=== PATIENT | female | born 1950 | race Caucasian/White ===

== ENCOUNTER 2017-07-03 10:33 | Emergency (ER) | payer MEDICARE, OTHER, MEDICAID ==
[2017-07-03] MEDS ORDERED: Sodium Chloride 0.9% 10 ML Syringe FLUSH PRN (11:40)
--- NOTE | 2017-07-03 11:41 | EDM.PDOC ---
ED HPI GENERAL MEDICAL PROBLEM - General Chief Complaint: Abdominal Pain Stated Complaint: Right side pain Time Seen by Provider: 07/03/17 11:30 Source of Information: Reports: Patient, RN Notes Reviewed History Limitations: Reports: No Limitations - History of Present Illness INITIAL COMMENTS - FREE TEXT/NARRATIVE: 66 year old female presents to the ED today with complaints of "right side ache " for the past 24 hours. She has had side aches for years. She came in today because the pain is severe and not getting better. The pain is on her right side. It radiates into her back and right flank. She has a poor appetite and nausea, but no vomiting. Last BM yesterday. No diarrhea. No fever or chills. No chest pain or SOB. She reports a history of a "benign tumor" to her abdomen that was removed in the . She states I'm not sure if they removed my appendix then or not." She still had her gallbladder. Patient is a poor historian. She was diagnosed with a UTI 1 week ago and was treated with Bactrim DS. She says her urinary symptoms have been improving. PMH includes DM, CHF, and CKD. Shes sees IM Dr. Head at [facility]. She also sees providers at in [place] and [place]. She recently lost her and doesn't drive so she depends on family members. right groin/lower abdomen Pain Score (Numeric/FACES): 5 - Related Data Allergies Allergy/AdvReac Type Severity Reaction Status Date / Time lisinopril Allergy Cough Verified 07/03/17 10:53 Home Meds: Home Meds Aspirin 81 mg PO DAILY 05/16/16 [History] Carvedilol [Coreg] 6.25 mg PO BID 05/16/16 [History] FLUoxetine [PROzac] 80 mg PO DAILY 05/16/16 [History] Insulin Aspart [NovoLOG] 0 unit SUBCUT TID 05/16/16 [History] Insulin Glargine,Hum.Rec.Anlog [Toujeo Solostar] 50 unit SQ BID 05/16/16 [ History] Losartan [Cozaar] 100 mg PO DAILY 05/16/16 [History] amLODIPine [Norvasc] 10 mg PO DAILY 05/16/16 [History] Furosemide [Lasix] 40 mg PO DAILY #30 tablet 05/20/16 [Rx] Magnesium Oxide 400 mg PO DAILY #30 tablet 05/20/16 [Rx] Docusate Sodium [Stool Softener] 100 mg PO DAILY 07/03/17 [History] Rosuvastatin [Crestor] 10 mg PO DAILY 07/03/17 [History] Sulfamethoxazole/Trimethoprim [Sulfamethoxazole-Tmp Ds Tablet] 1 each PO BID [History] Past Medical History HEENT History: Reports: Cataract, Impaired Vision Cardiovascular History: Reports: Angina, Heart Failure, High Cholesterol, Hypertension, [place], Pacemaker, SOB on Exertion, Stents Respiratory History: Reports: Sleep Apnea, SOB Gastrointestinal History: Reports: GERD, Other (See Below) Other Gastrointestinal History: abdominal pain, supposed to see primary on Friday Genitourinary History: Reports: 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: Musculoskeletal History: Reports: Arthritis Psychiatric History: Reports: Anxiety Endocrine/Metabolic History: Reports: Diabetes, Type II, Obesity/BMI 30+ Oncologic (Cancer) History: Reports: Other (See Below) Other Oncologic History: removed in - Past Surgical History HEENT Surgical History: Reports: Cataract Surgery, Other (See Below) Cardiovascular Surgical History: Reports: Coronary Artery Stent, Pacer GI Surgical History: Reports: Appendectomy, Other (See Below) Social & Family History - Family History Family Medical History: Noncontributory OBGYN: Reports: Musculoskeletal: Reports: Arthritis Psychiatric: Reports: Anxiety, Depression Endocrine/Metabolic: Reports: Diabetes, type II, Hypothyroidism - Tobacco Use Smoking Status *Q: Never Smoker Second Hand Smoke Exposure: No - Caffeine Use Caffeine Use: Reports: None - Recreational Drug Use Recreational Drug Use: No - Living Situation & Occupation Living situation: Reports: Occupation: Retired ED ROS GENERAL - Review of Systems Review Of Systems: See Below Constitutional: Reports: Malaise. Denies: Fever, Chills Respiratory: Reports: No Symptoms. Denies: Cough Cardiovascular: Reports: No Symptoms. Denies: Chest Pain, Lightheadedness GI/Abdominal: Reports: Abdominal Pain, Constipation, Decreased Appetite, Nausea. Denies: Bloody Stool, Diarrhea, Vomiting : Reports: No Symptoms ED EXAM, GI/ABD - Physical Exam Exam: See Below Exam Limited By: No Limitations General Appearance: Alert, No Apparent Distress, Obese Respiratory/Chest: No Respiratory Distress, Lungs Clear, Normal Breath Sounds, No Accessory Muscle Use Cardiovascular: Normal Peripheral Pulses, Regular Rate, Rhythm GI/Abdominal Exam: Normal Bowel Sounds, No Organomegaly, No Distention, Tender ( RLQ, Epigastric, and RUQ tenderness with negative ruiz's. Grimaces with palaption. ). No: Distended, Rigid, Rebound, Hernia Back Exam: Normal Inspection, Full Range of Motion. No: CVA Tenderness (L), CVA Tenderness (R) Neurological: Alert, Oriented, Normal Cognition Skin Exam: Warm, Dry, Intact Course - Vital Signs Last Recorded V/S: Last Vital Signs Temp 96.6 F 07/03/17 10:40 Pulse 75 07/03/17 10:40 Resp 22 H 07/03/17 10:40 BP 152/87 H 07/03/17 10:40 Pulse Ox 97 07/03/17 10:40 - Orders/Labs/Meds Orders: Active Orders 24 hr Category Date Time Status Peripheral IV Care [RC] . DIRECTED Care 07/03/17 11:40 Active Sodium Chloride 0.9% [Saline Flush] Med 07/03/17 11:40 Active 10 ml FLUSH ASDIRECTED PRN Peripheral IV Insertion Adult [OM.PC] Stat Oth 07/03/17 11:40 Ordered Medication Orders Sodium Chloride (Saline Flush) 10 ml FLUSH ASDIRECTED PRN PRN Reason: Keep Vein Open Last Admin: 07/03/17 11:54 Dose: 10 ml Labs: Laboratory Tests 07/03/17 07/03/17 07/03/17 Range/Units 10:50 11:55 11:55 WBC 13.87 H (3.98-10.04) K/mm3 RBC 4.52 (3.98-5.22) M/mm3 Hgb 12.4 (11.2-15.7) gm/L Hct 37.8 (34.1-44.9) % MCV 83.6 (79.4-94.8) fl MCH 27.4 (25.6-32.2) pg MCHC 32.8 (32.2-35.5) g/dl RDW Std Deviation 46.5 H (36.4-46.3) fL Plt Count 312 (182-369) K/mm3 MPV 9.4 (9.4-12.3) fl Neutrophils % (Manual) 77 H (40-60) % Band Neutrophils % 0 (0-10) % Lymphocytes % (Manual) 17 L (20-40) % Atypical Lymphs % 0 % Monocytes % (Manual) 3 (2-10) % Eosinophils % (Manual) 3 (0.7-5.8) % Basophils % (Manual) 0 L (0.1-1.2) Platelet Estimate Adequate RBC Morph Comment Normal Sodium 135 L (136-145) mEq/L Potassium 4.0 (3.5-5.1) mEq/L Chloride 100 (98-107) mEq/L Carbon Dioxide 23 (21-32) mEq/L Anion Gap 16.0 H (5-15) BUN 38 H (7-18) mg/dL Creatinine 2.3 H (0.55-1.02) mg/dL Est Cr Clr Drug Dosing 22.76 mL/min Estimated GFR (MDRD) 21 (>60) mL/min BUN/Creatinine Ratio 16.5 (14-18) Glucose 249 H (80-115) mg/dL Calcium 9.2 (8.5-10.1) mg/dL Total Bilirubin 0.6 (0.2-1.0) mg/dL GGT (5-55) U/L AST 35 (15-37) U/L ALT 92 H (14-59) U/L Alkaline Phosphatase 313 H (46-116) U/L C-Reactive Protein 5.6 H* (<1.0) mg/dL Total Protein 8.0 (6.4-8.2) g/dl Albumin 3.1 L (3.4-5.0) g/dl Globulin 4.9 gm/dL Albumin/Globulin Ratio 0.6 L (1-2) Lipase 109 (73-393) U/L Urine Color Yellow (Yellow) Urine Appearance Clear (Clear) Urine pH 6.0 (5.0-8.0) Ur Specific [place] 1.025 (1.005-1.030) Urine Protein 2+ H (Negative) Urine Glucose (UA) Negative (Negative) Urine Ketones Negative (Negative) Urine Occult Blood Trace-lysed H (Negative) Urine Nitrite Negative (Negative) Urine Bilirubin Negative (Negative) Urine Urobilinogen 1.0 (0.2-1.0) Ur Leukocyte Esterase 1+ H (Negative) Urine RBC 0-5 (0-5) /hpf Urine WBC 10-20 H (0-5) /hpf Ur Epithelial Cells 0-5 (0-5) /hpf Urine Bacteria Few (FEW) /hpf Urine Mucus Few (FEW) /hpf 07/03/ Range/Units 11:55 WBC (3.98-10.04) K/mm3 RBC (3.98-5.22) M/mm3 Hgb (11.2-15.7) gm/L Hct (34.1-44.9) % MCV (79.4-94.8) fl MCH (25.6-32.2) pg MCHC (32.2-35.5) g/dl RDW Std Deviation (36.4-46.3) fL Plt Count (182-369) K/mm3 MPV (9.4-12.3) fl Neutrophils % (Manual) (40-60) % Band Neutrophils % (0-10) % Lymphocytes % (Manual) (20-40) % Atypical Lymphs % % Monocytes % (Manual) (2-10) % Eosinophils % (Manual) (0.7-5.8) % Basophils % (Manual) (0.1-1.2) Platelet Estimate RBC Morph Comment Sodium (136-145) mEq/L Potassium (3.5-5.1) mEq/L Chloride (98-107) mEq/L Carbon Dioxide (21-32) mEq/L Anion Gap (5-15) BUN (7-18) mg/dL Creatinine (0.55-1.02) mg/dL Est Cr Clr Drug Dosing mL/min Estimated GFR (MDRD) (>60) mL/min BUN/Creatinine Ratio (14-18) Glucose (80-115) mg/dL Calcium (8.5-10.1) mg/dL Total Bilirubin (0.2-1.0) mg/dL GGT 310 H (5-55) U/L AST (15-37) U/L ALT (14-59) U/L Alkaline Phosphatase (46-116) U/L C-Reactive Protein (<1.0) mg/dL Total Protein (6.4-8.2) g/dl Albumin (3.4-5.0) g/dl Globulin gm/dL Albumin/Globulin Ratio (1-2) Lipase (73-393) U/L Urine Color (Yellow) Urine Appearance (Clear) Urine pH (5.0-8.0) Ur Specific [place] (1.005-1.030) Urine Protein (Negative) Urine Glucose (UA) (Negative) Urine Ketones (Negative) Urine Occult Blood (Negative) Urine Nitrite (Negative) Urine Bilirubin (Negative) Urine Urobilinogen (0.2-1.0) Ur Leukocyte Esterase (Negative) Urine RBC (0-5) /hpf Urine WBC (0-5) /hpf Ur Epithelial Cells (0-5) /hpf Urine Bacteria (FEW) /hpf Urine Mucus (FEW) /hpf Meds: Medications Generic Name Dose Route Start Last Admin Trade Name Freq PRN Reason Stop Dose Admin Sodium Chloride 10 ml 07/03/17 11:40 07/03/17 11:54 Saline Flush FLUSH 10 ml ASDIRECTED PRN Administration Keep Vein Open Discontinued Medications Generic Name Dose Route Start Last Admin Trade Name Freq PRN Reason Stop Dose Admin Diatrizoate Meglum/Diatrizoate Sod 90 ml 07/03/17 12:40 07/03/17 13:13 Gastrografin 37% PO 07/03/17 12:41 90 ml ONETIME ONE Administration Fentanyl 50 mcg 07/03/17 12:59 07/03/17 13:39 Sublimaze IVPUSH 07/03/17 13:00 50 mcg ONETIME ONE Administration - Re-Assessments/Exams Free Text/Narrative Re-Assessment/Exam: Obtained records from [facility]. UA was positive. UC reveals sensitivity to bactrim DS. CT of abdomen/pelvis with oral contrast obtained. Read by Dr. Joya. Impression : 1. increased density within the gallbladder compatible with gallstones. 2. other incidental findings Last CMP on 02/13/17 obtained from [facility] at which time her liver function and bilirubin levels were normal. Today her ALT and alk phos are elevated but bilirubin is normal. GGT was obtained which is also elevated raising concern for obstructive gallstone with possibility of early ascending cholangitis. Planned to obtain an MRI ERCP, however we are unable since the patient has a pacemaker. Kidney function on 02/13/17 was creatinine 1.9 and BUN 60. Today her renal function is creatinine 2.3 and BUN 38. WBC is elevated at 13,000 with no bandemia. Patient is non-toxic appearing with no fever, tachycardia or hypotension. Called [facility] and spoke to General Surgeon Dr. Sue who has accepted care of the patient. She will be transferred via [facility]. Departure - Departure Time of Disposition: 15:01 Disposition: DC/Tfer to Acute Hospital 02 Condition: Fair Clinical Impression: Elevated liver enzymes, Elevated serum GGT level Abdominal pain Qualifiers: Abdominal location: unspecified location Qualified Code(s): R10.9 - Unspecified abdominal pain - Discharge Information Referrals: PCP,Not In Area [Primary Care Provider] - Forms: ED Department Discharge - My Orders Last 24 Hours: My Active Orders 07/03/17 11:40 Peripheral IV Care [RC] . DIRECTED Sodium Chloride 0.9% [Saline Flush] 10 ml FLUSH ASDIRECTED PRN Peripheral IV Insertion Adult [OM.PC] Stat - Assessment/Plan Last 24 Hours: My Active Orders 07/03/17 11:40 Peripheral IV Care [RC] . DIRECTED Sodium Chloride 0.9% [Saline Flush] 10 ml FLUSH ASDIRECTED PRN Peripheral IV Insertion Adult [OM.PC] Stat
[2017-07-03] MEDS ORDERED: Diatrizoate Meglumine/Diatrizoate Sodium 37% 120 ML Bottle PO ONE (12:40)
[2017-07-03] MEDS ORDERED: fentaNYL 100 MCG/2 ML SDV IVPUSH ONE ×2 (12:59→14:56)
--- NOTE | 2017-07-03 13:39 | CT ---
CT abdomen and pelvis Technique: Multiple axial sections were obtained from above the dome of the diaphragm inferiorly through the pubic symphysis. Intravenous and oral contrast was utilized. Comparison: No prior abdominal imaging. Findings: Small portion of the visualized lung bases shows nothing acute. Small amount of extrapleural fat is noted on the left side which is incidental. Liver shows no focal abnormality. There is mild increased density within the gallbladder believed to represent gallstones. Small hiatal hernia is seen. Spleen appears within normal limits. Adrenal glands show no nodule. Kidneys show no hydronephrosis. Low-density area is noted within the upper right kidney measuring about 1.4 cm which is felt compatible with an incidental cyst. Pancreas appears within normal limits. Aorta and iliac vessels shows atherosclerotic change without aneurysmal dilatation. No retroperitoneal adenopathy or mesenteric abnormalities are seen. No pelvic mass or adenopathy is identified. Appendix not visualized with certainty. No inflammatory change or free fluid is seen. Scattered diverticuli are seen within the descending and sigmoid regions of the colon with no findings of diverticulitis. Bone window settings were reviewed showing scattered degenerative change throughout the spine. Mild anterior wedging of the superior endplate of L2 is seen which is likely old. Impression: 1. Increased density within the gallbladder compatible with gallstones. 2. Other incidental findings as noted above. Nothing acute is appreciated on CT study of the abdomen and pelvis. Diagnostic code #2
[2017-07-03] MEDS ORDERED: Sodium Chloride 0.9% 1,000 ML IV ONE (14:44)
[2017-07-03 14:51] VITALS: BP 138/66
== END 2017-07-03 15:15 ==
LOC: JD.ED 10:33
DX: R10.31 Right lower quadrant pain (principal); R74.8 Abnormal levels of other serum enzymes; E78.00 Pure hypercholesterolemia, unspecified; K21.9 Gastro-esophageal reflux disease without esophagitis; I13.0 Hypertensive heart and chronic kidney disease with heart failure and stage 1 through stage 4 chronic kidney disease, or unspecified chronic kidney disease; E11.22 Type 2 diabetes mellitus with diabetic chronic kidney disease; N18.9 Chronic kidney disease, unspecified; Z79.4 Long term (current) use of insulin; Z79.899 Other long term (current) drug therapy; Z79.82 Long term (current) use of aspirin; Z88.8 Allergy status to other drugs, medicaments and biological substances
CPT/HCPCS: 36415; 74176; 80053; 81001; 82977; 83690; 85025; 86140; 96374; 96376; 99285; J3010; J7040; J7050; Q9963; 99284

== ENCOUNTER 2017-09-22 08:05 | Emergency (ER) | payer MEDICARE, OTHER, MEDICAID ==
[2017-09-22] MEDS ORDERED: Furosemide 40 MG Tab PO ONE (08:30)
[2017-09-22] MEDS ORDERED: amLODIPine 5 MG Tab PO ONE (08:30)
[2017-09-22] MEDS ORDERED: Carvedilol 12.5 MG Tab PO ONE (08:31)
[2017-09-22 08:38] VITALS: BP 162/83
--- NOTE | 2017-09-22 09:15 | EDM.PDOC ---
ED HPI GENERAL MEDICAL PROBLEM - General Chief Complaint: ENT Problem Stated Complaint: [facility] Time Seen by Provider: 09/22/17 08:19 Source of Information: Reports: Patient, RN Notes Reviewed - History of Present Illness INITIAL COMMENTS - FREE TEXT/NARRATIVE: 58-year-old female comes in with nosebleed. She had bleeding from the left side 2 days ago, yesterday and then twice this morning. Bleeding actually stopped on arrival to ED but she states the bleeding was quite heavy this morning, unable to get that stopped at home. She actually did come in by [facility]. She does take aspirin. She also does take several meds for hypertension. She has not taken any of her meds yet this morning. - Related Data Allergies Allergy/AdvReac Type Severity Reaction Status Date / Time lisinopril Allergy Cough Verified 09/22/17 08:20 Home Meds: Home Meds Aspirin 81 mg PO DAILY 05/16/16 [History] Carvedilol [Coreg] 12.5 mg PO BID 05/16/16 [History] FLUoxetine [PROzac] 80 mg PO DAILY 05/16/16 [History] Insulin Aspart [NovoLOG] 0 unit SUBCUT TID 05/16/16 [History] Insulin Glargine,Hum.Rec.Anlog [Toujeo Solostar] 50 unit SQ BID 05/16/16 [ History] amLODIPine [Norvasc] 10 mg PO DAILY 05/16/16 [History] Furosemide [Lasix] 40 mg PO DAILY #30 tablet 05/20/16 [Rx] Magnesium Oxide 400 mg PO DAILY #30 tablet 05/20/16 [Rx] Docusate Sodium [Stool Softener] 100 mg PO DAILY 07/03/17 [History] Rosuvastatin [Crestor] 10 mg PO DAILY 07/03/17 [History] Nitroglycerin [Nitrostat] 0.4 mg SL ASDIRECTED 09/22/17 [History] Past Medical History HEENT History: Reports: Cataract, Epistaxis, Impaired Vision Cardiovascular History: Reports: Angina, Heart Failure, High Cholesterol, Hypertension, [place], Pacemaker, SOB on Exertion, Stents Respiratory History: Reports: Sleep Apnea, SOB Gastrointestinal History: Reports: GERD, Other (See Below) Other Gastrointestinal History: abdominal pain, supposed to see primary on Friday Genitourinary History: Reports: Acute Renal Failure [employer]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: Musculoskeletal History: Reports: Arthritis Psychiatric History: Reports: Anxiety Endocrine/Metabolic History: Reports: Diabetes, Type II, Obesity/BMI 30+ Oncologic (Cancer) History: Reports: Other (See Below) Other Oncologic History: removed in - Past Surgical History HEENT Surgical History: Reports: Cataract Surgery, Other (See Below) Cardiovascular Surgical History: Reports: Coronary Artery Stent, Pacer GI Surgical History: Reports: Appendectomy, Other (See Below) Social & Family History - Family History Family Medical History: Noncontributory OBGYN: Reports: Musculoskeletal: Reports: Arthritis Psychiatric: Reports: Anxiety, Depression Endocrine/Metabolic: Reports: Diabetes, type II, Hypothyroidism - Tobacco Use Smoking Status *Q: Never Smoker Second Hand Smoke Exposure: No - Caffeine Use Caffeine Use: Reports: None - Recreational Drug Use Recreational Drug Use: No - Living Situation & Occupation Living situation: Reports: Occupation: Retired ED ROS ENT - Review of Systems Review Of Systems: See Below Constitutional: Reports: No Symptoms HEENT: Reports: Nosebleed Respiratory: Denies: Shortness of Breath, Pleuritic Chest Pain Cardiovascular: Denies: Chest Pain GI/Abdominal: Denies: Abdominal Pain, Nausea, Vomiting Musculoskeletal: Reports: No Symptoms Skin: Reports: No Symptoms Neurological: Reports: No Symptoms ED EXAM, ENT - Physical Exam Exam: See Below General Appearance: Alert, No Apparent Distress Eye Exam: Bilateral Eye: PERRL Nose: Dried Blood (Left nares) Mouth/Throat: Normal Inspection Head: Atraumatic Neck: Supple Respiratory/Chest: No Respiratory Distress, Lungs Clear, Normal Breath Sounds Cardiovascular: Regular Rate, Rhythm GI/Abdominal: Soft, Non-Tender Extremities: Normal Inspection, Normal Range of Motion Neurological: Alert, Oriented, No Motor/Sensory Deficits Skin: Warm, Dry, Normal Color ED ENT PROCEDURES - Epistaxis Procedure Indication: Epistaxis Recent anticoagulants/antiplatlets: Yes Uncontrolled HTN: No Site of bleeding: Left Nare, Anterior Topical Meds: Topical Cocaine Chemical cautery: Silver Nitrate Topical, Other (No further bleeding) Course - Vital Signs Last Recorded V/S: Last Vital Signs Temp 96.8 F 09/22/17 08:12 Pulse 65 09/22/17 08:12 Resp 18 09/22/17 08:12 BP 162/83 H 09/22/17 08:42 Pulse Ox 93 L 09/22/17 08:12 - Orders/Labs/Meds Labs: Laboratory Tests 09/22/17 Range/Units 10:33 POC Glucose 252 H (80-115) mg/dL Meds: Medications Discontinued Medications Generic Name Dose Route Start Last Admin Trade Name Pranay PRN Reason Stop Dose Admin Amlodipine Besylate 10 mg 09/22/17 08:30 09/22/17 08:37 Norvasc PO 09/22/17 08:31 10 mg ONETIME ONE Administration Carvedilol 12.5 mg 09/22/17 08:31 09/22/17 08:42 Coreg PO 09/22/17 08:32 12.5 mg ONETIME ONE Administration Cocaine HCl 4 ml 09/22/17 08:32 09/22/17 08:37 Cocaine Hcl TOP 09/22/17 08:33 4 ml ONETIME ONE Administration Furosemide 40 mg 09/22/17 08:30 09/22/17 08:37 Lasix PO 09/22/17 08:31 40 mg ONETIME ONE Administration Insulin Human Regular 6 unit 09/22/17 10:40 09/22/17 10:50 Humulin R SUBCUT 09/22/17 10:41 6 units ONETIME ONE Administration Protocol - Re-Assessments/Exams Free Text/Narrative Re-Assessment/Exam: 09/22/17 16:02. We did use cocaine solution for vasoconstriction and topical anesthesia. The area of bleeding mid left septum was cauterized with silver nitrate. Her normal blood pressure medicines also were given shortly after arrival. Discharge instructions as documented Departure - Departure Time of Disposition: 11:06 Disposition: Home, Self-Care 01 Condition: Fair Clinical Impression: Epistaxis - Discharge Information Instructions: Nosebleed, Adult, [id number] Referrals: Brendon Coon MD [Primary Care Provider] - Forms: ED Department Discharge Additional Instructions: Vaseline to distal nose 2-3 times daily for moisturization, avoid taking aspirin for the next 5 days, try not to blow nose for at least 3-4 days to give that some healing time, pressure if needed for any further bleeding, follow-up clinic as needed, return to ED as needed
[2017-09-22] MEDS ORDERED: Insulin Regular, Human 100 Units/ML 3 ML Vial SUBCUT ONE (10:40)
== END 2017-09-22 12:10 | disposition home or self-care (01) ==
LOC: JD.ED 08:05
DX: R04.0 Epistaxis (principal); I11.0 Hypertensive heart disease with heart failure; I50.9 Heart failure, unspecified; E78.00 Pure hypercholesterolemia, unspecified; K21.9 Gastro-esophageal reflux disease without esophagitis; E11.9 Type 2 diabetes mellitus without complications; Z95.5 Presence of coronary angioplasty implant and graft; Z95.0 Presence of cardiac pacemaker; Z79.4 Long term (current) use of insulin; Z79.82 Long term (current) use of aspirin; Z79.899 Other long term (current) drug therapy; Z88.8 Allergy status to other drugs, medicaments and biological substances
CPT/HCPCS: 30901; 82962; 99284; A9270; J1817; 99282

== ENCOUNTER 2017-12-16 00:45 | Inpatient (IN) | payer MEDICARE, OTHER, MEDICAID ==
[2017-12-16] MEDS ORDERED: Sodium Chloride 0.9% 10 ML Syringe FLUSH PRN (01:05)
[2017-12-16] MEDS ORDERED: Azithromycin 250 MG Tab PO ONE (01:19)
[2017-12-16] MEDS ORDERED: cefTRIAXone 2 GM in Sodium Chloride 0.9% 100 ML IV ONE (01:21)
--- NOTE | 2017-12-16 01:25 | EDM.PDOC ---
ED HPI GENERAL MEDICAL PROBLEM - General Chief Complaint: Respiratory Problem Stated Complaint: POSS PNEUMONIA Time Seen by Provider: 12/16/17 01:04 Source of Information: Reports: Patient History Limitations: Reports: No Limitations - History of Present Illness INITIAL COMMENTS - FREE TEXT/NARRATIVE: 67 y/o F with hx insulin-dependent diabetes, HTN, CAD, presents with cough and difficulty breathing. Symptoms started about 4 days ago. Gradual onset. Worsening. She has a productive cough. Feeling SOB now. No chest pain. No known fever. She's also had a hoarse voice. Complains of bilat green eye discharge. Mild nasal congestion. No vomiting/diarrhea/abd pain. No lower extremity swelling or pain. Was feeling more SOB this evening so had a neighbor bring her here for evaluation. She is not on home O2. Denies underlying history of pulmonary disease. - Related Data Allergies Allergy/AdvReac Type Severity Reaction Status Date / Time lisinopril AdvReac Cough Verified 12/16/17 01:00 Home Meds: Home Meds Aspirin 81 mg PO DAILY 05/16/16 [History] Carvedilol [Coreg] 12.5 mg PO BID 05/16/16 [History] FLUoxetine [PROzac] 40 mg PO DAILY 05/16/16 [History] Insulin Aspart [NovoLOG] 0 unit SUBCUT TID 05/16/16 [History] Insulin Glargine,Hum.Rec.Anlog [Toujeo Solostar] 50 unit SQ BID 05/16/16 [ History] amLODIPine [Norvasc] 10 mg PO DAILY 05/16/16 [History] Furosemide [Lasix] 40 mg PO DAILY #30 tablet 05/20/16 [Rx] Docusate Sodium [Stool Softener] 100 mg PO DAILY 07/03/17 [History] Nitroglycerin [Nitrostat] 0.4 mg SL ASDIRECTED 09/22/17 [History] Metoclopramide HCl 10 mg PO BEDTIME 12/16/17 [History] Zolpidem [Ambien] 10 mg PO DAILY 12/16/17 [History] Past Medical History HEENT History: Reports: Cataract, Epistaxis, Impaired Vision Cardiovascular History: Reports: Angina, Heart Failure, High Cholesterol, Hypertension, [place], Pacemaker, SOB on Exertion, Stents Respiratory History: Reports: Sleep Apnea, SOB Gastrointestinal History: Reports: GERD Other Gastrointestinal History: abdominal pain, supposed to see primary on Friday Genitourinary History: Reports: Acute Renal Failure [employer] History: Reports: Musculoskeletal History: Reports: Arthritis Psychiatric History: Reports: Anxiety Endocrine/Metabolic History: Reports: Diabetes, Type II, Obesity/BMI 30+ Oncologic (Cancer) History: Reports: Other (See Below) Other Oncologic History: removed in - Past Surgical History HEENT Surgical History: Reports: Cataract Surgery, Other (See Below) Cardiovascular Surgical History: Reports: Coronary Artery Stent, Pacer GI Surgical History: Reports: Appendectomy, Other (See Below) Social & Family History - Family History Family Medical History: Noncontributory OBGYN: Reports: Musculoskeletal: Reports: Arthritis Psychiatric: Reports: Anxiety, Depression Endocrine/Metabolic: Reports: Diabetes, type II, Hypothyroidism - Tobacco Use Smoking Status *Q: Never Smoker Second Hand Smoke Exposure: Yes - Caffeine Use Caffeine Use: Reports: None - Recreational Drug Use Recreational Drug Use: No - Living Situation & Occupation Living situation: Reports: Occupation: Retired ED ROS GENERAL - Review of Systems Review Of Systems: See Below Constitutional: Denies: Fever HEENT: Reports: No Symptoms Respiratory: Reports: Shortness of Breath, Cough, Sputum Cardiovascular: Denies: Chest Pain Endocrine: Reports: No Symptoms GI/Abdominal: Denies: Abdominal Pain, Vomiting Musculoskeletal: Reports: No Symptoms Skin: Reports: No Symptoms Neurological: Reports: No Symptoms Psychiatric: Reports: No Symptoms Hematologic/Lymphatic: Reports: No Symptoms Immunologic: Reports: No Symptoms ED EXAM, GENERAL - Physical Exam Exam: See Below Exam Limited By: No Limitations General Appearance: Alert, WD/WN, Mild Distress Eye Exam: Bilateral Eye: Normal Inspection Ears: Normal External Exam Nose: Normal Inspection, No Blood Throat/Mouth: Normal Inspection, Normal Oropharynx, Normal Voice, No Airway Compromise Head: Atraumatic, Normocephalic Neck: Normal Inspection, Supple, Non-Tender, Full Range of Motion Respiratory/Chest: Chest Non-Tender, Crackles (at the R base ), Other (mild tachypnea). No: Wheezing, Accessory Muscle Use Cardiovascular: Normal Peripheral Pulses, Regular Rate, Rhythm, No Edema, No Murmur GI/Abdominal: Soft, Non-Tender, No Distention Back Exam: Normal Inspection Extremities: Normal Inspection, Non-Tender. No: Pedal Edema Neurological: Alert, Oriented, Normal Cognition, No Motor/Sensory Deficits Psychiatric: Normal Affect, Normal Mood Skin Exam: Warm, Dry, Intact, Normal Color, No Rash Course - Vital Signs Last Recorded V/S: Last Vital Signs Temp 36.8 C 12/16/17 03:29 Pulse 72 12/16/17 03:29 Resp 22 H 12/16/17 03:29 BP 132/65 12/16/17 03:29 Pulse Ox 96 12/16/17 03:29 - Orders/Labs/Meds Orders: Active Orders 24 hr Category Date Time Status Accu Check [Blood Glucose Check, Bedside] [RC] Care 12/16/17 02:50 Active QIDACANDBED Ambulate [RC] DAILY Care 12/16/17 02:44 Active Height and Weight [RC] 04 Care 12/16/17 02:44 Active Incentive Spirometry [RT Incentive Spirometry] [RC] Care 12/16/17 02:50 Active ASDIRECTED Intake and Output [RC] 04,16 Care 12/16/17 02:44 Active Oxygen Therapy [RC] PRN Care 12/16/17 02:44 Active Peripheral IV Care [RC] Q2HR Care 12/16/17 01:04 Active Pulse Oximetry [RC] PRN Care 12/16/17 02:44 Active RT Aerosol Therapy [RC] ASDIRECTED Care 12/16/17 02:48 Active Up ad Dione [RC] ASDIRECTED Care 12/16/17 02:44 Active VTE/DVT Education [RC] BID Care 12/16/17 02:44 Active Vital Signs [RC] 00,04,08,12,16,20 Care 12/16/17 02:44 Active Consult to Spiritual Care [CONS] Routine Cons 12/16/17 02:48 Active OT Evaluation and Treatment [CONS] Routine Cons 12/16/17 02:48 Active PT Evaluation and Treatment [CONS] Routine Cons 12/16/17 02:48 Active Respiratory Care Assess and Treatment [CONS] Routine Cons 12/16/17 02:48 Active 2 Gram Sodium Diet [DIET] Diet 12/16/17 Breakfast Active Consistent Carbohydrate Diet [DIET] Diet 12/16/17 Breakfast Active Heart Healthy Diet [DIET] Diet 12/16/17 Breakfast Active CXR [Chest 1V Frontal] [CR] Routine Exams 12/17/17 07:00 Ordered Chest 1V Frontal [CR] Stat Exams 12/16/17 01:04 Taken Echo Comp wo Cont [US] Stat Exams 12/16/17 07:00 Ordered BASIC METABOLIC PANEL,BMP [CHEM] AM Lab 12/16/17 05:41 Received BASIC METABOLIC PANEL,BMP [CHEM] AM Lab 12/17/17 05:11 Ordered BASIC METABOLIC PANEL,BMP [CHEM] AM Lab 12/18/17 05:11 Ordered BASIC METABOLIC PANEL,BMP [CHEM] AM Lab 12/19/17 05:11 Ordered BASIC METABOLIC PANEL,BMP [CHEM] AM Lab 12/20/17 05:11 Ordered BASIC METABOLIC PANEL,BMP [CHEM] AM Lab 12/21/17 05:11 Ordered C-REACTIVE PROTEIN [CHEM] AM Lab 12/16/17 05:41 Received C-REACTIVE PROTEIN [CHEM] AM Lab 12/17/17 05:11 Ordered C-REACTIVE PROTEIN [CHEM] AM Lab 12/18/17 05:11 Ordered C-REACTIVE PROTEIN [CHEM] AM Lab 12/19/17 05:11 Ordered C-REACTIVE PROTEIN [CHEM] AM Lab 12/20/17 05:11 Ordered C-REACTIVE PROTEIN [CHEM] AM Lab 12/21/17 05:11 Ordered CBC WITH AUTO DIFF [HEME] AM Lab 12/16/17 05:41 Results CBC WITH AUTO DIFF [HEME] AM Lab 12/17/17 05:11 Ordered CBC WITH AUTO DIFF [HEME] AM Lab 12/18/17 05:11 Ordered CBC WITH AUTO DIFF [HEME] AM Lab 12/19/17 05:11 Ordered CBC WITH AUTO DIFF [HEME] AM Lab 12/20/17 05:11 Ordered CULTURE BLOOD [BC] Stat Lab 12/16/17 01:35 Received CULTURE BLOOD [BC] Stat Lab 12/16/17 01:40 Received CULTURE SPUTUM + SMEAR [RM] Stat Lab 12/16/17 02:48 Ordered MAGNESIUM [CHEM] AM Lab 12/16/17 05:41 Received MAGNESIUM [CHEM] AM Lab 12/17/17 05:11 Ordered MAGNESIUM [CHEM] AM Lab 12/18/17 05:11 Ordered MAGNESIUM [CHEM] AM Lab 12/19/17 05:11 Ordered MAGNESIUM [CHEM] AM Lab 12/20/17 05:11 Ordered MAGNESIUM [CHEM] AM Lab 12/21/17 05:11 Ordered STREP PNEUMONIAE ANTIGEN [MREF] Stat Lab 12/16/17 02:52 Ordered Acetaminophen [Tylenol] Med 12/16/17 02:44 Active 650 mg PO Q4H PRN Acetaminophen/HYDROcodone [Powell 325-5 MG] Med 12/16/17 02:44 Active 1 tab PO Q4H PRN Albuterol/Ipratropium [DuoNeb 3.0-0.5 MG/3 ML] Med 12/16/17 02:46 Active 3 ml NEB Q4H PRN Aspirin Med 12/16/17 09:00 Active 81 mg PO DAILY Azithromycin [Zithromax] Med 12/16/17 09:00 Pending 500 mg IV Q24H Bisacodyl [Dulcolax] Med 12/16/17 02:46 Active 5 mg PO DAILY PRN Bumetanide [Bumex] Med 12/16/17 09:00 Pending 0.5 mg IVPUSH BID Carvedilol [Coreg] Med 12/16/17 09:00 Active 12.5 mg PO BID Docusate Sodium [Colace] Med 12/16/17 09:00 Active 100 mg PO DAILY Docusate Sodium/Sennosides [Senna Plus] Med 12/16/17 02:46 Active 1 tab PO BID PRN FLUoxetine [PROzac] Med 12/16/17 09:00 Active 40 mg PO DAILY Heparin Sodium Med 12/16/17 06:00 Active 5,000 units SUBCUT Q8H Hydrochlorothiazide Med 12/16/17 06:00 Active 12.5 mg PO BIDDIURETIC Insulin Aspart [NovoLOG] Med 12/16/17 07:00 Active See Protocol SUBCUT QIDACANDBED Insulin Detemir [Levemir] Med 12/16/17 09:00 Active 50 unit SUBCUT BID LORazepam [Ativan] Med 12/16/17 02:46 Active 1 mg IV Q6H PRN LORazepam [Ativan] Med 12/16/17 02:42 Active 2 mg IVPUSH Q4H PRN Magnesium Rep Pharmacy to Dose [Pharmacy to Dose - Med 12/16/17 02:45 Pending Magnesium Replacement] 1 dose .XX ASDIRECTED Metoclopramide [Reglan] Med 12/16/17 21:00 Active 10 mg PO BEDTIME Metoprolol Tartrate [Lopressor] Med 12/16/17 02:42 Active 5 mg IVPUSH Q4H PRN Morphine Med 12/16/17 02:44 Active 2 mg IVPUSH Q4H PRN Nitroglycerin [Nitrostat] Med 12/16/17 02:45 Active 0.4 mg SL ASDIRECTED PRN Ondansetron [Zofran] Med 12/16/17 02:46 Active 4 mg IV Q6H PRN Polyethylene Glycol 3350 [MiraLAX] Med 12/16/17 02:46 Active 17 gm PO DAILY PRN Potassium Rep Pharmacy to Dose [Pharmacy to Dose - Med 12/16/17 02:45 Pending Potassium Replacement] 1 dose .XX ASDIRECTED Promethazine [Phenergan] 12.5 mg Med 12/16/17 02:46 Active Sodium Chloride 0.9% [Normal Saline] 50 ml IV Q6H Saccharomyces Boulardii [Florastor] Med 12/16/17 09:00 Active 250 mg PO DAILY Sodium Chloride 0.9% [Saline Flush] Med 12/16/17 01:05 Active 10 ml FLUSH ASDIRECTED PRN Zolpidem [Ambien] Med 12/16/17 21:00 Active 10 mg PO BEDTIME amLODIPine [Norvasc] Med 12/16/17 09:00 Active 10 mg PO DAILY cefTRIAXone [Rocephin] 1 gm Med 12/17/17 00:00 Active Sodium Chloride 0.9% [Normal Saline] 100 ml IV Q24H hydrALAZINE [Apresoline] Med 12/16/17 02:42 Active 20 mg IVPUSH Q4H PRN Blood Culture x2 Reflex Set [OM.PC] Stat Oth 12/16/17 01:04 Ordered Peripheral IV Insertion Adult [OM.PC] Routine Oth 12/16/17 01:04 Ordered Medication Orders Acetaminophen (Tylenol) 650 mg PO Q4H PRN PRN Reason: Pain (Mild 1-3)/fever Hydrocodone Bitart/Acetaminophen (Powell 325-5 Mg) 1 tab PO Q4H PRN PRN Reason: Pain (moderate 4-6) Albuterol/Ipratropium (Duoneb 3.0-0.5 Mg/3 Ml) 3 ml NEB Q4H PRN PRN Reason: Shortness Of Breath/wheezing Amlodipine Besylate (Norvasc) 10 mg PO DAILY [facility] Aspirin (Aspirin) 81 mg PO DAILY [facility] Azithromycin (Zithromax) 500 mg IV Q24H [facility] Bisacodyl (Dulcolax) 5 mg PO DAILY PRN PRN Reason: Constipation Bumetanide (Bumex) 0.5 mg IVPUSH BID [facility] Carvedilol (Coreg) 12.5 mg PO BID [facility] Docusate Sodium (Colace) 100 mg PO DAILY [facility] Fluoxetine HCl (Prozac) 40 mg PO DAILY [facility] Heparin Sodium (Porcine) (Heparin Sodium) 5,000 units SUBCUT Q8H [facility] Last Admin: 12/16/17 05:29 Dose: 5,000 units Hydralazine HCl (Apresoline) 20 mg IVPUSH Q4H PRN PRN Reason: Hypertension Hydrochlorothiazide (Hydrochlorothiazide) 12.5 mg PO BIDDIURETIC [facility] Last Admin: 12/16/17 05:26 Dose: 12.5 mg Promethazine HCl 12.5 mg/ (Sodium Chloride) 50.5 mls @ 100 mls/hr IV Q6H PRN PRN Reason: Nausea/Vomiting Ceftriaxone Sodium 1 gm/ (Sodium Chloride) 100 mls @ 200 mls/hr IV Q24H [facility] Insulin Aspart (Novolog) 0 unit SUBCUT QIDACANDBED [facility]; Protocol Insulin Detemir (Levemir) 50 unit SUBCUT BID [facility] Lorazepam (Ativan) 2 mg IVPUSH Q4H PRN PRN Reason: Seizures Lorazepam (Ativan) 1 mg IV Q6H PRN PRN Reason: Anxiety Magnesium Sulfate (Pharmacy To Dose - Magnesium Replacement) 1 dose .XX ASDIRECTED [facility] Metoclopramide HCl (Reglan) 10 mg PO BEDTIME [facility] Metoprolol Tartrate (Lopressor) 5 mg IVPUSH Q4H PRN PRN Reason: Tachycardia Morphine Sulfate (Morphine) 2 mg IVPUSH Q4H PRN PRN Reason: Other Stop: 12/22/17 02:46 Nitroglycerin (Nitrostat) 0.4 mg SL ASDIRECTED PRN PRN Reason: chest pain Ondansetron HCl (Zofran) 4 mg IV Q6H PRN PRN Reason: Nausea/Vomiting Polyethylene Glycol (Miralax) 17 gm PO DAILY PRN PRN Reason: Constipation Potassium Chloride (Pharmacy To Dose - Potassium Replacement) 1 dose .XX ASDIRECTED [facility] Saccharomyces Boulardii (Florastor) 250 mg PO DAILY [facility] Senna/Docusate Sodium (Senna Plus) 1 tab PO BID PRN PRN Reason: Constipation Sodium Chloride (Saline Flush) 10 ml FLUSH ASDIRECTED PRN PRN Reason: Keep Vein Open Last Admin: 12/16/17 01:37 Dose: 10 ml Zolpidem Tartrate (Ambien) 10 mg PO BEDTIME [facility] Labs: Laboratory Tests 12/16/17 12/16/17 12/16/17 Range/Units 01:35 01:35 01:35 WBC 15.86 H (3.98-10.04) K/mm3 RBC 4.31 (3.98-5.22) M/mm3 Hgb 11.0 L (11.2-15.7) gm/L Hct 34.4 (34.1-44.9) % MCV 79.8 (79.4-94.8) fl MCH 25.5 L (25.6-32.2) pg MCHC 32.0 L (32.2-35.5) g/dl RDW Std Deviation 48.0 H (36.4-46.3) fL Plt Count 288 (182-369) K/mm3 MPV 8.9 L (9.4-12.3) fl Neut % (Auto) 73.0 H (34.0-71.1) % Lymph % (Auto) 14.0 L (19.3-51.7) % [place] % (Auto) 11.2 (4.7-12.5) % Eos % (Auto) 1.2 (0.7-5.8) Baso % (Auto) 0.2 (0.1-1.2) % Neut # (Auto) 11.58 H (1.56-6.13) K/mm3 Lymph # (Auto) 2.22 (1.18-3.74) K/mm3 [place] # (Auto) 1.77 H (0.24-0.36) K/mm3 Eos # (Auto) 0.19 (0.04-0.36) K/mm3 Baso # (Auto) 0.03 (0.01-0.08) K/mm3 Manual Slide Review Normal smear Sodium 133 L (136-145) mEq/L Potassium 4.2 (3.5-5.1) mEq/L Chloride 101 (98-107) mEq/L Carbon Dioxide 22 (21-32) mEq/L Anion Gap 14.2 (5-15) BUN 52 H (7-18) mg/dL Creatinine 2.1 H (0.55-1.02) mg/dL Est Cr Clr Drug Dosing 24.59 mL/min Estimated GFR (MDRD) 23 (>60) mL/min BUN/Creatinine Ratio 24.8 H (14-18) Glucose 188 H (80-115) mg/dL Lactic Acid 0.8 (0.4-2.0) mmol/L Calcium 8.4 L (8.5-10.1) mg/dL Magnesium 2.1 (1.8-2.4) mg/dl Total Bilirubin 0.5 (0.2-1.0) mg/dL AST 28 (15-37) U/L ALT 33 (14-59) U/L Alkaline Phosphatase 112 (46-116) U/L Troponin I < 0.017 (0.00-0.056) ng/mL NT-Pro-B Natriuret Pep (0-125) pg/mL Total Protein 7.5 (6.4-8.2) g/dl Albumin 2.8 L (3.4-5.0) g/dl Globulin 4.7 gm/dL Albumin/Globulin Ratio 0.6 L (1-2) Mycoplasma pneumon IgM (NEGATIVE) 12/16/17 12/16/17 Range/Units 01:35 01:35 WBC (3.98-10.04) K/mm3 RBC (3.98-5.22) M/mm3 Hgb (11.2-15.7) gm/L Hct (34.1-44.9) % MCV (79.4-94.8) fl MCH (25.6-32.2) pg MCHC (32.2-35.5) g/dl RDW Std Deviation (36.4-46.3) fL Plt Count (182-369) K/mm3 MPV (9.4-12.3) fl Neut % (Auto) (34.0-71.1) % Lymph % (Auto) (19.3-51.7) % [place] % (Auto) (4.7-12.5) % Eos % (Auto) (0.7-5.8) Baso % (Auto) (0.1-1.2) % Neut # (Auto) (1.56-6.13) K/mm3 Lymph # (Auto) (1.18-3.74) K/mm3 [place] # (Auto) (0.24-0.36) K/mm3 Eos # (Auto) (0.04-0.36) K/mm3 Baso # (Auto) (0.01-0.08) K/mm3 Manual Slide Review Sodium (136-145) mEq/L Potassium (3.5-5.1) mEq/L Chloride (98-107) mEq/L Carbon Dioxide (21-32) mEq/L Anion Gap (5-15) BUN (7-18) mg/dL Creatinine (0.55-1.02) mg/dL Est Cr Clr Drug Dosing mL/min Estimated GFR (MDRD) (>60) mL/min BUN/Creatinine Ratio (14-18) Glucose (80-115) mg/dL Lactic Acid (0.4-2.0) mmol/L Calcium (8.5-10.1) mg/dL Magnesium (1.8-2.4) mg/dl Total Bilirubin (0.2-1.0) mg/dL AST (15-37) U/L ALT (14-59) U/L Alkaline Phosphatase (46-116) U/L Troponin I (0.00-0.056) ng/mL NT-Pro-B Natriuret Pep 2525 H (0-125) pg/mL Total Protein (6.4-8.2) g/dl Albumin (3.4-5.0) g/dl Globulin gm/dL Albumin/Globulin Ratio (1-2) Mycoplasma pneumon IgM Negative (NEGATIVE) Meds: Medications Generic Name Dose Route Start Last Admin Trade Name Freq PRN Reason Stop Dose Admin Acetaminophen 650 mg 12/16/17 02:44 Tylenol PO Q4H PRN Pain (Mild 1-3)/fever Hydrocodone Bitart/Acetaminophen 1 tab 12/16/17 02:44 Powell 325-5 Mg PO Q4H PRN Pain (moderate 4-6) Albuterol/Ipratropium 3 ml 12/16/17 02:46 Duoneb 3.0-0.5 Mg/3 Ml NEB Q4H PRN Shortness Of Breath/wheezing Amlodipine Besylate 10 mg 12/16/17 09:00 Norvasc PO DAILY [facility] Aspirin 81 mg 12/16/17 09:00 Aspirin PO DAILY [facility] Azithromycin 500 mg 12/16/17 09:00 Zithromax IV Q24H [facility] Bisacodyl 5 mg 12/16/17 02:46 Dulcolax PO DAILY PRN Constipation Bumetanide 0.5 mg 12/16/17 09:00 Bumex IVPUSH BID [facility] Carvedilol 12.5 mg 12/16/17 09:00 Coreg PO BID [facility] Docusate Sodium 100 mg 12/16/17 09:00 Colace PO DAILY [facility] Fluoxetine HCl 40 mg 12/16/17 09:00 Prozac PO DAILY [facility] Heparin Sodium (Porcine) 5,000 units 12/16/17 06:00 12/16/17 05:29 Heparin Sodium SUBCUT 5,000 units Q8H [facility] Administration Hydralazine HCl 20 mg 12/16/17 02:42 Apresoline IVPUSH Q4H PRN Hypertension Hydrochlorothiazide 12.5 mg 12/16/17 06:00 12/16/17 05:26 Hydrochlorothiazide PO 12.5 mg BIDDIURETIC [facility] Administration Promethazine HCl 12.5 mg/ 50.5 mls @ 100 mls/hr 12/16/17 02:46 Sodium Chloride IV Q6H PRN Nausea/Vomiting Ceftriaxone Sodium 1 gm/ 100 mls @ 200 mls/hr 12/17/17 00:00 Sodium Chloride IV Q24H [facility] Insulin Aspart 0 unit 12/16/17 07:00 Novolog SUBCUT QIDACANDBED [facility] Protocol Insulin Detemir 50 unit 12/16/17 09:00 Levemir SUBCUT BID [facility] Lorazepam 2 mg 12/16/17 02:42 Ativan IVPUSH Q4H PRN Seizures Lorazepam 1 mg 12/16/17 02:46 Ativan IV Q6H PRN Anxiety Magnesium Sulfate 1 dose 12/16/17 02:45 Pharmacy To Dose - Magnesium Replacement .XX ASDIRECTED [facility] Metoclopramide HCl 10 mg 12/16/17 21:00 Reglan PO BEDTIME [facility] Metoprolol Tartrate 5 mg 12/16/17 02:42 Lopressor IVPUSH Q4H PRN Tachycardia Morphine Sulfate 2 mg 12/16/17 02:44 Morphine IVPUSH 12/22/17 02:46 Q4H PRN Other Nitroglycerin 0.4 mg 12/16/17 02:45 Nitrostat SL ASDIRECTED PRN chest pain Ondansetron HCl 4 mg 12/16/17 02:46 Zofran IV Q6H PRN Nausea/Vomiting Polyethylene Glycol 17 gm 12/16/17 02:46 Miralax PO DAILY PRN Constipation Potassium Chloride 1 dose 12/16/17 02:45 Pharmacy To Dose - Potassium Replacement .XX ASDIRECTED [facility] Saccharomyces Boulardii 250 mg 12/16/17 09:00 Florastor PO DAILY [facility] Senna/Docusate Sodium 1 tab 12/16/17 02:46 Senna Plus PO BID PRN Constipation Sodium Chloride 10 ml 12/16/17 01:05 12/16/17 01:37 Saline Flush FLUSH 10 ml ASDIRECTED PRN Administration Keep Vein Open Zolpidem Tartrate 10 mg 12/16/17 21:00 Ambien PO BEDTIME [facility] Discontinued Medications Generic Name Dose Route Start Last Admin Trade Name Freq PRN Reason Stop Dose Admin Azithromycin 500 mg 12/16/17 01:19 12/16/17 01:37 Zithromax PO 12/16/17 01:20 500 mg ONETIME ONE Administration Bumetanide 1 mg 12/16/17 02:50 12/16/17 04:22 Bumex IVPUSH 12/16/17 02:51 1 mg ONETIME ONE Administration Ceftriaxone Sodium 2 gm 12/16/17 01:30 Rocephin IVPUSH Q24H [facility] Ceftriaxone Sodium 2 gm/ 100 mls @ 100 mls/hr 12/16/17 01:21 12/16/17 01:37 Sodium Chloride IV 12/16/17 02:20 100 mls/hr ONETIME ONE Administration Sodium Chloride 250 mls @ 1,000 mls/hr 12/16/17 02:41 12/16/17 04:12 Normal Saline IV 12/16/17 02:55 1,000 mls/hr ONETIME ONE Administration - Re-Assessments/Exams Free Text/Narrative Re-Assessment/Exam: 12/16/17 01:26 EKG shows LBBB and 1st degree AV block. No evidence of acute ischemia. 12/16/17 02:11 CXR shows cardiomegaly,bibasilar haziness with RLL atelectasis vs. infiltrate. Given her history I think she has pneumonia. Antibiotics ordered. WBC is elevated at 15. Given oxygen requirement she will need to be admitted. Creatinine is mildly elevated at 2. BUN is also elevated. 250 cc bolus ordered. Discussed with Dr. Ku who agrees to admit her. 12/16/17 06:46 Departure - Departure Time of Disposition: 02:02 Disposition: Admitted As Inpatient 64 Clinical Impression: Acute hypoxemic respiratory failure Pneumonia Qualifiers: Pneumonia type: due to unspecified organism Laterality: unspecified laterality Lung location: unspecified part of lung Qualified Code(s): J18.9 - Pneumonia, unspecified organism - Discharge Information - My Orders Last 24 Hours: My Active Orders 12/16/17 01:04 Peripheral IV Care [RC] Q2HR Chest 1V Frontal [CR] Stat Blood Culture x2 Reflex Set [OM.PC] Stat Peripheral IV Insertion Adult [OM.PC] Routine 12/16/17 01:05 Sodium Chloride 0.9% [Saline Flush] 10 ml FLUSH ASDIRECTED PRN 12/16/17 01:35 CULTURE BLOOD [BC] Stat 12/16/17 01:40 CULTURE BLOOD [BC] Stat - Assessment/Plan Last 24 Hours: My Active Orders 12/16/17 01:04 Peripheral IV Care [RC] Q2HR Chest 1V Frontal [CR] Stat Blood Culture x2 Reflex Set [OM.PC] Stat Peripheral IV Insertion Adult [OM.PC] Routine 12/16/17 01:05 Sodium Chloride 0.9% [Saline Flush] 10 ml FLUSH ASDIRECTED PRN 12/16/17 01:35 CULTURE BLOOD [BC] Stat 12/16/17 01:40 CULTURE BLOOD [BC] Stat
[2017-12-16] MEDS ORDERED: cefTRIAXone 2 GM Vial IVPUSH SCH (01:30)
[2017-12-16] MEDS ORDERED: Sodium Chloride 0.9% 250 ML IV ONE (02:41)
[2017-12-16] MEDS ORDERED: Metoprolol Tartrate 5 MG/5 ML SDV IVPUSH PRN (02:42)
[2017-12-16] MEDS ORDERED: LORazepam 2 MG/ML SDV IVPUSH PRN (02:42)
[2017-12-16] MEDS ORDERED: hydrALAZINE 20 MG/ML SDV IVPUSH PRN (02:42)
[2017-12-16] MEDS ORDERED: Acetaminophen/HYDROcodone 325-5 MG Tab PO PRN (02:44)
[2017-12-16] MEDS ORDERED: Acetaminophen 325 MG Tab PO PRN (02:44)
[2017-12-16] MEDS ORDERED: Morphine 2 MG/ML Syringe IVPUSH PRN (02:44)
[2017-12-16] MEDS ORDERED: Nitroglycerin 0.4 MG Tab.SL SL PRN (02:45)
[2017-12-16] MEDS ORDERED: Promethazine 12.5 MG in Sodium Chloride 0.9% 50 ML IV PRN (02:46)
[2017-12-16] MEDS ORDERED: Bisacodyl 5 MG Tab PO PRN (02:46)
[2017-12-16] MEDS ORDERED: Albuterol/Ipratropium 3.0-0.5 MG/3 ML Neb Soln NEB PRN (02:46)
[2017-12-16] MEDS ORDERED: LORazepam 2 MG/ML SDV IV PRN (02:46)
[2017-12-16] MEDS ORDERED: Ondansetron 4 MG/2 ML SDV IV PRN (02:46)
[2017-12-16] MEDS ORDERED: Polyethylene Glycol 3350 Powder 17 GM Packet PO PRN (02:46)
[2017-12-16] MEDS ORDERED: Bumetanide 1 MG/4 ML MDV IVPUSH ONE (02:50)
--- NOTE | 2017-12-16 03:17 | PCM.HP ---
H&P History of Present Illness - General Date of Service: 12/16/17 Source of Information: Patient, Old Records, Provider, RN Notes Reviewed History Limitations: Reports: Respiratory Distress - History of Present Illness Initial Comments - Free Text/Narative: This is a 67 yo elderly white female with past medical hx/o impaired vision, chronic angina, heart failure with unknown EF, hyperlipidemia, hypertension, history of WA, status post pacemaker Placement, chronic dyspnea on exertion, JACK , GERD, acute renal failure, osteoarthritis, type 2 diabetes, anxiety, and obesity with BMI of 37 who comes in with complains of 4-day history of productive cough and difficulty breathing. She also admits of having hoarse voice and bilateral eye discharge and nasal congestion. However she denies having chest pain, fever or chills. No GI or symptoms. She is not home O2 dependent. She denies any history of pulmonary disease. Her initial workup in the emergency department shows a CBC remarkable for WBC of 14.84, hemoglobin of 10.9, MCH of 25.3, MCHC of 31.6, RDW of 47.6, neutrophils 82.2% and lymphocytes of 9.7%. Her chemistry is remarkable for BUN of 53, creatinine of 2, glucose of 63, calcium of 8.3, CRP of 17.6, proBNP of 30 -48. Chest x-ray shows enlarged heart with mild pulmonary vascular congestion. AICD is noted. Patient is being admitted for bronchitis and probable acute heart failure. She is full code. - Related Data Allergies/Adverse Reactions: Allergies Allergy/AdvReac Type Severity Reaction Status Date / Time lisinopril AdvReac Cough Verified 12/16/17 01:00 Home Medications: Home Meds Aspirin 81 mg PO DAILY 05/16/16 [History] Carvedilol [Coreg] 12.5 mg PO BID 05/16/16 [History] FLUoxetine [PROzac] 40 mg PO DAILY 05/16/16 [History] Insulin Aspart [NovoLOG] 0 unit SUBCUT TID 05/16/16 [History] amLODIPine [Norvasc] 10 mg PO DAILY 05/16/16 [History] Furosemide [Lasix] 40 mg PO DAILY #30 tablet 05/20/16 [Rx] Docusate Sodium [Stool Softener] 100 mg PO DAILY 07/03/17 [History] Nitroglycerin [Nitrostat] 0.4 mg SL ASDIRECTED 02/19/18 [History] Metoclopramide HCl 10 mg PO BEDTIME 12/16/17 [History] Zolpidem [Ambien] 10 mg PO DAILY 12/16/17 [History] Ergocalciferol (Vitamin D2) [Vitamin D2] 50,000 units PO WEEKLY 12/17/17 [ History] Insulin Degludec [Tresiba Flextouch U-200] 50 units SUBCUT BID 12/17/17 [History ] Past Medical History HEENT History: Reports: Cataract, Epistaxis, Impaired Vision Cardiovascular History: Reports: Angina, Heart Failure, High Cholesterol, Hypertension, [place], Pacemaker, SOB on Exertion, Stents Respiratory History: Reports: Sleep Apnea, SOB Gastrointestinal History: Reports: GERD Other Gastrointestinal History: abdominal pain, supposed to see primary on Friday Genitourinary History: Reports: Acute Renal Failure [employer]ICE [employer]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: Musculoskeletal History: Reports: Arthritis Psychiatric History: Reports: Anxiety Endocrine/Metabolic History: Reports: Diabetes, Type II, Obesity/BMI 30+ Oncologic (Cancer) History: Reports: Other (See Below) Other Oncologic History: removed in - Past Surgical History HEENT Surgical History: Reports: Cataract Surgery, Other (See Below) Cardiovascular Surgical History: Reports: Coronary Artery Stent, Pacer GI Surgical History: Reports: Appendectomy, Other (See Below) Social & Family History - Family History Family Medical History: Noncontributory OBGYN: Reports: Musculoskeletal: Reports: Arthritis Psychiatric: Reports: Anxiety, Depression Endocrine/Metabolic: Reports: Diabetes, type II, Hypothyroidism - Tobacco Use Smoking Status *Q: Never Smoker Second Hand Smoke Exposure: Yes - Caffeine Use Caffeine Use: Reports: None - Recreational Drug Use Recreational Drug Use: No - Living Situation & Occupation Living situation: Reports: Occupation: Retired H&P Review of Systems - Review of Systems: Review Of Systems: See Below General: Denies: Fever, Chills, Malaise, Weakness, Fatigue HEENT: Reports: Other (eye discharge). Denies: Ear Pain, Eye Pain, Visual Changes Pulmonary: Reports: Shortness of Breath, Cough, Sputum. Denies: Wheezing, Hemoptysis Cardiovascular: Denies: Chest Pain, Palpitations, Dyspnea on Exertion, Lightheadedness, Syncope, Claudication, Blood Pressure Problem Gastrointestinal: Denies: Abdominal Pain, Decreased Appetite, Nausea, Vomiting Genitourinary: Reports: No Symptoms Musculoskeletal: Denies: Neck Pain, Joint Pain, Joint Swelling, Muscle Stiffness Skin: Denies: Cyanosis, Pallor, Diaphoresis, Rash, Erythema, Wound, Change in Hair/Nails, Lesions Psychiatric: Denies: Confusion, Depression, Mood Lability, Hallucinations Neurological: Denies: Confusion, Difficulty Walking, Weakness, Gait Disturbance Hematologic/Lymphatic: Reports: No Symptoms Immunologic: Reports: No Symptoms Exam - Exam Exam: See Below - Vital Signs Vital Signs: Last Vital Signs Temp 37.0 C 12/16/17 00:56 Pulse 70 12/16/17 00:56 Resp 19 12/16/17 00:56 BP 124/94 H 12/16/17 00:56 Pulse Ox 89 L 12/16/17 00:56 Weight: 108.862 kg - Exam General: Alert, Oriented, Cooperative, Mild Distress HEENT: Conjunctiva Clear, EACs Clear, EOMI, Hearing Intact, Mucosa Moist & [place] , Nares Patent, Normal Nasal Septum, Posterior Pharynx Clear, Pupils Equal, Pupils Reactive Neck: Supple, Trachea Midline, +2 Carotid Pulse wo Bruit Lungs: Normal Respiratory Effort, Crackles Cardiovascular: Regular Rate, Regular Rhythm GI/Abdominal Exam: Normal Bowel Sounds, Soft, Non-Tender, No Organomegaly, No Distention, No Abnormal Bruit (Female) Exam: Deferred Rectal (Female) Exam: Deferred Back Exam: Normal Inspection, Decreased Range of Motion Extremities: Normal Inspection, Normal Range of Motion, Non-Tender, No Pedal Edema, Normal Capillary Refill Peripheral Pulses: 2+: Dorsalis Pedis (L), Dorsalis Pedis (R) Skin: Warm, Dry, Intact Neuro Extensive - Mental Status: Oriented x3, Normal Cognition, Memory Intact Neuro Extensive - Motor, Sensory, Reflexes: CN II-XII Intact DTR: 2+: Patella (L), Patella (R), Achilles (L), Achilles (R) Psychiatric: Alert, Normal Affect, Normal Mood - Patient Data Lab Results Last 24 hrs: Laboratory Results - last 24 hr 12/16/17 12/16/17 12/16/17 Range/Units 01:35 01:35 01:35 WBC 15.86 H (3.98-10.04) K/mm3 RBC 4.31 (3.98-5.22) M/mm3 Hgb 11.0 L (11.2-15.7) gm/L Hct 34.4 (34.1-44.9) % MCV 79.8 (79.4-94.8) fl MCH 25.5 L (25.6-32.2) pg MCHC 32.0 L (32.2-35.5) g/dl RDW Std Deviation 48.0 H (36.4-46.3) fL Plt Count 288 (182-369) K/mm3 MPV 8.9 L (9.4-12.3) fl Neut % (Auto) 73.0 H (34.0-71.1) % Lymph % (Auto) 14.0 L (19.3-51.7) % Traverse % (Auto) 11.2 (4.7-12.5) % Eos % (Auto) 1.2 (0.7-5.8) Baso % (Auto) 0.2 (0.1-1.2) % Neut # (Auto) 11.58 H (1.56-6.13) K/mm3 Lymph # (Auto) 2.22 (1.18-3.74) K/mm3 Traverse # (Auto) 1.77 H (0.24-0.36) K/mm3 Eos # (Auto) 0.19 (0.04-0.36) K/mm3 Baso # (Auto) 0.03 (0.01-0.08) K/mm3 Manual Slide Review Normal smear Sodium 133 L (136-145) mEq/L Potassium 4.2 (3.5-5.1) mEq/L Chloride 101 (98-107) mEq/L Carbon Dioxide 22 (21-32) mEq/L Anion Gap 14.2 (5-15) BUN 52 H (7-18) mg/dL Creatinine 2.1 H (0.55-1.02) mg/dL Est Cr Clr Drug Dosing 24.59 mL/min Estimated GFR (MDRD) 23 (>60) mL/min BUN/Creatinine Ratio 24.8 H (14-18) Glucose 188 H (80-115) mg/dL Lactic Acid 0.8 (0.4-2.0) mmol/L Calcium 8.4 L (8.5-10.1) mg/dL Magnesium 2.1 (1.8-2.4) mg/dl Total Bilirubin 0.5 (0.2-1.0) mg/dL AST 28 (15-37) U/L ALT 33 (14-59) U/L Alkaline Phosphatase 112 (46-116) U/L Troponin I < 0.017 (0.00-0.056) ng/mL NT-Pro-B Natriuret Pep (0-125) pg/mL Total Protein 7.5 (6.4-8.2) g/dl Albumin 2.8 L (3.4-5.0) g/dl Globulin 4.7 gm/dL Albumin/Globulin Ratio 0.6 L (1-2) 12/16/17 Range/Units 01:35 WBC (3.98-10.04) K/mm3 RBC (3.98-5.22) M/mm3 Hgb (11.2-15.7) gm/L Hct (34.1-44.9) % MCV (79.4-94.8) fl MCH (25.6-32.2) pg MCHC (32.2-35.5) g/dl RDW Std Deviation (36.4-46.3) fL Plt Count (182-369) K/mm3 MPV (9.4-12.3) fl Neut % (Auto) (34.0-71.1) % Lymph % (Auto) (19.3-51.7) % Traverse % (Auto) (4.7-12.5) % Eos % (Auto) (0.7-5.8) Baso % (Auto) (0.1-1.2) % Neut # (Auto) (1.56-6.13) K/mm3 Lymph # (Auto) (1.18-3.74) K/mm3 Traverse # (Auto) (0.24-0.36) K/mm3 Eos # (Auto) (0.04-0.36) K/mm3 Baso # (Auto) (0.01-0.08) K/mm3 Manual Slide Review Sodium (136-145) mEq/L Potassium (3.5-5.1) mEq/L Chloride (98-107) mEq/L Carbon Dioxide (21-32) mEq/L Anion Gap (5-15) BUN (7-18) mg/dL Creatinine (0.55-1.02) mg/dL Est Cr Clr Drug Dosing mL/min Estimated GFR (MDRD) (>60) mL/min BUN/Creatinine Ratio (14-18) Glucose (80-115) mg/dL Lactic Acid (0.4-2.0) mmol/L Calcium (8.5-10.1) mg/dL Magnesium (1.8-2.4) mg/dl Total Bilirubin (0.2-1.0) mg/dL AST (15-37) U/L ALT (14-59) U/L Alkaline Phosphatase (46-116) U/L Troponin I (0.00-0.056) ng/mL NT-Pro-B Natriuret Pep 2525 H (0-125) pg/mL Total Protein (6.4-8.2) g/dl Albumin (3.4-5.0) g/dl Globulin gm/dL Albumin/Globulin Ratio (1-2) Result Diagrams: 12/18/17 05:45 12/18/17 05:45 EKG INTERPRETATION EKG Date: 12/16/17 Time: 01:13 Rhythm: NSR Rate (Beats/Min): 68 QRS: LBBB MT/PQ Interval: Prolonged GILBERTO Problem List Initiated/Reviewed/Updated: Yes Orders Last 24hrs: Active Orders 24 hr Category Date Time Status Accu Check [Blood Glucose Check, Bedside] [] Care 12/16/17 02:50 Ordered QIDACANDBED Ambulate [] ASDIRECTED Care 12/16/17 02:44 Ordered EKG 12 Lead [EKG Documentation Completion] [] STAT Care 12/16/17 01:04 Active Height and Weight [] DAILY Care 12/16/17 02:44 Ordered Incentive Spirometry [RT Incentive Spirometry] [] Care 12/16/17 02:50 Ordered ASDIRECTED Intake and Output [] QSHIFT Care 12/16/17 02:44 Ordered Oxygen Therapy [] PRN Care 12/16/17 02:44 Ordered Peripheral IV Care [] . DIRECTED Care 12/16/17 01:04 Active Peripheral IV Care [] . DIRECTED Care 12/16/17 01:05 Active Pulse Oximetry [] PRN Care 12/16/17 02:44 Ordered RT Aerosol Therapy [RC] ASDIRECTED Care 12/16/17 02:48 Ordered Up ad Dione [RC] ASDIRECTED Care 12/16/17 02:44 Ordered VTE/DVT Education [RC] PER UNIT ROUTINE Care 12/16/17 02:44 Ordered Vital Signs [RC] Q4H Care 12/16/17 02:44 Ordered Consult to Spiritual Care [CONS] Routine Cons 12/16/17 02:48 Ordered OT Evaluation and Treatment [CONS] Routine Cons 12/16/17 02:48 Ordered PT Evaluation and Treatment [CONS] Routine Cons 12/16/17 02:48 Ordered Respiratory Care Assess and Treatment [CONS] Routine Cons 12/16/17 02:48 Ordered 2 Gram Sodium Diet [DIET] Diet 12/16/17 Breakfast Ordered Consistent Carbohydrate Diet [DIET] Diet 12/16/17 Breakfast Ordered Heart Healthy Diet [DIET] Diet 12/16/17 Breakfast Ordered CXR [Chest 1V Frontal] [CR] Routine Exams 12/17/17 07:00 Ordered Chest 1V Frontal [CR] Stat Exams 12/16/17 01:04 Taken Echo Comp wo Cont [US] Stat Exams 12/16/17 07:00 Ordered BASIC METABOLIC PANEL,BMP [CHEM] AM Lab 12/16/17 05:11 Ordered BASIC METABOLIC PANEL,BMP [CHEM] AM Lab 12/17/17 05:11 Ordered BASIC METABOLIC PANEL,BMP [CHEM] AM Lab 12/18/17 05:11 Ordered BASIC METABOLIC PANEL,BMP [CHEM] AM Lab 12/19/17 05:11 Ordered BASIC METABOLIC PANEL,BMP [CHEM] AM Lab 12/20/17 05:11 Ordered BASIC METABOLIC PANEL,BMP [CHEM] AM Lab 12/21/17 05:11 Ordered C-REACTIVE PROTEIN [CHEM] AM Lab 12/16/17 05:11 Ordered C-REACTIVE PROTEIN [CHEM] AM Lab 12/17/17 05:11 Ordered C-REACTIVE PROTEIN [CHEM] AM Lab 12/18/17 05:11 Ordered C-REACTIVE PROTEIN [CHEM] AM Lab 12/19/17 05:11 Ordered C-REACTIVE PROTEIN [CHEM] AM Lab 12/20/17 05:11 Ordered C-REACTIVE PROTEIN [CHEM] AM Lab 12/21/17 05:11 Ordered CBC WITH AUTO DIFF [HEME] AM Lab 12/16/17 05:11 Ordered CBC WITH AUTO DIFF [HEME] AM Lab 12/17/17 05:11 Ordered CBC WITH AUTO DIFF [HEME] AM Lab 12/18/17 05:11 Ordered CBC WITH AUTO DIFF [HEME] AM Lab 12/19/17 05:11 Ordered CBC WITH AUTO DIFF [HEME] AM Lab 12/20/17 05:11 Ordered CULTURE BLOOD [BC] Stat Lab 12/16/17 01:35 Received CULTURE BLOOD [BC] Stat Lab 12/16/17 01:40 Received CULTURE SPUTUM + SMEAR [RM] Stat Lab 12/16/17 02:48 Ordered MAGNESIUM [CHEM] AM Lab 12/16/17 05:11 Ordered MAGNESIUM [CHEM] AM Lab 12/17/17 05:11 Ordered MAGNESIUM [CHEM] AM Lab 12/18/17 05:11 Ordered MAGNESIUM [CHEM] AM Lab 12/19/17 05:11 Ordered MAGNESIUM [CHEM] AM Lab 12/20/17 05:11 Ordered MAGNESIUM [CHEM] AM Lab 12/21/17 05:11 Ordered MYCOPLASMA PNEUMONIAE IGM AB [CHEM] Stat Lab 12/16/17 02:52 Ordered STREP PNEUMONIAE ANTIGEN [MREF] Stat Lab 12/16/17 02:52 Ordered Acetaminophen [Tylenol] Med 12/16/17 02:44 Ordered 650 mg PO Q4H PRN Acetaminophen/HYDROcodone [Jackson 325-5 MG] Med 12/16/17 02:44 Ordered 1 tab PO Q4H PRN Albuterol/Ipratropium [DuoNeb 3.0-0.5 MG/3 ML] Med 12/16/17 02:46 Ordered 3 ml NEB Q4H PRN Aspirin Med 12/16/17 09:00 Ordered 81 mg PO DAILY Azithromycin [Zithromax] Med 12/16/17 09:00 Ordered 500 mg IV Q24H Bisacodyl [Dulcolax] Med 12/16/17 02:46 Ordered 5 mg PO DAILY PRN Bumetanide [Bumex] Med 12/16/17 09:00 Ordered 0.5 mg IVPUSH BID Bumetanide [Bumex] Med 12/16/17 02:50 Once 1 mg IVPUSH ONETIME ONE Carvedilol [Coreg] Med 12/16/17 09:00 Ordered 12.5 mg PO BID Docusate Sodium [Colace] Med 12/16/17 09:00 Ordered 100 mg PO DAILY Docusate Sodium/Sennosides [Senna Plus] Med 12/16/17 02:46 Ordered 1 tab PO BID PRN FLUoxetine [PROzac] Med 12/16/17 09:00 Ordered 40 mg PO DAILY Heparin Sodium Med 12/16/17 02:45 Ordered 5,000 units SUBCUT Q8H Hydrochlorothiazide Med 12/16/17 06:00 Ordered 12.5 mg PO BIDDIURETIC Insulin Aspart [NovoLOG] Med 12/16/17 07:00 Ordered See Protocol SUBCUT QIDACANDBED Insulin Glargine,Hum.Rec.Anlog [[place] Solostar] Med 12/16/17 09:00 Ordered 50 unit SQ BID LORazepam [Ativan] Med 12/16/17 02:46 Ordered 1 mg IV Q6H PRN LORazepam [Ativan] Med 12/16/17 02:42 Ordered 2 mg IVPUSH Q4H PRN Magnesium Rep Pharmacy to Dose [Pharmacy to Dose - Med 12/16/17 02:45 Ordered Magnesium Replacement] 1 dose .XX ASDIRECTED Metoclopramide [Reglan] Med 12/16/17 21:00 Ordered 10 mg PO BEDTIME Metoprolol Tartrate [Lopressor] Med 12/16/17 02:42 Ordered 5 mg IVPUSH Q4H PRN Morphine Med 12/16/17 02:44 Ordered 2 mg IVPUSH Q4H PRN Nitroglycerin [Nitrostat] Med 12/16/17 02:45 Ordered 0.4 mg SL ASDIRECTED Ondansetron [Zofran] Med 12/16/17 02:46 Ordered 4 mg IV Q6H PRN Polyethylene Glycol 3350 [MiraLAX] Med 12/16/17 02:46 Ordered 17 gm PO DAILY PRN Potassium Rep Pharmacy to Dose [Pharmacy to Dose - Med 12/16/17 02:45 Ordered Potassium Replacement] 1 dose .XX ASDIRECTED Promethazine [Phenergan] 12.5 mg Med 12/16/17 02:46 Ordered Sodium Chloride 0.9% [Normal Saline] 50 ml IV Q6H Saccharomyces Boulardii [Florastor] Med 12/16/17 09:00 Ordered 250 mg PO DAILY Sodium Chloride 0.9% [Saline Flush] Med 12/16/17 01:05 Active 10 ml FLUSH ASDIRECTED PRN Zolpidem [Ambien] Med 12/16/17 09:00 Ordered 10 mg PO DAILY amLODIPine [Norvasc] Med 12/16/17 09:00 Ordered 10 mg PO DAILY cefTRIAXone [Rocephin] 1 gm Med 12/17/17 09:00 Ordered Sodium Chloride 0.9% [Normal Saline] 100 ml IV Q24H hydrALAZINE [Apresoline] Med 12/16/17 02:42 Ordered 20 mg IVPUSH Q4H PRN Blood Culture x2 Reflex Set [OM.PC] Stat Oth 12/16/17 01:04 Ordered Peripheral IV Insertion Adult [OM.PC] Routine Oth 12/16/17 01:04 Ordered Resuscitation Status Routine Resus Stat 12/16/17 02:44 Ordered Medication Orders Acetaminophen (Tylenol) 650 mg PO Q4H PRN PRN Reason: Pain (Mild 1-3)/fever Hydrocodone Bitart/Acetaminophen (Jackson 325-5 Mg) 1 tab PO Q4H PRN PRN Reason: Pain (moderate 4-6) Albuterol/Ipratropium (Duoneb 3.0-0.5 Mg/3 Ml) 3 ml NEB Q4H PRN PRN Reason: Shortness Of Breath/wheezing Amlodipine Besylate (Norvasc) 10 mg PO DAILY [facility] Aspirin (Aspirin) 81 mg PO DAILY TERYR Azithromycin (Zithromax) 500 mg IV Q24H TERRY Bisacodyl (Dulcolax) 5 mg PO DAILY PRN PRN Reason: Constipation Bumetanide (Bumex) 1 mg IVPUSH ONETIME ONE Stop: 12/16/17 02:51 Bumetanide (Bumex) 0.5 mg IVPUSH BID [facility] Carvedilol (Coreg) 12.5 mg PO BID [facility] Docusate Sodium (Colace) 100 mg PO DAILY TERRY Fluoxetine HCl (Prozac) 40 mg PO DAILY [facility] Heparin Sodium (Porcine) (Heparin Sodium) 5,000 units SUBCUT Q8H TERRY Hydralazine HCl (Apresoline) 20 mg IVPUSH Q4H PRN PRN Reason: Hypertension Hydrochlorothiazide (Hydrochlorothiazide) 12.5 mg PO BIDDIURETIC TERRY Promethazine HCl 12.5 mg/ (Sodium Chloride) 50.5 mls @ 100 mls/hr IV Q6H PRN PRN Reason: Nausea/Vomiting Ceftriaxone Sodium 1 gm/ (Sodium Chloride) 100 mls @ 200 mls/hr IV Q24H [facility] Insulin Aspart (Novolog) 0 unit SUBCUT QIDACANDBED [facility]; Protocol Insulin Detemir (Levemir) 50 unit SUBCUT BID [facility] Lorazepam (Ativan) 2 mg IVPUSH Q4H PRN PRN Reason: Seizures Lorazepam (Ativan) 1 mg IV Q6H PRN PRN Reason: Anxiety Magnesium Sulfate (Pharmacy To Dose - Magnesium Replacement) 1 dose .XX ASDIRECTED [facility] Metoclopramide HCl (Reglan) 10 mg PO BEDTIME [facility] Metoprolol Tartrate (Lopressor) 5 mg IVPUSH Q4H PRN PRN Reason: Tachycardia Morphine Sulfate (Morphine) 2 mg IVPUSH Q4H PRN PRN Reason: Other Stop: 12/22/17 02:46 Nitroglycerin (Nitrostat) 0.4 mg SL ASDIRECTED PRN PRN Reason: chest pain Ondansetron HCl (Zofran) 4 mg IV Q6H PRN PRN Reason: Nausea/Vomiting Polyethylene Glycol (Miralax) 17 gm PO DAILY PRN PRN Reason: Constipation Potassium Chloride (Pharmacy To Dose - Potassium Replacement) 1 dose .XX ASDIRECTED [facility] Saccharomyces Boulardii (Florastor) 250 mg PO DAILY [facility] Senna/Docusate Sodium (Senna Plus) 1 tab PO BID PRN PRN Reason: Constipation Sodium Chloride (Saline Flush) 10 ml FLUSH ASDIRECTED PRN PRN Reason: Keep Vein Open Last Admin: 12/16/17 01:37 Dose: 10 ml Zolpidem Tartrate (Ambien) 10 mg PO BEDTIME [facility] Assessment/Plan Comment:: Assessment/Plan: Acute: Probable Heart Failure - Carries a hx/o HF with unknown EF - ProBNP 2525 - CXR shows pulmonary congestion - Heart failure protocol: loop and thiazide diuretic,fluid restriction, Is/ Os and daily weights - 2D echo in AM Bronchitis vs Ateletasis - Cough, SOB, Dyspneic but Afebrile - WBC 15.86 w/ neutrophils of 73% - CXR shows pulmonary congestion/atelectasis - IV Azithromycin/Rocephin; IS as directed and supplemental O2 - Sputum Cx, Mycoplasma/Strep Pneumonia Ag tests - Follow up CXR Conjunctivitis - Allergic vs Infectious - Artificial Tears QID PRN - Ciprofloxacin Eye Drops BID Chronic: Impaired Vision CAD S/p Stent Placement S/p AICD Placement Heart Failure HTN HLD JACK SOB GERD 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
[2017-12-16] MEDS: Hydrochlorothiazide 12.5 MG Cap PO SCH ×2 (05:26→13:47)
[2017-12-16] MEDS: Heparin Sodium 5,000 Units/ML Vial SUBCUT SCH ×3 (05:29→22:11)
--- NOTE | 2017-12-16 07:28 | CR ---
Chest: Portable view of the chest was obtained. Comparison: Prior chest x-ray of 05/16/16. Heart is enlarged. Minimal pulmonary vascular congestion is seen. Lungs otherwise are clear. AICD is noted. Bony structures are grossly intact. Impression: 1. Cardiomegaly and minimal pulmonary vascular congestion. Diagnostic code #3
[2017-12-16] MEDS ORDERED: Azithromycin 500 MG AdvVial IV SCH (09:00)
[2017-12-16] MEDS: Insulin Detemir 100 Units/ML 3 ML Pen SUBCUT SCH ×2 (09:06→22:08)
[2017-12-16] MEDS: Saccharomyces Boulardii (Probiotic) 250 MG Cap PO SCH (09:09)
[2017-12-16] MEDS: FLUoxetine 20 MG Cap PO SCH (09:10)
[2017-12-16] MEDS: Aspirin 81 MG Tab.Chew PO SCH (09:10)
[2017-12-16] MEDS: Insulin Aspart 100 Units/ML 3 ML Pen SUBCUT SCH ×4 (09:10→22:09)
[2017-12-16] MEDS: Bumetanide 1 MG/4 ML MDV IVPUSH SCH ×2 (09:10→21:56)
[2017-12-16] MEDS: Carvedilol 12.5 MG Tab PO SCH ×2 (09:10→22:02)
[2017-12-16] MEDS: Docusate Sodium 100 MG Cap PO SCH (09:10)
[2017-12-16] MEDS: amLODIPine 10 MG Tab PO SCH (09:10)
[2017-12-16] MEDS: Hypromellose 0.5% Ophth Soln 15 ML Bottle EYEBOTH SCH ×2 (16:49→22:05)
[2017-12-16] MEDS ORDERED: Polyvinyl Alcohol 1.4% Ophth Soln 15 ML Bottle EYEBOTH SCH (17:00)
[2017-12-16] MEDS: guaiFENesin/Dextromethorphan 100-10 MG/5 ML Soln 5 ML Cup PO PRN (18:35)
[2017-12-16] MEDS ORDERED: Ciprofloxacin/Hydrocortisone Otic Susp 10 ML Bottle EARBOTH SCH (21:00)
[2017-12-16] MEDS: Zolpidem 5 MG Tab PO SCH (22:01)
[2017-12-16] MEDS: Metoclopramide 10 MG Tab PO SCH (22:02)
[2017-12-16] MEDS: Ciprofloxacin 0.3% Ophth Soln 2.5 ML Bottle EYEBOTH SCH (22:17)
[2017-12-17] MEDS: cefTRIAXone 1 GM in Dextrose 5% in Water 100 ML IV SCH ×4 (01:08→23:54)
[2017-12-17] MEDS ORDERED: Azithromycin 500 MG in Sodium Chloride 0.9% 250 ML IV SCH (02:00)
[2017-12-17] MEDS: Hydrochlorothiazide 12.5 MG Cap PO SCH ×2 (06:34→13:23)
[2017-12-17] MEDS: Heparin Sodium 5,000 Units/ML Vial SUBCUT SCH ×3 (06:34→21:45)
[2017-12-17] MEDS: Insulin Aspart 100 Units/ML 3 ML Pen SUBCUT SCH ×5 (07:53→23:10)
--- NOTE | 2017-12-17 08:35 | CR ---
Chest: Portable view of the chest was obtained. Comparison: Prior chest x-ray of 12/16/17. Heart is enlarged. AICD is present. Lungs shows minimal increased pulmonary vessels which appear stable. Lungs otherwise are clear. No alveolar type densities are seen. Bony structures are unremarkable. Impression: 1. Cardiomegaly and minimal pulmonary vascular congestion which remain stable. 2. No pneumonia seen at this time. Diagnostic code #3
[2017-12-17] MEDS: Carvedilol 12.5 MG Tab PO SCH ×2 (09:29→20:46)
[2017-12-17] MEDS: Docusate Sodium 100 MG Cap PO SCH (09:29)
[2017-12-17] MEDS: FLUoxetine 20 MG Cap PO SCH (09:29)
[2017-12-17] MEDS: Saccharomyces Boulardii (Probiotic) 250 MG Cap PO SCH (09:29)
[2017-12-17] MEDS: amLODIPine 10 MG Tab PO SCH (09:30)
[2017-12-17] MEDS: Furosemide 40 MG Tab PO SCH (09:30)
[2017-12-17] MEDS: Aspirin 81 MG Tab.Chew PO SCH (09:30)
[2017-12-17] MEDS: Insulin Detemir 100 Units/ML 3 ML Pen SUBCUT SCH ×2 (09:31→20:47)
[2017-12-17] MEDS: Ciprofloxacin 0.3% Ophth Soln 2.5 ML Bottle EYEBOTH SCH ×2 (09:33→20:47)
[2017-12-17] MEDS: Hypromellose 0.5% Ophth Soln 15 ML Bottle EYEBOTH SCH ×4 (09:33→20:47)
[2017-12-17] MEDS: guaiFENesin/Dextromethorphan 100-10 MG/5 ML Soln 5 ML Cup PO PRN (18:48)
--- NOTE | 2017-12-17 20:08 | PCM.PN ---
- General Info Date of Service: 12/17/17 Admission Dx/Problem (Free Text): Bronchitis and Heart Failure Subjective Update: Follow Up Functional Status: Reports: Pain Controlled, Tolerating Diet, Ambulating, Urinating - Review of Systems General: Denies: Fever, Weakness, Fatigue, Malaise, Chills HEENT: Reports: Sore Throat, Other (eye discharge) Pulmonary: Reports: Cough. Denies: Shortness of Breath, Wheezing Cardiovascular: Denies: Chest Pain, Dyspnea on Exertion, Lightheadedness Gastrointestinal: Denies: Abdominal Pain, Nausea, Vomiting Genitourinary: Reports: No Symptoms Musculoskeletal: Reports: No Symptoms Skin: Denies: Cyanosis, Mottled, Pallor, Diaphoresis, Pruritis, Rash Neurological: Reports: Weakness, Gait Disturbance. Denies: Confusion, Difficulty Walking Psychiatric: Denies: Depression, Anxiety, Hallucinations Systems Review Comment:: No overnight or acute issues. She slept pretty good last night. She feels better this morning. Her WBC is about the same. She remains afebrile. - Patient Data Vitals - Most Recent: Last Vital Signs Temp 36.4 C 12/17/17 16:48 Pulse 73 12/17/17 17:12 Resp 23 H 12/17/17 16:48 BP 131/69 12/17/17 16:48 Pulse Ox 94 L 12/17/17 17:12 Weight - Most Recent: 108.862 kg I&O - Last 24 Hours: Intake & Output 12/17/17 12/17/17 12/17/17 06:59 14:59 22:59 Intake Total 620 420 780 Output Total 400 400 Balance 220 420 380 Lab Results Last 24 Hours: Laboratory Results - last 24 hr 12/17/17 12/17/17 12/17/17 Range/Units 05:55 05:55 05:55 WBC 14.84 H (3.98-10.04) K/mm3 RBC 4.31 (3.98-5.22) M/mm3 Hgb 10.9 L (11.2-15.7) gm/L Hct 34.5 (34.1-44.9) % MCV 80.0 (79.4-94.8) fl MCH 25.3 L (25.6-32.2) pg MCHC 31.6 L (32.2-35.5) g/dl RDW Std Deviation 47.6 H (36.4-46.3) fL Plt Count 277 (182-369) K/mm3 MPV 9.6 (9.4-12.3) fl Neut % (Auto) 82.3 H (34.0-71.1) % Lymph % (Auto) 9.7 L (19.3-51.7) % [place] % (Auto) 6.8 (4.7-12.5) % Eos % (Auto) 0.7 (0.7-5.8) Baso % (Auto) 0.1 (0.1-1.2) % Neut # (Auto) 12.21 H (1.56-6.13) K/mm3 Lymph # (Auto) 1.44 (1.18-3.74) K/mm3 [place] # (Auto) 1.01 H (0.24-0.36) K/mm3 Eos # (Auto) 0.11 (0.04-0.36) K/mm3 Baso # (Auto) 0.01 (0.01-0.08) K/mm3 Manual Slide Review Abnormal smear Sodium 138 (136-145) mEq/L Potassium 3.7 (3.5-5.1) mEq/L Chloride 105 (98-107) mEq/L Carbon Dioxide 22 (21-32) mEq/L Anion Gap 14.7 (5-15) BUN 53 H (7-18) mg/dL Creatinine 2.0 H (0.55-1.02) mg/dL Est Cr Clr Drug Dosing 25.82 mL/min Estimated GFR (MDRD) 25 (>60) mL/min BUN/Creatinine Ratio 26.5 H (14-18) Glucose 63 L (80-115) mg/dL POC Glucose (80-115) mg/dL Calcium 8.3 L (8.5-10.1) mg/dL Magnesium 2.3 (1.8-2.4) mg/dl C-Reactive Protein 17.6 H* (<1.0) mg/dL NT-Pro-B Natriuret Pep 3248 H (0-125) pg/mL 12/17/17 12/17/17 12/17/17 Range/Units 06:45 07:45 11:20 WBC (3.98-10.04) K/mm3 RBC (3.98-5.22) M/mm3 Hgb (11.2-15.7) gm/L Hct (34.1-44.9) % MCV (79.4-94.8) fl MCH (25.6-32.2) pg MCHC (32.2-35.5) g/dl RDW Std Deviation (36.4-46.3) fL Plt Count (182-369) K/mm3 MPV (9.4-12.3) fl Neut % (Auto) (34.0-71.1) % Lymph % (Auto) (19.3-51.7) % [place] % (Auto) (4.7-12.5) % Eos % (Auto) (0.7-5.8) Baso % (Auto) (0.1-1.2) % Neut # (Auto) (1.56-6.13) K/mm3 Lymph # (Auto) (1.18-3.74) K/mm3 [place] # (Auto) (0.24-0.36) K/mm3 Eos # (Auto) (0.04-0.36) K/mm3 Baso # (Auto) (0.01-0.08) K/mm3 Manual Slide Review Sodium (136-145) mEq/L Potassium (3.5-5.1) mEq/L Chloride (98-107) mEq/L Carbon Dioxide (21-32) mEq/L Anion Gap (5-15) BUN (7-18) mg/dL Creatinine (0.55-1.02) mg/dL Est Cr Clr Drug Dosing mL/min Estimated GFR (MDRD) (>60) mL/min BUN/Creatinine Ratio (14-18) Glucose (80-115) mg/dL POC Glucose 73 L 97 173 H (80-115) mg/dL Calcium (8.5-10.1) mg/dL Magnesium (1.8-2.4) mg/dl C-Reactive Protein (<1.0) mg/dL NT-Pro-B Natriuret Pep (0-125) pg/mL 12/17/17 Range/Units 17:00 WBC (3.98-10.04) K/mm3 RBC (3.98-5.22) M/mm3 Hgb (11.2-15.7) gm/L Hct (34.1-44.9) % MCV (79.4-94.8) fl MCH (25.6-32.2) pg MCHC (32.2-35.5) g/dl RDW Std Deviation (36.4-46.3) fL Plt Count (182-369) K/mm3 MPV (9.4-12.3) fl Neut % (Auto) (34.0-71.1) % Lymph % (Auto) (19.3-51.7) % [place] % (Auto) (4.7-12.5) % Eos % (Auto) (0.7-5.8) Baso % (Auto) (0.1-1.2) % Neut # (Auto) (1.56-6.13) K/mm3 Lymph # (Auto) (1.18-3.74) K/mm3 [place] # (Auto) (0.24-0.36) K/mm3 Eos # (Auto) (0.04-0.36) K/mm3 Baso # (Auto) (0.01-0.08) K/mm3 Manual Slide Review Sodium (136-145) mEq/L Potassium (3.5-5.1) mEq/L Chloride (98-107) mEq/L Carbon Dioxide (21-32) mEq/L Anion Gap (5-15) BUN (7-18) mg/dL Creatinine (0.55-1.02) mg/dL Est Cr Clr Drug Dosing mL/min Estimated GFR (MDRD) (>60) mL/min BUN/Creatinine Ratio (14-18) Glucose (80-115) mg/dL POC Glucose 124 H (80-115) mg/dL Calcium (8.5-10.1) mg/dL Magnesium (1.8-2.4) mg/dl C-Reactive Protein (<1.0) mg/dL NT-Pro-B Natriuret Pep (0-125) pg/mL Sammy Results Last 24 Hours: Microbiology 12/16/17 09:00 Gram Stain - Final Sputum - Expectorated Sputum Culture - Preliminary Normal Tiffany 12/16/17 01:40 Aerobic Blood Culture - Preliminary Blood - Venous - Lab Draw NO GROWTH AFTER 1 DAY Anaerobic Blood Culture - Preliminary NO GROWTH AFTER 1 DAY 12/16/17 01:35 Aerobic Blood Culture - Preliminary Blood - Venous NO GROWTH AFTER 1 DAY Anaerobic Blood Culture - Preliminary NO GROWTH AFTER 1 DAY 12/16/17 09:00 Streptococcus pneumoniae Antigen (M - Final Urine Med Orders - Current: Current Medications Acetaminophen (Tylenol) 650 mg PO Q4H PRN PRN Reason: Pain (Mild 1-3)/fever Hydrocodone Bitart/Acetaminophen ([place] 325-5 Mg) 1 tab PO Q4H PRN PRN Reason: Pain (moderate 4-6) Albuterol/Ipratropium (Duoneb 3.0-0.5 Mg/3 Ml) 3 ml NEB Q4H PRN PRN Reason: Shortness Of Breath/wheezing Amlodipine Besylate (Norvasc) 10 mg PO DAILY [facility] Last Admin: 12/17/17 09:30 Dose: 10 mg Artificial Tears (Isopto Tears 0.5% Ophth Soln) 0 ml EYEBOTH QID [facility] Last Admin: 12/17/17 17:09 Dose: 2 drop Aspirin (Aspirin) 81 mg PO DAILY [facility] Last Admin: 12/17/17 09:30 Dose: 81 mg Azithromycin (Zithromax) 250 mg PO Q24H [facility] Bisacodyl (Dulcolax) 5 mg PO DAILY PRN PRN Reason: Constipation Carvedilol (Coreg) 12.5 mg PO BID [facility] Last Admin: 12/17/17 09:29 Dose: 12.5 mg Ciprofloxacin (Ciloxan 0.3% Ophth Soln) 0 ml EYEBOTH BID [facility] Last Admin: 12/17/17 09:33 Dose: 1 drop Docusate Sodium (Colace) 100 mg PO DAILY [facility] Last Admin: 12/17/17 09:29 Dose: 100 mg Fluoxetine HCl (Prozac) 40 mg PO DAILY [facility] Last Admin: 12/17/17 09:29 Dose: 40 mg Furosemide (Lasix) 40 mg PO DAILY [facility] Last Admin: 12/17/17 09:30 Dose: 40 mg Guaifenesin/Phenylephrine HCl (Robitussin Dm) 10 ml PO Q4H PRN PRN Reason: Cough Last Admin: 12/17/17 18:48 Dose: 10 ml Heparin Sodium (Porcine) (Heparin Sodium) 5,000 units SUBCUT Q8H [facility] Last Admin: 12/17/17 13:23 Dose: 5,000 units Hydralazine HCl (Apresoline) 20 mg IVPUSH Q4H PRN PRN Reason: Hypertension Hydrochlorothiazide (Hydrochlorothiazide) 12.5 mg PO BIDDIURETIC [facility] Last Admin: 12/17/17 13:23 Dose: 12.5 mg Promethazine HCl 12.5 mg/ (Sodium Chloride) 50.5 mls @ 100 mls/hr IV Q6H PRN PRN Reason: Nausea/Vomiting Ceftriaxone Sodium 1 gm/ (Dextrose/Water) 100 mls @ 200 mls/hr IV Q24H [facility] Last Admin: 12/17/17 01:08 Dose: 200 mls/hr Insulin Aspart (Novolog) 0 unit SUBCUT QIDACANDBED [facility]; Protocol Last Admin: 12/17/17 17:09 Dose: Not Given Insulin Detemir (Levemir) 25 unit SUBCUT BID [facility] Lorazepam (Ativan) 2 mg IVPUSH Q4H PRN PRN Reason: Seizures Lorazepam (Ativan) 1 mg IV Q6H PRN PRN Reason: Anxiety Magnesium Sulfate (Pharmacy To Dose - Magnesium Replacement) 1 dose .XX ASDIRECTED [facility] Metoclopramide HCl (Reglan) 10 mg PO BEDTIME [facility] Last Admin: 12/16/17 22:02 Dose: 10 mg Metoprolol Tartrate (Lopressor) 5 mg IVPUSH Q4H PRN PRN Reason: Tachycardia Morphine Sulfate (Morphine) 2 mg IVPUSH Q4H PRN PRN Reason: Other Stop: 12/22/17 02:46 Nitroglycerin (Nitrostat) 0.4 mg SL ASDIRECTED PRN PRN Reason: chest pain Ondansetron HCl (Zofran) 4 mg IV Q6H PRN PRN Reason: Nausea/Vomiting Polyethylene Glycol (Miralax) 17 gm PO DAILY PRN PRN Reason: Constipation Potassium Chloride (Pharmacy To Dose - Potassium Replacement) 1 dose .XX ASDIRECTED [facility] Saccharomyces Boulardii (Florastor) 250 mg PO DAILY [facility] Last Admin: 12/17/17 09:29 Dose: 250 mg Senna/Docusate Sodium (Senna Plus) 1 tab PO BID PRN PRN Reason: Constipation Sodium Chloride (Saline Flush) 10 ml FLUSH ASDIRECTED PRN PRN Reason: Keep Vein Open Last Admin: 12/16/17 01:37 Dose: 10 ml Zolpidem Tartrate (Ambien) 10 mg PO BEDTIME [facility] Last Admin: 12/16/17 22:01 Dose: 10 mg Discontinued Medications Artificial Tears (Liquitears 1.4% Ophth Soln) 0 ml EYEBOTH QID [facility] Azithromycin (Zithromax) 500 mg PO ONETIME ONE Stop: 12/16/17 01:20 Last Admin: 12/16/17 01:37 Dose: 500 mg Azithromycin (Zithromax) 500 mg IV Q24H [facility] Bumetanide (Bumex) 1 mg IVPUSH ONETIME ONE Stop: 12/16/17 02:51 Last Admin: 12/16/17 04:22 Dose: 1 mg Bumetanide (Bumex) 0.5 mg IVPUSH BID [facility] Stop: 12/16/17 22:00 Last Admin: 12/16/17 21:56 Dose: 0.5 mg Ceftriaxone Sodium (Rocephin) 2 gm IVPUSH Q24H [facility] Ceftriaxone Sodium 2 gm/ (Sodium Chloride) 100 mls @ 100 mls/hr IV ONETIME ONE Stop: 12/16/17 02:20 Last Admin: 12/16/17 01:37 Dose: 100 mls/hr Sodium Chloride (Normal Saline) 250 mls @ 1,000 mls/hr IV ONETIME ONE Stop: 12/16/17 02:55 Last Admin: 12/16/17 04:12 Dose: 1,000 mls/hr Azithromycin 500 mg/ Sodium (Chloride) 250 mls @ 250 mls/hr IV Q24H [facility] Last Admin: 12/17/17 01:58 Dose: 250 mls/hr Insulin Detemir (Levemir) 50 unit SUBCUT BID [facility] Last Admin: 12/17/17 09:31 Dose: 50 units - Exam Quality Assessment: Supplemental Oxygen General: Alert, Oriented, Cooperative, No Acute Distress, Other (Obese) HEENT: Pupils Equal, Pupils Reactive, EOMI, Mucous Membr. Moist/[place], Other ( eye discharge; with mild erythema) Neck: Supple, Trachea Midline, No JVD, No Thyromegaly Lungs: Normal Respiratory Effort, Decreased Breath Sounds, Rales Cardiovascular: Regular Rate, Regular Rhythm GI/Abdominal Exam: Normal Bowel Sounds, Soft, Non-Tender, No Organomegaly, No Distention, No Abnormal Bruit (Female) Exam: Deferred Back Exam: Normal Inspection, Decreased Range of Motion Extremities: Normal Inspection, Normal Range of Motion, Non-Tender, No Pedal Edema, Normal Capillary Refill Peripheral Pulses: 2+: Dorsalis Pedis (L), Dorsalis Pedis (R) Skin: Warm, Dry, Intact Neurological: No New Focal Deficit Psy/Mental Status: Alert, Normal Affect, Normal Mood - Problem List Review Problem List Initiated/Reviewed/Updated: Yes - My Orders Last 24 Hours: My Active Orders 12/16/17 21:00 Ciprofloxacin [Ciloxan 0.3% Ophth Soln] 0 ml EYEBOTH BID Metoclopramide [Reglan] 10 mg PO BEDTIME Zolpidem [Ambien] 10 mg PO BEDTIME 12/17/17 00:00 cefTRIAXone [Rocephin] 1 gm Dextrose 5% in Water 100 ml IV Q24H 12/17/17 09:00 Furosemide [Lasix] 40 mg PO DAILY 12/17/17 12:07 Insulin Detemir [Levemir] 25 unit SUBCUT BID 12/17/17 21:00 Azithromycin [Zithromax] 250 mg PO Q24H 12/18/17 05:11 BASIC METABOLIC PANEL,BMP [CHEM] AM C-REACTIVE PROTEIN [CHEM] AM CBC WITH AUTO DIFF [HEME] AM MAGNESIUM [CHEM] AM 12/19/17 05:11 BASIC METABOLIC PANEL,BMP [CHEM] AM C-REACTIVE PROTEIN [CHEM] AM CBC WITH AUTO DIFF [HEME] AM MAGNESIUM [CHEM] AM 12/20/17 05:11 BASIC METABOLIC PANEL,BMP [CHEM] AM C-REACTIVE PROTEIN [CHEM] AM CBC WITH AUTO DIFF [HEME] AM MAGNESIUM [CHEM] AM 12/21/17 05:11 BASIC METABOLIC PANEL,BMP [CHEM] AM C-REACTIVE PROTEIN [CHEM] AM MAGNESIUM [CHEM] AM - Plan Plan:: Assessment/Plan: Acute: Heart Failure w/ Reduced EF - Carries a hx/o HF with unknown EF - ProBNP 2525--> 3248 - CXR shows pulmonary congestion - Heart failure protocol: loop and thiazide diuretic; fluid restriction, Is/ Os and daily weights - 2D echo in AM 12/17/17: LVEF 40-45%, Grade 1 diastolic Dysfunction and Moderately elevated RV Systolic Pressure at 47.7 mmHg Bronchitis, Improved - Cough, SOB, Dyspnea but Afebrile - WBC 15.86 w/ neutrophils of 73% - CXR shows pulmonary congestion/opacification - IV Azithromycin/Rocephin; IS as directed and supplemental O2 - Sputum Cx, Mycoplasma/Strep pneumonia Ag tests - Follow up CXR this AM: Cardiomegaly and minimal pulmonary vascular congestion. No pneumonia. 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
[2017-12-17] MEDS: Metoclopramide 10 MG Tab PO SCH (20:46)
[2017-12-17] MEDS: Zolpidem 5 MG Tab PO SCH (20:46)
[2017-12-17] MEDS: Azithromycin 250 MG Tab PO SCH (20:46)
[2017-12-18] MEDS: Heparin Sodium 5,000 Units/ML Vial SUBCUT SCH ×3 (06:30→22:24)
[2017-12-18] MEDS: Hydrochlorothiazide 12.5 MG Cap PO SCH ×2 (06:31→14:20)
[2017-12-18] MEDS: Insulin Aspart 100 Units/ML 3 ML Pen SUBCUT SCH ×4 (07:31→22:39)
--- NOTE | 2017-12-18 07:43 | PCM.PN ---
- General Info Date of Service: 12/18/17 Admission Dx/Problem (Free Text): Bronchitis and Heart Failure Subjective Update: Follow Up Functional Status: Reports: Pain Controlled, Tolerating Diet, Ambulating, Urinating - Review of Systems General: Denies: Fever, Chills HEENT: Reports: Sore Throat Pulmonary: Reports: Cough. Denies: Shortness of Breath Cardiovascular: Denies: Chest Pain, Palpitations, Dyspnea on Exertion, Lightheadedness Gastrointestinal: Denies: Abdominal Pain, Nausea, Vomiting Genitourinary: Reports: No Symptoms Skin: Denies: Cyanosis, Jaundice, Mottled, Pallor, Diaphoresis, Bruising, Rash Neurological: Denies: Confusion, Difficulty Walking, Weakness, Gait Disturbance Psychiatric: Denies: Depression, Anxiety, Agitation, Hallucinations Systems Review Comment:: No significant overnight or acute issues. She continues to get better. She has no new complaints but would like cough drops. - Patient Data Vitals - Most Recent: Last Vital Signs Temp 36.7 C 12/18/17 03:25 Pulse 69 12/18/17 03:25 Resp 24 H 12/18/17 03:25 BP 119/55 L 12/18/17 03:25 Pulse Ox 92 L 12/18/17 03:25 Weight - Most Recent: 110.042 kg I&O - Last 24 Hours: Intake & Output 12/17/17 12/18/17 12/18/17 22:59 06:59 14:59 Intake Total 780 600 Output Total 400 1100 Balance 380 -500 Lab Results Last 24 Hours: Laboratory Results - last 24 hr 12/17/17 12/17/17 12/17/17 Range/Units 05:55 05:55 05:55 WBC (3.98-10.04) K/mm3 RBC (3.98-5.22) M/mm3 Hgb (11.2-15.7) gm/L Hct (34.1-44.9) % MCV (79.4-94.8) fl MCH (25.6-32.2) pg MCHC (32.2-35.5) g/dl RDW Std Deviation (36.4-46.3) fL Plt Count (182-369) K/mm3 MPV (9.4-12.3) fl Neut % (Auto) (34.0-71.1) % Lymph % (Auto) (19.3-51.7) % Butts % (Auto) (4.7-12.5) % Eos % (Auto) (0.7-5.8) Baso % (Auto) (0.1-1.2) % Neut # (Auto) (1.56-6.13) K/mm3 Lymph # (Auto) (1.18-3.74) K/mm3 Butts # (Auto) (0.24-0.36) K/mm3 Eos # (Auto) (0.04-0.36) K/mm3 Baso # (Auto) (0.01-0.08) K/mm3 Manual Slide Review Abnormal smear Sodium 138 (136-145) mEq/L Potassium 3.7 (3.5-5.1) mEq/L Chloride 105 (98-107) mEq/L Carbon Dioxide 22 (21-32) mEq/L Anion Gap 14.7 (5-15) BUN 53 H (7-18) mg/dL Creatinine 2.0 H (0.55-1.02) mg/dL Est Cr Clr Drug Dosing 25.82 mL/min Estimated GFR (MDRD) 25 (>60) mL/min BUN/Creatinine Ratio 26.5 H (14-18) Glucose 63 L (80-115) mg/dL POC Glucose (80-115) mg/dL Calcium 8.3 L (8.5-10.1) mg/dL Magnesium 2.3 (1.8-2.4) mg/dl C-Reactive Protein 17.6 H* (<1.0) mg/dL NT-Pro-B Natriuret Pep 3248 H (0-125) pg/mL 12/17/17 12/17/17 12/17/17 Range/Units 07:45 11:20 17:00 WBC (3.98-10.04) K/mm3 RBC (3.98-5.22) M/mm3 Hgb (11.2-15.7) gm/L Hct (34.1-44.9) % MCV (79.4-94.8) fl MCH (25.6-32.2) pg MCHC (32.2-35.5) g/dl RDW Std Deviation (36.4-46.3) fL Plt Count (182-369) K/mm3 MPV (9.4-12.3) fl Neut % (Auto) (34.0-71.1) % Lymph % (Auto) (19.3-51.7) % Butts % (Auto) (4.7-12.5) % Eos % (Auto) (0.7-5.8) Baso % (Auto) (0.1-1.2) % Neut # (Auto) (1.56-6.13) K/mm3 Lymph # (Auto) (1.18-3.74) K/mm3 Butts # (Auto) (0.24-0.36) K/mm3 Eos # (Auto) (0.04-0.36) K/mm3 Baso # (Auto) (0.01-0.08) K/mm3 Manual Slide Review Sodium (136-145) mEq/L Potassium (3.5-5.1) mEq/L Chloride (98-107) mEq/L Carbon Dioxide (21-32) mEq/L Anion Gap (5-15) BUN (7-18) mg/dL Creatinine (0.55-1.02) mg/dL Est Cr Clr Drug Dosing mL/min Estimated GFR (MDRD) (>60) mL/min BUN/Creatinine Ratio (14-18) Glucose (80-115) mg/dL POC Glucose 97 173 H 124 H (80-115) mg/dL Calcium (8.5-10.1) mg/dL Magnesium (1.8-2.4) mg/dl C-Reactive Protein (<1.0) mg/dL NT-Pro-B Natriuret Pep (0-125) pg/mL 12/17/17 12/17/17 12/18/17 Range/Units 17:29 20:45 02:34 WBC (3.98-10.04) K/mm3 RBC (3.98-5.22) M/mm3 Hgb (11.2-15.7) gm/L Hct (34.1-44.9) % MCV (79.4-94.8) fl MCH (25.6-32.2) pg MCHC (32.2-35.5) g/dl RDW Std Deviation (36.4-46.3) fL Plt Count (182-369) K/mm3 MPV (9.4-12.3) fl Neut % (Auto) (34.0-71.1) % Lymph % (Auto) (19.3-51.7) % Butts % (Auto) (4.7-12.5) % Eos % (Auto) (0.7-5.8) Baso % (Auto) (0.1-1.2) % Neut # (Auto) (1.56-6.13) K/mm3 Lymph # (Auto) (1.18-3.74) K/mm3 Butts # (Auto) (0.24-0.36) K/mm3 Eos # (Auto) (0.04-0.36) K/mm3 Baso # (Auto) (0.01-0.08) K/mm3 Manual Slide Review Sodium (136-145) mEq/L Potassium (3.5-5.1) mEq/L Chloride (98-107) mEq/L Carbon Dioxide (21-32) mEq/L Anion Gap (5-15) BUN (7-18) mg/dL Creatinine (0.55-1.02) mg/dL Est Cr Clr Drug Dosing mL/min Estimated GFR (MDRD) (>60) mL/min BUN/Creatinine Ratio (14-18) Glucose (80-115) mg/dL POC Glucose 177 H 213 H 45 L (80-115) mg/dL Calcium (8.5-10.1) mg/dL Magnesium (1.8-2.4) mg/dl C-Reactive Protein (<1.0) mg/dL NT-Pro-B Natriuret Pep (0-125) pg/mL 12/18/17 12/18/17 12/18/17 Range/Units 03:04 05:45 05:45 WBC 14.67 H (3.98-10.04) K/mm3 RBC 4.52 (3.98-5.22) M/mm3 Hgb 11.4 (11.2-15.7) gm/L Hct 36.0 (34.1-44.9) % MCV 79.6 (79.4-94.8) fl MCH 25.2 L (25.6-32.2) pg MCHC 31.7 L (32.2-35.5) g/dl RDW Std Deviation 48.0 H (36.4-46.3) fL Plt Count 372 H (182-369) K/mm3 MPV 9.3 L (9.4-12.3) fl Neut % (Auto) 78.2 H (34.0-71.1) % Lymph % (Auto) 11.6 L (19.3-51.7) % Butts % (Auto) 6.9 (4.7-12.5) % Eos % (Auto) 2.7 (0.7-5.8) Baso % (Auto) 0.1 (0.1-1.2) % Neut # (Auto) 11.47 H (1.56-6.13) K/mm3 Lymph # (Auto) 1.70 (1.18-3.74) K/mm3 Butts # (Auto) 1.01 H (0.24-0.36) K/mm3 Eos # (Auto) 0.39 H (0.04-0.36) K/mm3 Baso # (Auto) 0.02 (0.01-0.08) K/mm3 Manual Slide Review Abnormal smear Sodium 138 (136-145) mEq/L Potassium 3.9 (3.5-5.1) mEq/L Chloride 103 (98-107) mEq/L Carbon Dioxide 21 (21-32) mEq/L Anion Gap 17.9 H (5-15) BUN 57 H (7-18) mg/dL Creatinine 1.9 H (0.55-1.02) mg/dL Est Cr Clr Drug Dosing 27.17 mL/min Estimated GFR (MDRD) 26 (>60) mL/min BUN/Creatinine Ratio 30.0 H (14-18) Glucose 77 L (80-115) mg/dL POC Glucose 195 H (80-115) mg/dL Calcium 8.3 L (8.5-10.1) mg/dL Magnesium 2.3 (1.8-2.4) mg/dl C-Reactive Protein 11.7 H* (<1.0) mg/dL NT-Pro-B Natriuret Pep (0-125) pg/mL 12/18/17 Range/Units 06:29 WBC (3.98-10.04) K/mm3 RBC (3.98-5.22) M/mm3 Hgb (11.2-15.7) gm/L Hct (34.1-44.9) % MCV (79.4-94.8) fl MCH (25.6-32.2) pg MCHC (32.2-35.5) g/dl RDW Std Deviation (36.4-46.3) fL Plt Count (182-369) K/mm3 MPV (9.4-12.3) fl Neut % (Auto) (34.0-71.1) % Lymph % (Auto) (19.3-51.7) % Butts % (Auto) (4.7-12.5) % Eos % (Auto) (0.7-5.8) Baso % (Auto) (0.1-1.2) % Neut # (Auto) (1.56-6.13) K/mm3 Lymph # (Auto) (1.18-3.74) K/mm3 Butts # (Auto) (0.24-0.36) K/mm3 Eos # (Auto) (0.04-0.36) K/mm3 Baso # (Auto) (0.01-0.08) K/mm3 Manual Slide Review Sodium (136-145) mEq/L Potassium (3.5-5.1) mEq/L Chloride (98-107) mEq/L Carbon Dioxide (21-32) mEq/L Anion Gap (5-15) BUN (7-18) mg/dL Creatinine (0.55-1.02) mg/dL Est Cr Clr Drug Dosing mL/min Estimated GFR (MDRD) (>60) mL/min BUN/Creatinine Ratio (14-18) Glucose (80-115) mg/dL POC Glucose 111 (80-115) mg/dL Calcium (8.5-10.1) mg/dL Magnesium (1.8-2.4) mg/dl C-Reactive Protein (<1.0) mg/dL NT-Pro-B Natriuret Pep (0-125) pg/mL Sammy Results Last 24 Hours: Microbiology 12/16/17 01:40 Aerobic Blood Culture - Preliminary Blood - Venous - Lab Draw NO GROWTH AFTER 2 DAYS Anaerobic Blood Culture - Preliminary NO GROWTH AFTER 2 DAYS 12/16/17 01:35 Aerobic Blood Culture - Preliminary Blood - Venous NO GROWTH AFTER 2 DAYS Anaerobic Blood Culture - Preliminary NO GROWTH AFTER 2 DAYS 12/16/17 09:00 Gram Stain - Final Sputum - Expectorated Sputum Culture - Preliminary Normal Tiffany Med Orders - Current: Current Medications Acetaminophen (Tylenol) 650 mg PO Q4H PRN PRN Reason: Pain (Mild 1-3)/fever Hydrocodone Bitart/Acetaminophen ([place] 325-5 Mg) 1 tab PO Q4H PRN PRN Reason: Pain (moderate 4-6) Albuterol/Ipratropium (Duoneb 3.0-0.5 Mg/3 Ml) 3 ml NEB Q4H PRN PRN Reason: Shortness Of Breath/wheezing Amlodipine Besylate (Norvasc) 10 mg PO DAILY [facility] Last Admin: 12/17/17 09:30 Dose: 10 mg Artificial Tears (Isopto Tears 0.5% Ophth Soln) 0 ml EYEBOTH QID [facility] Last Admin: 12/17/17 20:47 Dose: 1 drop Aspirin (Aspirin) 81 mg PO DAILY [facility] Last Admin: 12/17/17 09:30 Dose: 81 mg Azithromycin (Zithromax) 250 mg PO Q24H [facility] Last Admin: 12/17/17 20:46 Dose: 250 mg Bisacodyl (Dulcolax) 5 mg PO DAILY PRN PRN Reason: Constipation Carvedilol (Coreg) 12.5 mg PO BID [facility] Last Admin: 12/17/17 20:46 Dose: 12.5 mg Ciprofloxacin (Ciloxan 0.3% Ophth Soln) 0 ml EYEBOTH BID [facility] Last Admin: 12/17/17 20:47 Dose: 1 drop Docusate Sodium (Colace) 100 mg PO DAILY [facility] Last Admin: 12/17/17 09:29 Dose: 100 mg Fluoxetine HCl (Prozac) 40 mg PO DAILY [facility] Last Admin: 12/17/17 09:29 Dose: 40 mg Furosemide (Lasix) 40 mg PO DAILY [facility] Last Admin: 12/17/17 09:30 Dose: 40 mg Guaifenesin/Phenylephrine HCl (Robitussin Dm) 10 ml PO Q4H PRN PRN Reason: Cough Last Admin: 12/17/17 18:48 Dose: 10 ml Heparin Sodium (Porcine) (Heparin Sodium) 5,000 units SUBCUT Q8H [facility] Last Admin: 12/18/17 06:30 Dose: 5,000 units Hydralazine HCl (Apresoline) 20 mg IVPUSH Q4H PRN PRN Reason: Hypertension Hydrochlorothiazide (Hydrochlorothiazide) 12.5 mg PO BIDDIURETIC [facility] Last Admin: 12/18/17 06:31 Dose: 12.5 mg Promethazine HCl 12.5 mg/ (Sodium Chloride) 50.5 mls @ 100 mls/hr IV Q6H PRN PRN Reason: Nausea/Vomiting Ceftriaxone Sodium 1 gm/ (Dextrose/Water) 100 mls @ 200 mls/hr IV Q24H [facility] Last Admin: 12/17/17 23:54 Dose: 200 mls/hr Insulin Aspart (Novolog) 0 unit SUBCUT QIDACANDBED [facility]; Protocol Last Admin: 12/18/17 07:31 Dose: Not Given Insulin Detemir (Levemir) 25 unit SUBCUT BID [facility] Last Admin: 12/17/17 20:47 Dose: 25 units Lorazepam (Ativan) 2 mg IVPUSH Q4H PRN PRN Reason: Seizures Lorazepam (Ativan) 1 mg IV Q6H PRN PRN Reason: Anxiety Magnesium Sulfate (Pharmacy To Dose - Magnesium Replacement) 1 dose .XX ASDIRECTED [facility] Metoclopramide HCl (Reglan) 10 mg PO BEDTIME [facility] Last Admin: 12/17/17 20:46 Dose: 10 mg Metoprolol Tartrate (Lopressor) 5 mg IVPUSH Q4H PRN PRN Reason: Tachycardia Morphine Sulfate (Morphine) 2 mg IVPUSH Q4H PRN PRN Reason: Other Stop: 12/22/17 02:46 Nitroglycerin (Nitrostat) 0.4 mg SL ASDIRECTED PRN PRN Reason: chest pain Ondansetron HCl (Zofran) 4 mg IV Q6H PRN PRN Reason: Nausea/Vomiting Polyethylene Glycol (Miralax) 17 gm PO DAILY PRN PRN Reason: Constipation Potassium Chloride (Pharmacy To Dose - Potassium Replacement) 1 dose .XX ASDIRECTED [facility] Saccharomyces Boulardii (Florastor) 250 mg PO DAILY [facility] Last Admin: 12/17/17 09:29 Dose: 250 mg Senna/Docusate Sodium (Senna Plus) 1 tab PO BID PRN PRN Reason: Constipation Sodium Chloride (Saline Flush) 10 ml FLUSH ASDIRECTED PRN PRN Reason: Keep Vein Open Last Admin: 12/16/17 01:37 Dose: 10 ml Zolpidem Tartrate (Ambien) 10 mg PO BEDTIME [facility] Last Admin: 12/17/17 20:46 Dose: 10 mg Discontinued Medications Artificial Tears (Liquitears 1.4% Ophth Soln) 0 ml EYEBOTH QID [facility] Azithromycin (Zithromax) 500 mg PO ONETIME ONE Stop: 12/16/17 01:20 Last Admin: 12/16/17 01:37 Dose: 500 mg Azithromycin (Zithromax) 500 mg IV Q24H [facility] Bumetanide (Bumex) 1 mg IVPUSH ONETIME ONE Stop: 12/16/17 02:51 Last Admin: 12/16/17 04:22 Dose: 1 mg Bumetanide (Bumex) 0.5 mg IVPUSH BID [facility] Stop: 12/16/17 22:00 Last Admin: 12/16/17 21:56 Dose: 0.5 mg Ceftriaxone Sodium (Rocephin) 2 gm IVPUSH Q24H [facility] Ceftriaxone Sodium 2 gm/ (Sodium Chloride) 100 mls @ 100 mls/hr IV ONETIME ONE Stop: 12/16/17 02:20 Last Admin: 12/16/17 01:37 Dose: 100 mls/hr Sodium Chloride (Normal Saline) 250 mls @ 1,000 mls/hr IV ONETIME ONE Stop: 12/16/17 02:55 Last Admin: 12/16/17 04:12 Dose: 1,000 mls/hr Azithromycin 500 mg/ Sodium (Chloride) 250 mls @ 250 mls/hr IV Q24H [facility] Last Admin: 12/17/17 01:58 Dose: 250 mls/hr Insulin Detemir (Levemir) 50 unit SUBCUT BID [facility] Last Admin: 12/17/17 09:31 Dose: 50 units - Exam Quality Assessment: Supplemental Oxygen General: Alert, Oriented, Cooperative, Other (Obese) HEENT: Pupils Equal, Pupils Reactive, EOMI, Mucous Membr. Moist/[place], Other ( throat unable to get a good view) Lungs: Normal Respiratory Effort, Rales Cardiovascular: Regular Rate, Regular Rhythm GI/Abdominal Exam: Normal Bowel Sounds, Soft, Non-Tender, No Organomegaly, No Distention, No Abnormal Bruit, No Mass (Female) Exam: Deferred Back Exam: Normal Inspection, Decreased Range of Motion Extremities: Normal Inspection, Normal Range of Motion, Non-Tender, No Pedal Edema, Normal Capillary Refill Peripheral Pulses: 2+: Dorsalis Pedis (L), Dorsalis Pedis (R) Skin: Warm, Dry, Intact Neurological: No New Focal Deficit Psy/Mental Status: Alert, Normal Affect, Normal Mood - Problem List Review Problem List Initiated/Reviewed/Updated: Yes - My Orders Last 24 Hours: My Active Orders 12/17/17 09:00 Furosemide [Lasix] 40 mg PO DAILY 12/17/17 12:07 Insulin Detemir [Levemir] 25 unit SUBCUT BID 12/17/17 21:00 Azithromycin [Zithromax] 250 mg PO Q24H 12/19/17 05:11 BASIC METABOLIC PANEL,BMP [CHEM] AM C-REACTIVE PROTEIN [CHEM] AM CBC WITH AUTO DIFF [HEME] AM MAGNESIUM [CHEM] AM 12/20/17 05:11 BASIC METABOLIC PANEL,BMP [CHEM] AM C-REACTIVE PROTEIN [CHEM] AM CBC WITH AUTO DIFF [HEME] AM MAGNESIUM [CHEM] AM 12/21/17 05:11 BASIC METABOLIC PANEL,BMP [CHEM] AM C-REACTIVE PROTEIN [CHEM] AM MAGNESIUM [CHEM] AM - Plan Plan:: Assessment/Plan: Acute: Heart Failure w/ Reduced EF - Carries a hx/o HF with unknown EF - ProBNP 2525--> 3248 - CXR shows pulmonary congestion - Heart failure protocol: loop and thiazide diuretic; fluid restriction, Is/ Os and daily weights - 2D echo in AM 12/17/17: LVEF 40-45%, Grade 1 diastolic Dysfunction and Moderately elevated RV Systolic Pressure at 47.7 mmHg Bronchitis, Continues to improve - Cough, SOB, Dyspnea but Afebrile - WBC 15.86 w/ neutrophils of 73% - CXR shows pulmonary congestion/opacification; repeat CXR shows cardiomegaly and minimal pulmonary vascular congestion. No pneumonia. 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
[2017-12-18] MEDS: Carvedilol 12.5 MG Tab PO SCH ×2 (08:43→22:21)
[2017-12-18] MEDS: FLUoxetine 20 MG Cap PO SCH (08:44)
[2017-12-18] MEDS: amLODIPine 10 MG Tab PO SCH (08:44)
[2017-12-18] MEDS: Docusate Sodium 100 MG Cap PO SCH (08:44)
[2017-12-18] MEDS: Aspirin 81 MG Tab.Chew PO SCH (08:44)
[2017-12-18] MEDS: Furosemide 40 MG Tab PO SCH (08:44)
[2017-12-18] MEDS: Ciprofloxacin 0.3% Ophth Soln 2.5 ML Bottle EYEBOTH SCH ×2 (08:45→22:27)
[2017-12-18] MEDS: Hypromellose 0.5% Ophth Soln 15 ML Bottle EYEBOTH SCH ×4 (08:45→22:27)
[2017-12-18] MEDS: Insulin Detemir 100 Units/ML 3 ML Pen SUBCUT SCH ×2 (08:45→22:38)
[2017-12-18] MEDS: Saccharomyces Boulardii (Probiotic) 250 MG Cap PO SCH (08:52)
[2017-12-18] MEDS: Benzocaine/Cetylpyridinium/Menthol Lozenge MUCMEM PRN ×3 (14:20→22:34)
[2017-12-18] MEDS: guaiFENesin/Dextromethorphan 100-10 MG/5 ML Soln 5 ML Cup PO PRN (16:35)
[2017-12-18] MEDS ORDERED: Bumetanide 1 MG/4 ML MDV IVPUSH ONE ×2 (19:12→22:15)
[2017-12-18] MEDS ORDERED: Ergocalciferol (Vitamin D2) 50,000 Unit Cap PO SCH (20:00)
[2017-12-18] MEDS ORDERED: Insulin Detemir 100 Units/ML 3 ML Pen SUBCUT SCH (21:00)
[2017-12-18] MEDS: Azithromycin 250 MG Tab PO SCH (22:20)
[2017-12-18] MEDS: Metoclopramide 10 MG Tab PO SCH (22:21)
[2017-12-18] MEDS: Zolpidem 5 MG Tab PO SCH (22:22)
[2017-12-19] MEDS: Insulin Detemir 100 Units/ML 3 ML Pen SUBCUT SCH ×2 (03:53→08:49)
[2017-12-19] MEDS: Benzocaine/Cetylpyridinium/Menthol Lozenge MUCMEM PRN (04:17)
[2017-12-19] MEDS: Heparin Sodium 5,000 Units/ML Vial SUBCUT SCH (05:27)
[2017-12-19] MEDS: Hydrochlorothiazide 12.5 MG Cap PO SCH (05:28)
[2017-12-19] MEDS: Saccharomyces Boulardii (Probiotic) 250 MG Cap PO SCH (08:45)
[2017-12-19] MEDS: amLODIPine 10 MG Tab PO SCH (08:46)
[2017-12-19] MEDS: Carvedilol 12.5 MG Tab PO SCH (08:48)
[2017-12-19] MEDS: Docusate Sodium 100 MG Cap PO SCH (08:48)
[2017-12-19] MEDS: Aspirin 81 MG Tab.Chew PO SCH (08:48)
[2017-12-19] MEDS: FLUoxetine 20 MG Cap PO SCH (08:48)
[2017-12-19] MEDS: Furosemide 40 MG Tab PO SCH (08:48)
[2017-12-19] MEDS: Ciprofloxacin 0.3% Ophth Soln 2.5 ML Bottle EYEBOTH SCH (08:49)
[2017-12-19] MEDS: Hypromellose 0.5% Ophth Soln 15 ML Bottle EYEBOTH SCH (08:49)
[2017-12-19 08:53] VITALS: BP 114/90
[2017-12-19] MEDS: Insulin Aspart 100 Units/ML 3 ML Pen SUBCUT SCH ×2 (08:54→11:39)
[2017-12-19] MEDS ORDERED: Insulin Detemir 100 Units/ML 3 ML Pen SUBCUT SCH (09:00)
[2017-12-19] MEDS ORDERED: Furosemide 40 MG Tab PO SCH (09:00)
--- NOTE | 2017-12-19 11:29 | PCM.DCSUM1 ---
Discharge Summary - Hospital Course Brief History: This is a 67 yo elderly white female with past medical hx/o impaired vision, chronic angina, heart failure with unknown EF, hyperlipidemia, hypertension, history of AL, status post pacemaker Placement, chronic dyspnea on exertion, JACK, GERD, acute renal failure, osteoarthritis, type 2 diabetes, anxiety, and obesity with BMI of 37 who comes in with complains of 4-day history of productive cough and difficulty breathing. She also admits of having hoarse voice and bilateral eye discharge and nasal congestion. However she denies having chest pain, fever or chills. No GI or symptoms. She is not home O2 dependent. She denies any history of pulmonary disease. Her initial workup in the emergency department shows a CBC remarkable for WBC of 14.84, hemoglobin of 10.9, MCH of 25.3, MCHC of 31.6, RDW of 47.6, neutrophils 82.2% and lymphocytes of 9.7%. Her chemistry is remarkable for BUN of 53, creatinine of 2, glucose of 63, calcium of 8.3, CRP of 17.6, proBNP of 30-48. Chest x-ray shows enlarged heart with mild pulmonary vascular congestion. AICD is noted. Patient is being admitted for bronchitis and probable acute heart failure. She is full code. - Discharge Data Discharge Date: 12/19/17 Discharge Disposition: Home, Self-Care 01 Condition: Good - Discharge Diagnosis/Problem(s) (1) Bronchitis SNOMED Code(s): 82689319 ICD Code: J40 - BRONCHITIS, NOT SPECIFIED ACUTE OR CHRONIC Status: Acute (2) Conjunctivitis SNOMED Code(s): 2610427 ICD Code: H10.9 - UNSPECIFIED CONJUNCTIVITIS Status: Resolved Qualifiers: Chronic conjunctivitis type: other allergic Laterality: bilateral (3) Congestive heart failure SNOMED Code(s): 96869974 ICD Code: I50.9 - HEART FAILURE, UNSPECIFIED Status: Resolved Priority: High Problem Details: states echo 3 months ago with [employer] Dr. Hawk at [facility] in [place]- will request record (4) Hypoglycemia due to type 2 diabetes mellitus SNOMED Code(s): 790607246067360, 341321338838347 ICD Code: E11.649 - TYPE 2 DIABETES MELLITUS WITH HYPOGLYCEMIA WITHOUT COMA Status: Resolved - Patient Summary/Data Operative Procedure(s) Performed: None Complications: None Consults: Consultations 12/16/17 02:48 Consult to Spiritual Care [CONS] Routine OT Evaluation and Treatment [CONS] Routine PT Evaluation and Treatment [CONS] Routine Respiratory Care Assess and Treatment [CONS] Routine Labs Pending at D/C: None Recommended Follow-up Testing/Procedures: None Planned Operative Procedure(s) after DC: None Hospital Course: Patient was primarily admitted for medical treatment of acute bronchitis and acute congestive heart failure. She was provided intravenous antibiotic and was put on heart failure protocol. Slowly, she improved on this regimen. All her basic infectious work to include mycoplasma pneumoniae, strep pneumoniae, sputum cultures and blood cultures were all negative. Her CXR shows pulmonary congestion without pneumonia. During this hospitalization, she was also treated for allergic conjunctivitis which quickly resolved with routine eye drops. Her hospital course was fairly uncomplicated and the rest of her chronic medical illness remained stable during this admission. Patient was stable upon discharged. She was released with additional course of oral antibiotic along with probiotic to complete. She was advised to check her glucose at least 3x/day and show log on follow up appointment with her PCP. She was further advised to follow up or call her PCP for any questions or concerns after discharge. And most importantly, she was advised to come back or seek immediate care should her symptoms persists or gets worse. The patient expressed understanding and in agreement with the plans as discussed above. All questions were answered. - Patient Instructions Diet: Heart Healthy Diet, Usual Diet as Tolerated, Low Sodium, Fluid Restriction , Diabetic Diet, Weight Loss Diet Fluid Restriction: 2000 mL Activity: As Tolerated Driving: May Drive Today Showering/Bathing: May Shower Notify Provider of: Fever, Increased Pain, Swelling and Redness, Nausea and/or Vomiting Other/Special Instructions: - Please take all new medications as directed. - Resume insulin home regimen as usual. - Follow diabetic and heart failure diet as instructed. - Check your blood glucose at least x3 a day and show log on follow up appointment with your PCP. - Follow up or call your family doctor for any questions or concerns after discharge. - Follow up with your PCP in 1 week. - Come back or seek immediate care should your symptoms persist or get worse - Discharge Plan Prescriptions/Med Rec: Furosemide [Lasix] 40 mg PO ASDIRECTED #120 tablet Levofloxacin [Levaquin] 750 mg PO Q48H #4 tab Potassium Chloride 20 meq PO ASDIRECTED #120 tablet.er Saccharomyces Boulardii [Florastor] 250 mg PO Q48H #4 cap Home Medications: Home Meds Aspirin 81 mg PO DAILY 05/16/16 [History] Carvedilol [Coreg] 12.5 mg PO BID 05/16/16 [History] FLUoxetine [PROzac] 40 mg PO DAILY 05/16/16 [History] Insulin Aspart [NovoLOG] 0 unit SUBCUT TID 05/16/16 [History] amLODIPine [Norvasc] 10 mg PO DAILY 05/16/16 [History] Docusate Sodium [Stool Softener] 100 mg PO DAILY 07/03/17 [History] Nitroglycerin [Nitrostat] 0.4 mg SL ASDIRECTED 09/22/17 [History] Metoclopramide HCl 10 mg PO BEDTIME 12/16/17 [History] Zolpidem [Ambien] 10 mg PO DAILY 12/16/17 [History] Ergocalciferol (Vitamin D2) [Vitamin D2] 50,000 units PO WEEKLY 12/17/17 [ History] Furosemide [Lasix] 40 mg PO ASDIRECTED #120 tablet 12/19/17 [Rx] Insulin Degludec [Tresiba Flextouch U-200] 22 units SUBCUT BID #5 12/19/17 [Rx] Levofloxacin [Levaquin] 750 mg PO Q48H #4 tab 12/19/17 [Rx] Potassium Chloride 20 meq PO ASDIRECTED #120 tablet.er 12/19/17 [Rx] Saccharomyces Boulardii [Florastor] 250 mg PO Q48H #4 cap 12/19/17 [Rx] Patient Handouts: Allergic Conjunctivitis, Adult, [id number], Acute Bronchitis, Adult, [id number], Heart Failure, [id number] Referrals: PCP,Not In Area [Primary Care Provider] - - Discharge Summary/Plan Comment DC Time >30 min.: Yes (45 mins) Discharge Summary/Plan Comment: Discharge to Home - General Info Date of Service: 12/19/17 Admission Dx/Problem (Free Text: Bronchitis and Heart Failure Subjective Update: Follow Up Functional Status: Reports: Pain Controlled, Tolerating Diet, Ambulating, Urinating. Denies: New Symptoms - Review of Systems General: Denies: Fever, Weakness, Fatigue, Malaise, Chills HEENT: Reports: No Symptoms Pulmonary: Reports: Cough. Denies: Shortness of Breath Cardiovascular: Denies: Chest Pain Gastrointestinal: Denies: Abdominal Pain, Nausea, Vomiting Genitourinary: Reports: No Symptoms Musculoskeletal: Denies: Neck Pain Skin: Denies: Cyanosis, Mottled, Pallor, Diaphoresis, Pruritis, Rash Neurological: Reports: Gait Disturbance. Denies: Confusion, Difficulty Walking , Weakness Psychiatric: Denies: Depression, Anxiety, Agitation, Hallucinations Systems Review Comment: No significant overnight or acute issues. She slept good. She feels ready to go home. She has no complaints this morning. - Patient Data Vitals - Most Recent: Last Vital Signs Temp 36.7 C 12/19/17 08:47 Pulse 75 12/19/17 08:48 Resp 18 12/19/17 08:47 BP 114/90 12/19/17 08:48 Pulse Ox 95 12/19/17 08:47 Weight - Most Recent: 109.588 kg I&O - Last 24 hours: Intake & Output 12/18/17 12/19/17 12/19/17 22:59 06:59 14:59 Intake Total 700 540 300 Output Total 900 1950 Balance -200 -1410 300 Lab Results - Last 24 hrs: Laboratory Results - last 24 hr 12/18/17 12/18/17 12/19/17 Range/Units 16:07 22:16 05:50 WBC 14.77 H (3.98-10.04) K/mm3 RBC 4.41 (3.98-5.22) M/mm3 Hgb 11.0 L (11.2-15.7) gm/L Hct 34.9 (34.1-44.9) % MCV 79.1 L (79.4-94.8) fl MCH 24.9 L (25.6-32.2) pg MCHC 31.5 L (32.2-35.5) g/dl RDW Std Deviation 47.6 H (36.4-46.3) fL Plt Count 382 H (182-369) K/mm3 MPV 9.1 L (9.4-12.3) fl Neut % (Auto) 71.8 H (34.0-71.1) % Lymph % (Auto) 15.4 L (19.3-51.7) % [place] % (Auto) 7.9 (4.7-12.5) % Eos % (Auto) 3.7 (0.7-5.8) Baso % (Auto) 0.3 (0.1-1.2) % Neut # (Auto) 10.62 H (1.56-6.13) K/mm3 Lymph # (Auto) 2.27 (1.18-3.74) K/mm3 [place] # (Auto) 1.16 H (0.24-0.36) K/mm3 Eos # (Auto) 0.54 H (0.04-0.36) K/mm3 Baso # (Auto) 0.05 (0.01-0.08) K/mm3 Manual Slide Review Normal smear Sodium (136-145) mEq/L Potassium (3.5-5.1) mEq/L Chloride (98-107) mEq/L Carbon Dioxide (21-32) mEq/L Anion Gap (5-15) BUN (7-18) mg/dL Creatinine (0.55-1.02) mg/dL Est Cr Clr Drug Dosing mL/min Estimated GFR (MDRD) (>60) mL/min BUN/Creatinine Ratio (14-18) Glucose (80-115) mg/dL POC Glucose 179 H 210 H (80-115) mg/dL Calcium (8.5-10.1) mg/dL Magnesium (1.8-2.4) mg/dl C-Reactive Protein (<1.0) mg/dL NT-Pro-B Natriuret Pep (0-125) pg/mL 12/19/17 12/19/17 12/19/17 Range/Units 05:50 05:50 06:19 WBC (3.98-10.04) K/mm3 RBC (3.98-5.22) M/mm3 Hgb (11.2-15.7) gm/L Hct (34.1-44.9) % MCV (79.4-94.8) fl MCH (25.6-32.2) pg MCHC (32.2-35.5) g/dl RDW Std Deviation (36.4-46.3) fL Plt Count (182-369) K/mm3 MPV (9.4-12.3) fl Neut % (Auto) (34.0-71.1) % Lymph % (Auto) (19.3-51.7) % [place] % (Auto) (4.7-12.5) % Eos % (Auto) (0.7-5.8) Baso % (Auto) (0.1-1.2) % Neut # (Auto) (1.56-6.13) K/mm3 Lymph # (Auto) (1.18-3.74) K/mm3 [place] # (Auto) (0.24-0.36) K/mm3 Eos # (Auto) (0.04-0.36) K/mm3 Baso # (Auto) (0.01-0.08) K/mm3 Manual Slide Review Sodium 137 (136-145) mEq/L Potassium 3.8 (3.5-5.1) mEq/L Chloride 102 (98-107) mEq/L Carbon Dioxide 21 (21-32) mEq/L Anion Gap 17.8 H (5-15) BUN 54 H (7-18) mg/dL Creatinine 1.8 H (0.55-1.02) mg/dL Est Cr Clr Drug Dosing 28.68 mL/min Estimated GFR (MDRD) 28 (>60) mL/min BUN/Creatinine Ratio 30.0 H (14-18) Glucose 90 (80-115) mg/dL POC Glucose 90 (80-115) mg/dL Calcium 8.4 L (8.5-10.1) mg/dL Magnesium 2.2 (1.8-2.4) mg/dl C-Reactive Protein 7.6 H* (<1.0) mg/dL NT-Pro-B Natriuret Pep 3307 H (0-125) pg/mL MARCELA Results - Last 24 hrs: Microbiology 12/16/17 01:40 Aerobic Blood Culture - Preliminary Blood - Venous - Lab Draw NO GROWTH AFTER 3 DAYS Anaerobic Blood Culture - Preliminary NO GROWTH AFTER 3 DAYS 12/16/17 01:35 Aerobic Blood Culture - Preliminary Blood - Venous NO GROWTH AFTER 3 DAYS Anaerobic Blood Culture - Preliminary NO GROWTH AFTER 3 DAYS 12/16/17 09:00 Gram Stain - Final Sputum - Expectorated Sputum Culture - Final Normal Tiffany Med Orders - Current: Current Medications Acetaminophen (Tylenol) 650 mg PO Q4H PRN PRN Reason: Pain (Mild 1-3)/fever Hydrocodone Bitart/Acetaminophen ([place] 325-5 Mg) 1 tab PO Q4H PRN PRN Reason: Pain (moderate 4-6) Albuterol/Ipratropium (Duoneb 3.0-0.5 Mg/3 Ml) 3 ml NEB Q4H PRN PRN Reason: Shortness Of Breath/wheezing Amlodipine Besylate (Norvasc) 10 mg PO DAILY [facility] Last Admin: 12/19/17 08:46 Dose: 10 mg Artificial Tears (Isopto Tears 0.5% Ophth Soln) 0 ml EYEBOTH QID [facility] Last Admin: 12/19/17 08:49 Dose: 1 drop Aspirin (Aspirin) 81 mg PO DAILY [facility] Last Admin: 12/19/17 08:48 Dose: 81 mg Azithromycin (Zithromax) 250 mg PO Q24H [facility] Last Admin: 12/18/17 22:20 Dose: 250 mg Benzocaine/Menthol (Cepacol Sore Throat) 1 lozenge MUCMEM Q4H PRN PRN Reason: Sore Throat Last Admin: 12/19/17 04:17 Dose: 1 lozenge Bisacodyl (Dulcolax) 5 mg PO DAILY PRN PRN Reason: Constipation Carvedilol (Coreg) 12.5 mg PO BID [facility] Last Admin: 12/19/17 08:48 Dose: 12.5 mg Ciprofloxacin (Ciloxan 0.3% Ophth Soln) 0 ml EYEBOTH BID [facility] Last Admin: 12/19/17 08:49 Dose: 1 drop Docusate Sodium (Colace) 100 mg PO DAILY [facility] Last Admin: 12/19/17 08:48 Dose: 100 mg Ergocalciferol (Vitamin D2) 50,000 units PO Th@0900 [facility] Fluoxetine HCl (Prozac) 40 mg PO DAILY [facility] Last Admin: 12/19/17 08:48 Dose: 40 mg Furosemide (Lasix) 40 mg PO DAILY [facility] Last Admin: 12/19/17 08:48 Dose: 40 mg Guaifenesin/Phenylephrine HCl (Robitussin Dm) 10 ml PO Q4H PRN PRN Reason: Cough Last Admin: 12/18/17 16:35 Dose: 10 ml Heparin Sodium (Porcine) (Heparin Sodium) 5,000 units SUBCUT Q8H [facility] Last Admin: 12/19/17 05:27 Dose: 5,000 units Hydralazine HCl (Apresoline) 20 mg IVPUSH Q4H PRN PRN Reason: Hypertension Hydrochlorothiazide (Hydrochlorothiazide) 12.5 mg PO BIDDIURETIC [facility] Last Admin: 12/19/17 05:28 Dose: 12.5 mg Promethazine HCl 12.5 mg/ (Sodium Chloride) 50.5 mls @ 100 mls/hr IV Q6H PRN PRN Reason: Nausea/Vomiting Insulin Aspart (Novolog) 0 unit SUBCUT QIDACANDBED [facility]; Protocol Last Admin: 12/19/17 08:54 Dose: Not Given Insulin Detemir (Levemir) 22 unit SUBCUT BID [facility] Last Admin: 12/19/17 08:49 Dose: 22 unit Lorazepam (Ativan) 2 mg IVPUSH Q4H PRN PRN Reason: Seizures Lorazepam (Ativan) 1 mg IV Q6H PRN PRN Reason: Anxiety Magnesium Sulfate (Pharmacy To Dose - Magnesium Replacement) 1 dose .XX ASDIRECTED [facility] Metoclopramide HCl (Reglan) 10 mg PO BEDTIME [facility] Last Admin: 12/18/17 22:21 Dose: 10 mg Metoprolol Tartrate (Lopressor) 5 mg IVPUSH Q4H PRN PRN Reason: Tachycardia Morphine Sulfate (Morphine) 2 mg IVPUSH Q4H PRN PRN Reason: Other Stop: 12/22/17 02:46 Nitroglycerin (Nitrostat) 0.4 mg SL ASDIRECTED PRN PRN Reason: chest pain Ondansetron HCl (Zofran) 4 mg IV Q6H PRN PRN Reason: Nausea/Vomiting Polyethylene Glycol (Miralax) 17 gm PO DAILY PRN PRN Reason: Constipation Potassium Chloride (Pharmacy To Dose - Potassium Replacement) 1 dose .XX ASDIRECTED [facility] Saccharomyces Boulardii (Florastor) 250 mg PO DAILY [facility] Last Admin: 12/19/17 08:45 Dose: 250 mg Senna/Docusate Sodium (Senna Plus) 1 tab PO BID PRN PRN Reason: Constipation Sodium Chloride (Saline Flush) 10 ml FLUSH ASDIRECTED PRN PRN Reason: Keep Vein Open Last Admin: 12/16/17 01:37 Dose: 10 ml Zolpidem Tartrate (Ambien) 10 mg PO BEDTIME [facility] Last Admin: 12/18/17 22:22 Dose: 10 mg Discontinued Medications Artificial Tears (Liquitears 1.4% Ophth Soln) 0 ml EYEBOTH QID [facility] Azithromycin (Zithromax) 500 mg PO ONETIME ONE Stop: 12/16/17 01:20 Last Admin: 12/16/17 01:37 Dose: 500 mg Azithromycin (Zithromax) 500 mg IV Q24H [facility] Bumetanide (Bumex) 1 mg IVPUSH ONETIME ONE Stop: 12/16/17 02:51 Last Admin: 12/16/17 04:22 Dose: 1 mg Bumetanide (Bumex) 0.5 mg IVPUSH BID [facility] Stop: 12/16/17 22:00 Last Admin: 12/16/17 21:56 Dose: 0.5 mg Bumetanide (Bumex) 0.5 mg IVPUSH ONETIME ONE Stop: 12/18/17 19:13 Last Admin: 12/18/17 22:54 Dose: 0.5 mg Bumetanide (Bumex) 0.5 mg IVPUSH ONETIME ONE Stop: 12/18/17 22:16 Last Admin: 12/19/17 03:54 Dose: Not Given Ceftriaxone Sodium (Rocephin) 2 gm IVPUSH Q24H [facility] Furosemide (Lasix) 40 mg PO DAILY [facility] Ceftriaxone Sodium 2 gm/ (Sodium Chloride) 100 mls @ 100 mls/hr IV ONETIME ONE Stop: 12/16/17 02:20 Last Admin: 12/16/17 01:37 Dose: 100 mls/hr Sodium Chloride (Normal Saline) 250 mls @ 1,000 mls/hr IV ONETIME ONE Stop: 12/16/17 02:55 Last Admin: 12/16/17 04:12 Dose: 1,000 mls/hr Ceftriaxone Sodium 1 gm/ (Dextrose/Water) 100 mls @ 200 mls/hr IV Q24H [facility] Last Admin: 12/17/17 23:54 Dose: 200 mls/hr Azithromycin 500 mg/ Sodium (Chloride) 250 mls @ 250 mls/hr IV Q24H [facility] Last Admin: 12/17/17 01:58 Dose: 250 mls/hr Insulin Detemir (Levemir) 50 unit SUBCUT BID [facility] Last Admin: 12/17/17 09:31 Dose: 50 units Insulin Detemir (Levemir) 25 unit SUBCUT BID [facility] Last Admin: 12/19/17 03:53 Dose: Not Given Insulin Detemir (Levemir) 50 unit SUBCUT BID [facility] Last Admin: 12/19/17 03:54 Dose: Not Given Insulin Detemir (Levemir) 22 unit SUBCUT BID [facility] - Exam General: Reports: Alert, Oriented, Cooperative, Other (Obese) HEENT: Reports: Pupils Equal, Pupils Reactive, EOMI, Mucous Membr. Moist/[place] Neck: Reports: Supple, Trachea Midline, No JVD Lungs: Reports: Clear to Auscultation, Normal Respiratory Effort Cardiovascular: Reports: Regular Rate, Regular Rhythm GI/Abdominal Exam: Normal Bowel Sounds, Soft, Non-Tender, No Organomegaly, No Distention, No Abnormal Bruit (Female) Exam: Deferred Rectal (Female) Exam: Deferred Back Exam: Reports: Normal Inspection, Decreased Range of Motion Extremities: Normal Inspection, Normal Range of Motion, Non-Tender, Normal Capillary Refill Skin: Reports: Warm, Dry, Intact Neurological: Reports: No New Focal Deficit Psy/Mental Status: Reports: Alert, Normal Affect, Normal Mood
[2017-12-25] MEDS ORDERED: Ergocalciferol (Vitamin D2) 50,000 Unit Cap PO SCH (09:00)
== END 2017-12-19 12:18 | disposition home or self-care (01) | DRG 291 ==
LOC: JD.ED 00:45 → JD.MS 03:06
PROVIDERS: ADMIT Internal Medicine; ATTEND Internal Medicine
DX: J18.9 Pneumonia, unspecified organism (principal); I11.0 Hypertensive heart disease with heart failure; E11.9 Type 2 diabetes mellitus without complications; J96.01 Acute respiratory failure with hypoxia; I25.10 Atherosclerotic heart disease of native coronary artery without angina pectoris; Z88.8 Allergy status to other drugs, medicaments and biological substances; N17.9 Acute kidney failure, unspecified; N18.4 Chronic kidney disease, stage 4 (severe); J40 Bronchitis, not specified as acute or chronic; I50.9 Heart failure, unspecified; E78.5 Hyperlipidemia, unspecified; Z68.30 Body mass index [BMI] 30.0-30.9, adult; E03.9 Hypothyroidism, unspecified; Z95.0 Presence of cardiac pacemaker; H10.10 Acute atopic conjunctivitis, unspecified eye; Z95.5 Presence of coronary angioplasty implant and graft; G47.30 Sleep apnea, unspecified; G47.33 Obstructive sleep apnea (adult) (pediatric); I50.21 Acute systolic (congestive) heart failure; E11.649 Type 2 diabetes mellitus with hypoglycemia without coma; I13.0 Hypertensive heart and chronic kidney disease with heart failure and stage 1 through stage 4 chronic kidney disease, or unspecified chronic kidney disease; K21.9 Gastro-esophageal reflux disease without esophagitis; E11.22 Type 2 diabetes mellitus with diabetic chronic kidney disease; M19.90 Unspecified osteoarthritis, unspecified site; F41.9 Anxiety disorder, unspecified; E66.9 Obesity, unspecified; I25.118 Atherosclerotic heart disease of native coronary artery with other forms of angina pectoris; Z68.37 Body mass index [BMI] 37.0-37.9, adult; I25.2 Old myocardial infarction; Z79.4 Long term (current) use of insulin; Z79.82 Long term (current) use of aspirin; Z79.899 Other long term (current) drug therapy; Z95.810 Presence of automatic (implantable) cardiac defibrillator
CPT/HCPCS: 36415; 71045; 80053; 83605; 83735; 83880; 84484; 85025; 86738; 87040 ×2; 93005; 96365; 99285; A9270; J0696; J7030; J7050; 80048; 82962; 86140; 87070; 87205; 87899; 93306; 94761; 97110-GO; 97110-GP; 97116-GP; 97162-GP; 97165-GO; 97530-GO; J0456; J1644; J1815-GY; J7040; J7060

== ENCOUNTER 2018-01-07 10:04 | Emergency (ER) | payer MEDICARE, OTHER, MEDICAID ==
--- NOTE | 2018-01-07 11:15 | EDM.PDOC ---
ED HPI GENERAL MEDICAL PROBLEM - General Chief Complaint: Upper Extremity Injury/Pain Stated Complaint: [facility] Time Seen by Provider: 01/07/18 11:02 Source of Information: Reports: Patient History Limitations: Reports: No Limitations - History of Present Illness INITIAL COMMENTS - FREE TEXT/NARRATIVE: 57-year-old female arrives via [facility] for evaluation and treatment of injuries sustained from a fall. Reports the fall occurred around 0200 this morning. States that she had "an accident " then she got up she slipped. She landed on her left side. Primarily complaining of pain to the left elbow and the left knee. She denies any head trauma. Denies any syncope, neck pain, lightheadedness, dizziness, nausea, vomiting, chest pain, abdominal pain or any shortness of breath. She has been able to ambulate but reports it is painful due to her left knee pain. She has a bruise to the left knee. Reports limited range of motion of the left knee and left elbow. patient is on a baby aspirin. She is also a diabetic. Onset: Today Left Shoulder Pain Score (Numeric/FACES): 5 Left Knee Pain Score (Numeric/FACES): 5 - Related Data Allergies Allergy/AdvReac Type Severity Reaction Status Date / Time lisinopril AdvReac Cough Verified 01/07/18 10:13 Home Meds: Home Meds Aspirin 81 mg PO DAILY 05/16/16 [History] Carvedilol [Coreg] 12.5 mg PO BID 05/16/16 [History] FLUoxetine [PROzac] 40 mg PO DAILY 05/16/16 [History] Insulin Aspart [NovoLOG] 0 unit SUBCUT TID 05/16/16 [History] amLODIPine [Norvasc] 10 mg PO BEDTIME 05/16/16 [History] Docusate Sodium [Stool Softener] 100 mg PO DAILY 07/03/17 [History] Nitroglycerin [Nitrostat] 0.4 mg SL ASDIRECTED 09/22/17 [History] Metoclopramide HCl 10 mg PO BEDTIME 12/16/17 [History] Zolpidem [Ambien] 10 mg PO BEDTIME 12/16/17 [History] Ergocalciferol (Vitamin D2) [Vitamin D2] 50,000 units PO WEEKLY 12/17/17 [ History] Insulin Degludec [Tresiba Flextouch U-200] 22 units SUBCUT BID #5 12/19/17 [Rx] Levofloxacin [Levaquin] 750 mg PO Q48H #4 tab 12/19/17 [Rx] Saccharomyces Boulardii [Florastor] 250 mg PO Q48H #4 cap 12/19/17 [Rx] Acetaminophen/HYDROcodone [Angleton 325-5 MG] 1 tab PO Q6H PRN #15 tablet 01/07/18 [Rx] Furosemide [Lasix] 40 mg PO Q48H 01/07/18 [History] Levofloxacin 750 mg PO Q48H 01/07/18 [History] Potassium Chloride 20 meq PO Q48H 01/07/18 [History] Past Medical History HEENT History: Reports: Cataract, Epistaxis, Impaired Vision Cardiovascular History: Reports: Angina, Heart Failure, High Cholesterol, Hypertension, VA, Pacemaker, SOB on Exertion, Stents Respiratory History: Reports: Sleep Apnea, SOB Gastrointestinal History: Reports: GERD Other Gastrointestinal History: abdominal pain, supposed to see primary on Friday Genitourinary History: Reports: Acute Renal Failure DEVELOPMENT DISABILITY SPECIALIST History: Reports: Other OB/BYN History: pain in vagina Musculoskeletal History: Reports: Arthritis Psychiatric History: Reports: Anxiety Endocrine/Metabolic History: Reports: Diabetes, Type II, Obesity/BMI 30+ Oncologic (Cancer) History: Reports: Other (See Below) Other Oncologic History: removed in - Infectious Disease History Infectious Disease History: Reports: Chicken Pox, Measles, Mumps - Past Surgical History HEENT Surgical History: Reports: Cataract Surgery, Other (See Below) Cardiovascular Surgical History: Reports: Coronary Artery Stent, Pacer GI Surgical History: Reports: Appendectomy, Other (See Below) Social & Family History - Family History Family Medical History: Noncontributory OBGYN: Reports: Musculoskeletal: Reports: Arthritis Psychiatric: Reports: Anxiety, Depression Endocrine/Metabolic: Reports: Diabetes, type II, Hypothyroidism - Tobacco Use Smoking Status *Q: Never Smoker - Caffeine Use Caffeine Use: Reports: Coffee - Recreational Drug Use Recreational Drug Use: No - Living Situation & Occupation Living situation: Reports: Occupation: Retired Review of Systems - Review of Systems Review Of Systems: See Below Respiratory: Denies: Shortness of Breath Cardiovascular: Denies: Chest Pain GI/Abdominal: Denies: Abdominal Pain, Nausea, Vomiting Musculoskeletal: Reports: Joint Pain (left knee and left elbow). Denies: Neck Pain, Shoulder Pain Skin: Reports: Bruising (left knee) Neurological: Reports: Difficulty Walking (due to left knee pain). Denies: Headache, Syncope ED EXAM, GENERAL - Physical Exam Exam: See Below Exam Limited By: No Limitations General Appearance: Alert, WD/WN, No Apparent Distress, Obese Eye Exam: Bilateral Eye: Normal Inspection, PERRL Ears: Normal External Exam Nose: Normal Inspection Throat/Mouth: Normal Inspection, Normal Lips, Normal Voice, No Airway Compromise Head: Atraumatic, Normocephalic Neck: Normal Inspection, Supple, Non-Tender, Full Range of Motion Respiratory/Chest: No Respiratory Distress, Lungs Clear, Normal Breath Sounds Cardiovascular: Normal Peripheral Pulses, Regular Rate, Rhythm, Systolic Murmur Peripheral Pulses: 1+: Radial (L), Radial (R) GI/Abdominal: Soft, Non-Tender Extremities: Limited Range of Motion (left elbow, pain with flexion and extension; pain with flexion and extension to the left knee), Other (tenderness to palpation to the left olecranon process, tenderness to palpation to the left knee; no pain to the left shoulder) Neurological: Alert, Oriented, Normal Cognition Psychiatric: Normal Affect, Normal Mood Skin Exam: Warm, Dry, Normal Color, Ecchymosis (left knee approximately 4cm in diameter) Course - Vital Signs Last Recorded V/S: Last Vital Signs Temp 97.9 F 01/07/18 10:08 Pulse 70 01/07/18 12:46 Resp 18 01/07/18 12:46 BP 140/80 01/07/18 12:46 Pulse Ox 99 01/07/18 12:46 - Radiology Interpretation Free Text/Narrative:: xray of the left elbow reviewed by myself and Dr. Dior shows a possible radial head fracture, abnormality seen to the olecranon process believed to be possibly old fracture xray of the left knee shows no acute fractures or dislocations xray of the left shoulder shows no acute fractures or dislocations - Re-Assessments/Exams Free Text/Narrative Re-Assessment/Exam: 01/07/18 12:27 I reviewed the images with the patient. Will place in a sling and have her follow up with ortho for a suspected radial neck fracture. Patient is anxious to go home at this time. Will discharge home. Discharge instructions as documented. Departure - Departure Time of Disposition: 12:20 Disposition: Home, Self-Care 01 Condition: Fair Clinical Impression: Fracture of radius Qualifiers: Encounter type: initial encounter Radius location: neck Fracture type: closed Fracture alignment: nondisplaced Laterality: left Qualified Code(s): S52.135A - Nondisplaced fracture of neck of left radius, initial encounter for closed fracture - Discharge Information Prescriptions: Acetaminophen/HYDROcodone [Angleton 325-5 MG] 1 tab PO Q6H PRN #15 tablet PRN Reason: Pain Instructions: Radial Fracture Rehab-SportsMed Referrals: PCP,Not In Area [Primary Care Provider] - Sukhjinder Muñoz MD [Physician] - Forms: ED Department Discharge Additional Instructions: Wear the sling at all times. Remove you arm from the sling 3-4 times a day and preform pendulum arm circles to prevent frozen shoulder. OTC tylenol or motrin as needed for pain relief. For pain not relieved by tylenol or motrin may take norco 1-2 tabs PO every 4-6 hours prn pain. Do not take more than 4 grams of tylenol from all sources in one day. Do not take more than 3200mg of ibuprofen from all sources in one day. Angleton is habit forming, take as few of these as needed to control you pain. Do not drive or operate machinery within 12 hours of taking norco. Follow-up with ortho within [address] Muñoz at the [facility], call [phone] to schedule with him. Or may see Dr. Styles, call to schedule with him. Ice the knee and elbow 3-4 times a day for 10-15 minutes. Please return to the ER should your symptoms change or worsen.
[2018-01-07 12:47] VITALS: BP 140/80
--- NOTE | 2018-01-07 14:07 | CR ---
Left knee: AP, lateral and sunrise patellar views of the left knee were obtained. Mild medial joint space narrowing is seen. Joint space narrowing seen within the patellofemoral joint particularly medial. Slight osteophytes off the patella are seen as well as off the medial joint. Osteopenia is noted. Vascular calcification is seen. No joint effusion is seen. Impression: 1. Osteopenia, vascular calcification and mild degenerative change. 2. Nothing acute is seen on left knee exam. Diagnostic code #2
--- NOTE | 2018-01-07 14:07 | CR ---
Left elbow: Four views of the left elbow were obtained. Comparison: No prior elbow study. Joint effusion is seen. Lucency is identified within the proximal edge of the olecranon process which is felt compatible with a nondisplaced fracture. Several small calcifications are seen which are felt to be dystrophic and incidental. No other acute abnormality is appreciated. Impression: 1. Nondisplaced fracture involving the proximal aspect of the olecranon process. 2. Joint effusion and other incidental findings. Diagnostic code #3
--- NOTE | 2018-01-07 14:07 | CR ---
Left shoulder: Three views of the left shoulder were obtained. Comparison: No prior shoulder exam. Lateral humeral joint and acromioclavicular joint appear unremarkable. No fracture or other bony abnormality is seen. Shoulder is partially obscured from AICD. Impression: 1. No abnormality is appreciated on left shoulder exam. Diagnostic code #1
== END 2018-01-07 13:12 | disposition home or self-care (01) ==
LOC: JD.ED 10:04
DX: S52.025A Nondisplaced fracture of olecranon process without intraarticular extension of left ulna, initial encounter for closed fracture (principal); S52.135A Nondisplaced fracture of neck of left radius, initial encounter for closed fracture; E11.9 Type 2 diabetes mellitus without complications; E66.9 Obesity, unspecified; I11.0 Hypertensive heart disease with heart failure; I25.2 Old myocardial infarction; Z88.8 Allergy status to other drugs, medicaments and biological substances; Z79.82 Long term (current) use of aspirin; Z79.84 Long term (current) use of oral hypoglycemic drugs
CPT/HCPCS: 73030-26-LT; 73030-LT; 73080-26-LT; 73080-LT; 73562-26-LT; 73562-LT; 99284

== ENCOUNTER 2018-01-14 21:49 | Observation (INO) | payer MEDICARE, OTHER, MEDICAID ==
[2018-01-14] MEDS ORDERED: Sodium Chloride 0.9% 1,000 ML IV ONE (22:10)
--- NOTE | 2018-01-14 22:13 | EDM.PDOC ---
<Radha Chambers L - Last Filed: 01/14/18 22:50> ED HPI GENERAL MEDICAL PROBLEM - General Chief Complaint: General Stated Complaint: [facility] Time Seen by Provider: 01/14/18 22:12 Source of Information: Reports: Patient - History of Present Illness INITIAL COMMENTS - FREE TEXT/NARRATIVE: Patient was brought here today by [facility] for a new onset tremor and right-sided facial twitch. She reportedly had some medication changes by her primary care provider, Dr. Brendon Coon in [place]. She had 60 hydrocodone filled yesterday and has about half of these left. She is also had trazodone filled and there are 6 of these missing and patient is unsure if she took these. Patient has chronic medical conditions of hypertension, heart disease with pacemaker. Diabetes. Patient's primary complaint is her twitch and tremor. She denies any dyspnea or chest pain. Denies any nausea or vomiting. - Related Data Allergies Allergy/AdvReac Type Severity Reaction Status Date / Time lisinopril AdvReac Cough Verified 01/14/18 22:03 Home Meds: Home Meds Aspirin 81 mg PO DAILY 05/16/16 [History] Carvedilol [Coreg] 12.5 mg PO BID 05/16/16 [History] FLUoxetine [PROzac] 40 mg PO DAILY 05/16/16 [History] Insulin Aspart [NovoLOG] 0 unit SUBCUT TID 05/16/16 [History] amLODIPine [Norvasc] 10 mg PO BEDTIME 05/16/16 [History] Docusate Sodium [Stool Softener] 100 mg PO DAILY 07/03/17 [History] Nitroglycerin [Nitrostat] 0.4 mg SL ASDIRECTED 09/22/17 [History] Metoclopramide HCl 10 mg PO BEDTIME 12/16/17 [History] Ergocalciferol (Vitamin D2) [Vitamin D2] 50,000 units PO WEEKLY 12/17/17 [ History] Insulin Degludec [Tresiba Flextouch U-200] 22 units SUBCUT BID #5 12/19/17 [Rx] Saccharomyces Boulardii [Florastor] 250 mg PO Q48H #4 cap 12/19/17 [Rx] Acetaminophen/HYDROcodone [[place] 325-5 MG] 1 tab PO Q6H PRN #15 tablet 01/07/18 [Rx] Furosemide [Lasix] 40 mg PO Q48H 01/07/18 [History] Potassium Chloride 20 meq PO Q48H 01/07/18 [History] Zolpidem Tartrate [Ambien] 10 mg PO BEDTIME PRN 01/15/18 [History] traZODone HCl [Trazodone HCl] 150 mg PO DAILY 01/15/18 [History] Past Medical History HEENT History: Reports: Cataract, Epistaxis, Impaired Vision Cardiovascular History: Reports: Angina, Heart Failure, High Cholesterol, Hypertension, [place], Pacemaker, SOB on Exertion, Stents Respiratory History: Reports: Sleep Apnea, SOB Gastrointestinal History: Reports: GERD Other Gastrointestinal History: abdominal pain, supposed to see primary on Friday Genitourinary History: Reports: Acute Renal Failure 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 OB/BYN History: pain in vagina Musculoskeletal History: Reports: Arthritis Psychiatric History: Reports: Anxiety Endocrine/Metabolic History: Reports: Diabetes, Type II, Obesity/BMI 30+ Oncologic (Cancer) History: Reports: Other (See Below) Other Oncologic History: removed in - Infectious Disease History Infectious Disease History: Reports: Chicken Pox, Measles, Mumps - Past Surgical History HEENT Surgical History: Reports: Cataract Surgery, Other (See Below) Cardiovascular Surgical History: Reports: Coronary Artery Stent, Pacer GI Surgical History: Reports: Appendectomy, Other (See Below) Social & Family History - Family History Family Medical History: Noncontributory OBGYN: Reports: Musculoskeletal: Reports: Arthritis Psychiatric: Reports: Anxiety, Depression Endocrine/Metabolic: Reports: Diabetes, type II, Hypothyroidism - Caffeine Use Caffeine Use: Reports: Coffee - Living Situation & Occupation Living situation: Reports: Occupation: Retired ED ROS GENERAL - Review of Systems Review Of Systems: See Below Constitutional: Reports: Weakness, Fatigue. Denies: Fever, Chills, Malaise, Diaphoresis, Decreased Appetite HEENT: Denies: Vertigo, Vision Change Respiratory: Reports: No Symptoms Cardiovascular: Reports: No Symptoms GI/Abdominal: Reports: No Symptoms Skin: Reports: No Symptoms Neurological: Reports: Tremors, Weakness, Other (Right-sided facial twitch that started today.). Denies: Confusion, Dizziness, Headache Psychiatric: Denies: Agitation, Anxiety, Confusion, Depression ED EXAM, GENERAL - Physical Exam Exam: See Below Exam Limited By: Other (Patient is a very poor historian) General Appearance: Alert, WD/WN, No Apparent Distress Eye Exam: Bilateral Eye: PERRL (Reaction is sluggish.) Throat/Mouth: Normal Oropharynx Respiratory/Chest: No Respiratory Distress, Lungs Clear, Normal Breath Sounds Cardiovascular: Regular Rate, Rhythm, No Murmur GI/Abdominal: Normal Bowel Sounds, Soft, Non-Tender Neurological: Alert, Oriented, Other (Right-sided facial twitch). No: Abnormal Reflexes, Sensory/Motor Deficit Psychiatric: Flat Affect Skin Exam: Warm, Dry, Intact Course - Vital Signs Last Recorded V/S: Last Vital Signs Temp 36.4 C 01/15/18 11:58 Pulse 68 01/15/18 11:58 Resp 18 01/15/18 11:58 BP 117/92 H 01/15/18 11:58 Pulse Ox 90 L 01/15/18 11:58 - Orders/Labs/Meds Orders: Active Orders 24 hr Category Date Time Status EKG 12 Lead [EKG Documentation Completion] [RC] STAT Care 01/14/18 22:11 Active DRUG SCREEN, URINE [URCHEM] Stat Lab 01/14/18 23:06 Ordered UA W/MICROSCOPIC [URIN] Stat Lab 01/14/18 23:06 Ordered Medication Orders Acetaminophen (Tylenol) 650 mg PO Q4H PRN PRN Reason: Pain (Mild 1-3)/fever Hydrocodone Bitart/Acetaminophen ([place] 325-5 Mg) 1 tab PO Q4H PRN PRN Reason: Pain (moderate 4-6) Albuterol/Ipratropium (Duoneb 3.0-0.5 Mg/3 Ml) 3 ml NEB Q4H PRN PRN Reason: Shortness Of Breath/wheezing Amlodipine Besylate (Norvasc) 10 mg PO BEDTIME [facility] Aspirin (Aspirin) 81 mg PO DAILY [facility] Last Admin: 01/15/18 11:34 Dose: 81 mg Carvedilol (Coreg) 12.5 mg PO BID [facility] Last Admin: 01/15/18 11:36 Dose: 12.5 mg Dextrose/Water (Dextrose 50% In Water) 50 ml IVPUSH ASDIRECTED PRN PRN Reason: Hypoglycemia Docusate Sodium (Colace) 100 mg PO DAILY [facility] Last Admin: 06/14/18 11:35 Dose: 100 mg Fluoxetine HCl (Prozac) 40 mg PO DAILY [facility] Last Admin: 01/15/18 11:35 Dose: 40 mg Furosemide (Lasix) 40 mg PO Q48H [facility] Last Admin: 01/15/18 14:32 Dose: 40 mg Insulin Aspart (Novolog) 0 unit SUBCUT QIDACANDBED [facility]; Protocol Last Admin: 01/15/18 17:55 Dose: 2 units Admin: 01/15/18 11:37 Dose: 2 units Insulin Detemir (Levemir) 22 unit SUBCUT BID [facility] Last Admin: 01/15/18 14:32 Dose: 22 unit Nitroglycerin (Nitrostat) 0.4 mg SL ASDIRECTED [facility] Ondansetron HCl (Zofran) 4 mg IVPUSH Q4HR PRN PRN Reason: Nausea/Vomiting Last Admin: 01/15/18 07:05 Dose: 4 mg Ondansetron HCl (Zofran) 4 mg IV Q6H PRN PRN Reason: Nausea/Vomiting Ondansetron HCl (Zofran Odt) 4 mg PO Q6H PRN PRN Reason: nausea, able to take PO Trazodone Hcl 150 Mg 0 each PO DAILY [facility] Last Admin: 01/15/18 11:36 Dose: 150 each Potassium Chloride (Klor-Con M20) 20 meq PO Q48H [facility] Last Admin: 01/15/18 14:32 Dose: 20 meq Simvastatin (Zocor) 10 mg PO BEDTIME [facility] Labs: Laboratory Tests 01/14/18 01/14/18 01/14/18 Range/Units 22:30 22:30 22:30 WBC 13.28 H (3.98-10.04) K/mm3 RBC 4.77 (3.98-5.22) M/mm3 Hgb 11.8 (11.2-15.7) gm/L Hct 36.9 (34.1-44.9) % MCV 77.4 L (79.4-94.8) fl MCH 24.7 L (25.6-32.2) pg MCHC 32.0 L (32.2-35.5) g/dl RDW Std Deviation 48.7 H (36.4-46.3) fL Plt Count 293 (182-369) K/mm3 MPV 8.8 L (9.4-12.3) fl Neutrophils % (Manual) 70 H (40-60) % Band Neutrophils % 0 (0-10) % Lymphocytes % (Manual) 17 L (20-40) % Atypical Lymphs % 2 % Monocytes % (Manual) 8 (2-10) % Eosinophils % (Manual) 3 (0.7-5.8) % Basophils % (Manual) 0 L (0.1-1.2) Platelet Estimate Adequate Plt Morphology Comment Normal Poikilocytosis 1+ slight Anisocytosis 1+ slight Microcytosis 1+ slight Macrocytosis 1+ slight Ovalocytes 1+ slight RBC Morph Comment Abnormal Sodium 138 (136-145) mEq/L Potassium 3.7 (3.5-5.1) mEq/L Chloride 104 (98-107) mEq/L Carbon Dioxide 22 (21-32) mEq/L Anion Gap 15.7 H (5-15) BUN 58 H (7-18) mg/dL Creatinine 2.2 H (0.55-1.02) mg/dL Est Cr Clr Drug Dosing 23.47 mL/min Estimated GFR (MDRD) 22 (>60) mL/min BUN/Creatinine Ratio 26.4 H (14-18) Glucose 98 (80-115) mg/dL Calcium 8.4 L (8.5-10.1) mg/dL Magnesium 2.0 (1.8-2.4) mg/dl Total Bilirubin 0.3 (0.2-1.0) mg/dL AST 12 L (15-37) U/L ALT 23 (14-59) U/L Alkaline Phosphatase 95 (46-116) U/L Troponin I < 0.017 (0.00-0.056) ng/mL C-Reactive Protein 2.0 H* (<1.0) mg/dL Total Protein 7.7 (6.4-8.2) g/dl Albumin 3.0 L (3.4-5.0) g/dl Globulin 4.7 gm/dL Albumin/Globulin Ratio 0.6 L (1-2) TSH 3rd Generation 3.073 (0.358-3.74) uIU/mL Urine Color (Yellow) Urine Appearance (Clear) Urine pH (5.0-8.0) Ur Specific [place] (1.005-1.030) Urine Protein (Negative) Urine Glucose (UA) (Negative) Urine Ketones (Negative) Urine Occult Blood (Negative) Urine Nitrite (Negative) Urine Bilirubin (Negative) Urine Urobilinogen (0.2-1.0) Ur Leukocyte Esterase (Negative) Urine RBC (0-5) /hpf Urine WBC (0-5) /hpf Ur Epithelial Cells (0-5) /hpf Amorphous Sediment (NOT SEEN) /hpf Urine Bacteria (FEW) /hpf Hyaline Casts (0-5) /lpf Urine Mucus (FEW) /hpf Salicylates (2.8-20) mg/dL Urine Opiates Screen (NEGATIVE) Ur Buprenorphine Scrn (NEGATIVE) Ur Oxycodone Screen (NEGATIVE) Urine Methadone Screen (NEGATIVE) Ur Propoxyphene Screen (NEGATIVE) Acetaminophen (10-30) ug/mL Ur Barbiturates Screen (NEGATIVE) Ur Tricyclics Screen (NEGATIVE) Ur Phencyclidine Scrn (NEGATIVE) Ur Amphetamine Screen (NEGATIVE) U Methamphetamines Scrn (NEGATIVE) U Benzodiazepines Scrn (NEGATIVE) U Cocaine Metab Screen (NEGATIVE) U Marijuana (THC) Screen (NEGATIVE) Ethyl Alcohol 0.00 (0.00) gm% 01/14/18 01/14/18 01/14/18 Range/Units 22:30 23:06 23:06 WBC (3.98-10.04) K/mm3 RBC (3.98-5.22) M/mm3 Hgb (11.2-15.7) gm/L Hct (34.1-44.9) % MCV (79.4-94.8) fl MCH (25.6-32.2) pg MCHC (32.2-35.5) g/dl RDW Std Deviation (36.4-46.3) fL Plt Count (182-369) K/mm3 MPV (9.4-12.3) fl Neutrophils % (Manual) (40-60) % Band Neutrophils % (0-10) % Lymphocytes % (Manual) (20-40) % Atypical Lymphs % % Monocytes % (Manual) (2-10) % Eosinophils % (Manual) (0.7-5.8) % Basophils % (Manual) (0.1-1.2) Platelet Estimate Plt Morphology Comment Poikilocytosis Anisocytosis Microcytosis Macrocytosis Ovalocytes RBC Morph Comment Sodium (136-145) mEq/L Potassium (3.5-5.1) mEq/L Chloride (98-107) mEq/L Carbon Dioxide (21-32) mEq/L Anion Gap (5-15) BUN (7-18) mg/dL Creatinine (0.55-1.02) mg/dL Est Cr Clr Drug Dosing mL/min Estimated GFR (MDRD) (>60) mL/min BUN/Creatinine Ratio (14-18) Glucose (80-115) mg/dL Calcium (8.5-10.1) mg/dL Magnesium (1.8-2.4) mg/dl Total Bilirubin (0.2-1.0) mg/dL AST (15-37) U/L ALT (14-59) U/L Alkaline Phosphatase (46-116) U/L Troponin I (0.00-0.056) ng/mL C-Reactive Protein (<1.0) mg/dL Total Protein (6.4-8.2) g/dl Albumin (3.4-5.0) g/dl Globulin gm/dL Albumin/Globulin Ratio (1-2) TSH 3rd Generation (0.358-3.74) uIU/mL Urine Color Yellow (Yellow) Urine Appearance Clear (Clear) Urine pH 5.5 (5.0-8.0) Ur Specific [place] 1.020 (1.005-1.030) Urine Protein 1+ H (Negative) Urine Glucose (UA) Negative (Negative) Urine Ketones Negative (Negative) Urine Occult Blood Negative (Negative) Urine Nitrite Negative (Negative) Urine Bilirubin Negative (Negative) Urine Urobilinogen 0.2 (0.2-1.0) Ur Leukocyte Esterase Negative (Negative) Urine RBC Not seen (0-5) /hpf Urine WBC 0-5 (0-5) /hpf Ur Epithelial Cells 0-5 (0-5) /hpf Amorphous Sediment Moderate H (NOT SEEN) /hpf Urine Bacteria Not seen (FEW) /hpf Hyaline Casts 0-5 (0-5) /lpf Urine Mucus Not seen (FEW) /hpf Salicylates 1.6 L (2.8-20) mg/dL Urine Opiates Screen Negative (NEGATIVE) Ur Buprenorphine Scrn Negative (NEGATIVE) Ur Oxycodone Screen Negative (NEGATIVE) Urine Methadone Screen Negative (NEGATIVE) Ur Propoxyphene Screen Negative (NEGATIVE) Acetaminophen (10-30) ug/mL Ur Barbiturates Screen Negative (NEGATIVE) Ur Tricyclics Screen Negative (NEGATIVE) Ur Phencyclidine Scrn Negative (NEGATIVE) Ur Amphetamine Screen Negative (NEGATIVE) U Methamphetamines Scrn Negative (NEGATIVE) U Benzodiazepines Scrn Negative (NEGATIVE) U Cocaine Metab Screen Negative (NEGATIVE) U Marijuana (THC) Screen Negative (NEGATIVE) Ethyl Alcohol (0.00) gm% 01/14/18 Range/Units 23:30 WBC (3.98-10.04) K/mm3 RBC (3.98-5.22) M/mm3 Hgb (11.2-15.7) gm/L Hct (34.1-44.9) % MCV (79.4-94.8) fl MCH (25.6-32.2) pg MCHC (32.2-35.5) g/dl RDW Std Deviation (36.4-46.3) fL Plt Count (182-369) K/mm3 MPV (9.4-12.3) fl Neutrophils % (Manual) (40-60) % Band Neutrophils % (0-10) % Lymphocytes % (Manual) (20-40) % Atypical Lymphs % % Monocytes % (Manual) (2-10) % Eosinophils % (Manual) (0.7-5.8) % Basophils % (Manual) (0.1-1.2) Platelet Estimate Plt Morphology Comment Poikilocytosis Anisocytosis Microcytosis Macrocytosis Ovalocytes RBC Morph Comment Sodium (136-145) mEq/L Potassium (3.5-5.1) mEq/L Chloride (98-107) mEq/L Carbon Dioxide (21-32) mEq/L Anion Gap (5-15) BUN (7-18) mg/dL Creatinine (0.55-1.02) mg/dL Est Cr Clr Drug Dosing mL/min Estimated GFR (MDRD) (>60) mL/min BUN/Creatinine Ratio (14-18) Glucose (80-115) mg/dL Calcium (8.5-10.1) mg/dL Magnesium (1.8-2.4) mg/dl Total Bilirubin (0.2-1.0) mg/dL AST (15-37) U/L ALT (14-59) U/L Alkaline Phosphatase (46-116) U/L Troponin I (0.00-0.056) ng/mL C-Reactive Protein (<1.0) mg/dL Total Protein (6.4-8.2) g/dl Albumin (3.4-5.0) g/dl Globulin gm/dL Albumin/Globulin Ratio (1-2) TSH 3rd Generation (0.358-3.74) uIU/mL Urine Color (Yellow) Urine Appearance (Clear) Urine pH (5.0-8.0) Ur Specific [place] (1.005-1.030) Urine Protein (Negative) Urine Glucose (UA) (Negative) Urine Ketones (Negative) Urine Occult Blood (Negative) Urine Nitrite (Negative) Urine Bilirubin (Negative) Urine Urobilinogen (0.2-1.0) Ur Leukocyte Esterase (Negative) Urine RBC (0-5) /hpf Urine WBC (0-5) /hpf Ur Epithelial Cells (0-5) /hpf Amorphous Sediment (NOT SEEN) /hpf Urine Bacteria (FEW) /hpf Hyaline Casts (0-5) /lpf Urine Mucus (FEW) /hpf Salicylates (2.8-20) mg/dL Urine Opiates Screen (NEGATIVE) Ur Buprenorphine Scrn (NEGATIVE) Ur Oxycodone Screen (NEGATIVE) Urine Methadone Screen (NEGATIVE) Ur Propoxyphene Screen (NEGATIVE) Acetaminophen 0 L (10-30) ug/mL Ur Barbiturates Screen (NEGATIVE) Ur Tricyclics Screen (NEGATIVE) Ur Phencyclidine Scrn (NEGATIVE) Ur Amphetamine Screen (NEGATIVE) U Methamphetamines Scrn (NEGATIVE) U Benzodiazepines Scrn (NEGATIVE) U Cocaine Metab Screen (NEGATIVE) U Marijuana (THC) Screen (NEGATIVE) Ethyl Alcohol (0.00) gm% Meds: Medications Generic Name Dose Route Start Last Admin Trade Name Freq PRN Reason Stop Dose Admin Acetaminophen 650 mg 01/15/18 11:06 Tylenol PO Q4H PRN Pain (Mild 1-3)/fever Hydrocodone Bitart/Acetaminophen 1 tab 01/15/18 11:[address] [place] [address] 325-5 Mg PO Q4H PRN Pain (moderate 4-6) Albuterol/Ipratropium 3 ml 01/15/18 11:06 Duoneb 3.0-0.5 Mg/3 Ml NEB Q4H PRN Shortness Of Breath/wheezing Amlodipine Besylate 10 mg 01/15/18 21:00 Norvasc PO BEDTIME [facility] Aspirin 81 mg 01/15/18 10:15 01/15/18 11:34 Aspirin PO 81 mg DAILY [facility] Administration Carvedilol 12.5 mg 01/15/18 10:30 01/15/18 11:36 Coreg PO 12.5 mg BID [facility] Administration Dextrose/Water 50 ml 01/15/18 07:19 Dextrose 50% In Water IVPUSH ASDIRECTED PRN Hypoglycemia Docusate Sodium 100 mg 01/15/18 10:15 01/15/18 11:35 Colace PO 100 mg DAILY [facility] Administration Fluoxetine HCl 40 mg 01/15/18 10:15 01/15/18 11:35 Prozac PO 40 mg DAILY [facility] Administration Furosemide 40 mg 01/15/18 10:00 01/15/18 14:32 Lasix PO 40 mg Q48H [facility] Administration Insulin Aspart 0 unit 01/15/18 11:00 01/15/18 17:55 Novolog SUBCUT 2 units QIDACANDBED [facility] Administration Protocol Insulin Detemir 22 unit 01/15/18 12:30 01/15/18 14:32 Levemir SUBCUT 22 unit BID [facility] Administration Nitroglycerin 0.4 mg 01/15/18 07:15 Nitrostat SL ASDIRECTED [facility] Ondansetron HCl 4 mg 01/15/18 06:47 01/15/18 07:05 Zofran IVPUSH 4 mg Q4HR PRN Administration Nausea/Vomiting Ondansetron HCl 4 mg 01/15/18 11:06 Zofran IV Q6H PRN Nausea/Vomiting Ondansetron HCl 4 mg 01/15/18 11:06 Zofran Odt PO Q6H PRN nausea, able to take PO Trazodone Hcl 150 Mg 0 each 01/15/18 10:15 01/15/18 11:36 PO 150 each DAILY [facility] Administration Potassium Chloride 20 meq 01/15/18 10:00 01/15/18 14:32 Klor-Con M20 PO 20 meq Q48H [facility] Administration Simvastatin 10 mg 01/15/18 21:00 Zocor PO BEDTIME [facility] Discontinued Medications Generic Name Dose Route Start Last Admin Trade Name Freq PRN Reason Stop Dose Admin Sodium Chloride 1,000 mls @ 999 mls/hr 01/14/18 22:10 01/14/18 22:18 Normal Saline IV 01/14/18 23:10 999 mls/hr ONETIME ONE Administration Sodium Chloride 1,000 mls @ 75 mls/hr 01/15/18 07:30 Normal Saline IV 01/15/18 20:49 ASDIRECTED [facility] Non-Formulary Medication 250 mg 01/15/18 07:15 Saccharomyces Boulardii [Florastor] PO Q48H [facility] - Re-Assessments/Exams Free Text/Narrative Re-Assessment/Exam: Patient was initially evaluated by myself on neurological exam she does have a right-sided facial twitch but otherwise normal. Will start normal saline, get lab work and EKG. Initial exam and labs started by Radha Chambers PA-C. Primary care of patient will be by Dr Dior. 01/14/18 22:15 01/14/18 22:50 Departure - Departure Disposition: Refer to Observation Clinical Impression: Slurred speech - Discharge Information <Isreal Dior - Last Filed: 01/15/18 18:59> ED EXAM, GENERAL - Physical Exam Eye Exam: Bilateral Eye: Other (Pinpoint pupils) Ears: Normal External Exam Nose: Normal Inspection Head: Atraumatic, Normocephalic Neck: Normal Inspection Peripheral Pulses: 3+: Radial (L), Radial (R) (Female) Exam: Deferred Rectal (Female) Exam: Deferred Extremities: Normal Inspection, Normal Range of Motion EKG INTERPRETATION EKG Date: 01/14/18 Time: 22:45 Rhythm: NSR Rate (Beats/Min): 66 [place]: LAD-Left [place] Deviation P-Wave: Present (1str degree AVB) QRS: LBBB QT: Prolonged (QTc 579 ms) Comparison: No Change (12/16/2017) Course - Re-Assessments/Exams Free Text/Narrative Re-Assessment/Exam: 01/15/18 00:34 CT of the head without contrast is read by [facility] as "No acute intracranial process." 01/15/18 00:41 The cause of the patient's symptoms is unclear. Her physical exam is consistent with opioid excess, although her urine drug screen is negative. Perhaps the drug screen measures for metabolites, and that an insufficient quantity has accumulated, or, it's possible that the patient did not take an excess of these medications, and that her symptoms are due to some other metabolic process, not identified. Either way, I am not comfortable discharging the patient home in her current condition. Case discussed with Dr. Vieira at 00:38. She agrees to place the patient into observation, on telemetry. 01/15/18 00:46 The above was discussed with the patient, who agrees to being placed into observation. Departure - Departure Time of Disposition: 00:43 Condition: Fair
[2018-01-15] MEDS ORDERED: Ondansetron 4 MG/2 ML SDV IVPUSH PRN (06:47)
--- NOTE | 2018-01-15 07:14 | PCM.HP ---
H&P History of Present Illness - General Date of Service: 01/15/18 Admit Problem/Dx: Admission Diagnosis/Problem Admission Diagnosis/Problem Slurred speech Source of Information: Patient, Old Records, Provider, RN, RN Notes Reviewed History Limitations: Reports: No Limitations - History of Present Illness Initial Comments - Free Text/Narative: Ceci Duong is a 67 yo female presents to our ED in the late night hours of with new onset tremor and right-sided facial twitch. The patient reports having some medications changed recently by her PCP, Dr. Brendon Coon in [place]. She reportedly had 60 hydrocodone filled yesterday and reports about half of these are left. She also filled trazodone reports 6 of these are missing. She is unsure if she took these. Denies any chest pain, nausea, vomiting, dyspnea. In the ED temp was 37.1 Celsius. Pulse 76. Respirations 18. Blood pressure was slightly high at 1 5464. Pulse ox 94% on room air. Labs are obtained: WBC is elevated at 13.24. Hemoglobin 11.8. Hematocrit 36.9. She is microcytic. Platelets normal at 293,000. Neutrophils elevated at 70%. There is no bandemia. Sodium 138. Potassium 3.7. Chloride 104. Carbon dioxide 22. Anion gap is slightly high at 15.7. BUN is high at 58. Creatinine 2.2. EGFR is 20. Glucose 98. Calcium is low at 80.4. Magnesium 2.0. Bilirubin 0.3. AST is 12, ALT 23, alk phosphatase 95. Troponin is negative at less than 0.017. CRP is 2.0. Protein 7.7. Albumin 3.0. TSH 0.073. Alcohol 0.00. Urine drug screen is negative. UA is negative however one plus urine protein, moderate amorphus sediment and 0-5 hyaline casts are seen. Urine drug screen is negative. Acetaminophen is negative. Neuro exam in the ED is noted to be negative however the patient does have right-sided facial twitch. CT of the head without contrast was obtained and interpreted by virtual radiology as no acute intracranial process. Probably is obtained and shows a sinus rhythm at 66 bpm there is left axis deviation and first-degree AV block noted. Left bundle branch block and prolonged QTC is also noted. This is compared to a prior EKG from 12/16/2017 and shows no changes. She is given a 1 L bolus of saline as well. She carries a history of: Angina, heart failure, HLD, HTN, prior [place], pacemaker, stent placement, sleep apnea, GERD, renal failure, arthritis, anxiety, type II DM, obesity. She subsequently admitted to the medical floor observation status on telemetry. She is a full code. Her primary care provider is Dr. Brendon Coon in [place]. - Related Data Allergies/Adverse Reactions: Allergies Allergy/AdvReac Type Severity Reaction Status Date / Time lisinopril AdvReac Cough Verified 01/14/18 22:03 Home Medications: Home Meds Aspirin 81 mg PO DAILY 05/16/16 [History] Carvedilol [Coreg] 12.5 mg PO BID 05/16/16 [History] FLUoxetine [PROzac] 40 mg PO DAILY 05/16/16 [History] Insulin Aspart [NovoLOG] 0 unit SUBCUT TID 05/16/16 [History] amLODIPine [Norvasc] 10 mg PO BEDTIME 05/16/16 [History] Docusate Sodium [Stool Softener] 100 mg PO DAILY 07/03/17 [History] Nitroglycerin [Nitrostat] 0.4 mg SL ASDIRECTED 09/22/17 [History] Metoclopramide HCl 10 mg PO BEDTIME 12/16/17 [History] Ergocalciferol (Vitamin D2) [Vitamin D2] 50,000 units PO WEEKLY 12/17/17 [ History] Insulin Degludec [Tresiba Flextouch U-200] 22 units SUBCUT BID #5 12/19/17 [Rx] Saccharomyces Boulardii [Florastor] 250 mg PO Q48H #4 cap 12/19/17 [Rx] Acetaminophen/HYDROcodone [[place] 325-5 MG] 1 tab PO Q6H PRN #15 tablet 01/07/18 [Rx] Furosemide [Lasix] 40 mg PO Q48H 01/07/18 [History] Potassium Chloride 20 meq PO Q48H 01/07/18 [History] Zolpidem Tartrate [Ambien] 10 mg PO BEDTIME PRN 01/15/18 [History] traZODone HCl [Trazodone HCl] 150 mg PO DAILY 01/15/18 [History] Past Medical History HEENT History: Reports: Cataract, Epistaxis, Impaired Vision Cardiovascular History: Reports: Angina, Heart Failure, High Cholesterol, Hypertension, [place], Pacemaker, SOB on Exertion, Stents Respiratory History: Reports: Sleep Apnea, SOB Gastrointestinal History: Reports: GERD Other Gastrointestinal History: abdominal pain Genitourinary History: Reports: Acute Renal Failure BEEF RIBBER History: Reports: Other OB/BYN History: pain in vagina Musculoskeletal History: Reports: Arthritis, Fracture Other Musculoskeletal History: left arm fx Psychiatric History: Reports: Anxiety Endocrine/Metabolic History: Reports: Diabetes, Type II, Obesity/BMI 30+ Oncologic (Cancer) History: Reports: Other (See Below) Other Oncologic History: 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" - Infectious Disease History Infectious Disease History: Reports: Chicken Pox, Measles, Mumps - Past Surgical History HEENT Surgical History: Reports: Cataract Surgery, Other (See Below) Cardiovascular Surgical History: Reports: Coronary Artery Stent, Pacer GI Surgical History: Reports: Appendectomy, Other (See Below) Other Musculoskeletal Surgeries/Procedures:: wears immobilizer Social & Family History - Family History Family Medical History: Noncontributory OBGYN: Reports: Musculoskeletal: Reports: Arthritis Psychiatric: Reports: Anxiety, Depression Endocrine/Metabolic: Reports: Diabetes, type II, Hypothyroidism - Tobacco Use Smoking Status *Q: Never Smoker Years of Tobacco use: 25 Packs/Tins Daily: 0.1 - Caffeine Use Caffeine Use: Reports: Soda Other Caffeine Use: 5/day - Recreational Drug Use Recreational Drug Use: No - Living Situation & Occupation Living situation: Reports: Occupation: Retired H&P Review of Systems - Review of Systems: Review Of Systems: See Below General: Reports: No Symptoms, Malaise, Weakness (improving ), Fatigue ( improving ). Denies: Fever, Chills, Decreased Appetite HEENT: Reports: No Symptoms. Denies: Ear Pain, Eye Pain, Sore Throat, Vertigo Pulmonary: Reports: No Symptoms. Denies: Shortness of Breath, Wheezing, Pleuritic Chest Pain, Cough, Sputum Cardiovascular: Reports: No Symptoms. Denies: Chest Pain, Palpitations, Dyspnea on Exertion, Edema, Lightheadedness Gastrointestinal: Reports: No Symptoms. Denies: Abdominal Pain, Constipation, Distension, Nausea, Vomiting Genitourinary: Reports: No Symptoms. Denies: Dysuria, Frequency, Burning, Pain , Urgency Musculoskeletal: Reports: No Symptoms Skin: Reports: No Symptoms Psychiatric: Reports: No Symptoms Neurological: Reports: Trouble Speaking (slurring since 4pm yesterady - has been slowly improving ), Change in Speech. Denies: Confusion, Dizziness, Headache, Numbness, Seizure, Syncope, Tingling, Difficulty Walking, Weakness, Gait Disturbance Hematologic/Lymphatic: Reports: No Symptoms Immunologic: Reports: No Symptoms Exam - Exam Exam: See Below - Vital Signs Vital Signs: Last Vital Signs Temp 98.2 F 01/15/18 04:34 Pulse 66 01/15/18 04:34 Resp 20 01/15/18 04:34 BP 137/110 H 01/15/18 04:34 Pulse Ox 91 L 01/15/18 04:34 Weight: 245 lb 14.4 oz - Exam Quality Assessment: DVT Prophylaxis General: Alert, Oriented, Cooperative. No: Mild Distress HEENT: Conjunctiva Clear, EACs Clear, EOMI, Hearing Intact, Mucosa Moist & [place] , Nares Patent, Posterior Pharynx Clear, PERRLA Neck: Supple, Trachea Midline Lungs: Clear to Auscultation, Normal Respiratory Effort Cardiovascular: Regular Rate, Regular Rhythm, Other (paced ) GI/Abdominal Exam: Normal Bowel Sounds, Soft, Non-Tender, No Organomegaly, No Distention, No Abnormal Bruit, No Mass, Pelvis Stable (Female) Exam: Deferred Rectal (Female) Exam: Deferred Back Exam: Normal Inspection, Full Range of Motion Extremities: Normal Inspection, Normal Range of Motion, No Pedal Edema, Normal Capillary Refill, Arm Pain (right shoulder from prior recent fracture ) Peripheral Pulses: 2+: Radial (L), Radial (R), Posterior Tibial (L), Posterior Tibial (R), Dorsalis Pedis (L), Dorsalis Pedis (R) Skin: Warm, Dry, Intact Neurological: Cranial Nerves Intact, Strength Equal Bilateral, Normal Gait, Normal Tone, Sensation Intact. No: Normal Speech, Focal Deficit Neuro Extensive - Mental Status: Alert, Oriented x3, Normal Mood/Affect, Normal Cognition, Memory Intact Neuro Extensive - Motor, Sensory, Reflexes: CN II-XII Intact, Normal Gait, Facial Palsy wo Forehead (right sided ), Tremor. No: Ataxia, Tongue Deviation (L), Tongue Deviation (R), Receptive Aphasia, Expressive Aphasia, Total Aphasia , Pronator Drift (R), Pronator Drift (L), Abnormal Motor, Motor/Sensory Deficits Psychiatric: Alert, Normal Affect, Normal Mood - Patient Data Lab Results Last 24 hrs: Laboratory Results - last 24 hr 01/14/18 01/14/18 01/14/18 Range/Units 22:30 22:30 22:30 WBC 13.28 H (3.98-10.04) K/mm3 RBC 4.77 (3.98-5.22) M/mm3 Hgb 11.8 (11.2-15.7) gm/L Hct 36.9 (34.1-44.9) % MCV 77.4 L (79.4-94.8) fl MCH 24.7 L (25.6-32.2) pg MCHC 32.0 L (32.2-35.5) g/dl RDW Std Deviation 48.7 H (36.4-46.3) fL Plt Count 293 (182-369) K/mm3 MPV 8.8 L (9.4-12.3) fl Neutrophils % (Manual) 70 H (40-60) % Band Neutrophils % 0 (0-10) % Lymphocytes % (Manual) 17 L (20-40) % Atypical Lymphs % 2 % Monocytes % (Manual) 8 (2-10) % Eosinophils % (Manual) 3 (0.7-5.8) % Basophils % (Manual) 0 L (0.1-1.2) Platelet Estimate Adequate Plt Morphology Comment Normal Poikilocytosis 1+ slight Anisocytosis 1+ slight Microcytosis 1+ slight Macrocytosis 1+ slight Ovalocytes 1+ slight RBC Morph Comment Abnormal Sodium 138 (136-145) mEq/L Potassium 3.7 (3.5-5.1) mEq/L Chloride 104 (98-107) mEq/L Carbon Dioxide 22 (21-32) mEq/L Anion Gap 15.7 H (5-15) BUN 58 H (7-18) mg/dL Creatinine 2.2 H (0.55-1.02) mg/dL Est Cr Clr Drug Dosing 23.47 mL/min Estimated GFR (MDRD) 22 (>60) mL/min BUN/Creatinine Ratio 26.4 H (14-18) Glucose 98 (80-115) mg/dL POC Glucose (80-115) mg/dL Calcium 8.4 L (8.5-10.1) mg/dL Magnesium 2.0 (1.8-2.4) mg/dl Total Bilirubin 0.3 (0.2-1.0) mg/dL AST 12 L (15-37) U/L ALT 23 (14-59) U/L Alkaline Phosphatase 95 (46-116) U/L Troponin I < 0.017 (0.00-0.056) ng/mL C-Reactive Protein 2.0 H* (<1.0) mg/dL Total Protein 7.7 (6.4-8.2) g/dl Albumin 3.0 L (3.4-5.0) g/dl Globulin 4.7 gm/dL Albumin/Globulin Ratio 0.6 L (1-2) TSH 3rd Generation 3.073 (0.358-3.74) uIU/mL Urine Color (Yellow) Urine Appearance (Clear) Urine pH (5.0-8.0) Ur Specific [place] (1.005-1.030) Urine Protein (Negative) Urine Glucose (UA) (Negative) Urine Ketones (Negative) Urine Occult Blood (Negative) Urine Nitrite (Negative) Urine Bilirubin (Negative) Urine Urobilinogen (0.2-1.0) Ur Leukocyte Esterase (Negative) Urine RBC (0-5) /hpf Urine WBC (0-5) /hpf Ur Epithelial Cells (0-5) /hpf Amorphous Sediment (NOT SEEN) /hpf Urine Bacteria (FEW) /hpf Hyaline Casts (0-5) /lpf Urine Mucus (FEW) /hpf Salicylates (2.8-20) mg/dL Urine Opiates Screen (NEGATIVE) Ur Buprenorphine Scrn (NEGATIVE) Ur Oxycodone Screen (NEGATIVE) Urine Methadone Screen (NEGATIVE) Ur Propoxyphene Screen (NEGATIVE) Acetaminophen (10-30) ug/mL Ur Barbiturates Screen (NEGATIVE) Ur Tricyclics Screen (NEGATIVE) Ur Phencyclidine Scrn (NEGATIVE) Ur Amphetamine Screen (NEGATIVE) U Methamphetamines Scrn (NEGATIVE) U Benzodiazepines Scrn (NEGATIVE) U Cocaine Metab Screen (NEGATIVE) U Marijuana (THC) Screen (NEGATIVE) Ethyl Alcohol 0.00 (0.00) gm% 01/14/18 01/14/18 01/14/18 Range/Units 22:30 23:06 23:06 WBC (3.98-10.04) K/mm3 RBC (3.98-5.22) M/mm3 Hgb (11.2-15.7) gm/L Hct (34.1-44.9) % MCV (79.4-94.8) fl MCH (25.6-32.2) pg MCHC (32.2-35.5) g/dl RDW Std Deviation (36.4-46.3) fL Plt Count (182-369) K/mm3 MPV (9.4-12.3) fl Neutrophils % (Manual) (40-60) % Band Neutrophils % (0-10) % Lymphocytes % (Manual) (20-40) % Atypical Lymphs % % Monocytes % (Manual) (2-10) % Eosinophils % (Manual) (0.7-5.8) % Basophils % (Manual) (0.1-1.2) Platelet Estimate Plt Morphology Comment Poikilocytosis Anisocytosis Microcytosis Macrocytosis Ovalocytes RBC Morph Comment Sodium (136-145) mEq/L Potassium (3.5-5.1) mEq/L Chloride (98-107) mEq/L Carbon Dioxide (21-32) mEq/L Anion Gap (5-15) BUN (7-18) mg/dL Creatinine (0.55-1.02) mg/dL Est Cr Clr Drug Dosing mL/min Estimated GFR (MDRD) (>60) mL/min BUN/Creatinine Ratio (14-18) Glucose (80-115) mg/dL POC Glucose (80-115) mg/dL Calcium (8.5-10.1) mg/dL Magnesium (1.8-2.4) mg/dl Total Bilirubin (0.2-1.0) mg/dL AST (15-37) U/L ALT (14-59) U/L Alkaline Phosphatase (46-116) U/L Troponin I (0.00-0.056) ng/mL C-Reactive Protein (<1.0) mg/dL Total Protein (6.4-8.2) g/dl Albumin (3.4-5.0) g/dl Globulin gm/dL Albumin/Globulin Ratio (1-2) TSH 3rd Generation (0.358-3.74) uIU/mL Urine Color Yellow (Yellow) Urine Appearance Clear (Clear) Urine pH 5.5 (5.0-8.0) Ur Specific [place] 1.020 (1.005-1.030) Urine Protein 1+ H (Negative) Urine Glucose (UA) Negative (Negative) Urine Ketones Negative (Negative) Urine Occult Blood Negative (Negative) Urine Nitrite Negative (Negative) Urine Bilirubin Negative (Negative) Urine Urobilinogen 0.2 (0.2-1.0) Ur Leukocyte Esterase Negative (Negative) Urine RBC Not seen (0-5) /hpf Urine WBC 0-5 (0-5) /hpf Ur Epithelial Cells 0-5 (0-5) /hpf Amorphous Sediment Moderate H (NOT SEEN) /hpf Urine Bacteria Not seen (FEW) /hpf Hyaline Casts 0-5 (0-5) /lpf Urine Mucus Not seen (FEW) /hpf Salicylates 1.6 L (2.8-20) mg/dL Urine Opiates Screen Negative (NEGATIVE) Ur Buprenorphine Scrn Negative (NEGATIVE) Ur Oxycodone Screen Negative (NEGATIVE) Urine Methadone Screen Negative (NEGATIVE) Ur Propoxyphene Screen Negative (NEGATIVE) Acetaminophen (10-30) ug/mL Ur Barbiturates Screen Negative (NEGATIVE) Ur Tricyclics Screen Negative (NEGATIVE) Ur Phencyclidine Scrn Negative (NEGATIVE) Ur Amphetamine Screen Negative (NEGATIVE) U Methamphetamines Scrn Negative (NEGATIVE) U Benzodiazepines Scrn Negative (NEGATIVE) U Cocaine Metab Screen Negative (NEGATIVE) U Marijuana (THC) Screen Negative (NEGATIVE) Ethyl Alcohol (0.00) gm% 01/14/18 01/15/18 Range/Units 23:30 06:44 WBC (3.98-10.04) K/mm3 RBC (3.98-5.22) M/mm3 Hgb (11.2-15.7) gm/L Hct (34.1-44.9) % MCV (79.4-94.8) fl MCH (25.6-32.2) pg MCHC (32.2-35.5) g/dl RDW Std Deviation (36.4-46.3) fL Plt Count (182-369) K/mm3 MPV (9.4-12.3) fl Neutrophils % (Manual) (40-60) % Band Neutrophils % (0-10) % Lymphocytes % (Manual) (20-40) % Atypical Lymphs % % Monocytes % (Manual) (2-10) % Eosinophils % (Manual) (0.7-5.8) % Basophils % (Manual) (0.1-1.2) Platelet Estimate Plt Morphology Comment Poikilocytosis Anisocytosis Microcytosis Macrocytosis Ovalocytes RBC Morph Comment Sodium (136-145) mEq/L Potassium (3.5-5.1) mEq/L Chloride (98-107) mEq/L Carbon Dioxide (21-32) mEq/L Anion Gap (5-15) BUN (7-18) mg/dL Creatinine (0.55-1.02) mg/dL Est Cr Clr Drug Dosing mL/min Estimated GFR (MDRD) (>60) mL/min BUN/Creatinine Ratio (14-18) Glucose (80-115) mg/dL POC Glucose 185 H (80-115) mg/dL Calcium (8.5-10.1) mg/dL Magnesium (1.8-2.4) mg/dl Total Bilirubin (0.2-1.0) mg/dL AST (15-37) U/L ALT (14-59) U/L Alkaline Phosphatase (46-116) U/L Troponin I (0.00-0.056) ng/mL C-Reactive Protein (<1.0) mg/dL Total Protein (6.4-8.2) g/dl Albumin (3.4-5.0) g/dl Globulin gm/dL Albumin/Globulin Ratio (1-2) TSH 3rd Generation (0.358-3.74) uIU/mL Urine Color (Yellow) Urine Appearance (Clear) Urine pH (5.0-8.0) Ur Specific [place] (1.005-1.030) Urine Protein (Negative) Urine Glucose (UA) (Negative) Urine Ketones (Negative) Urine Occult Blood (Negative) Urine Nitrite (Negative) Urine Bilirubin (Negative) Urine Urobilinogen (0.2-1.0) Ur Leukocyte Esterase (Negative) Urine RBC (0-5) /hpf Urine WBC (0-5) /hpf Ur Epithelial Cells (0-5) /hpf Amorphous Sediment (NOT SEEN) /hpf Urine Bacteria (FEW) /hpf Hyaline Casts (0-5) /lpf Urine Mucus (FEW) /hpf Salicylates (2.8-20) mg/dL Urine Opiates Screen (NEGATIVE) Ur Buprenorphine Scrn (NEGATIVE) Ur Oxycodone Screen (NEGATIVE) Urine Methadone Screen (NEGATIVE) Ur Propoxyphene Screen (NEGATIVE) Acetaminophen 0 L (10-30) ug/mL Ur Barbiturates Screen (NEGATIVE) Ur Tricyclics Screen (NEGATIVE) Ur Phencyclidine Scrn (NEGATIVE) Ur Amphetamine Screen (NEGATIVE) U Methamphetamines Scrn (NEGATIVE) U Benzodiazepines Scrn (NEGATIVE) U Cocaine Metab Screen (NEGATIVE) U Marijuana (THC) Screen (NEGATIVE) Ethyl Alcohol (0.00) gm% Result Diagrams: 01/15/18 09:14 01/15/18 09:14 - Problem List (1) Slurred speech SNOMED Code(s): 294281173 ICD Code: R47.81 - SLURRED SPEECH Status: Acute Priority: High Current Visit: Yes (2) Tremor SNOMED Code(s): 54248630 ICD Code: R25.1 - TREMOR, UNSPECIFIED Status: Acute Priority: High Current Visit: Yes (3) GERD (gastroesophageal reflux disease) SNOMED Code(s): 198530493 ICD Code: K21.9 - GASTRO-ESOPHAGEAL REFLUX DISEASE WITHOUT ESOPHAGITIS Status: Chronic Priority: Low Current Visit: No Qualifiers: Esophagitis presence: esophagitis presence not specified Qualified Code(s) : K21.9 - Gastro-esophageal reflux disease without esophagitis (4) Angina pectoris SNOMED Code(s): 094663434 ICD Code: I20.9 - ANGINA PECTORIS, UNSPECIFIED Status: Chronic Priority: Low Current Visit: No (5) HLD (hyperlipidemia) SNOMED Code(s): 82451975 ICD Code: E78.5 - HYPERLIPIDEMIA, UNSPECIFIED Status: Chronic Priority: High Current Visit: Yes Qualifiers: Hyperlipidemia type: unspecified Qualified Code(s): E78.5 - Hyperlipidemia , unspecified (6) HTN (hypertension) SNOMED Code(s): 03915811 ICD Code: I10 - ESSENTIAL (PRIMARY) HYPERTENSION Status: Chronic Priority : Medium Current Visit: No Qualifiers: Hypertension type: unspecified Qualified Code(s): I10 - Essential (primary ) hypertension (7) History of [place] (myocardial infarction) SNOMED Code(s): 529834233 ICD Code: I25.2 - OLD MYOCARDIAL INFARCTION Status: Chronic Priority: Low Current Visit: No (8) Sleep apnea SNOMED Code(s): 96461335 ICD Code: G47.30 - SLEEP APNEA, UNSPECIFIED Status: Chronic Priority: Medium Current Visit: No Qualifiers: Sleep apnea type: unspecified type Qualified Code(s): G47.30 - Sleep apnea , unspecified (9) Arthritis SNOMED Code(s): 1745319 ICD Code: M19.90 - UNSPECIFIED OSTEOARTHRITIS, UNSPECIFIED SITE Status: Chronic Priority: Low Current Visit: No (10) Anxiety SNOMED Code(s): 01559670 ICD Code: F41.9 - ANXIETY DISORDER, UNSPECIFIED Status: Chronic Priority : Medium Current Visit: No (11) Acute on chronic renal insufficiency SNOMED Code(s): 134861151 ICD Code: N28.9 - DISORDER OF KIDNEY AND URETER, UNSPECIFIED; N18.9 - CHRONIC KIDNEY DISEASE, UNSPECIFIED Status: Acute Priority: High Current Visit: No (12) Diabetes mellitus, insulin dependent (IDDM), uncontrolled SNOMED Code(s): 25208608, 401509313 ICD Code: E10.65 - TYPE 1 DIABETES MELLITUS WITH HYPERGLYCEMIA Status: Chronic Priority: High Current Visit: No Qualifiers: Diabetes mellitus complication status: without complication Qualified Code( s): E10.65 - Type 1 diabetes mellitus with hyperglycemia (13) Congestive heart failure SNOMED Code(s): 31677317 ICD Code: I50.9 - HEART FAILURE, UNSPECIFIED Status: Chronic Priority: Medium Current Visit: No Problem List Initiated/Reviewed/Updated: Yes Orders Last 24hrs: Active Orders 24 hr Category Date Time Status Admission Status [Patient Status] [ADT] Routine ADT 01/15/18 01:13 Active EKG 12 Lead [EKG Documentation Completion] [RC] STAT Care 01/14/18 22:11 Active Head wo Cont [CT] Stat Exams 01/14/18 23:38 Taken DRUG SCREEN, URINE [URCHEM] Stat Lab 01/14/18 23:06 Ordered UA W/MICROSCOPIC [URIN] Stat Lab 01/14/18 23:06 Ordered Ondansetron [Zofran] Med 01/15/18 06:47 Active 4 mg IVPUSH Q4HR PRN Resuscitation Status Routine Resus Stat 01/15/18 01:59 Ordered Medication Orders Ondansetron HCl (Zofran) 4 mg IVPUSH Q4HR PRN PRN Reason: Nausea/Vomiting Last Admin: 01/15/18 07:05 Dose: 4 mg Assessment/Plan Comment:: I/P: Acute: New onset right facial droop and tremor, improving -Reports onset aroung 1600 last night (01/14/18) -Mild weakness but no difficulty talking, walking, no known paralysis on onset -Neuro check essentially negative with execption of facial tremor and right facial droop - eyebrows/forehead not involved -Mild headache at onset which has since resolved -Diabetic with known CAD, prior [place] and stent -TSH WNL, Mild leukocytosis and CRP 2.0 in ED -Reports it has gotten better since symptoms started -DDX includes medication overdose vs. medication side effects vs. CVA event -ED reports pt. filled hydrocodone and trazadone on 01/13/18 and pills are missing -UDS, ETOH, UA, CXR, Head CT - all negative -Carotid US negative -Lipid panel: Triglycerides 234, Total cholesterol 197, LDL 118, HDL 35 --> start statin -Repeat head CT 01/16/18 AM -PT/OT consult -Pacemaker = unable to obtain MRI -Echo on 12/16/17 1. LVEF by visual estimation is 40-45% 2. Mildly decreased left ventricular systolic function 3. Impaired relaxation (grade 1) pattern of LV diastolic filling 4. Left ventricular internal cavity size is mildly increased 5. Mildly dilated left atrium 6. There is mild aortic valve sclerosis 7. Mild mitral valve regurgitation 8. Mild tricuspid valve regurgitation 9.The right ventricular systolic pressure is mild to moderately elevated at 47.7 mmHg. CKD, improved -Acute on chronic -Baseline appears to be creatinine around 2 and GFR upper 20's to low 30's -1L fluid bolus given in ED -Fluids with caution due to cardiac history -BUN 58-->51 -Creatinine 2.2-->2.0 -eGFR 22-->25 -avoid nephrotoxic medications is able HLD -Hx/o HLD per notes but not medicated -Lipid panel: Triglycerides 234, Total cholesterol 197, LDL 118, HDL 35 --> start statin -Encourage lifestyle changes -Phlebotomist Medical Lab Assistant consult Chronic: Angina heart failure HLD HTN prior [place] pacemaker stent placement sleep apnea - reportedly not on home CPAP GERD renal failure arthritis anxiety type II DM - A1C 8.3 obesity Plan: Admit to medical floor observation on telemetry PT/OT consult Routine AM labs CM consult for discharge planning DVT/PE Prophylaxis: SCDs Encourage ambulation Other orders as indicated above Obtain old clinic notes Code status: Full code; PCP: Dr. Coon in [place]
[2018-01-15] MEDS ORDERED: Non-Formulary Medication 1 Each (Saccharomyces Boulardii [Florastor] 250 MG) PO SCH (07:15)
[2018-01-15] MEDS ORDERED: Nitroglycerin 0.4 MG Tab.SL SL SCH (07:15)
[2018-01-15] MEDS ORDERED: 50% Dextrose in Water 50 ML Syringe IVPUSH PRN (07:19)
[2018-01-15] MEDS ORDERED: Sodium Chloride 0.9% 1,000 ML IV SCH (07:30)
--- NOTE | 2018-01-15 08:31 | CT ---
Head CT Technique: Multiple axial sections through the brain were obtained. Intravenous contrast was not utilized. Comparison: No prior intracranial imaging. Findings: Ventricles along with basal cisterns and sulci over the convexities are mildly prominent. No abnormal parenchymal densities are seen. No evidence of intracranial hemorrhage. No midline shift or mass effect is seen. Atherosclerotic calcifications seen within the carotid siphon and within the vertebral vessels. Bone window settings show no acute calvarial abnormality. Visualized sinuses are clear. Impression: 1. No acute intracranial abnormality is identified. Diagnostic code #2 I agree with preliminary report issued by [facility] ([facility] preliminary report dictated on 01/15/18, 1:20 AM Central Time)
[2018-01-15] MEDS ORDERED: Furosemide 40 MG Tab PO SCH (10:00)
[2018-01-15] MEDS ORDERED: Potassium Chloride 20 MEQ Tab.ER PO SCH (10:00)
--- NOTE | 2018-01-15 10:07 | US ---
Carotid ultrasound: Duplex and color flow imaging was obtained of the carotid arteries. Mild amount of plaque scattered on both sides. Plaque shows smooth margins. Right side: CCA has a peak systolic velocity of 0.78 m/sec. ICA has a peak systolic velocity of 0.77 m/sec and peak end-diastolic velocity of 0.15 m/sec. ECA has a peak systolic velocity of 0.78 m/sec. ICA/CCA ratio is 1.0. Vertebral artery has a peak systolic velocity of 0.21 m/s. Left side: CCA has a peak systolic velocity of 0.76 m/sec. ICA has a peak systolic velocity of 0.68 m/sec and peak end-diastolic velocity of 0.19 m/sec. ECA has a peak systolic velocity of 0.86 m/sec. ICA/CCA ratio is 0.9. Vertebral artery has a peak systolic velocity of 0.36 m/s. Impression: 1. Mild amount of scattered plaque. 2. Velocity measurements within both internal carotid arteries correspond to stenosis in the range 1-49%. Diagnostic code #2
[2018-01-15] MEDS ORDERED: Ondansetron 4 MG Tab.DIS PO PRN (11:06)
[2018-01-15] MEDS ORDERED: ACETAMINOPHEN PO PRN (11:06)
[2018-01-15] MEDS ORDERED: Acetaminophen 325 MG Tab PO PRN (11:06)
[2018-01-15] MEDS ORDERED: Ondansetron 4 MG/2 ML SDV IV PRN (11:06)
[2018-01-15] MEDS ORDERED: HYDROCODONE PO PRN (11:06)
[2018-01-15] MEDS ORDERED: Albuterol/Ipratropium 3.0-0.5 MG/3 ML Neb Soln NEB PRN (11:06)
[2018-01-15] MEDS: Aspirin 81 MG Tab.Chew PO SCH (11:34)
[2018-01-15] MEDS: Docusate Sodium 100 MG Cap PO SCH (11:35)
[2018-01-15] MEDS: FLUoxetine 20 MG Cap PO SCH (11:35)
[2018-01-15] MEDS: Carvedilol 12.5 MG Tab PO SCH ×2 (11:36→20:31)
[2018-01-15] MEDS: TRAZODONE HCL 150 MG PO SCH (11:36)
[2018-01-15] MEDS: Insulin Aspart 100 Units/ML 3 ML Pen SUBCUT SCH ×3 (11:37→22:24)
[2018-01-15] MEDS: Insulin Detemir 100 Units/ML 3 ML Pen SUBCUT SCH ×2 (14:32→22:24)
[2018-01-15] MEDS ORDERED: Simvastatin 10 MG Tab PO SCH (21:00)
[2018-01-15] MEDS ORDERED: amLODIPine 10 MG Tab PO SCH (21:00)
--- NOTE | 2018-01-16 09:11 | CT ---
Head CT Technique: Multiple axial sections through the brain were obtained. Intravenous contrast was not utilized. Comparison: Prior head CT exam of 01/14/18. Findings: Ventricles along with basal cisterns and sulci over the convexities are mildly prominent. Several old lacunar infarcts are seen within the basal ganglia. No other abnormal parenchymal densities are seen. No evidence of intracranial hemorrhage. No midline shift or mass effect is seen. Atherosclerotic calcification is seen within the vertebral vessels and within the carotid siphon. No acute calvarial abnormality is seen. Impression: 1. Mild generalized atrophy and other senescent change. 2. No acute intracranial abnormality is identified. No appreciable change is seen from previous study. Diagnostic code #2
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
[2018-01-16] MEDS: Insulin Detemir 100 Units/ML 3 ML Pen SUBCUT SCH (09:43)
[2018-01-16] MEDS: Insulin Aspart 100 Units/ML 3 ML Pen SUBCUT SCH ×2 (09:44→11:42)
[2018-01-16] MEDS: FLUoxetine 20 MG Cap PO SCH (09:45)
[2018-01-16] MEDS: Carvedilol 12.5 MG Tab PO SCH (09:45)
[2018-01-16] MEDS: Aspirin 81 MG Tab.Chew PO SCH (09:46)
[2018-01-16] MEDS: Docusate Sodium 100 MG Cap PO SCH (09:46)
[2018-01-16] MEDS: TRAZODONE HCL 150 MG PO SCH (09:52)
[2018-01-16 16:21] VITALS: BP 122/55
== END 2018-01-16 16:00 | disposition home or self-care (01) ==
LOC: JD.ED 21:49 → JD.MS 01-15 01:13
PROVIDERS: ADMIT Internal Medicine Cardiovascular Disease; ATTEND Internal Medicine Cardiovascular Disease
DX: R47.81 Slurred speech (principal); R25.1 Tremor, unspecified; R29.810 Facial weakness; I11.0 Hypertensive heart disease with heart failure; I50.9 Heart failure, unspecified; E78.5 Hyperlipidemia, unspecified; K21.9 Gastro-esophageal reflux disease without esophagitis; G47.30 Sleep apnea, unspecified; N19 Unspecified kidney failure; E66.9 Obesity, unspecified; Z95.0 Presence of cardiac pacemaker; E11.9 Type 2 diabetes mellitus without complications; Z95.5 Presence of coronary angioplasty implant and graft; I25.2 Old myocardial infarction; M19.90 Unspecified osteoarthritis, unspecified site; F41.9 Anxiety disorder, unspecified; Z79.4 Long term (current) use of insulin; Z79.82 Long term (current) use of aspirin; Z79.899 Other long term (current) drug therapy; Z88.8 Allergy status to other drugs, medicaments and biological substances; E03.9 Hypothyroidism, unspecified; Z87.891 Personal history of nicotine dependence; I20.9 Angina pectoris, unspecified
CPT/HCPCS: 36415; 70450; 80048; 80053; 80061; 80306; 81001; 82962; 83036; 83735; 84443; 84484; 85007; 85025; 85027; 86140; 92610; 93005; 93880; 96360; 97161; 97165; 99285; A9270; G0480; J1815; J2405; J7040; 96361; 96374; 99284; G0378

== ENCOUNTER 2018-08-08 15:20 | Emergency (ER) | payer MEDICARE, OTHER, MEDICAID ==
[2018-08-08 16:22] VITALS: BP 137/65
--- NOTE | 2018-08-08 17:10 | EDM.PDOC ---
ED HPI GENERAL MEDICAL PROBLEM - General Chief Complaint: Lower Extremity Injury/Pain Stated Complaint: R LEG AND HIP PAIN Time Seen by Provider: 08/08/18 17:09 - History of Present Illness INITIAL COMMENTS - FREE TEXT/NARRATIVE: This patient who resides at a intermediate facility fell yesterday she continues to have hip pain. Patient fell yesterday landing on her left buttocks and thigh. She also hit the back of her head and has a little bump there but is otherwise doing okay she doesn't have a headache she has not had any change in neurologic status. However her thigh pain is getting worse and that is why she is sent for evaluation. The patient is able to give me an adequate history very compatible with what the intermediate [facility] reported. Treatments SOFTWARE LICENSING ANALYST: Reports: Other (see below) Other Treatments SOFTWARE LICENSING ANALYST: none Right Upper Leg Pain Score (Numeric/FACES): 6 - Related Data Allergies Allergy/AdvReac Type Severity Reaction Status Date / Time ibuprofen Allergy Nose Bleeds Verified 04/12/18 02:46 loratadine [From Claritin] Allergy Tremors Verified 04/12/18 02:47 lisinopril AdvReac Cough Verified 04/12/18 02:46 Home Meds: Home Meds Aspirin 81 mg PO DAILY 05/16/16 [History] Carvedilol [Coreg] 12.5 mg PO BID 05/16/16 [History] FLUoxetine [PROzac] 40 mg PO DAILY 05/16/16 [History] Insulin Aspart [NovoLOG] 0 unit SUBCUT TID 05/16/16 [History] amLODIPine [Norvasc] 10 mg PO BEDTIME 05/16/16 [History] Docusate Sodium [Stool Softener] 100 mg PO DAILY 07/03/17 [History] Nitroglycerin [Nitrostat] 0.4 mg SL ASDIRECTED 09/22/17 [History] Metoclopramide HCl 10 mg PO BEDTIME 12/16/17 [History] Ergocalciferol (Vitamin D2) [Vitamin D2] 50,000 units PO WEEKLY 12/17/17 [ History] Insulin Degludec [Tresiba Flextouch U-200] 22 units SUBCUT BID #5 12/19/17 [Rx] Saccharomyces Boulardii [Florastor] 250 mg PO Q48H #4 cap 12/19/17 [Rx] Acetaminophen/HYDROcodone [[place] 325-5 MG] 1 tab PO Q6H PRN #15 tablet 01/07/18 [Rx] Furosemide [Lasix] 40 mg PO Q48H 01/07/18 [History] Potassium Chloride 20 meq PO Q48H 01/07/18 [History] Zolpidem Tartrate [Ambien] 10 mg PO BEDTIME PRN 01/15/18 [History] traZODone HCl [Trazodone HCl] 150 mg PO DAILY 01/15/18 [History] Simvastatin [Zocor] 10 mg PO BEDTIME #20 tablet 01/16/18 [Rx] Past Medical History HEENT History: Reports: Cataract, Epistaxis, Impaired Vision Cardiovascular History: Reports: Angina, Heart Failure, High Cholesterol, Hypertension, [place], Pacemaker, SOB on Exertion, Stents Respiratory History: Reports: Sleep Apnea, SOB Gastrointestinal History: Reports: GERD Other Gastrointestinal History: abdominal pain Genitourinary History: Reports: Acute Renal Failure DIVIDEND CLERK History: Reports: Other DIVIDEND CLERK History: pain in vagina Musculoskeletal History: Reports: Arthritis, Fracture Other Musculoskeletal History: left arm fx Psychiatric History: Reports: Anxiety Endocrine/Metabolic History: Reports: Diabetes, Type II, Obesity/BMI 30+ Oncologic (Cancer) History: Reports: Other (See Below) Other Oncologic History: removed in 1980s - "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 - Infectious Disease History Infectious Disease History: Reports: Chicken Pox, Measles, Mumps - Past Surgical History HEENT Surgical History: Reports: Cataract Surgery, Other (See Below) Cardiovascular Surgical History: Reports: Coronary Artery Stent, Pacer GI Surgical History: Reports: Appendectomy, Other (See Below) Other Musculoskeletal Surgeries/Procedures:: wears immobilizer Social & Family History - Family History Family Medical History: Noncontributory OBGYN: Reports: Musculoskeletal: Reports: Arthritis Psychiatric: Reports: Anxiety, Depression Endocrine/Metabolic: Reports: Diabetes, type II, Hypothyroidism - Tobacco Use Smoking Status *Q: Never Smoker - Caffeine Use Caffeine Use: Reports: Tea Other Caffeine Use: 5/day - Recreational Drug Use Recreational Drug Use: No - Living Situation & Occupation Living situation: Reports: Occupation: Retired Review of Systems - Review of Systems Review Of Systems: See Below Constitutional: Reports: No Symptoms Eyes: Reports: No Symptoms Ears: Reports: No Symptoms Nose: Reports: No Symptoms Mouth/Throat: Reports: No Symptoms Respiratory: Reports: No Symptoms Cardiovascular: Reports: No Symptoms GI/Abdominal: Reports: No Symptoms Genitourinary: Reports: No Symptoms Neurological: Reports: No Symptoms. Denies: Confusion, Dizziness, Headache, Numbness, Change in Speech, Gait Disturbance Psychiatric: Reports: No Symptoms ED EXAM, GENERAL - Physical Exam Exam: See Below Exam Limited By: No Limitations General Appearance: Alert, No Apparent Distress Head: Normocephalic, Other (Small hematoma left occipital region no palpatory discomfort of the skull ) Respiratory/Chest: No Respiratory Distress, Lungs Clear Cardiovascular: Regular Rate, Rhythm, No Edema, No Murmur GI/Abdominal: Normal Bowel Sounds, Soft, Non-Tender, Pelvis Stable, Other ( Significant obesity) Back Exam: Normal Inspection. No: CVA Tenderness (L), CVA Tenderness (R), Vertebral Tenderness Extremities: Other (Semination of the left thigh show some soft tissue tenderness in the medial adductor muscle groups) Course - Vital Signs Last Recorded V/S: Last Vital Signs Temp 37.0 C 08/08/18 16:20 Pulse 62 08/08/18 16:20 Resp 20 08/08/18 16:20 BP 137/65 08/08/18 16:20 Pulse Ox 90 L 08/08/18 16:20 - Orders/Labs/Meds Orders: Active Orders 24 hr Category Date Time Status Blood Glucose Check, Bedside [RC] ONETIME Care 08/08/18 17:12 Active Femur Min 2V Lt [CR] Stat Exams 08/08/18 17:52 Taken Pelvis 1V or 2V [CR] Stat Exams 08/08/18 17:52 Taken Labs: Laboratory Tests 08/08/18 Range/Units 17:12 POC Glucose 151 H (80-115) mg/dL - Re-Assessments/Exams Free Text/Narrative Re-Assessment/Exam: 08/08/18 18:03 Patient fell yesterday she has pain in her proximal hip region I believe a lot of this is soft tissue we'll go ahead and check x-rays to be sure neurologically the patient is intact are at baseline she bumped her head yesterday when she fell she declines any significant workup for this including a CT. 08/08/18 19:43 X-ray evaluation is nondiagnostic no evidence of fracture dislocation or acute change. We'll have her use Tylenol for the suspected adductor strain Departure - Departure Time of Disposition: 19:43 Disposition: DC/Tfer to SNF 03 Clinical Impression: Strain of hip adductor muscle - Discharge Information Referrals: Ry Pulido MD [Primary Care Provider] - Forms: ED Department Discharge Additional Instructions: Return to the emergency room with any questions problems worsening symptoms. Tylenol 650 mg every 4-6 hours as needed for pain. Follow-up with your regular physician as needed - My Orders Last 24 Hours: My Active Orders 08/08/18 17:12 Blood Glucose Check, Bedside [RC] ONETIME 08/08/18 17:52 Femur Min 2V Lt [CR] Stat Pelvis 1V or 2V [CR] Stat - Assessment/Plan Last 24 Hours: My Active Orders 08/08/18 17:12 Blood Glucose Check, Bedside [RC] ONETIME 08/08/18 17:52 Femur Min 2V Lt [CR] Stat Pelvis 1V or 2V [CR] Stat
--- NOTE | 2018-08-09 14:08 | CR ---
Left femur: AP and lateral views of the left femur were obtained. Bony structures are osteopenic. Slight degenerative change is noted within the spine. Vascular calcification is seen. No discrete fracture or other abnormality is appreciated. Impression: 1. Incidental findings. Nothing acute is appreciated on two-view left femur study. Diagnostic code #2
--- NOTE | 2018-08-09 14:08 | CR ---
Pelvis: AP view of the pelvis was obtained. Comparison: Previous AP pelvis exam of 02/17/13. Disc space narrowing seen within the visualized lower lumbar spine. Joint spaces within both hips are maintained. Sacroiliac joints are within normal limits. Vascular calcification is seen. Osteopenia is noted. Nothing acute is appreciated. Impression: 1. Findings as noted above. Nothing acute is appreciated on AP pelvis study. Diagnostic code #2
== END 2018-08-08 20:00 ==
LOC: JD.ED 15:20
DX: S76.212A Strain of adductor muscle, fascia and tendon of left thigh, initial encounter (principal); S00.03XA Contusion of scalp, initial encounter; I11.0 Hypertensive heart disease with heart failure; I50.9 Heart failure, unspecified; I25.2 Old myocardial infarction; E11.9 Type 2 diabetes mellitus without complications; E66.9 Obesity, unspecified; Z95.0 Presence of cardiac pacemaker; Z95.5 Presence of coronary angioplasty implant and graft; Z79.4 Long term (current) use of insulin; Z79.899 Other long term (current) drug therapy; Z88.6 Allergy status to analgesic agent; Z88.8 Allergy status to other drugs, medicaments and biological substances; Z79.82 Long term (current) use of aspirin; W01.198A Fall on same level from slipping, tripping and stumbling with subsequent striking against other object, initial encounter
CPT/HCPCS: 72170; 72170-26; 73552-26-LT; 73552-LT; 82962; 99284

== ENCOUNTER → 2018-12-24 | Day surgery (SDC) | payer MEDICARE, OTHER, MEDICAID ==
[~2018-12-24] MED LIST: Brimonidine 0.2% Ophth Soln 5 ML Bottle EYERT SCH; Phenylephrine 2.5% Ophth Soln 2 ML Bot EYERT SCH; Tropicamide 1% Ophth Soln 15 ML Bottle EYERT SCH
[2018-12-24] MEDS: Brimonidine 0.2% Ophth Soln 15 ML Bottle EYERT SCH ×2 (10:30→11:02)
[2018-12-24 11:12] VITALS: BP 157/67
== END ==
LOC: JD.SDS 09:51
PROVIDERS: ATTEND Ophthalmology
DX: H26.491 Other secondary cataract, right eye (principal); H02.834 Dermatochalasis of left upper eyelid; H02.831 Dermatochalasis of right upper eyelid; H31.092 Other chorioretinal scars, left eye; H16.103 Unspecified superficial keratitis, bilateral; H16.223 Keratoconjunctivitis sicca, not specified as Sjogren's, bilateral; I11.0 Hypertensive heart disease with heart failure; I50.9 Heart failure, unspecified; E10.9 Type 1 diabetes mellitus without complications; E78.00 Pure hypercholesterolemia, unspecified; F41.9 Anxiety disorder, unspecified; F32.9 Major depressive disorder, single episode, unspecified; M19.90 Unspecified osteoarthritis, unspecified site; Z98.42 Cataract extraction status, left eye; Z95.0 Presence of cardiac pacemaker; Z96.1 Presence of intraocular lens; Z98.41 Cataract extraction status, right eye; Z83.518 Family history of other specified eye disorder; Z79.82 Long term (current) use of aspirin; Z98.890 Other specified postprocedural states; Z79.899 Other long term (current) drug therapy

== ENCOUNTER 2019-07-10 13:49 | Emergency (ER) | payer MEDICARE, OTHER, MEDICAID ==
--- NOTE | 2019-07-10 14:25 | EDM.PDOC ---
ED HPI GENERAL MEDICAL PROBLEM - General Chief Complaint: Lower Extremity Injury/Pain Stated Complaint: FOOT PROBLEMS Time Seen by Provider: 07/10/19 14:24 Source of Information: Reports: Patient History Limitations: Reports: No Limitations - History of Present Illness INITIAL COMMENTS - FREE TEXT/NARRATIVE: 68-year-old female presents the ED per transfer bus from [facility] in [place]. She has a known type II diabetic controlled with insulin. She presents with a red swollen right second toe. Appears that it's been infected for 2-3 days. Patient states it doesn't hurt but she has peripheral neuropathy in her lower extremities from diabetes. Ulceration on the toe. She doesn't remember injuring it in any fashion are formed. She doesn't feel unwell. However she feels she is getting over a cold and sinus congestion and ears still feel plugged up. Occasional cough for the last 10 days. She is afebrile on exam Onset: Unknown/Unsure (She thinks about 3 days that her right second toe is been red) Onset Date: 07/07/19 Duration: Day(s): Location: Reports: Lower Extremity, Right (Right second toe erythema and swelling) Quality: Reports: Other (Erythema and swelling which is painless on her right second toe) Severity: Moderate Improves with: Reports: None Worsens with: Reports: None Context: Reports: Other (She's not sure when it will become red and swollen and she doesn't remember any trauma to the toe.). Denies: Activity, Exercise, Lifting, Sick Contact, Trauma Associated Symptoms: Reports: No Other Symptoms Treatments REAL ESTATE INVESTMENT ANALYST: Reports: Other (see below) (No recent changes to any of her medications.) Right Toe-Long Pain Score (Numeric/FACES): 3 - Related Data Allergies Allergy/AdvReac Type Severity Reaction Status Date / Time No Known Allergies Allergy Verified 12/23/18 13:04 Home Meds: Home Meds Aspirin 81 mg PO DAILY 05/16/16 [History] Carvedilol [Coreg] 12.5 mg PO BID 05/16/16 [History] FLUoxetine [PROzac] 20 mg PO DAILY 05/16/16 [History] Insulin Aspart [NovoLOG] 8 unit SUBCUT QID 05/16/16 [History] amLODIPine [Norvasc] 10 mg PO BEDTIME 05/16/16 [History] Furosemide [Lasix] 80 mg PO QAM 01/07/18 [History] Potassium Chloride 20 meq PO Q48H 01/07/18 [History] DULoxetine HCl [Cymbalta] 60 mg PO DAILY 12/23/18 [History] Dextran 70/Hypromellose [Artificial Tears] 1 drop EYEBOTH ASDIRECTED PRN [History] Diclofenac Sodium [Voltaren 1% Gel] 1 dose TOP ASDIRECTED PRN 12/23/18 [History] Hydrocortisone [Proctosol-HC] 1 dose RECTAL ASDIRECTED PRN 12/23/18 [History] Insulin Degludec [Tresiba Flextouch U-200] 26 units SUBCUT BID 12/23/18 [History ] Losartan [Cozaar] 100 mg PO DAILY 12/23/18 [History] Magnesium Oxide 400 mg PO DAILY 12/23/18 [History] Spironolactone 50 mg PO DAILY 12/23/18 [History] Temazepam [Restoril] 15 mg PO BEDTIME PRN 12/23/18 [History] amLODIPine Besylate [Amlodipine Besylate] 10 mg PO DAILY 12/23/18 [History] atorvaSTATin [Lipitor] 20 mg PO DAILY 12/23/18 [History] traZODone HCl [Trazodone HCl] 200 mg PO BEDTIME 12/23/18 [History] Doxycycline [Vibramycin] 100 mg PO BID #20 cap 07/10/19 [Rx] Past Medical History HEENT History: Reports: Cataract, Epistaxis, Impaired Vision Cardiovascular History: Reports: Angina, Heart Failure, High Cholesterol, Hypertension, [place], Pacemaker, SOB on Exertion, Stents Respiratory History: Reports: Sleep Apnea, SOB Gastrointestinal History: Reports: GERD Other Gastrointestinal History: abdominal pain Genitourinary History: Reports: Acute Renal Failure ANALYSIS OR RESEARCH SAFETY INSPECTOR History: Reports: Other ANALYSIS OR RESEARCH SAFETY INSPECTOR History: pain in vagina Musculoskeletal History: Reports: Arthritis, Fracture Other Musculoskeletal History: left arm fx Psychiatric History: Reports: Anxiety Endocrine/Metabolic History: Reports: Diabetes, Type II, Obesity/BMI 30+ Oncologic (Cancer) History: Reports: Other (See Below) Other Oncologic History: 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 - Infectious Disease History Infectious Disease History: Reports: Chicken Pox, Measles, Mumps - Past Surgical History HEENT Surgical History: Reports: Cataract Surgery, Other (See Below) Cardiovascular Surgical History: Reports: Coronary Artery Stent, Pacer GI Surgical History: Reports: Appendectomy, Other (See Below) Other Musculoskeletal Surgeries/Procedures:: wears immobilizer Social & Family History - Family History Family Medical History: Noncontributory OBGYN: Reports: Musculoskeletal: Reports: Arthritis Psychiatric: Reports: Anxiety, Depression Endocrine/Metabolic: Reports: Diabetes, type II, Hypothyroidism - Tobacco Use Smoking Status *Q: Never Smoker - Caffeine Use Caffeine Use: Reports: Coffee Other Caffeine Use: 5/day - Recreational Drug Use Recreational Drug Use: No - Living Situation & Occupation Living situation: Reports: , Extended Care Facility (I believe she resides at [facility].) Occupation: Retired Review of Systems - Review of Systems Review Of Systems: See Below Constitutional: Reports: No Symptoms Eyes: Reports: Blurred Vision, Other (She has poor vision due to diabetic retinopathy) Ears: Reports: Other (Ears feel plugged since she had a cold with sinus congestion which seems to be persisting.) Nose: Reports: Other (Occasional nasal discharge) Mouth/Throat: Reports: No Symptoms Respiratory: Reports: Shortness of Breath, Cough (Usually small cough in the morning and brings up a little bit of phlegm.). Denies: Wheezing, Pleuritic Chest Pain (On exertion) Cardiovascular: Denies: Chest Pain, Edema, Irregular Heart Rate, Syncope, Other GI/Abdominal: Reports: No Symptoms Genitourinary: Reports: Incontinence (Both stress and urge components) Musculoskeletal: Reports: Joint Pain (Knees hips lower back neck and shoulders.) Skin: Reports: Other Neurological: Reports: Difficulty Walking, Other ED EXAM, GENERAL - Physical Exam Exam: See Below Exam Limited By: No Limitations General Appearance: Alert, WD/WN, No Apparent Distress, Other (Temperature is 36.6. Heart rate is 81 and sinus respiratory distress 20 O2 sats are 91% on room air. With a few deep less than 1 up to 94% quickly. Ends are cool to touch and I suspect pulse oximetry is inaccurate.) Eye Exam: Bilateral Eye: Normal Inspection Ears: Normal TMs, Other (Wears a hearing aid in her left ear.) Throat/Mouth: Normal Inspection, Normal Lips, Normal Oropharynx Head: Atraumatic, Normocephalic Neck: Normal Inspection, Supple, Limited Range of Motion, Tender Lateral ( Tender bilateral aspect of the cervical spine.) Respiratory/Chest: Normal Breath Sounds, Respiratory Distress, Decreased Breath Sounds. No: Rhonchi, Wheezing Cardiovascular: Regular Rate, Rhythm, No Edema, No Gallop, No Murmur, No Rub. No: Normal Peripheral Pulses Peripheral Pulses: 1+: Posterior Tibial (L), Posterior Tibial (R), Dorsalis Pedis (L), Dorsalis Pedis (R) GI/Abdominal: Normal Bowel Sounds, Soft, Non-Tender, No Organomegaly, No Abnormal Bruit, No Mass, Pelvis Stable, Other (Abdominal girth limits ability to palpate solid organs.) Extremities: Other (Examination of her right foot shows marked erythema and slight increased warmth of the second toe only. It is circumferential and I could find no other ulcers or lesions on the toe. The toenail itself is slightly loose from fungal infection I suspect is the nidus for infection.) Neurological: Alert ( There is no lymphangitis or erythema of the dorsal foot.) , Oriented, CN II-XII Intact, Normal Cognition Psychiatric: Normal Affect (Has palpable dorsalis pedis and posterior tibial pulses to both feet.), Normal Mood Skin Exam: Warm, Dry, Intact, Erythema, Increased Warmth (Right second toe and second toe cellulitis.) Course - Vital Signs Last Recorded V/S: Last Vital Signs Temp 36.2 C 07/10/19 15:09 Pulse 76 07/10/19 15:09 Resp 16 07/10/19 15:09 BP 144/80 H 07/10/19 15:09 Pulse Ox 91 L 07/10/19 15:09 - Orders/Labs/Meds Meds: Medications Discontinued Medications Generic Name Dose Route Start Last Admin Trade Name Freq PRN Reason Stop Dose Admin Doxycycline Hyclate 100 mg 07/10/19 14:37 07/10/19 15:02 Vibramycin PO 07/10/19 14:38 100 mg ONETIME ONE Administration - Radiology Interpretation Free Text/Narrative:: 68-year-old female presents from [facility] in [place] per transfer bolus. She was sent down due to noted erythema of the right second toe possibly for the last 3 days. She doesn't have any pain in the foot due to peripheral neuropathy. Examination reveals marked erythema and slight swelling and increased warmth of the entire right second toe. I.e. 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 Treatment Lovenox likely 100 mg now and then she'll need this tablet twice daily for the next 10 days to clear this infection up. It should start to look much better in 72 hours. He should also help her complaints of sinus congestion. Departure - Departure Time of Disposition: 14:37 Disposition: Home, Self-Care 01 Condition: Fair Clinical Impression: Cellulitis of second toe, right - Discharge Information *PRESCRIPTION DRUG MONITORING PROGRAM REVIEWED*: Not Applicable *COPY OF PRESCRIPTION DRUG MONITORING REPORT IN PATIENT MAX: Not Applicable Prescriptions: Doxycycline [Vibramycin] 100 mg PO BID #20 cap Instructions: Cellulitis, Adult, [id number] Referrals: Ry Pulido MD [Primary Care Provider] - Forms: ED Department Discharge Additional Instructions: Evaluation the emergent today in regards to diffuse redness and increased warmth to the entire right second toe. Appears that an infection is likely developed under the skin of the right second toe from the toenail which is slightly loose. No discomfort at this time. Juan Luis is antibiotic doxycycline 100 mg twice daily for the next 10 days to clear up infection. Of note he cannot be taken with calcium or magnesium supplements. It must be taken at least 2 hours from ingestion of those agents. Expect marked improvement in the redness and swelling of the toe or the next 72 hours. If not she should be seen again.
[2019-07-10] MEDS ORDERED: Doxycycline 100 MG Cap PO ONE (14:37)
[2019-07-10 15:11] VITALS: BP 144/80; PULSE 76
== END 2019-07-10 15:20 | disposition home or self-care (01) ==
LOC: JD.ED 13:49
DX: L03.031 Cellulitis of right toe (principal); I11.0 Hypertensive heart disease with heart failure; I50.9 Heart failure, unspecified; E78.00 Pure hypercholesterolemia, unspecified; I25.2 Old myocardial infarction; K21.9 Gastro-esophageal reflux disease without esophagitis; M19.90 Unspecified osteoarthritis, unspecified site; E11.9 Type 2 diabetes mellitus without complications; E66.9 Obesity, unspecified; Z68.41 Body mass index [BMI] 40.0-44.9, adult; Z95.5 Presence of coronary angioplasty implant and graft; Z79.82 Long term (current) use of aspirin; Z79.4 Long term (current) use of insulin; Z79.899 Other long term (current) drug therapy
CPT/HCPCS: 99283; A9270

== ENCOUNTER 2020-08-05 07:26 | Emergency (ER) | payer MEDICARE, OTHER, MEDICAID ==
--- NOTE | 2020-08-05 07:43 | EDM.PDOC ---
ED HPI GENERAL MEDICAL PROBLEM - General Chief Complaint: Lower Extremity Injury/Pain Stated Complaint: [facility] Time Seen by Provider: 08/05/20 07:36 - History of Present Illness INITIAL COMMENTS - FREE TEXT/NARRATIVE: 69-year-old female brought into the emergency room by EMS from [facility] with left hip pain. Patient was getting out of her wheelchair to go to the restroom and fell to sharp pop in her left hip and went back into the wheelchair. She sustained no other injury with this most unfortunate event. Patient is unable to move her hip at this time or do much of anything with her lower leg. Has a significant past medical history for congestive heart failure she has had NC in the past she has stents and has a pacemaker. She has had a bout of renal failure she has type 2 diabetes with associated hypertension and hyperlipidemia and has a history of decreased vision. She has had multiple surgeries in the past. Patient is currently being treated for a right foot cellulitis. Left Leg Pain Score (Numeric/FACES): 8 - Related Data Allergies Allergy/AdvReac Type Severity Reaction Status Date / Time ibuprofen Allergy Tremors Verified 08/05/20 07:34 lisinopril Allergy Cannot Verified 08/05/20 07:34 Remember loratadine [From Claritin] Allergy Tremors Verified 08/05/20 07:34 Sulfa (Sulfonamide Allergy Cannot Verified 08/05/20 07:34 Antibiotics) Remember Home Meds: Home Meds Aspirin 81 mg PO 0800 05/16/16 [History] Carvedilol [Coreg] 25 mg PO 829,199905/16/16 [History] Insulin Aspart [NovoLOG] 8 unit SUBCUT 0800,1200,1700 05/16/16 [History] Potassium Chloride 20 meq PO Q48H 01/07/18 [History] Dextran 70/Hypromellose [Artificial Tears] 1 drop EYEBOTH ASDIRECTED PRN 12/23/18 [History] Hydrocortisone [Proctosol-HC] 1 dose RECTAL ASDIRECTED PRN 12/23/18 [History] atorvaSTATin [Lipitor] 20 mg PO 199912/23/18 [History] traZODone HCl [Trazodone HCl] 200 mg PO BEDTIME 12/23/18 [History] Acetaminophen [Tylenol Arthritis Pain] 650 mg PO 829,199908/05/20 [History] Aloe Vera/Sodium Chloride [[place] Saline Nasal Gel] 1 applic PREETI QID PRN 08/05/20 [History] [place]ford/Min Oil/Gisele/Wool Alcoh [Eucerin Creme] 1 inch TOP BID 08/05/20 [History] Cholecalciferol (Vitamin D3) [Vitamin D3] 2,000 unit PO 0830 08/05/20 [History] Clindamycin HCl 300 mg PO QID 08/05/20 [History] DULoxetine [Cymbalta] 60 mg PO 0830,1200 08/05/20 [History] Dicyclomine [Bentyl] 10 mg PO TID PRN 08/05/20 [History] Docusate Sodium/Sennosides [Senna Plus] 1 each PO 0830,1700 08/05/20 [History] Famotidine 20 mg PO 0800,199908/05/20 [History] Furosemide [Lasix] 80 mg PO DAILY 08/05/20 [History] Furosemide [Lasix] 80 mg PO MO 08/05/20 [History] Insulin Aspart [NovoLOG] 0 unit SQ 0800,1200,1700,2100 08/05/20 [History] Isosorbide Mononitrate [Imdur] 30 mg PO 0830,199908/05/20 [History] fentaNYL [Fentanyl] 1 each TD Q72H 08/05/20 [History] hydrALAZINE [Apresoline] 50 mg PO 0830,199908/05/20 [History] levoFLOXacin [Levaquin] 250 mg PO DAILY 08/05/20 [History] metOLazone [Metolazone] 2.5 mg PO MOTH 08/05/20 [History] polyethylene glycoL 3350 [MiraLAX] 17 gm PO 0830 08/05/20 [History] Past Medical History HEENT History: Reports: Cataract, Epistaxis, Impaired Vision Cardiovascular History: Reports: Angina, Heart Failure, High Cholesterol, Hypertension, NC, Pacemaker, SOB on Exertion, Stents Respiratory History: Reports: Sleep Apnea, SOB Gastrointestinal History: Reports: GERD Other Gastrointestinal History: abdominal pain Genitourinary History: Reports: Acute Renal Failure 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 - Infectious Disease History Infectious Disease History: Reports: Chicken Pox, Measles, Mumps - Past Surgical History HEENT Surgical History: Reports: Cataract Surgery, Other (See Below) Cardiovascular Surgical History: Reports: Coronary Artery Stent, Pacer GI Surgical History: Reports: Appendectomy, Other (See Below) Other Musculoskeletal Surgeries/Procedures:: wears immobilizer Social & Family History - Family History Family Medical History: No Pertinent Family History OBGYN: Reports: Musculoskeletal: Reports: Arthritis Psychiatric: Reports: Anxiety, Depression Endocrine/Metabolic: Reports: Diabetes, type II, Hypothyroidism - Caffeine Use Caffeine Use: Reports: Coffee Other Caffeine Use: 5/day - Living Situation & Occupation Living situation: Reports: , Extended Care Facility (I believe she resides at [facility] Occupation: Retired Review of Systems - Review of Systems Review Of Systems: See Below Constitutional: Reports: No Symptoms Eyes: Reports: Other (No acute changes history of decreased vision) Ears: Reports: No Symptoms Nose: Reports: No Symptoms Mouth/Throat: Reports: No Symptoms Respiratory: Reports: No Symptoms Cardiovascular: Reports: No Symptoms GI/Abdominal: Reports: No Symptoms Genitourinary: Reports: No Symptoms Musculoskeletal: Reports: Other (Acute left hip pain) Neurological: Reports: No Symptoms ED EXAM, GENERAL - Physical Exam Exam: See Below Exam Limited By: No Limitations General Appearance: Alert, No Apparent Distress, Obese, Other (She does fine as long as she is sitting still patient did receive 5 mg of morphine by EMS and her O2 saturation on room air was 82%) Head: Atraumatic, Normocephalic Neck: Normal Inspection, Supple, Non-Tender, Full Range of Motion. No: Lymphadenopathy (L), Lymphadenopathy (R) Respiratory/Chest: No Respiratory Distress, Lungs Clear, Normal Breath Sounds Cardiovascular: Regular Rate, Rhythm, Other (Scant lower extremity edema) GI/Abdominal: Normal Bowel Sounds, Soft, Non-Tender, Other (Obese) Back Exam: Normal Inspection. No: CVA Tenderness (L), CVA Tenderness (R) Extremities: Other (Trace pitting edema) Neurological: Alert, Oriented, Normal Cognition Course - Vital Signs Last Recorded V/S: Last Vital Signs Temp 36.3 C 08/05/20 07:42 Pulse 70 08/05/20 07:42 Resp 20 08/05/20 07:42 BP 135/68 08/05/20 07:42 Pulse Ox 82 L 08/05/20 07:42 - Orders/Labs/Meds Orders: Active Orders 24 hr Category Date Time Status Hip wo Cont Lt [CT] Stat Exams 08/05/20 08:47 Taken CULTURE URINE [RM] Stat Lab 08/05/20 08:25 Received Dextrose 5%-Lactated Ringers 1,000 ml Med 08/05/20 10:30 Active IV ASDIRECTED Medication Orders Dextrose/Lactated Ringer's (Dextrose 5%-Lactated Ringers) 1,000 mls @ 125 mls/hr IV ASDIRECTED TERRY Last Admin: 08/05/20 10:29 Dose: 125 mls/hr Documented by: VINAY Labs: Laboratory Tests 08/05/20 08/05/20 08/05/20 Range/Units 08:07 08:07 08:22 WBC 18.07 H (3.98-10.04) K/mm3 RBC 5.01 (3.98-5.22) M/mm3 Hgb 13.4 D (11.2-15.7) gm/dl Hct 43.3 (34.1-44.9) % MCV 86.4 D (79.4-94.8) fl MCH 26.7 (25.6-32.2) pg MCHC 30.9 L (32.2-35.5) g/dl RDW Std Deviation 53.5 H (36.4-46.3) fL Plt Count 312 (182-369) K/mm3 MPV 8.9 L (9.4-12.3) fl Neut % (Auto) 78.7 H (34.0-71.1) % Lymph % (Auto) 10.6 L (19.3-51.7) % [place] % (Auto) 8.3 (4.7-12.5) % Eos % (Auto) 1.7 (0.7-5.8) Baso % (Auto) 0.2 (0.1-1.2) % Neut # (Auto) 14.23 H (1.56-6.13) K/mm3 Lymph # (Auto) 1.91 (1.18-3.74) K/mm3 [place] # (Auto) 1.50 H (0.24-0.36) K/mm3 Eos # (Auto) 0.31 (0.04-0.36) K/mm3 Baso # (Auto) 0.03 (0.01-0.08) K/mm3 Manual Slide Review Normal smear Sodium 137 (136-145) mEq/L Potassium 3.4 L (3.5-5.1) mEq/L Chloride 98 (98-107) mEq/L Carbon Dioxide 32 (21-32) mEq/L Anion Gap 10.4 (5-15) BUN 134 H D (7-18) mg/dL Creatinine 2.9 H (0.55-1.02) mg/dL Est Cr Clr Drug Dosing 17.30 mL/min Estimated GFR (MDRD) 16 (>60) mL/min BUN/Creatinine Ratio 46.2 H (14-18) Glucose 73 L (83-115) mg/dL POC Glucose (83-110) mg/dL Calcium 9.8 (8.5-10.1) mg/dL Total Bilirubin 0.8 (0.2-1.0) mg/dL AST 14 L (15-37) U/L ALT 18 (14-59) U/L Alkaline Phosphatase 129 H (46-116) U/L Total Protein 8.5 H (6.4-8.2) g/dl Albumin 3.0 L (3.4-5.0) g/dl Globulin 5.5 gm/dL Albumin/Globulin Ratio 0.6 L (1-2) Urine Color (Yellow) Urine Appearance (Clear) Urine pH (5.0-8.0) Ur Specific [place] (1.005-1.030) Urine Protein (Negative) Urine Glucose (UA) (Negative) Urine Ketones (Negative) Urine Occult Blood (Negative) Urine Nitrite (Negative) Urine Bilirubin (Negative) Urine Urobilinogen (0.2-1.0) Ur Leukocyte Esterase (Negative) Urine RBC (0-5) /hpf Urine WBC (0-5) /hpf Ur Squamous Epith Cells (0-5) /hpf Urine Bacteria (FEW) /hpf Urine Mucus (FEW) /hpf SARS-CoV-2 RNA (HARINI) Positive H (NEGATIVE) 08/05/20 08/05/20 Range/Units 08:25 09:59 WBC (3.98-10.04) K/mm3 RBC (3.98-5.22) M/mm3 Hgb (11.2-15.7) gm/dl Hct (34.1-44.9) % MCV (79.4-94.8) fl MCH (25.6-32.2) pg MCHC (32.2-35.5) g/dl RDW Std Deviation (36.4-46.3) fL Plt Count (182-369) K/mm3 MPV (9.4-12.3) fl Neut % (Auto) (34.0-71.1) % Lymph % (Auto) (19.3-51.7) % [place] % (Auto) (4.7-12.5) % Eos % (Auto) (0.7-5.8) Baso % (Auto) (0.1-1.2) % Neut # (Auto) (1.56-6.13) K/mm3 Lymph # (Auto) (1.18-3.74) K/mm3 [place] # (Auto) (0.24-0.36) K/mm3 Eos # (Auto) (0.04-0.36) K/mm3 Baso # (Auto) (0.01-0.08) K/mm3 Manual Slide Review Sodium (136-145) mEq/L Potassium (3.5-5.1) mEq/L Chloride (98-107) mEq/L Carbon Dioxide (21-32) mEq/L Anion Gap (5-15) BUN (7-18) mg/dL Creatinine (0.55-1.02) mg/dL Est Cr Clr Drug Dosing mL/min Estimated GFR (MDRD) (>60) mL/min BUN/Creatinine Ratio (14-18) Glucose (83-115) mg/dL POC Glucose 79 L (83-110) mg/dL Calcium (8.5-10.1) mg/dL Total Bilirubin (0.2-1.0) mg/dL AST (15-37) U/L ALT (14-59) U/L Alkaline Phosphatase (46-116) U/L Total Protein (6.4-8.2) g/dl Albumin (3.4-5.0) g/dl Globulin gm/dL Albumin/Globulin Ratio (1-2) Urine Color Yellow (Yellow) Urine Appearance Cloudy H (Clear) Urine pH 6.0 (5.0-8.0) Ur Specific [place] 1.020 (1.005-1.030) Urine Protein 2+ H (Negative) Urine Glucose (UA) Negative (Negative) Urine Ketones Negative (Negative) Urine Occult Blood Trace-intact H (Negative) Urine Nitrite Negative (Negative) Urine Bilirubin Negative (Negative) Urine Urobilinogen 0.2 (0.2-1.0) Ur Leukocyte Esterase 3+ H (Negative) Urine RBC 5-10 H (0-5) /hpf Urine WBC Too numerous to cnt H (0-5) /hpf Ur Squamous Epith Cells Not seen (0-5) /hpf Urine Bacteria Moderate H (FEW) /hpf Urine Mucus Not seen (FEW) /hpf SARS-CoV-2 RNA (HARINI) (NEGATIVE) Meds: Medications Generic Name Dose Route Start Last Admin Trade Name Freq PRN Reason Stop Dose Admin Dextrose/Lactated Ringer's 1,000 mls @ 125 mls/hr 08/05/20 10:30 08/05/20 10:29 Dextrose 5%-Lactated Ringers IV 125 mls/hr ASDIRECTED TERRY Administration Discontinued Medications Generic Name Dose Route Start Last Admin Trade Name Freq PRN Reason Stop Dose Admin Hydromorphone HCl 0.25 mg 08/05/20 08:50 08/05/20 08:59 Dilaudid IVPUSH 08/05/20 08:51 0.25 mg ONETIME ONE Administration Hydromorphone HCl 0.25 mg 08/05/20 09:51 08/05/20 09:56 Dilaudid IVPUSH 08/05/20 09:52 0.25 mg ONETIME ONE Administration Hydromorphone HCl 0.5 mg 08/05/20 10:20 08/05/20 10:28 Dilaudid IVPUSH 08/05/20 10:21 0.5 mg ONETIME ONE Administration - Re-Assessments/Exams Free Text/Narrative Re-Assessment/Exam: 08/05/20 12:37 Patient had a x-ray of her left hip which was suspicious for impacted proximal femoral neck fracture. There is some concern about possible tumor follow-up CT did confirm this as well as the fracture. Chest x-ray was also concerning follow-up CT showed nodules within both sides of the chest largest nodule in the left upper lung abutting the pleural margin measuring 3.8 cm consistent with metastatic disease patient has a history of possible renal cancer sometime back this was treated at [facility] and she had a history of pancreatic cancer about 3 years ago. Laboratory work showed an elevated white count no clear-cut pneumonia on chest x-ray or CT however she was hypoxic responding nicely to 2 L of oxygen per nasal cannula. Urinalysis is strongly suspicious for urinary tract infection blood cultures have been obtained and the patient is receiving 2 g of Rocephin. Case was reviewed with Dr. Lacy orthopedic surgeon at [facility] who is referring the patient over to the hospitalist service. Case was discussed with Dr. Lee who accepted the patient in 1222 our time. Patient is receiving D5 LR at 125 cc an hour Departure - Departure Time of Disposition: 12:22 Disposition: DC/Tfer to [facility] 02 Clinical Impression: Closed left hip fracture, Pathological fracture of left hip, Urinary tract infection, Renal failure - Discharge Information Referrals: Ry Pulido MD [Primary Care Provider] - Forms: ED Department Discharge Sepsis Event Note (ED) - Focused Exam Vital Signs: Vital Signs Temp Pulse Resp BP Pulse Ox 08/05/20 07:42 36.3 C 70 20 135/68 82 L - My Orders Last 24 Hours: My Active Orders 08/05/20 08:25 CULTURE URINE [RM] Stat 08/05/20 08:47 Hip wo Cont Lt [CT] Stat 08/05/20 10:30 Dextrose 5%-Lactated Ringers 1,000 ml IV ASDIRECTED - Assessment/Plan Last 24 Hours: My Active Orders 08/05/20 08:25 CULTURE URINE [RM] Stat 08/05/20 08:47 Hip wo Cont Lt [CT] Stat 08/05/20 10:30 Dextrose 5%-Lactated Ringers 1,000 ml IV ASDIRECTED
[2020-08-05 07:46] VITALS: BP 135/68; PULSE 70
--- NOTE | 2020-08-05 08:40 | CR ---
Pelvis and left hip: AP view of the pelvis was obtained as well as AP and frog-leg lateral views of the left hip. Comparison: Prior AP pelvis study of 08/08/14. Findings: There is a possible lucent lesion within the inferior intertrochanteric region of the proximal left femur. There is a nondisplaced fracture being seen within the intertrochanteric region extending inferiorly to the proximal diaphysis along the medial aspect. No displacement is seen on this exam. Disc space narrowing is seen within the lower lumbar spine. Mild joint space narrowing is noted within the right hip. Bony structures are diffusely osteopenic. Impression: 1. Findings suspicious for lucent lesion (possible metastatic etiology) within the left hip with nondisplaced fracture. CT recommended to further evaluate. 2. Degenerative change and osteoporosis with vascular calcification. Diagnostic code #9
[2020-08-05] MEDS ORDERED: HYDROmorphone 0.5 MG/0.5 ML Syringe IVPUSH ONE ×3 (08:50→10:20)
[2020-08-05] MEDS ORDERED: Dextrose 5%-Lactated Ringers 1,000 ML IV SCH (10:30)
--- NOTE | 2020-08-05 10:51 | CR ---
Chest: Portable supine view of the chest was obtained. Comparison: Prior chest CT study of 04/12/18. Heart is enlarged. Tortuous thoracic aorta is seen. Pulmonary vessels are slightly congested. Minimal atelectasis is seen within the left mid lung and right lung base. Slight nodular density is noted within the right midlung possibly representing overlapping lung markings, although lung nodule is not excluded. Prior AICD is present. No gross bony abnormality is appreciated. Impression: 1. Findings suspicious for mild CHF. 2. Mild atelectasis within the left midlung. 3. Questionable nodule within the right mid lung possibly due to overlapping markings although noncontrast chest CT is recommended. 4. Other findings as noted above. Diagnostic code #9
--- NOTE | 2020-08-05 11:10 | CT ---
CT chest Technique: Prior chest x-ray performed earlier on the same day. Findings: Thoracic aorta shows atherosclerotic change. No aneurysm is seen. Coronary artery calcification is noted. No pericardial thickening is seen. Calcifications are noted within the gallbladder. There is a finding off the superior right kidney which is most likely due to enlarging cyst although renal ultrasound is recommended to confirm. Mediastinum shows no adenopathy. Soft tissue mass is noted within the left upper chest. This is poorly seen on plain film exam but most likely is due to overlapping of the hilum. This mass measures approximately 3.8 cm and abuts the anterior pleural surface. Second mass is noted within the approximate right upper lung which is seen on chest x-ray and measures 1.9 cm. Third nodule is seen within the right lower lobe measuring about 4.5 cm. Fourth nodule is noted within the right lower lobe measuring about 1.0 cm. Additional small nodule is noted more inferiorly within the right lobe measuring about 2 mm. Slight pleural thickening is seen within both lung bases. Bone window settings were reviewed which show a lucent area within T8 which is nonspecific regarding etiology. Minimal lucency is seen on prior CT study of 05/16/16. Diffuse degenerative change is present. Impression: 1. Nodules within both sides of the chest, largest nodule within the left upper lung abutting the pleural margin and measuring 3.8 cm. These findings are most likely due to metastatic disease. 2. Abnormality within the right kidney possibly due to enlarging cyst, renal ultrasound is recommended to confirm. 3. Other findings as noted above. Diagnostic code #9
[2020-08-05] MEDS ORDERED: cefTRIAXone 2 GM in Sodium Chloride 0.9% 100 ML IV SCH (12:30)
--- NOTE | 2020-08-07 09:21 | CT ---
CT left hip Technique: Multiple axial sections through the left hip were obtained. Reconstructed coronal and sagittal images were also obtained. Findings: 6.5 cm soft tissue abnormality is identified within the intertrochanteric region and subtrochanteric region of the left hip. There is destruction of the lateral cortex with slight extension into the lateral soft tissues. Bony structures are osteopenic. Previous fracture seen on plain film exam is not well identified on the CT study. Vascular calcification is noted. Several small degenerative cysts are noted within the superior acetabular head. Vacuum phenomenon is noted within the left sacroiliac joint. Impression: 1. Approximately 6.5 cm soft tissue abnormality within the left intertrochanteric and subtrochanteric region of the left hip with lateral destruction of cortex and mild extension of soft tissue finding into the lateral soft tissues. This finding is compatible most likely with metastatic lesion. 2. Previous fracture noted noted on plain filmis not optimally seen on this exam but still felt to be present. 3. Mild degenerative change and vascular calcification. Diagnostic code #9 MTDD
== END 2020-08-05 13:42 ==
LOC: JD.ED 07:26
DX: S72.145A Nondisplaced intertrochanteric fracture of left femur, initial encounter for closed fracture (principal); U07.1 COVID-19; I11.0 Hypertensive heart disease with heart failure; I50.9 Heart failure, unspecified; E78.00 Pure hypercholesterolemia, unspecified; I25.2 Old myocardial infarction; K21.9 Gastro-esophageal reflux disease without esophagitis; M19.90 Unspecified osteoarthritis, unspecified site; N39.0 Urinary tract infection, site not specified; N19 Unspecified kidney failure; E11.9 Type 2 diabetes mellitus without complications; F41.9 Anxiety disorder, unspecified; E66.9 Obesity, unspecified; Z68.41 Body mass index [BMI] 40.0-44.9, adult; Z88.6 Allergy status to analgesic agent; Z88.8 Allergy status to other drugs, medicaments and biological substances; Z88.2 Allergy status to sulfonamides; Z79.4 Long term (current) use of insulin; W05.0XXA Fall from non-moving wheelchair, initial encounter
CPT/HCPCS: 36415; 71045; 71250; 73502; 73700; 80053; 81001; 82962; 85025; 87040; 87086; 87088; 87186; 96365; 96375; 96376; 99285; J0696; J1170; J7050; J7121; U0002

== ENCOUNTER 2020-08-28 15:34 | Emergency (ER) | payer MEDICARE, OTHER, MEDICAID ==
[2020-08-28 15:46] VITALS: BP 128/99; PULSE 73
[2020-08-28] MEDS ORDERED: HYDROmorphone 1 MG/ML Syringe IM ONE (16:00)
--- NOTE | 2020-08-28 16:15 | EDM.PDOC ---
<Gaye Lewis - Last Filed: 08/28/20 16:09> ED HPI GENERAL MEDICAL PROBLEM - General Chief Complaint: Upper Extremity Injury/Pain Stated Complaint: SENT OVER BY DR TORRES (RT ELBOW SWELLING) Time Seen by Provider: 08/28/20 15:52 Source of Information: Reports: Patient History Limitations: Reports: No Limitations - History of Present Illness INITIAL COMMENTS - FREE TEXT/NARRATIVE: Ceci is a 69 year old female sent over by Dr. Torres for a distal humerus fracture. She states she has no idea how it happened and is in severe pain. This occurred at some point this afternoon. She denies any trauma to the area. She denies fever, chills, chest pain, dyspnea, nausea, vomiting. Right Arm Pain Score (Numeric/FACES): 9 - Related Data Allergies Allergy/AdvReac Type Severity Reaction Status Date / Time lisinopril Allergy Severe Cannot Verified 08/28/20 15:47 Remember Sulfa (Sulfonamide Allergy Severe Cannot Verified 08/28/20 15:47 Antibiotics) Remember ibuprofen AdvReac Severe Tremors Verified 08/28/20 15:47 loratadine [From Claritin] AdvReac Severe Tremors Verified 08/28/20 15:47 Home Meds: Home Meds Aspirin 81 mg PO 0800 05/16/16 [History] Carvedilol [Coreg] 25 mg PO 829,199905/16/16 [History] Insulin Aspart [NovoLOG] 8 unit SUBCUT 0800,1200,1700 05/16/16 [History] Potassium Chloride 20 meq PO Q48H 01/07/18 [History] Dextran 70/Hypromellose [Artificial Tears] 1 drop EYEBOTH ASDIRECTED PRN 12/23/18 [History] Hydrocortisone [Proctosol-HC] 1 dose RECTAL ASDIRECTED PRN 12/23/18 [History] atorvaSTATin [Lipitor] 20 mg PO 199912/23/18 [History] traZODone HCl [Trazodone HCl] 200 mg PO BEDTIME 12/23/18 [History] Acetaminophen [Tylenol Arthritis Pain] 650 mg PO 0830,199908/05/20 [History] Aloe Vera/Sodium Chloride [[place] Saline Nasal Gel] 1 applic PREETI QID PRN 08/05/20 [History] [place]/Min Oil/Gisele/Wool Alcoh [Eucerin Creme] 1 inch TOP BID 08/05/20 [History] Cholecalciferol (Vitamin D3) [Vitamin D3] 2,000 unit PO 0830 08/05/20 [History] Clindamycin HCl 300 mg PO QID 08/05/20 [History] DULoxetine [Cymbalta] 60 mg PO 0830,1200 08/05/20 [History] Dicyclomine [Bentyl] 10 mg PO TID PRN 08/05/20 [History] Docusate Sodium/Sennosides [Senna Plus] 1 each PO 0830,1700 08/05/20 [History] Famotidine 20 mg PO 0800,199908/05/20 [History] Furosemide [Lasix] 80 mg PO DAILY 08/05/20 [History] Furosemide [Lasix] 80 mg PO MO 08/05/20 [History] Insulin Aspart [NovoLOG] 0 unit SQ 0800,1200,1700,2100 08/05/20 [History] Isosorbide Mononitrate [Imdur] 30 mg PO 0830,199908/05/20 [History] fentaNYL [Fentanyl] 1 each TD Q72H 08/05/20 [History] hydrALAZINE [Apresoline] 50 mg PO 0830,199908/05/20 [History] levoFLOXacin [Levaquin] 250 mg PO DAILY 08/05/20 [History] metOLazone [Metolazone] 2.5 mg PO MOTH 08/05/20 [History] polyethylene glycoL 3350 [MiraLAX] 17 gm PO 0830 08/05/20 [History] Acetaminophen/HYDROcodone [[place] 325-5 MG] 1 tab PO Q6H PRN #20 tablet 08/28/20 [Rx] Past Medical History HEENT History: Reports: Cataract, Epistaxis, Impaired Vision Cardiovascular History: Reports: Angina, Heart Failure, High Cholesterol, Hypertension, [place], Pacemaker, SOB on Exertion, Stents Respiratory History: Reports: Sleep Apnea, SOB Gastrointestinal History: Reports: GERD Other Gastrointestinal History: abdominal pain Genitourinary History: Reports: Acute Renal Failure 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 Dermatologic History: Reports: Cellulitis Other Dermatologic History: RIGHT FOOT STATES IS CURRENTLY ON ANTIBIOTICS - Infectious Disease History Infectious Disease History: Reports: Chicken Pox, Measles, Mumps, Novel Coronavirus - Past Surgical History HEENT Surgical History: Reports: Cataract Surgery, Other (See Below) Other HEENT Surgeries/Procedures: 2008 lt side, supposed to go for rt eye Cardiovascular Surgical History: Reports: Coronary Artery Stent, Pacer GI Surgical History: Reports: Appendectomy, Other (See Below) Other GI Surgeries/Procedures: ulcer removed from stomach Female Surgical History: Reports: Other (See Below) Other Female Surgeries/Procedures: 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 Other Musculoskeletal Surgeries/Procedures:: wears immobilizer Social & Family History - Family History Family Medical History: No Pertinent Family History OBGYN: Reports: Musculoskeletal: Reports: Arthritis Psychiatric: Reports: Anxiety, Depression Endocrine/Metabolic: Reports: Diabetes, type II, Hypothyroidism - Tobacco Use Tobacco Use Status *Q: Never Tobacco User - Caffeine Use Caffeine Use: Reports: None Other Caffeine Use: 5/day - Recreational Drug Use Recreational Drug Use: No - Living Situation & Occupation Living situation: Reports: , Extended Care Facility (I believe she resides at [facility].) Occupation: Retired Review of Systems - Review of Systems Review Of Systems: Comprehensive ROS is negative, except as noted in HPI. ED EXAM, GENERAL - Physical Exam Exam Limited By: No Limitations General Appearance: Alert, WD/WN, Moderate Distress (due to severe pain ), Obese Respiratory/Chest: No Respiratory Distress, Lungs Clear, Normal Breath Sounds Cardiovascular: Regular Rate, Rhythm, No Edema, No Murmur Extremities: Arm Pain (right arm), Other (Limited range of motion for right arm. There is a moderate amount of ecchymosis surrounding the elbow. Patient is unable to move right arm. ) Neurological: Alert, Oriented Psychiatric: Normal Affect, Normal Mood Skin Exam: Warm, Dry, Intact, Normal Color Course - Re-Assessments/Exams Free Text/Narrative Re-Assessment/Exam: 08/28/20 16:15 Ceci is a 69 year old female sent over by Dr. Torres for a distal humerus fracture. This happened at some point today, however she is unaware of how it happened. She denies any trauma to the area. CT was sent by Dr. Torres and results are as followed: 1. Fracture within the distal diaphysis of the humerus with displacement and mild angulation. Images were pushed to Dr. Styles for review. Departure - Departure Disposition: Home, Self-Care 01 Clinical Impression: Humerus distal fracture Qualifiers: Encounter type: initial encounter Fracture type: closed Fracture morphology: other fracture Fracture alignment: displaced Laterality: right Qualified Code(s): S42.491A - Other displaced fracture of lower end of right humerus, initial encounter for closed fracture - Discharge Information Prescriptions: Acetaminophen/HYDROcodone [[place] 325-5 MG] 1 tab PO Q6H PRN #20 tablet PRN Reason: Pain Instructions: Humerus Fracture Treated With Immobilization, [id number] Referrals: Ry Torres MD [Primary Care Provider] - Forms: ED Department Discharge Additional Instructions: You have been evaluated in the ED for your right arm injury. Your x-ray and CT demonstrated a distal humerus fracture, that is displaced and angulated, this will likely need surgical fixation. Please use ice as tolerated to the affected area. You may elevate the affected area to provide further relief from swelling. You were given a prescription for a strong pain medication, hydrocodone/acetaminophen 5/325, please take 1 tab every 6 hours as needed for pain not relieved by Tylenol or ibuprofen alone. Please note this does contain Tylenol in it, so do not take more than 4000 mg in a 24-hour time span. These medications can be addictive, so please take as few as possible to achieve adequate pain control. These meds can also be quite constipating, recommend that you increase your oral fluid intake and take a stool softener like MiraLAX while taking these medications. An radiology specialist was consulted on your case due to the complexity of the fracture, Dr. Styles did refer you to bone and joint in [facility]. He notes that his partners will be in contact with the [place] facility to get an appointment for you for further follow-up and or surgical management. Please return to ED if your symptoms should change or worsen. Sepsis Event Note (ED) - Evaluation Sepsis Screening Result: No Definite Risk <Aliya Talbert V - Last Filed: 08/28/20 19:36> Review of Systems - Review of Systems Review Of Systems: Comprehensive ROS is negative, except as noted in HPI. ED EXAM, GENERAL - Physical Exam Exam: See Below ED TRAUMA EXTREMITY PROCEDURES - Splinting Right Upper Extremity Splint Site: right elbow Pre-Procedure NV Status: Normal Post-Procedure NV Status: Normal Splint Material: Fiberglass Splint Design: Gutter (ulnar gutter long arm), Sling (provided through DME closer) Applied & Form Fitted By: Provider, Nurse Provider Post-Splint Application NV Check: NV Status Normal, Good Position Complications: No Course - Vital Signs Last Recorded V/S: Last Vital Signs Temp 97.6 F 08/28/20 15:44 Pulse 73 08/28/20 15:44 Resp 16 08/28/20 15:44 BP 128/99 H 08/28/20 15:44 Pulse Ox 90 L 08/28/20 15:44 - Orders/Labs/Meds Orders: Active Orders 24 hr Category Date Time Status Consult to Physician [CONS] Stat Cons 08/28/20 16:26 Active DME for Discharge [COMM] Routine Oth 08/28/20 16:16 Ordered Meds: Medications Discontinued Medications Generic Name Dose Route Start Last Admin Trade Name Freq PRN Reason Stop Dose Admin Hydromorphone HCl 1 mg 08/28/20 16:00 08/28/20 16:13 Dilaudid IM 08/28/20 16:01 1 mg ONETIME ONE Administration Hydromorphone HCl 0.5 mg 08/28/20 17:57 08/28/20 18:18 Dilaudid IM 08/28/20 17:58 0.5 mg ONETIME ONE Administration - Re-Assessments/Exams Free Text/Narrative Re-Assessment/Exam: 08/28/20 16:35 I have read and reviewed the student's HPI and examined the patient and agree with MARITZA Gross-student. Patient had a CT done ordered by Dr. Torres, for ongoing pain/right elbow swelling. This does demonstrate a fracture within the distal diaphysis of the humerus with displacement of about 1.1 cm, mild angulation. No other acute abnormalities appreciated. I did discuss the findings with Dr. Styles our radiology specialist, and he does think that she would likely benefit from surgical intervention however he states this might turn into an elbow replacement, he will try to coordinate a follow-up through bone and joint in [place]. He does request plain films to be done of the area for further investigation. 08/28/20 17:35 Plain films have been performed, patient's fracture will be splinted with fiberglass splint, long-arm ulnar gutter fashion. She will get a sling out of the DME closet as well for ongoing management. Departure - Departure Time of Disposition: 17:36 Condition: Good - Discharge Information *PRESCRIPTION DRUG MONITORING PROGRAM REVIEWED*: Yes *COPY OF PRESCRIPTION DRUG MONITORING REPORT IN PATIENT MAX: No Sepsis Event Note (ED) - Focused Exam Vital Signs: Vital Signs Temp Pulse Resp BP Pulse Ox 08/28/20 15:44 97.6 F 73 16 128/99 H 90 L - My Orders Last 24 Hours: My Active Orders 08/28/20 16:16 DME for Discharge [COMM] Routine 08/28/20 16:26 Consult to Physician [CONS] Stat - Assessment/Plan Last 24 Hours: My Active Orders 08/28/20 16:16 DME for Discharge [COMM] Routine 08/28/20 16:26 Consult to Physician [CONS] Stat
--- NOTE | 2020-08-28 16:34 | EDM.PDOC ---
ED HPI GENERAL MEDICAL PROBLEM - General Chief Complaint: Upper Extremity Injury/Pain Stated Complaint: SENT OVER BY DR PULIDO (RT ELBOW SWELLING) Time Seen by Provider: 08/28/20 15:52 Source of Information: Reports: Patient History Limitations: Reports: No Limitations - History of Present Illness INITIAL COMMENTS - FREE TEXT/NARRATIVE: Ceci is a 69 year old female sent over by Dr. Pulido for a distal humerus fracture. She states she has no idea how it happened and is in severe pain. This occurred at some point this afternoon. She denies any trauma to the area. She denies fever, chills, chest pain, dyspnea, nausea, vomiting. Right Arm Pain Score (Numeric/FACES): 9 - Related Data Allergies Allergy/AdvReac Type Severity Reaction Status Date / Time lisinopril Allergy Severe Cannot Verified 08/28/20 15:47 Remember Sulfa (Sulfonamide Allergy Severe Cannot Verified 08/28/20 15:47 Antibiotics) Remember ibuprofen AdvReac Severe Tremors Verified 08/28/20 15:47 loratadine [From Claritin] AdvReac Severe Tremors Verified 08/28/20 15:47 Home Meds: Home Meds Aspirin 81 mg PO 0800 05/16/16 [History] Carvedilol [Coreg] 25 mg PO 829,199905/16/16 [History] Insulin Aspart [NovoLOG] 8 unit SUBCUT 0800,1200,1700 05/16/16 [History] Potassium Chloride 20 meq PO Q48H 01/07/18 [History] Dextran 70/Hypromellose [Artificial Tears] 1 drop EYEBOTH ASDIRECTED PRN 12/23/18 [History] Hydrocortisone [Proctosol-HC] 1 dose RECTAL ASDIRECTED PRN 12/23/18 [History] atorvaSTATin [Lipitor] 20 mg PO 199912/23/18 [History] traZODone HCl [Trazodone HCl] 200 mg PO BEDTIME 12/23/18 [History] Acetaminophen [Tylenol Arthritis Pain] 650 mg PO 0830,199908/05/20 [History] Aloe Vera/Sodium Chloride [[place] Saline Nasal Gel] 1 applic PREETI QID PRN 08/05/20 [History] [place]/Min Oil/Gisele/Wool Alcoh [Eucerin Creme] 1 inch TOP BID 08/05/20 [History] Cholecalciferol (Vitamin D3) [Vitamin D3] 2,000 unit PO 0830 08/05/20 [History] Clindamycin HCl 300 mg PO QID 08/05/20 [History] DULoxetine [Cymbalta] 60 mg PO 0830,1200 08/05/20 [History] Dicyclomine [Bentyl] 10 mg PO TID PRN 08/05/20 [History] Docusate Sodium/Sennosides [Senna Plus] 1 each PO 0830,1700 08/05/20 [History] Famotidine 20 mg PO 0800,199908/05/20 [History] Furosemide [Lasix] 80 mg PO DAILY 08/05/20 [History] Furosemide [Lasix] 80 mg PO MO 08/05/20 [History] Insulin Aspart [NovoLOG] 0 unit SQ 0800,1200,1700,2100 08/05/20 [History] Isosorbide Mononitrate [Imdur] 30 mg PO 0830,199908/05/20 [History] fentaNYL [Fentanyl] 1 each TD Q72H 08/05/20 [History] hydrALAZINE [Apresoline] 50 mg PO 0830,199908/05/20 [History] levoFLOXacin [Levaquin] 250 mg PO DAILY 08/05/20 [History] metOLazone [Metolazone] 2.5 mg PO MOTH 08/05/20 [History] polyethylene glycoL 3350 [MiraLAX] 17 gm PO 0830 08/05/20 [History] Past Medical History HEENT History: Reports: Cataract, Epistaxis, Impaired Vision Cardiovascular History: Reports: Angina, Heart Failure, High Cholesterol, Hypertension, [place], Pacemaker, SOB on Exertion, Stents Respiratory History: Reports: Sleep Apnea, SOB Gastrointestinal History: Reports: GERD Other Gastrointestinal History: abdominal pain Genitourinary History: Reports: Acute Renal Failure 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 Dermatologic History: Reports: Cellulitis Other Dermatologic History: RIGHT FOOT STATES IS CURRENTLY ON ANTIBIOTICS - Infectious Disease History Infectious Disease History: Reports: Chicken Pox, Measles, Mumps, Novel Coronavirus - Past Surgical History HEENT Surgical History: Reports: Cataract Surgery, Other (See Below) Other HEENT Surgeries/Procedures: 2008 lt side, supposed to go for rt eye Cardiovascular Surgical History: Reports: Coronary Artery Stent, Pacer GI Surgical History: Reports: Appendectomy, Other (See Below) Other GI Surgeries/Procedures: ulcer removed from stomach Female Surgical History: Reports: Other (See Below) Other Female Surgeries/Procedures: 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 Other Musculoskeletal Surgeries/Procedures:: wears immobilizer Social & Family History - Family History Family Medical History: No Pertinent Family History OBGYN: Reports: Musculoskeletal: Reports: Arthritis Psychiatric: Reports: Anxiety, Depression Endocrine/Metabolic: Reports: Diabetes, type II, Hypothyroidism - Tobacco Use Tobacco Use Status *Q: Never Tobacco User - Caffeine Use Caffeine Use: Reports: None Other Caffeine Use: 5/day - Recreational Drug Use Recreational Drug Use: No - Living Situation & Occupation Living situation: Reports: , Extended Care Facility (I believe she resides at [facility].) Occupation: Retired ED EXAM, GENERAL - Physical Exam Free Text/Narrative:: Ceci is a 69 year old female sent over by Dr. Pulido for a distal humerus fracture. She states she has no idea how it happened and is in severe pain. This occurred at some point this afternoon. She denies any trauma to the area. She denies fever, chills, chest pain, dyspnea, nausea, vomiting. Exam Limited By: No Limitations General Appearance: Alert, WD/WN, Moderate Distress (due to severe pain ), Obese Respiratory/Chest: No Respiratory Distress, Lungs Clear, Normal Breath Sounds Cardiovascular: Regular Rate, Rhythm, No Edema, No Murmur Extremities: Arm Pain (right arm), Other (Limited range of motion for right arm. There is a moderate amount of ecchymosis surrounding the elbow. Patient is unable to move right arm. ) Neurological: Alert, Oriented Psychiatric: Normal Affect, Normal Mood Skin Exam: Warm, Dry, Intact, Normal Color Course - Vital Signs Last Recorded V/S: Last Vital Signs Temp 97.6 F 08/28/20 15:44 Pulse 73 08/28/20 15:44 Resp 16 08/28/20 15:44 BP 128/99 H 08/28/20 15:44 Pulse Ox 90 L 08/28/20 15:44 - Orders/Labs/Meds Orders: Active Orders 24 hr Category Date Time Status Elbow Min 3V Rt [CR] Stat Exams 08/28/20 16:20 Ordered Humerus Rt [CR] Stat Exams 08/28/20 16:19 Ordered DME for Discharge [COMM] Routine Oth 08/28/20 16:16 Ordered Meds: Medications Discontinued Medications Generic Name Dose Route Start Last Admin Trade Name Freq PRN Reason Stop Dose Admin Hydromorphone HCl 1 mg 08/28/20 16:00 08/28/20 16:13 Dilaudid IM 08/28/20 16:01 1 mg ONETIME ONE Administration - Re-Assessments/Exams Free Text/Narrative Re-Assessment/Exam: 08/28/20 16:24 I have read and reviewed the student's HPI and examined the patient and agree with MARITZA Gross-student. Patient had a CT done ordered by Dr. Pulido, for right elbow swelling. This does demonstrate a fracture within the distal diaphysis of the humerus with displacement of about 1.1 cm, mild angulation. No other acute abnormalities appreciated. I did discuss the findings with Dr. Styles our senior telecommunications specialist, and he does think that she would likely benefit from surgical intervention however he states this might turn into an elbow replacement, he will try to coordinate a follow-up through [facility] in [place]. He does request plain films to be done of the area for further investigation. Departure - Discharge Information Referrals: Ry Pulido MD [Primary Care Provider] - Forms: ED Department Discharge Sepsis Event Note (ED) - Evaluation Sepsis Screening Result: No Definite Risk - Focused Exam Vital Signs: Vital Signs Temp Pulse Resp BP Pulse Ox 08/28/20 15:44 97.6 F 73 16 128/99 H 90 L - My Orders Last 24 Hours: My Active Orders 08/28/20 16:16 DME for Discharge [COMM] Routine 08/28/20 16:19 Humerus Rt [CR] Stat 08/28/20 16:20 Elbow Min 3V Rt [CR] Stat - Assessment/Plan Last 24 Hours: My Active Orders 08/28/20 16:16 DME for Discharge [COMM] Routine 08/28/20 16:19 Humerus Rt [CR] Stat 08/28/20 16:20 Elbow Min 3V Rt [CR] Stat
[2020-08-28] MEDS ORDERED: HYDROmorphone 0.5 MG/0.5 ML Syringe IM ONE (17:57)
--- NOTE | 2020-08-28 18:46 | CR ---
Right Elbow: 3 views right elbow were obtained. Distal diaphyseal fracture is noted within the humerus. There is displacement by a shaft width as well as mild angulation. Vascular calcification is noted. Osteopenia is present. Impression: 1. Displaced fracture as noted above. 2. Osteopenia and vascular calcification. Diagnostic code #3
--- NOTE | 2020-08-28 18:46 | CR ---
Right humerus: 2 views of the right humerus were obtained. Distal diaphyseal fracture is seen directly above the elbow. There is displacement and angulation being seen. No additional abnormality seen within other portions of the humerus. Osteopenia is present. Impression: 1. Distal diaphyseal fracture showing displacement and angulation. 2. No additional acute abnormality is seen within the right humerus. Diagnostic code #3
== END 2020-08-28 18:19 | disposition home or self-care (01) ==
LOC: JD.ED 15:34
DX: S42.491A Other displaced fracture of lower end of right humerus, initial encounter for closed fracture (principal); I11.0 Hypertensive heart disease with heart failure; I50.9 Heart failure, unspecified; I25.2 Old myocardial infarction; E78.00 Pure hypercholesterolemia, unspecified; K21.9 Gastro-esophageal reflux disease without esophagitis; E11.9 Type 2 diabetes mellitus without complications; E66.9 Obesity, unspecified; Z79.4 Long term (current) use of insulin; Z88.2 Allergy status to sulfonamides; Z88.8 Allergy status to other drugs, medicaments and biological substances; Z88.6 Allergy status to analgesic agent; Z79.82 Long term (current) use of aspirin; Z79.899 Other long term (current) drug therapy; X58.XXXA Exposure to other specified factors, initial encounter; M25.521 Pain in right elbow
CPT/HCPCS: 29105; 73060; 73080; 73200; 96372; 99283; J1170

== ENCOUNTER 2020-10-02 10:41 | Emergency (ER) | payer MEDICARE, OTHER, MEDICAID ==
[2020-10-02] MEDS ORDERED: Ondansetron 4 MG Tab.DIS PO ONE (10:48)
[2020-10-02 10:50] VITALS: BP 148/53; PULSE 78
[2020-10-02] MEDS ORDERED: Oxymetazoline 0.05% Nasal Spray 30 ML Bottle NAS ONE (11:14)
--- NOTE | 2020-10-02 11:25 | EDM.PDOC ---
ED HPI GENERAL MEDICAL PROBLEM - General Chief Complaint: ENT Problem Stated Complaint: [facility] Time Seen by Provider: 10/02/20 11:05 Source of Information: Reports: Patient, RN Notes Reviewed History Limitations: Reports: No Limitations - History of Present Illness INITIAL COMMENTS - FREE TEXT/NARRATIVE: Patient is a 69-year-old female presenting to the emergency room from [facility] with complaints of left-sided epistaxis that began last evening. Report from [facility] indicates that it has been a constant since its onset around 11 PM last evening. On arrival to ER, patient had gauze packing in the left nare. This was removed by nursing staff and found to have no active bleeding. Pt as a diagnosis of kidney and pancreatic cancer for which she is taking Keytruda infusions. It was reported that she did have one coffee-ground emesis prior to arrival to ER. Patient does feel slightly nauseous at this time, however bleeding to the left nare has stopped. She denies the feeling of anything running down her throat. Patient is nonambulatory with a Wong lift for transfers. - Related Data Allergies Allergy/AdvReac Type Severity Reaction Status Date / Time lisinopril Allergy Severe Cannot Verified 10/02/20 11:06 Remember Sulfa (Sulfonamide Allergy Severe Cannot Verified 10/02/20 11:06 Antibiotics) Remember ibuprofen AdvReac Severe Tremors Verified 10/02/20 11:06 loratadine [From Claritin] AdvReac Severe Tremors Verified 10/02/20 11:06 Home Meds: Home Meds Aspirin 81 mg PO 0800 05/16/16 [History] Carvedilol [Coreg] 25 mg PO 829,199905/16/16 [History] Insulin Aspart [NovoLOG] 15 unit SUBCUT 0800,1200,1700 05/16/16 [History] Potassium Chloride 20 meq PO Q48H 01/07/18 [History] Dextran 70/Hypromellose [Artificial Tears] 1 drop EYEBOTH ASDIRECTED PRN 12/23/18 [History] Hydrocortisone [Proctosol-HC] 1 dose RECTAL ASDIRECTED PRN 12/23/18 [History] atorvaSTATin [Lipitor] 20 mg PO 199912/23/18 [History] traZODone HCl [Trazodone HCl] 200 mg PO BEDTIME 12/23/18 [History] Acetaminophen [Tylenol Arthritis Pain] 650 mg PO 0830,199908/05/20 [History] Aloe Vera/Sodium Chloride [[place] Saline Nasal Gel] 1 applic PREETI QID PRN 08/05/20 [History] [place]/Min Oil/[place]/Wool Alcoh [Eucerin Creme] 1 inch TOP BID 08/05/20 [History] Cholecalciferol (Vitamin D3) [Vitamin D3] 2,000 unit PO 0830 08/05/20 [History] Clindamycin HCl 300 mg PO QID 08/05/20 [History] DULoxetine [Cymbalta] 60 mg PO 0830,1200 08/05/20 [History] Dicyclomine [Bentyl] 10 mg PO TID PRN 08/05/20 [History] Docusate Sodium/Sennosides [Senna Plus] 1 each PO 0830,1700 08/05/20 [History] Famotidine 20 mg PO 0800,199908/05/20 [History] Furosemide [Lasix] 80 mg PO BID 08/05/20 [History] Furosemide [Lasix] 80 mg PO MO 08/05/20 [History] Insulin Aspart [NovoLOG] 0 unit SQ 0800,1200,1700,2100 08/05/20 [History] Isosorbide Mononitrate [Imdur] 30 mg PO 0830,199908/05/20 [History] fentaNYL [Fentanyl] 1 each TD Q72H 08/05/20 [History] hydrALAZINE [Apresoline] 50 mg PO 0830,199908/05/20 [History] levoFLOXacin [Levaquin] 250 mg PO DAILY 08/05/20 [History] metOLazone [Metolazone] 2.5 mg PO MOTH 08/05/20 [History] polyethylene glycoL 3350 [MiraLAX] 17 gm PO 0830 08/05/20 [History] Acetaminophen/HYDROcodone [[place] 325-5 MG] 1 tab PO Q6H PRN #20 tablet 08/28/20 [Rx] Insulin Degludec [Tresiba] 40 unit SQ 0800 10/02/20 [History] oxyCODONE 5 mg PO Q6H PRN 10/02/20 [History] rOPINIRole [Requip] 0.25 mg PO BEDTIME 10/02/20 [History] Past Medical History HEENT History: Reports: Cataract, Epistaxis, Impaired Vision Cardiovascular History: Reports: Angina, Heart Failure, High Cholesterol, Hypertension, [place], Pacemaker, SOB on Exertion, Stents Respiratory History: Reports: Sleep Apnea, SOB Gastrointestinal History: Reports: GERD Other Gastrointestinal History: abdominal pain Genitourinary History: Reports: Acute Renal Failure REGIONAL LOSS PREVENTION MANAGER History: Reports: Other REGIONAL LOSS PREVENTION MANAGER History: pain in vagina Musculoskeletal History: Reports: Arthritis, Fracture Other Musculoskeletal History: left arm fracture 2 months ago, and left leg fracture months ago. Neurological History: Reports: None Psychiatric History: Reports: Anxiety Endocrine/Metabolic History: Reports: Diabetes, Type II, Obesity/BMI 30+ Hematologic History: Reports: None Immunologic History: Reports: None Oncologic (Cancer) History: Reports: Lung, Pancreatic, Other (See Below) Other Oncologic History: 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. Pancreatic cancer, kidney cancer, and spots on lungs Dermatologic History: Reports: Cellulitis Other Dermatologic History: RIGHT FOOT STATES IS CURRENTLY ON ANTIBIOTICS - Infectious Disease History Infectious Disease History: Reports: Chicken Pox, Measles, Mumps, Novel Coronavirus - Past Surgical History HEENT Surgical History: Reports: Cataract Surgery, Other (See Below) Other HEENT Surgeries/Procedures: 2009 bilateral eyes Cardiovascular Surgical History: Reports: Coronary Artery Stent, Pacer Respiratory Surgical History: Reports: None GI Surgical History: Reports: Appendectomy, Other (See Below) Other GI Surgeries/Procedures: ulcer removed from stomach Female Surgical History: Reports: Other (See Below) Other Female Surgeries/Procedures: 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 Endocrine Surgical History: Reports: None Musculoskeletal Surgical History: Reports: None Other Musculoskeletal Surgeries/Procedures:: wears immobilizer Social & Family History - Family History Family Medical History: No Pertinent Family History OBGYN: Reports: Musculoskeletal: Reports: Arthritis Psychiatric: Reports: Anxiety, Depression Endocrine/Metabolic: Reports: Diabetes, type II, Hypothyroidism - Tobacco Use Tobacco Use Status *Q: Never Tobacco User Second Hand Smoke Exposure: Yes - Caffeine Use Caffeine Use: Reports: None Other Caffeine Use: 5/day - Recreational Drug Use Recreational Drug Use: No - Living Situation & Occupation Living situation: Reports: , Extended Care Facility (I believe she resides at [facility].) Occupation: Retired ED ROS ENT - Review of Systems Review Of Systems: See Below Constitutional: Reports: No Symptoms. Denies: Fever, Weakness HEENT: Reports: Nosebleed Respiratory: Reports: No Symptoms Cardiovascular: Reports: No Symptoms Endocrine: Reports: No Symptoms GI/Abdominal: Reports: Nausea, Vomiting. Denies: Abdominal Pain, Diarrhea : Reports: No Symptoms Musculoskeletal: Reports: No Symptoms Skin: Reports: No Symptoms Neurological: Reports: No Symptoms Psychiatric: Reports: No Symptoms Hematologic/Lymphatic: Reports: No Symptoms Immunologic: Reports: No Symptoms ED EXAM, ENT - Physical Exam Exam: See Below General Appearance: Alert, WD/WN, No Apparent Distress Eye Exam: Bilateral Eye: PERRL Nose: Dried Blood (small amount). No: Active Bleeding Mouth/Throat: Normal Inspection, Normal Gums, Normal Lips, Normal Oropharynx, Normal Teeth, Other (no visible blood in oropharynx) Head: Atraumatic, Normocephalic Respiratory/Chest: No Respiratory Distress, Lungs Clear, Normal Breath Sounds, No Accessory Muscle Use, Chest Non-Tender Cardiovascular: Normal Peripheral Pulses, Regular Rate, Rhythm, No Edema, No Gallop, No JVD, No Murmur, No Rub Neurological: Alert, Oriented, CN II-XII Intact, Normal Cognition, Normal Gait, Normal Reflexes, No Motor/Sensory Deficits Psychiatric: Normal Affect, Normal Mood Skin: Warm, Dry, Intact, Normal Color, No Rash Course - Vital Signs Last Recorded V/S: Last Vital Signs Temp 97.2 F 10/02/20 10:48 Pulse 78 10/02/20 10:48 Resp 18 10/02/20 10:48 BP 148/53 H 10/02/20 10:48 Pulse Ox 93 L 10/02/20 10:48 - Orders/Labs/Meds Labs: Laboratory Tests 10/02/20 Range/Units 11:30 WBC 11.28 H (3.98-10.04) K/mm3 RBC 3.59 L (3.98-5.22) M/mm3 Hgb 9.1 L D (11.2-15.7) gm/dl Hct 32.1 L (34.1-44.9) % MCV 89.4 D (79.4-94.8) fl MCH 25.3 L (25.6-32.2) pg MCHC 28.3 L (32.2-35.5) g/dl RDW Std Deviation 57.7 H (36.4-46.3) fL Plt Count 319 (182-369) K/mm3 MPV 9.3 L (9.4-12.3) fl Neut % (Auto) 70.2 (34.0-71.1) % Lymph % (Auto) 17.4 L (19.3-51.7) % [place] % (Auto) 8.0 (4.7-12.5) % Eos % (Auto) 3.8 (0.7-5.8) Baso % (Auto) 0.2 (0.1-1.2) % Neut # (Auto) 7.92 H (1.56-6.13) K/mm3 Lymph # (Auto) 1.96 (1.18-3.74) K/mm3 [place] # (Auto) 0.90 H (0.24-0.36) K/mm3 Eos # (Auto) 0.43 H (0.04-0.36) K/mm3 Baso # (Auto) 0.02 (0.01-0.08) K/mm3 Manual Slide Review Normal smear Meds: Medications Discontinued Medications Generic Name Dose Route Start Last Admin Trade Name Freq PRN Reason Stop Dose Admin Ondansetron HCl 4 mg 10/02/20 10:48 10/02/20 10:53 Zofran Odt PO 10/02/20 10:49 4 mg ONETIME ONE Administration Oxymetazoline HCl 1 ml 10/02/20 11:14 10/02/20 11:19 Nasal Decongestant [place] PREETI 10/02/20 11:15 3 spray ONETIME ONE Administration - Re-Assessments/Exams Free Text/Narrative Re-Assessment/Exam: Patient is a 69-year-old female presenting to the emergency department with complaints of left-sided epistaxis that began last evening Jermain p.m. On arrival to ER, she had gauze nasal packing in her left nare. This was removed by the triage nurse and there has been no active bleeding since her arrival. On exam, there is no obvious source of bleeding. I instilled 3 sprays of Afrin into the nare. We will watch her to ensure bleeding does not resume. Of ord ered CBC to evaluate her blood counts. She did receive Zofran ODT 4 mg on arrival to ER due to nausea. She does not complain of nausea at this time. 10/02/20 12:21 CBC was significant for WBC minimally elevated 11.28 and hemoglobin low at 9.1. While the hemoglobin is low, this is not transfused below. There has been no further bleeding thus far. We will notify [facility] that she will be discharged they may start to had this way. I will be at least 30 minutes until they arrive, so we will continue to monitor to ensure bleeding does not resume. Patient is in agreement with this and is quite anxious to go home. 10/02/20 13:13 Patient has had no recurrence of bleeding. [facility] Discharge instructions as documented. Departure - Departure Time of Disposition: 12:38 Disposition: DC/Tfer to SNF 03 Condition: Good Clinical Impression: Epistaxis, Low hemoglobin - Discharge Information *PRESCRIPTION DRUG MONITORING PROGRAM REVIEWED*: No *COPY OF PRESCRIPTION DRUG MONITORING REPORT IN PATIENT MAX: No Instructions: Nosebleed, Gals-ac-Jand Referrals: Ry Pulido MD [Primary Care Provider] - Forms: ED Department Discharge Additional Instructions: You were seen in the emergency department today for evaluation with regards to a left-sided nosebleed that began last evening. On arrival to ER, the bleeding of your left nare had stopped. Packing was removed and a few sprays of oxymetazoline was inserted into the nare. You are able to blow your nose with no recurrence of bleeding. You were watched in the ER for approximately an hour and a half and there was no further bleeding noted. Blood work was checked and your hemoglobin is found to be low at 9.2. While this is low, it is not in the range that would require transfusion. You have been sent home with the bottle of oxymetazoline. If the bleeding should recur, recommend inserting a few sprays of this into the nostril, lean forward, and hold pressure. If bleeding does not stop, you should return to the emergency department. I would recommend instilling Vaseline into the left nare couple times daily to ensure that the nare stays moist. Return to ER as needed. Sepsis Event Note (ED) - Evaluation Sepsis Screening Result: No Definite Risk - Focused Exam Vital Signs: Vital Signs Temp Pulse Resp BP Pulse Ox 10/02/20 10:48 97.2 F 78 18 148/53 H 93 L
== END 2020-10-02 14:04 ==
LOC: JD.ED 10:41
DX: R04.0 Epistaxis (principal); D64.9 Anemia, unspecified; R11.2 Nausea with vomiting, unspecified; I11.0 Hypertensive heart disease with heart failure; I50.9 Heart failure, unspecified; E78.00 Pure hypercholesterolemia, unspecified; I25.2 Old myocardial infarction; K21.9 Gastro-esophageal reflux disease without esophagitis; M19.90 Unspecified osteoarthritis, unspecified site; E11.9 Type 2 diabetes mellitus without complications; E66.9 Obesity, unspecified; Z95.0 Presence of cardiac pacemaker; Z77.22 Contact with and (suspected) exposure to environmental tobacco smoke (acute) (chronic); Z88.8 Allergy status to other drugs, medicaments and biological substances; Z88.2 Allergy status to sulfonamides; Z88.6 Allergy status to analgesic agent; Z79.82 Long term (current) use of aspirin; Z79.4 Long term (current) use of insulin; Z79.899 Other long term (current) drug therapy
CPT/HCPCS: 36415; 85025; 99283; A9270

== ENCOUNTER 2020-10-11 19:01 | Inpatient (IN) | payer MEDICARE, OTHER, MEDICAID ==
[2020-10-11] MEDS ORDERED: Ondansetron 4 MG/2 ML SDV IVPUSH ONE (19:51)
[2020-10-11] MEDS ORDERED: HYDROmorphone 1 MG/ML Syringe IVPUSH ONE ×2 (19:51→22:00)
--- NOTE | 2020-10-11 19:56 | EDM.PDOC ---
ED HPI GENERAL MEDICAL PROBLEM - General Chief Complaint: Abdominal Pain Stated Complaint: [facility] Time Seen by Provider: 10/11/20 19:07 Source of Information: Reports: Patient, [facility] Records History Limitations: Reports: Other (Patient is a poor historian) - History of Present Illness INITIAL COMMENTS - FREE TEXT/NARRATIVE: Mrs. Duong is a pleasant 69-year-old woman with a past medical history significant for stage IV pancreatic cancer, on immunotherapy, who is now brought to the ED by EMS with a complaint of generalized abdominal pain for the past week, along with 3 to 4 days of vomiting after drinking liquids. The patient is unable to describe the character of her abdominal pain. She states that it is constant, and that she has not identified any modifiers. She denies prior similar abdominal pain. She states that she has been given Tylenol and a pain pill (the patient's medication list includes both oxycodone and Percocet, as well as a fentanyl patch), but that they don't seem to do anything. Here in the ED, the patient is found to be hemodynamically stable, afebrile, saturating 86% on room air. Prior to 1 week ago, the patient denies having a recent fever, chills, sore throat, ear pain, nasal or sinus congestion, cough, dyspnea, chest pain, palpitations, nausea, vomiting, constipation, diarrhea, abdominal pain, urinary symptoms, recent weight gain or weight loss, recent bloody bowel movements or black bowel movements, recent joint aches, headaches, or rashes. The patient's PCP is Dr. Ry Pulido. Her Oncologist is Dr. Pacheco Salmeron. The patient's CODE STATUS is DNR. Abdomen Pain Score (Numeric/FACES): 8 - Related Data Allergies Allergy/AdvReac Type Severity Reaction Status Date / Time lisinopril Allergy Severe Cannot Verified 10/11/20 19:05 Remember Sulfa (Sulfonamide Allergy Severe Cannot Verified 10/11/20 19:05 Antibiotics) Remember ibuprofen AdvReac Severe Tremors Verified 10/11/20 19:05 loratadine [From Claritin] AdvReac Severe Tremors Verified 10/11/20 19:05 Home Meds: Home Meds Carvedilol [Coreg] 25 mg PO 829,199905/16/16 [History] Insulin Aspart [NovoLOG] 15 unit SUBCUT 0800,1200,1700 05/16/16 [History] Potassium Chloride 20 meq PO Q48H 01/07/18 [History] Dextran 70/Hypromellose [Artificial Tears] 1 drop EYEBOTH BID PRN 12/23/18 [History] atorvaSTATin [Lipitor] 20 mg PO BEDTIME 12/23/18 [History] traZODone HCl [Trazodone HCl] 200 mg PO BEDTIME 12/23/18 [History] Acetaminophen [Tylenol Arthritis Pain] 650 mg PO 0830,199908/05/20 [History] Aloe Vera/Sodium Chloride [Amery Saline Nasal Gel] 1 applic PREETI Q2H PRN 08/05/20 [History] Cholecalciferol (Vitamin D3) [Vitamin D3] 2,000 unit PO 0830 08/05/20 [History] Dicyclomine [Bentyl] 2 spray PO Q2H PRN 08/05/20 [History] Famotidine 20 mg PO 0800,199908/05/20 [History] Furosemide [Lasix] 80 mg PO BID 08/05/20 [History] Insulin Aspart [NovoLOG] 0 unit SQ 0800,1200,1700,2100 08/05/20 [History] Isosorbide Mononitrate [Imdur] 30 mg PO 0830,199908/05/20 [History] fentaNYL [Fentanyl] 12 mcg TD Q72H 08/05/20 [History] hydrALAZINE [Apresoline] 50 mg PO 0830,199908/05/20 [History] polyethylene glycoL 3350 [MiraLAX] 17 gm PO 0830 08/05/20 [History] Insulin Degludec [Tresiba] 40 unit SQ 0800 10/02/20 [History] rOPINIRole [Requip] 0.25 mg PO BEDTIME 10/02/20 [History] Acetaminophen [Tylenol Arthritis] 650 mg PO Q4H PRN 10/11/20 [History] Alum Hydrox/Mag Hydrox/Simeth [Mag-Al Plus] 30 ml PO TID PRN 10/11/20 [History] Bisacodyl [Laxative Suppository] 10 mg RC DAILY PRN 10/11/20 [History] Calcium Carbonate [Tums [place]] 40 mg PO Q6H PRN 10/11/20 [History] Diclofenac Sodium [Voltaren 1% Gel] 2 gm TOP QID 10/11/20 [History] Hydrocodone/Acetaminophen [Hydrocodone-Acetamin 10-325 mg] 1 each PO Q4H PRN 10/11/20 [History] Magnesium Hydroxide [Milk of Magnesia] 30 ml PO BEDTIME PRN 10/11/20 [History] Nitroglycerin 0.4 mg SL ASDIRECTED PRN 10/11/20 [History] Ondansetron [Zofran ODT] 4 mg PO Q6H PRN 10/11/20 [History] Oxymetazoline [Nasal Decongestant] 2 spray PREETI BID PRN 10/11/20 [History] Sennosides/Docusate Sodium [Senna-Docusate Sodium Tablet] 1 each PO BID 10/11/20 [History] Sodium Chloride [Deep Sea] 44 ml NS 10/11/20 [History] fentaNYL [Fentanyl] 25 mcg TD Q72H 10/11/20 [History] Past Medical History HEENT History: Reports: Impaired Vision Cardiovascular History: Reports: CAD, Heart Failure, High Cholesterol, Hypertension, HI Respiratory History: Reports: Sleep Apnea (untreated) Gastrointestinal History: Reports: GERD Musculoskeletal History: Reports: Fracture (left arm, left leg), Osteoarthritis Psychiatric History: Reports: Anxiety Endocrine/Metabolic History: Reports: Diabetes, Type II, Obesity/BMI 30+ Oncologic (Cancer) History: Reports: Pancreatic (Stage IV) - Infectious Disease History Infectious Disease History: Reports: Chicken Pox, Measles, Mumps, Novel Coronavirus - Past Surgical History HEENT Surgical History: Reports: Cataract Surgery (bilateral) Cardiovascular Surgical History: Reports: Coronary Artery Stent, Pacer GI Surgical History: Reports: Appendectomy Female Surgical History: Reports: Other (See Below) (Leiomyectomy 1980s) Social & Family History - Tobacco Use Tobacco Use Status *Q: Never Tobacco User - Caffeine Use Caffeine Use: Reports: None Other Caffeine Use: 5/day - Alcohol Use Alcohol Use History: No - Recreational Drug Use Recreational Drug Use: No - Living Situation & Occupation Living situation: Reports: , Extended Care Facility ([facility]) Occupation: Retired ED ROS GENERAL - Review of Systems Review Of Systems: Comprehensive ROS is negative, except as noted in HPI. ED EXAM, GENERAL - Physical Exam Exam: See Below Exam Limited By: No Limitations General Appearance: Alert, WD/WN, No Apparent Distress Eye Exam: Bilateral Eye: EOMI, Normal Inspection Ears: Normal External Exam, Hearing Loss Nose: Normal Inspection Throat/Mouth: Normal Inspection, Normal Lips, Normal Voice, No Airway Compromise Head: Atraumatic, Normocephalic Neck: Normal Inspection, Full Range of Motion Respiratory/Chest: No Respiratory Distress, Lungs Clear, Normal Breath Sounds, No Accessory Muscle Use Cardiovascular: Normal Peripheral Pulses, Regular Rate, Rhythm, No Gallop, No JVD, No Murmur, No Rub Peripheral Pulses: 3+: Radial (L), Radial (R) GI/Abdominal: Normal Bowel Sounds, Soft, No Organomegaly, No Distention, No Abnormal Bruit, No Mass, Tender (mild, generalized, non-focal) Back Exam: Normal Inspection, Full Range of Motion, NT Extremities: Normal Inspection, Normal Range of Motion, Normal Capillary Refill, Other (3+ pitting pretibial edema bilaterally) Neurological: Alert, Oriented, No Motor/Sensory Deficits, Other (Poor historian - only able to give me generalities) Psychiatric: Normal Affect Skin Exam: Warm, Dry, Intact, Normal Color, No Rash Course - Vital Signs Last Recorded V/S: Last Vital Signs Temp 36.3 C 10/11/20 19:07 Pulse 73 10/11/20 19:07 Resp 12 10/11/20 19:07 BP 137/66 10/11/20 19:07 Pulse Ox 86 L 10/11/20 19:07 - Orders/Labs/Meds Orders: Active Orders 24 hr Category Date Time Status Patient Status [ADT] Routine ADT 10/11/20 23:25 Active Abdomen Pelvis w Cont [CT] Stat Exams 10/11/20 19:49 Taken Chest 1V Frontal [CR] Stat Exams 10/11/20 19:49 Taken Piperacillin/Tazobactam [Piperacil-Tazobact] 2.25 gm Med 10/11/20 22:30 Active Sodium Chloride 0.9% [Normal Saline] 100 ml IV Q6H Labs: Laboratory Tests 10/11/20 10/11/20 10/11/20 Range/Units 20:10 20:10 20:37 WBC 15.62 H (3.98-10.04) K/mm3 RBC 3.46 L (3.98-5.22) M/mm3 Hgb 8.7 L (11.2-15.7) gm/dl Hct 30.3 L (34.1-44.9) % MCV 87.6 (79.4-94.8) fl MCH 25.1 L (25.6-32.2) pg MCHC 28.7 L (32.2-35.5) g/dl RDW Std Deviation 55.6 H (36.4-46.3) fL Plt Count 358 (182-369) K/mm3 MPV 9.2 L (9.4-12.3) fl Neutrophils % (Manual) 76 H (40-60) % Band Neutrophils % 2 (0-10) % Lymphocytes % (Manual) 16 L (20-40) % Atypical Lymphs % 0 % Monocytes % (Manual) 6 (2-10) % Eosinophils % (Manual) 0 L (0.7-5.8) % Basophils % (Manual) 0 L (0.1-1.2) Platelet Estimate Adequate Hypochromasia 2+ moderate Anisocytosis 1+ slight RBC Morph Comment Normal Sodium 139 (136-145) mEq/L Potassium 4.4 (3.5-5.1) mEq/L Chloride 99 (98-107) mEq/L Carbon Dioxide 31 (21-32) mEq/L Anion Gap 13.4 (5-15) BUN 86 H D (7-18) mg/dL Creatinine 2.4 H (0.55-1.02) mg/dL Est Cr Clr Drug Dosing 20.91 mL/min Estimated GFR (MDRD) 20 (>60) mL/min BUN/Creatinine Ratio 35.8 H (14-18) Glucose 196 H (83-115) mg/dL Calcium 9.5 (8.5-10.1) mg/dL Magnesium 2.3 (1.8-2.4) mg/dl Total Bilirubin 0.5 (0.2-1.0) mg/dL AST 27 (15-37) U/L ALT 29 (14-59) U/L Alkaline Phosphatase 152 H (46-116) U/L Total Protein 8.2 (6.4-8.2) g/dl Albumin 3.0 L (3.4-5.0) g/dl Globulin 5.2 gm/dL Albumin/Globulin Ratio 0.6 L (1-2) Lipase 33 L (73-393) U/L Urine Color Yellow (Yellow) Urine Appearance Clear (Clear) Urine pH 6.0 (5.0-8.0) Ur Specific [place] 1.020 (1.005-1.030) Urine Protein 1+ H (Negative) Urine Glucose (UA) Negative (Negative) Urine Ketones Negative (Negative) Urine Occult Blood Negative (Negative) Urine Nitrite Negative (Negative) Urine Bilirubin Negative (Negative) Urine Urobilinogen 0.2 (0.2-1.0) Ur Leukocyte Esterase Negative (Negative) U Hyaline Cast (Auto) 10-20 H (0-5) /lpf Urine RBC 0-5 (0-5) /hpf Urine WBC 0-5 (0-5) /hpf Ur Squamous Epith Cells 0-5 (0-5) /hpf Urine Bacteria Few (FEW) /hpf Urine Mucus Rare (FEW) /hpf SARS-CoV-2 RNA (HARINI) (NEGATIVE) 10/11/20 Range/Units 23:13 WBC (3.98-10.04) K/mm3 RBC (3.98-5.22) M/mm3 Hgb (11.2-15.7) gm/dl Hct (34.1-44.9) % MCV (79.4-94.8) fl MCH (25.6-32.2) pg MCHC (32.2-35.5) g/dl RDW Std Deviation (36.4-46.3) fL Plt Count (182-369) K/mm3 MPV (9.4-12.3) fl Neutrophils % (Manual) (40-60) % Band Neutrophils % (0-10) % Lymphocytes % (Manual) (20-40) % Atypical Lymphs % % Monocytes % (Manual) (2-10) % Eosinophils % (Manual) (0.7-5.8) % Basophils % (Manual) (0.1-1.2) Platelet Estimate Hypochromasia Anisocytosis RBC Morph Comment Sodium (136-145) mEq/L Potassium (3.5-5.1) mEq/L Chloride (98-107) mEq/L Carbon Dioxide (21-32) mEq/L Anion Gap (5-15) BUN (7-18) mg/dL Creatinine (0.55-1.02) mg/dL Est Cr Clr Drug Dosing mL/min Estimated GFR (MDRD) (>60) mL/min BUN/Creatinine Ratio (14-18) Glucose (83-115) mg/dL Calcium (8.5-10.1) mg/dL Magnesium (1.8-2.4) mg/dl Total Bilirubin (0.2-1.0) mg/dL AST (15-37) U/L ALT (14-59) U/L Alkaline Phosphatase (46-116) U/L Total Protein (6.4-8.2) g/dl Albumin (3.4-5.0) g/dl Globulin gm/dL Albumin/Globulin Ratio (1-2) Lipase (73-393) U/L Urine Color (Yellow) Urine Appearance (Clear) Urine pH (5.0-8.0) Ur Specific [place] (1.005-1.030) Urine Protein (Negative) Urine Glucose (UA) (Negative) Urine Ketones (Negative) Urine Occult Blood (Negative) Urine Nitrite (Negative) Urine Bilirubin (Negative) Urine Urobilinogen (0.2-1.0) Ur Leukocyte Esterase (Negative) U Hyaline Cast (Auto) (0-5) /lpf Urine RBC (0-5) /hpf Urine WBC (0-5) /hpf Ur Squamous Epith Cells (0-5) /hpf Urine Bacteria (FEW) /hpf Urine Mucus (FEW) /hpf SARS-CoV-2 RNA (HARINI) Negative (NEGATIVE) - Re-Assessments/Exams Free Text/Narrative Re-Assessment/Exam: 10/11/20 19:52 As above, the patient is brought to the ED by EMS with a complaint of 1 week of generalized abdominal pain and 3 to 4 days of vomiting after drinking liquids. She has stage IV pancreatic cancer, on chemotherapy. She is found to be hypoxemic - I placed supplemental oxygen, but, based on her history, I suspect that her abdominal pain, vomiting, and hypoxemia are related to advancement of her cancer. I have ordered a work-up that includes several blood tests, a urinalysis by quick catheter, a portable chest x-ray, and a CT of the abdomen and pelvis with oral and IV contrast. In the meantime, the patient will be given some IV Dilaudid, IV Zofran, and IV fluid. 10/11/20 20:49 Portable chest radiograph reviewed. There is cardiomegaly with bilateral pulmonary vascular congestion, consistent with decompensated CHF. No pleural effusions seen on this AP view. No focal infiltrate. No pneumothorax. A [id number] AICD is noted. Formal read per the Radiologist pending. Based on the above, I have ordered discontinuation of the IV fluid. 10/11/20 20:55 The patient's CBC is remarkable for leukocytosis of 15.62, but with only 2% bandemia. Her H/H are depressed at 8.7/30.3, with the remainder of her CBC b eing unremarkable. Her CMP is remarkable for a BUN/Cr elevated at 86/2.4, hyperglycemia of 196, and an alkaline phosphatase mildly elevated at 152, with the remainder of her CMP being unremarkable. Her magnesium level is within normal limits at 2.3. Her lipase level is within normal limits at 33. 10/11/20 22:11 The patient's urinalysis is unremarkable. CT of the abdomen and pelvis with oral and IV contrast is read by [facility] as: 1. Cholelithiasis and possible cholecystitis. Correlation with gallbladder sonography may be useful. 2. Signs of chronic pancreatitis. No acute pancreatitis. 3. 4 cm renal cell carcinoma right kidney. 4. Upper pole right kidney with signs presumably from treated renal cell carcinoma. 5. Local renal cell carcinoma recurrence measuring 1.5 cm adjacent to the treated lesion of the right kidney. 6. Cephalo medullary device left proximal visualized femur. Anterior left femur cortical destruction with soft tissue mass. This appears to represent some type of hardware complication. Possibly large particle disease. 10/11/20 22:[address] Ferrer at 22:15. He recommended that we place the patient into observation in order for her to undergo a HIDA scan to evaluate for cholecystitis. If she has cholecystitis, he felt that she would benefit from a cholecystostomy tube. 10/11/20 22:[address] Aguilar at 22:21. He accepted the patient for admission, and recommended that we start her on Zosyn. I will order both an ultrasound of the right upper quadrant, as well as a HIDA scan for the morning. 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 - Discharge Information *PRESCRIPTION DRUG MONITORING PROGRAM REVIEWED*: Not Applicable *COPY OF PRESCRIPTION DRUG MONITORING REPORT IN PATIENT MAX: Not Applicable Sepsis Event Note (ED) - Evaluation Sepsis Screening Result: No Definite Risk - Focused Exam Vital Signs: Vital Signs Temp Pulse Resp BP Pulse Ox 10/11/20 19:07 36.3 C 73 12 137/66 86 L - My Orders Last 24 Hours: My Active Orders 10/11/20 19:49 Abdomen Pelvis w Cont [CT] Stat Chest 1V Frontal [CR] Stat 10/11/20 22:30 Piperacillin/Tazobactam [Piperacil-Tazobact] 2.25 gm Sodium Chloride 0.9% [Normal Saline] 100 ml IV Q6H 10/11/20 23:25 Patient Status [ADT] Routine - Assessment/Plan Last 24 Hours: My Active Orders 10/11/20 19:49 Abdomen Pelvis w Cont [CT] Stat Chest 1V Frontal [CR] Stat 10/11/20 22:30 Piperacillin/Tazobactam [Piperacil-Tazobact] 2.25 gm Sodium Chloride 0.9% [Normal Saline] 100 ml IV Q6H 10/11/20 23:25 Patient Status [ADT] Routine
[2020-10-11] MEDS ORDERED: Sodium Chloride 0.9% 1,000 ML IV SCH (20:00)
[2020-10-11] MEDS ORDERED: LORazepam 2 MG/ML SDV IVPUSH STA (22:57)
[2020-10-11] MEDS: Piperacillin/Tazobactam 2.25 GM in Sodium Chloride 0.9% 100 ML IV SCH (22:59)
[2020-10-12] MEDS ORDERED: HYDROmorphone 1 MG/ML Syringe IVPUSH PRN (01:37)
[2020-10-12] MEDS ORDERED: Ondansetron 4 MG/2 ML SDV IVPUSH PRN (01:40)
[2020-10-12] MEDS: Piperacillin/Tazobactam 2.25 GM in Sodium Chloride 0.9% 100 ML IV SCH (04:18)
--- NOTE | 2020-10-12 07:14 | CR ---
Chest: Portable view of the chest was obtained. Comparison: Prior chest x-ray on 04/12/18. Heart is slightly enlarged. Tortuous thoracic aorta is seen. AICD is present. Slight atelectasis is seen within the right lateral costophrenic angle. Patchy areas of increased density are seen within the right upper and right lower lung and difficult to exclude mild areas of right-sided pneumonia. Left lung shows slight atelectasis or scarring within the left mid to lower lung. Impression: 1. Slight cardiomegaly with AICD. 2. Slight increased density within the right upper and right lower lung and difficult to exclude pneumonia if patient has infectious symptoms. Diagnostic code #3
--- NOTE | 2020-10-12 07:37 | CT ---
CT abdomen and pelvis Technique: Multiple axial sections were obtained from above the dome of the diaphragm inferiorly through the pubic symphysis. Intravenous and oral contrast was utilized. Delayed images were also obtained. Reconstructed coronal and sagittal images were obtained. Comparison: Prior CT abdomen and pelvis study of 07/03/17. Findings: Low-density mass is noted off the upper kidney on the right side measures about 5.5 cm. There is an enhancing lesion next to this finding measuring 1.9 cm. Larger abnormality is identified off the lower pole of the kidney measuring 5.3 cm. Cysts are noted within the left kidney. Small nodule is noted within the right and left lung bases. There is extrapleural fat within the left lung base which is stable. Heart is enlarged. There is artifact from AICD being seen. Liver contains no focal abnormality. Gallbladder contains no calcified gallstones. Spleen appears within normal limits. Adrenal glands show no nodule. Focal pancreatic abnormality is noted within the body which on coronal images measures 2.1 cm in size. Abdominal aorta shows atherosclerotic change without aneurysm. No retroperitoneal adenopathy is seen. No aneurysm is noted. No mesenteric abnormalities are seen. No pelvic mass or adenopathy is noted. Diffuse degenerative change is noted within the spine. Orthopedic hardware is noted within the left hip. Degenerative change with vacuum phenomena is seen within the sacroiliac joints. There is a destructive lesion within the proximal left femur with associated soft tissue abnormality most likely due to metastatic lesion. Soft tissue finding measures approximately 4.3 cm. Impression: 1. Low density right upper pole renal abnormality possibly due to treated renal cell carcinoma. Please correlate. There is an additional enhancing lesion next to this finding compatible with neoplastic recurrence. Additional mass which appears to be acute is seen within the more inferior right kidney which also appears to be neoplastic. 2. Pancreatic abnormality within the body of the pancreas. This could represent pancreatic neoplasm or metastatic lesion. This finding is not mentioned on prior preliminary exam. 3. Left sided femur abnormality breaking the cortical surface with soft tissue abnormality compatible with metastatic lesion. 4. Small nodule within each lung base, difficult to exclude early metastatic lesions. 5. Other findings as noted above which are nonacute. Diagnostic code #9 I agree with preliminary report from [facility], finalized on 10/11/20, 11:05 PM [employer]
[2020-10-12] MEDS ORDERED: Magnesium Hydroxide 400 MG/5 ML Susp 30 ML Cup PO PRN (08:07)
[2020-10-12] MEDS ORDERED: Ondansetron 4 MG Tab.DIS PO PRN (08:07)
[2020-10-12] MEDS ORDERED: Aluminum Hydroxide/Magnesium Hydroxide/Simethicone Susp 30 ML Cup PO PRN (08:07)
[2020-10-12] MEDS ORDERED: Bisacodyl 10 MG Supp RECTAL PRN (08:07)
[2020-10-12] MEDS ORDERED: Calcium Carbonate 500 MG Tab.Chew PO PRN (08:07)
[2020-10-12] MEDS ORDERED: Nitroglycerin 0.4 MG Tab.SL SL PRN (08:07)
[2020-10-12] MEDS ORDERED: Dicyclomine 10 MG Cap PO PRN (08:07)
--- NOTE | 2020-10-12 08:23 | PCM.HP.2 ---
H&P History of Present Illness - General Date of Service: 10/12/20 Admit Problem/Dx: Admission Diagnosis/Problem Admission Diagnosis/Problem Abdominal pain Source of Information: Provider History Limitations: Reports: No Limitations - History of Present Illness Initial Comments - Free Text/Narative: 69 year old female presents with abdominal pain for approximately 1 week. This has been associated with N/V. The type of food is not a trigger. There has been a decreased appetite; she denies F/C. The patient has a history of Pancreatic Cancer, stage IV. She is receiving immunotherapy. Empiric ATB will be started. Currently she is on Zosyn. Will change coverage to Cefepime, Vancomycin. HgB trend is needed with PRBCs as needed. Address goal of therapy with Pancreatic CA, stage IV. Onset of Symptoms: Reports: Unknown/Unsure Duration of Symptoms: Reports: Day(s): Location: Reports: Abdomen Quality: Reports: Ache Severity: Moderate Improves with: Reports: Medication Worsens with: Reports: Eating Associated Symptoms: Reports: Malaise, Nausea/Vomiting, Weakness Abdomen Pain Score (Numeric/FACES): 8 - Related Data Allergies/Adverse Reactions: Allergies Allergy/AdvReac Type Severity Reaction Status Date / Time lisinopril Allergy Unknown Cannot Verified 10/12/20 11:28 Remember Sulfa (Sulfonamide Allergy Unknown Cannot Verified 10/12/20 11:28 Antibiotics) Remember ibuprofen AdvReac Mild Tremors Verified 10/12/20 11:28 loratadine [From Claritin] AdvReac Mild Tremors Verified 10/12/20 11:28 Home Medications: Home Meds Carvedilol [Coreg] 25 mg PO 829,199905/16/16 [History] Insulin Aspart [NovoLOG] 15 unit SUBCUT 0800,1200,1700 05/16/16 [History] Potassium Chloride 20 meq PO Q48H 01/07/18 [History] Dextran 70/Hypromellose [Artificial Tears] 1 drop EYEBOTH BID PRN 12/23/18 [History] atorvaSTATin [Lipitor] 20 mg PO BEDTIME 12/23/18 [History] traZODone HCl [Trazodone HCl] 200 mg PO BEDTIME 12/23/18 [History] Acetaminophen [Tylenol Arthritis Pain] 650 mg PO 829,199908/05/20 [History] Aloe Vera/Sodium Chloride [[place] Saline Nasal Gel] 1 applic PREETI Q2H PRN 08/05/20 [History] Cholecalciferol (Vitamin D3) [Vitamin D3] 2,000 unit PO 0830 08/05/20 [History] Dicyclomine [Bentyl] 2 spray PO Q2H PRN 08/05/20 [History] Famotidine 20 mg PO 0800,199908/05/20 [History] Furosemide [Lasix] 80 mg PO BID 08/05/20 [History] Insulin Aspart [NovoLOG] 0 unit SQ 0800,1200,1700,2100 08/05/20 [History] Isosorbide Mononitrate [Imdur] 30 mg PO 0830,199908/05/20 [History] fentaNYL [Fentanyl] 12 mcg TD Q72H 08/05/20 [History] hydrALAZINE [Apresoline] 50 mg PO 0830,199908/05/20 [History] polyethylene glycoL 3350 [MiraLAX] 17 gm PO 0830 08/05/20 [History] Insulin Degludec [Tresiba] 40 unit SQ 0800 10/02/20 [History] rOPINIRole [Requip] 0.25 mg PO BEDTIME 10/02/20 [History] Acetaminophen [Tylenol Arthritis] 650 mg PO Q4H PRN 10/11/20 [History] Alum Hydrox/Mag Hydrox/Simeth [Mag-Al Plus] 30 ml PO TID PRN 10/11/20 [History] Bisacodyl [Laxative Suppository] 10 mg RC DAILY PRN 10/11/20 [History] Calcium Carbonate [Tums [place]] 40 mg PO Q6H PRN 10/11/20 [History] Diclofenac Sodium [Voltaren 1% Gel] 2 gm TOP QID 10/11/20 [History] Hydrocodone/Acetaminophen [Hydrocodone-Acetamin 10-325 mg] 1 each PO Q4H PRN 10/11/20 [History] Magnesium Hydroxide [Milk of Magnesia] 30 ml PO BEDTIME PRN 10/11/20 [History] Nitroglycerin 0.4 mg SL ASDIRECTED PRN 10/11/20 [History] Ondansetron [Zofran ODT] 4 mg PO Q6H PRN 10/11/20 [History] Oxymetazoline [Nasal Decongestant] 2 spray PREETI BID PRN 10/11/20 [History] Sennosides/Docusate Sodium [Senna-Docusate Sodium Tablet] 1 each PO BID 10/11/20 [History] Sodium Chloride [[place]] 44 ml NS 10/11/20 [History] fentaNYL [Fentanyl] 25 mcg TD Q72H 10/11/20 [History] Past Medical History HEENT History: Reports: Impaired Vision Cardiovascular History: Reports: CAD, Heart Failure, High Cholesterol, Hypertension, MA Respiratory History: Reports: Sleep Apnea Gastrointestinal History: Reports: GERD Other Gastrointestinal History: abdominal pain Genitourinary History: Reports: Acute Renal Failure, Chronic Renal Insuffiency, Urinary Incontinence, Other (See Below) Other Genitourinary History: Metastatic renal cell carcinoma [employer]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. Pancreatic cancer, kidney cancer, and spots on lungs. Metastatic renal cell carcinoma Dermatologic History: Reports: Cellulitis Other Dermatologic History: RIGHT FOOT STATES IS CURRENTLY ON ANTIBIOTICS - Infectious Disease History Infectious Disease History: Reports: Chicken Pox, Measles, Mumps, Novel Coronavirus - Past Surgical History HEENT Surgical History: Reports: Cataract Surgery Other HEENT Surgeries/Procedures: 2009 bilateral eyes Cardiovascular Surgical History: Reports: AICD, Coronary Artery Stent Respiratory Surgical History: Reports: None GI Surgical History: Reports: Appendectomy Other GI Surgeries/Procedures: ulcer removed from stomach Female Surgical History: Reports: Other (See Below) Other Female Surgeries/Procedures: 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 Endocrine Surgical History: Reports: None Neurological Surgical History: Reports: None Musculoskeletal Surgical History: Reports: None Other Musculoskeletal Surgeries/Procedures:: wears immobilizer Oncologic Surgical History: Reports: None Social & Family History - Family History Family Medical History: No Pertinent Family History OBGYN: Reports: Musculoskeletal: Reports: Arthritis Psychiatric: Reports: Anxiety, Depression Endocrine/Metabolic: Reports: Diabetes, type II, Hypothyroidism - Tobacco Use Tobacco Use Status *Q: Unknown Ever Used Tobacco Second Hand Smoke Exposure: No - Caffeine Use Caffeine Use: Reports: None Other Caffeine Use: 5/day - Recreational Drug Use Recreational Drug Use: No - Living Situation & Occupation Living situation: Reports: , Extended Care Facility ([facility]) Occupation: Retired H&P Review of Systems - Review of Systems: Review Of Systems: Comprehensive ROS is negative, except as noted in HPI. Exam - Exam Exam: See Below - Vital Signs Vital Signs: Last Vital Signs Temp 36.9 C 10/12/20 07:56 Pulse 68 10/12/20 07:56 Resp 20 10/12/20 07:56 BP 134/93 H 10/12/20 07:56 Pulse Ox 94 L 10/12/20 07:56 Weight: 121.472 kg - Exam Quality Assessment: Supplemental Oxygen, DVT Prophylaxis General: Alert, Oriented, Cooperative HEENT: EOMI, Hearing Intact, Nares Patent, Normal Nasal Septum, Pupils Equal, Pupils Reactive, PERRLA Neck: Trachea Midline Lungs: Clear to Auscultation, Normal Respiratory Effort Cardiovascular: Regular Rate, Regular Rhythm GI/Abdominal Exam: Normal Bowel Sounds, Soft, No Distention, Tender (Female) Exam: Deferred Rectal (Female) Exam: Deferred Back Exam: Normal Inspection Extremities: Normal Inspection, Normal Capillary Refill Skin: Warm, Dry Neurological: Cranial Nerves Intact Neuro Extensive - Mental Status: Alert, Normal Mood/Affect Neuro Extensive - Motor, Sensory, Reflexes: CN II-XII Intact Psychiatric: Alert - Patient Data Lab Results Last 24 hrs: Laboratory Results - last 24 hr 10/11/20 10/11/20 10/11/20 Range/Units 20:10 20:10 20:37 WBC 15.62 H (3.98-10.04) K/mm3 RBC 3.46 L (3.98-5.22) M/mm3 Hgb 8.7 L (11.2-15.7) gm/dl Hct 30.3 L (34.1-44.9) % MCV 87.6 (79.4-94.8) fl MCH 25.1 L (25.6-32.2) pg MCHC 28.7 L (32.2-35.5) g/dl RDW Std Deviation 55.6 H (36.4-46.3) fL Plt Count 358 (182-369) K/mm3 MPV 9.2 L (9.4-12.3) fl Neutrophils % (Manual) 76 H (40-60) % Band Neutrophils % 2 (0-10) % Lymphocytes % (Manual) 16 L (20-40) % Atypical Lymphs % 0 % Monocytes % (Manual) 6 (2-10) % Eosinophils % (Manual) 0 L (0.7-5.8) % Basophils % (Manual) 0 L (0.1-1.2) Platelet Estimate Adequate Hypochromasia 2+ moderate Anisocytosis 1+ slight RBC Morph Comment Normal Sodium 139 (136-145) mEq/L Potassium 4.4 (3.5-5.1) mEq/L Chloride 99 (98-107) mEq/L Carbon Dioxide 31 (21-32) mEq/L Anion Gap 13.4 (5-15) BUN 86 H D (7-18) mg/dL Creatinine 2.4 H (0.55-1.02) mg/dL Est Cr Clr Drug Dosing 20.91 mL/min Estimated GFR (MDRD) 20 (>60) mL/min BUN/Creatinine Ratio 35.8 H (14-18) Glucose 196 H (83-115) mg/dL Calcium 9.5 (8.5-10.1) mg/dL Magnesium 2.3 (1.8-2.4) mg/dl Total Bilirubin 0.5 (0.2-1.0) mg/dL AST 27 (15-37) U/L ALT 29 (14-59) U/L Alkaline Phosphatase 152 H (46-116) U/L Total Protein 8.2 (6.4-8.2) g/dl Albumin 3.0 L (3.4-5.0) g/dl Globulin 5.2 gm/dL Albumin/Globulin Ratio 0.6 L (1-2) Lipase 33 L (73-393) U/L Urine Color Yellow (Yellow) Urine Appearance Clear (Clear) Urine pH 6.0 (5.0-8.0) Ur Specific [place] 1.020 (1.005-1.030) Urine Protein 1+ H (Negative) Urine Glucose (UA) Negative (Negative) Urine Ketones Negative (Negative) Urine Occult Blood Negative (Negative) Urine Nitrite Negative (Negative) Urine Bilirubin Negative (Negative) Urine Urobilinogen 0.2 (0.2-1.0) Ur Leukocyte Esterase Negative (Negative) U Hyaline Cast (Auto) 10-20 H (0-5) /lpf Urine RBC 0-5 (0-5) /hpf Urine WBC 0-5 (0-5) /hpf Ur Squamous Epith Cells 0-5 (0-5) /hpf Urine Bacteria Few (FEW) /hpf Urine Mucus Rare (FEW) /hpf SARS-CoV-2 RNA (HARINI) (NEGATIVE) MRSA (PCR) 10/11/20 10/12/20 Range/Units 23:13 00:50 WBC (3.98-10.04) K/mm3 RBC (3.98-5.22) M/mm3 Hgb (11.2-15.7) gm/dl Hct (34.1-44.9) % MCV (79.4-94.8) fl MCH (25.6-32.2) pg MCHC (32.2-35.5) g/dl RDW Std Deviation (36.4-46.3) fL Plt Count (182-369) K/mm3 MPV (9.4-12.3) fl Neutrophils % (Manual) (40-60) % Band Neutrophils % (0-10) % Lymphocytes % (Manual) (20-40) % Atypical Lymphs % % Monocytes % (Manual) (2-10) % Eosinophils % (Manual) (0.7-5.8) % Basophils % (Manual) (0.1-1.2) Platelet Estimate Hypochromasia Anisocytosis RBC Morph Comment Sodium (136-145) mEq/L Potassium (3.5-5.1) mEq/L Chloride (98-107) mEq/L Carbon Dioxide (21-32) mEq/L Anion Gap (5-15) BUN (7-18) mg/dL Creatinine (0.55-1.02) mg/dL Est Cr Clr Drug Dosing mL/min Estimated GFR (MDRD) (>60) mL/min BUN/Creatinine Ratio (14-18) Glucose (83-115) mg/dL Calcium (8.5-10.1) mg/dL Magnesium (1.8-2.4) mg/dl Total Bilirubin (0.2-1.0) mg/dL AST (15-37) U/L ALT (14-59) U/L Alkaline Phosphatase (46-116) U/L Total Protein (6.4-8.2) g/dl Albumin (3.4-5.0) g/dl Globulin gm/dL Albumin/Globulin Ratio (1-2) Lipase (73-393) U/L Urine Color (Yellow) Urine Appearance (Clear) Urine pH (5.0-8.0) Ur Specific [place] (1.005-1.030) Urine Protein (Negative) Urine Glucose (UA) (Negative) Urine Ketones (Negative) Urine Occult Blood (Negative) Urine Nitrite (Negative) Urine Bilirubin (Negative) Urine Urobilinogen (0.2-1.0) Ur Leukocyte Esterase (Negative) U Hyaline Cast (Auto) (0-5) /lpf Urine RBC (0-5) /hpf Urine WBC (0-5) /hpf Ur Squamous Epith Cells (0-5) /hpf Urine Bacteria (FEW) /hpf Urine Mucus (FEW) /hpf SARS-CoV-2 RNA (HARINI) Negative (NEGATIVE) MRSA (PCR) Negative Result Diagrams: 10/12/20 11:34 10/12/20 11:34 Sepsis Event Note - Evaluation Sepsis Screening Result: No Definite Risk - Focused Exam Vital Signs: Vital Signs Temp Pulse Resp BP Pulse Ox Pulse Ox 10/12/20 07:56 36.9 C 68 20 134/93 H 94 L 10/12/20 06:18 94 L 10/12/20 04:16 36.9 C 68 14 113/45 L 96 10/12/20 01:03 36.7 C 71 20 118/82 92 L - Problem List (1) Abdominal pain of unknown etiology SNOMED Code(s): 047979117 ICD Code: R10.9 - UNSPECIFIED ABDOMINAL PAIN Status: Acute Current Visit: Yes (2) Chronic renal insufficiency SNOMED Code(s): 832162693 ICD Code: N18.9 - CHRONIC KIDNEY DISEASE, UNSPECIFIED Status: Chronic Current Visit: Yes Qualifiers: Chronic kidney disease stage: stage 4 (severe) Qualified Code(s): N18.4 - Chronic kidney disease, stage 4 (severe) (3) Hyperglycemia due to type 2 diabetes mellitus SNOMED Code(s): 338232906780799, 243690773618285 ICD Code: E11.65 - TYPE 2 DIABETES MELLITUS WITH HYPERGLYCEMIA Status: Chronic Current Visit: Yes (4) 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 SNOMED Code(s): 547179228, 784327950 ICD Code: C25.9 - MALIGNANT NEOPLASM OF PANCREAS, UNSPECIFIED Status: Chronic Current Visit: Yes (5) Congestive heart failure SNOMED Code(s): 26074889 ICD Code: I50.9 - HEART FAILURE, UNSPECIFIED Status: Chronic Priority: Medium Current Visit: Yes (6) Abdominal pain SNOMED Code(s): 57363275 ICD Code: R10.9 - UNSPECIFIED ABDOMINAL PAIN Status: Acute Current Visit: No Qualifiers: Abdominal location: unspecified location Qualified Code(s): R10.9 - Unspecified abdominal pain (7) Acute hypoxemic respiratory failure SNOMED Code(s): 096141097 ICD Code: J96.01 - ACUTE RESPIRATORY FAILURE WITH HYPOXIA Status: Acute Current Visit: No (8) Acute on chronic renal insufficiency SNOMED Code(s): 790995339 ICD Code: N28.9 - DISORDER OF KIDNEY AND URETER, UNSPECIFIED; N18.9 - CHRONIC KIDNEY DISEASE, UNSPECIFIED Status: Acute Priority: High Current Visit: No (9) Infiltrate of lower lobe of right lung present on imaging study SNOMED Code(s): 346259120 ICD Code: R91.8 - OTHER NONSPECIFIC ABNORMAL FINDING OF LUNG FIELD Status: Acute Current Visit: Yes (10) Anemia SNOMED Code(s): 159516195 ICD Code: D64.9 - ANEMIA, UNSPECIFIED Status: Acute Current Visit: Yes Qualifiers: Anemia type: unspecified type Qualified Code(s): D64.9 - Anemia, unspecified Problem List Initiated/Reviewed/Updated: Yes Orders Last 24hrs: Active Orders 24 hr Category Date Time Status Patient Status [ADT] Routine ADT 10/11/20 23:25 Active Bedrest Bathroom Privileges [RC] BID Care 10/12/20 01:34 Active Notify Provider Consults [RC] ASDIRECTED Care 10/12/20 08:14 Ordered Oxygen Therapy Adult [Oxygen Therapy] [RC] ASDIRECTED Care 10/12/20 02:38 Active Up With Assistance [RC] BID Care 10/12/20 01:34 Active Consult to Physician [CONS] Routine Cons 10/12/20 08:10 Ordered NPO Now [Nothing per Oral Now Diet] [DIET] Diet 10/12/20 Breakfast Active HIDA with EF [Cholescintigraphy w Pharm Int] [NM] Exams 10/12/20 08:05 Ordered Routine Acetaminophen Med 10/12/20 08:30 Ordered 650 mg PO 0830,2000 Acetaminophen Med 10/12/20 08:07 Ordered 650 mg PO Q4H PRN Alum Hydrox/Mag Hydrox/Simeth [Mag-Al Plus] Med 10/12/20 08:07 Ordered 30 ml PO TID PRN Calcium Carbonate [Tums] Med 10/12/20 08:07 Ordered 40 mg PO Q6H PRN Cholecalciferol (Vitamin D3) [Vitamin D3] Med 10/12/20 08:30 Ordered 2,000 unit PO 0830 Diclofenac Sodium [Voltaren 1% Gel] Med 10/12/20 09:00 Ordered 2 gm TOP QID Dicyclomine [Bentyl] Med 10/12/20 08:07 Ordered 2 spray PO Q2H PRN Docusate Sodium/Sennosides [Senna Plus] Med 10/12/20 09:00 Ordered 1 each PO BID Famotidine [Pepcid] Med 10/12/20 20:00 Ordered 20 mg PO 0800,1999 HYDROmorphone [Dilaudid] Med 10/12/20 01:37 Active 1 mg IVPUSH Q2H PRN Hydrocodone/Acetaminophen Med 10/12/20 08:07 Ordered 1 each PO Q4H PRN Insulin Aspart Med 10/12/20 12:00 Ordered 15 unit SUBCUT 0800,1200,1700 Isosorbide Mononitrate [Imdur] Med 10/12/20 08:30 Ordered 30 mg PO 0830,1999 Magnesium Hydroxide [Milk of Magnesia] Med 10/12/20 08:07 Ordered 30 ml PO BEDTIME PRN Nitroglycerin [Nitrostat] Med 10/12/20 08:07 Ordered 0.4 mg SL ASDIRECTED PRN Ondansetron [Zofran ODT] Med 10/12/20 08:07 Ordered 4 mg PO Q6H PRN Ondansetron [Zofran] Med 10/12/20 01:40 Active 4 mg IVPUSH Q8H PRN Piperacillin/Tazobactam [Piperacil-Tazobact] 4.5 gm Med 10/12/20 10:30 Active Sodium Chloride 0.9% [Normal Saline] 100 ml IV Q8H bisacodyL [Dulcolax] Med 10/12/20 08:07 Ordered 10 mg RECTAL DAILY PRN carvediloL [Coreg] Med 10/12/20 08:30 Ordered 25 mg PO 0830,1999 fentaNYL [Fentanyl] Med 10/12/20 08:15 Ordered 12 mcg TD Q72H fentaNYL [Fentanyl] Med 10/12/20 08:15 Ordered 25 mcg TD Q72H hydrALAZINE Med 10/12/20 08:30 Ordered 50 mg PO 0830,1999 polyethylene glycoL 3350 [MiraLAX] Med 10/12/20 08:30 Ordered 17 gm PO 0830 rOPINIRole [Requip] Med 10/12/20 21:00 Ordered 0.25 mg PO BEDTIME traZODone HCl Med 10/12/20 21:00 Ordered 200 mg PO BEDTIME Code Status [Resuscitation Status] Routine Resus Stat 10/12/20 01:33 Ordered Assessment/Plan Comment:: Impression: Abdominal pain History of Pancreatic CA, stage IV on Immunotherapy Hypoxemia with possible RU/RLL infiltrate; COVID-19 (-) Chronic CKD, stage 4 HTN HLD DM II Obesity Plan: IVF NPO HIDA scan Transfuse if HgB<7.5; check Ferritin ATBS--Cefepime/Vancomycin Query Cholecystostomy tube, TBD after HIDA scan General Surgery consult re: abdominal pain - Mortality Measure Prognosis:: Poor (Pancreatic CA, stage IV)
[2020-10-12] MEDS ORDERED: Acetaminophen 325 MG Tab PO PRN (08:29)
[2020-10-12] MEDS: Acetaminophen 325 MG Tab PO SCH ×2 (09:30→19:37)
[2020-10-12] MEDS: Polyethylene Glycol 3350 Powder 17 GM Packet PO SCH (09:30)
[2020-10-12] MEDS ORDERED: Carvedilol 12.5 MG Tab PO SCH (09:30)
[2020-10-12] MEDS: Famotidine 20 MG Tab PO SCH (09:58)
[2020-10-12] MEDS: Isosorbide Mononitrate 30 MG Tab.ER PO SCH ×2 (09:59→20:39)
[2020-10-12] MEDS: hydrALAZINE 25 MG Tab PO SCH ×2 (09:59→20:40)
[2020-10-12] MEDS: Carvedilol 12.5 MG Tab PO SCH ×2 (10:04→20:41)
[2020-10-12] MEDS: Cholecalciferol (Vitamin D3) 25 MCG Tab PO SCH (10:10)
[2020-10-12] MEDS ORDERED: Piperacillin/Tazobactam 4.5 GM in Sodium Chloride 0.9% 100 ML IV SCH ×5 (10:30→22:30)
[2020-10-12] MEDS: Heparin Sodium 5,000 Units/ML Vial SUBCUT SCH ×2 (11:28→17:23)
[2020-10-12] MEDS: Diclofenac Sodium 1% Gel 100 GM Tube TOP SCH ×4 (11:30→20:42)
[2020-10-12] MEDS: fentaNYL 12 MCG/HR Transdermal Patch TRDERM SCH (12:22)
[2020-10-12] MEDS: fentaNYL 25 MCG/HR Transdermal Patch TRDERM SCH (12:22)
[2020-10-12] MEDS: REMOVE FENTANYL TRDERM SCH ×2 (13:40)
[2020-10-12] MEDS: Dextrose 5%-0.45% NaCl 1,000 ML IV SCH (15:47)
[2020-10-12] MEDS ORDERED: Vancomycin 2 GM in Sodium Chloride 0.9% 500 ML IV ONE ×2 (19:00→19:30)
--- NOTE | 2020-10-12 19:12 | PCM.CONS ---
H&P History of Present Illness - General Date of Service: 10/12/20 Admit Problem/Dx: Admission Diagnosis/Problem Admission Diagnosis/Problem Abdominal pain Source of Information: Patient History Limitations: Reports: No Limitations - History of Present Illness Initial Comments - Free Text/Narative: Patient has metastatic pancreatic cancer on immunotherapy per ED report and presented to the ED last night with generalized abdominal pain which has been going on for several days. This was associated with nausea and vomiting. WBC was elevated to [address] scan was done, Vrad read indicated cholelithiasis with concern for cholecystitis. No other acute findings besides possible mets to the right kidney. Due to concern for cholecystitis, I was called and recommended admission to rule out acute cholecystitis with a HIDA scan. I just saw the patient now and she report that her abdominal pain is now completely resolved. She has passed some gas, tolerated some clears. She feels fine now as far as her abdomen is concerned. Onset of Symptoms: Reports: Gradual Duration of Symptoms: Reports: Week(s): (1) Location: Reports: Abdomen Quality: Reports: Dull, Pressure Severity: Moderate Improves with: Reports: None Worsens with: Reports: None Associated Symptoms: Reports: Nausea/Vomiting Abdomen Pain Score (Numeric/FACES): 8 - Related Data Allergies/Adverse Reactions: Allergies Allergy/AdvReac Type Severity Reaction Status Date / Time lisinopril Allergy Unknown Cannot Verified 10/12/20 11:28 Remember Sulfa (Sulfonamide Allergy Unknown Cannot Verified 10/12/20 11:28 Antibiotics) Remember ibuprofen AdvReac Mild Tremors Verified 10/12/20 11:28 loratadine [From Claritin] AdvReac Mild Tremors Verified 10/12/20 11:28 Home Medications: Home Meds Carvedilol [Coreg] 25 mg PO 0830,2000 05/16/16 [History] Insulin Aspart [NovoLOG] 15 unit SUBCUT 0800,1200,1700 05/16/16 [History] Potassium Chloride 20 meq PO Q48H 01/07/18 [History] Dextran 70/Hypromellose [Artificial Tears] 1 drop EYEBOTH BID PRN 12/23/18 [History] atorvaSTATin [Lipitor] 20 mg PO BEDTIME 12/23/18 [History] traZODone HCl [Trazodone HCl] 200 mg PO BEDTIME 12/23/18 [History] Acetaminophen [Tylenol Arthritis Pain] 650 mg PO 0830,199908/05/20 [History] Aloe Vera/Sodium Chloride [[place] Saline Nasal Gel] 1 applic PREETI Q2H PRN 08/05/20 [History] Cholecalciferol (Vitamin D3) [Vitamin D3] 2,000 unit PO 0830 08/05/20 [History] Dicyclomine [Bentyl] 2 spray PO Q2H PRN 08/05/20 [History] Famotidine 20 mg PO 0800,199908/05/20 [History] Furosemide [Lasix] 80 mg PO BID 08/05/20 [History] Insulin Aspart [NovoLOG] 0 unit SQ 0800,1200,1700,2100 08/05/20 [History] Isosorbide Mononitrate [Imdur] 30 mg PO 0830,199908/05/20 [History] fentaNYL [Fentanyl] 12 mcg TD Q72H 08/05/20 [History] hydrALAZINE [Apresoline] 50 mg PO 0830,199908/05/20 [History] polyethylene glycoL 3350 [MiraLAX] 17 gm PO 0830 08/05/20 [History] Insulin Degludec [Tresiba] 40 unit SQ 0800 10/02/20 [History] rOPINIRole [Requip] 0.25 mg PO BEDTIME 10/02/20 [History] Acetaminophen [Tylenol Arthritis] 650 mg PO Q4H PRN 10/11/20 [History] Alum Hydrox/Mag Hydrox/Simeth [Mag-Al Plus] 30 ml PO TID PRN 10/11/20 [History] Bisacodyl [Laxative Suppository] 10 mg RC DAILY PRN 10/11/20 [History] Calcium Carbonate [Tums [place]] 40 mg PO Q6H PRN 10/11/20 [History] Diclofenac Sodium [Voltaren 1% Gel] 2 gm TOP QID 10/11/20 [History] Hydrocodone/Acetaminophen [Hydrocodone-Acetamin 10-325 mg] 1 each PO Q4H PRN 10/11/20 [History] Magnesium Hydroxide [Milk of Magnesia] 30 ml PO BEDTIME PRN 10/11/20 [History] Nitroglycerin 0.4 mg SL ASDIRECTED PRN 10/11/20 [History] Ondansetron [Zofran ODT] 4 mg PO Q6H PRN 10/11/20 [History] Oxymetazoline [Nasal Decongestant] 2 spray PREETI BID PRN 10/11/20 [History] Sennosides/Docusate Sodium [Senna-Docusate Sodium Tablet] 1 each PO BID 10/11/20 [History] Sodium Chloride [Deep Sea] 44 ml NS 10/11/20 [History] fentaNYL [Fentanyl] 25 mcg TD Q72H 10/11/20 [History] Past Medical History HEENT History: Reports: Impaired Vision Cardiovascular History: Reports: CAD, Heart Failure, High Cholesterol, Hypertension, [place] Respiratory History: Reports: Sleep Apnea Gastrointestinal History: Reports: GERD Other Gastrointestinal History: abdominal pain Genitourinary History: Reports: Acute Renal Failure, Chronic Renal Insuffiency, Urinary Incontinence, Other (See Below) Other Genitourinary History: Metastatic renal cell carcinoma [employer] AGENT History: Reports: Other OB/BYN History: pain in vagina Musculoskeletal History: Reports: Fracture, Osteoarthritis Other Musculoskeletal History: left arm fracture, and left leg fracture Neurological History: Reports: None Psychiatric History: Reports: Anxiety Endocrine/Metabolic History: Reports: Diabetes, Type II, Obesity/BMI 30+ Hematologic History: Reports: None Immunologic History: Reports: None Oncologic (Cancer) History: Reports: Pancreatic Other Oncologic History: 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. Pancreatic cancer, kidney cancer, and spots on lungs. Metastatic renal cell carcinoma Dermatologic History: Reports: Cellulitis Other Dermatologic History: RIGHT FOOT STATES IS CURRENTLY ON ANTIBIOTICS - Infectious Disease History Infectious Disease History: Reports: Chicken Pox, Measles, Mumps, Novel Coronavirus - Past Surgical History HEENT Surgical History: Reports: Cataract Surgery Other HEENT Surgeries/Procedures: 2009 bilateral eyes Cardiovascular Surgical History: Reports: AICD, Coronary Artery Stent Respiratory Surgical History: Reports: None GI Surgical History: Reports: Appendectomy Other GI Surgeries/Procedures: ulcer removed from stomach Female Surgical History: Reports: Other (See Below) Other Female Surgeries/Procedures: 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 Endocrine Surgical History: Reports: None Neurological Surgical History: Reports: None Musculoskeletal Surgical History: Reports: None Other Musculoskeletal Surgeries/Procedures:: wears immobilizer Oncologic Surgical History: Reports: None Social & Family History - Family History Family Medical History: No Pertinent Family History OBGYN: Reports: Musculoskeletal: Reports: Arthritis Psychiatric: Reports: Anxiety, Depression Endocrine/Metabolic: Reports: Diabetes, type II, Hypothyroidism - Tobacco Use Tobacco Use Status *Q: Unknown Ever Used Tobacco Second Hand Smoke Exposure: No - Caffeine Use Caffeine Use: Reports: None Other Caffeine Use: 5/day - Recreational Drug Use Recreational Drug Use: No - Living Situation & Occupation Living situation: Reports: , Extended Care Facility ([facility]) Occupation: Retired H&P Review of Systems - Review of Systems: Review Of Systems: See Below General: Reports: No Symptoms Pulmonary: Reports: No Symptoms Cardiovascular: Reports: No Symptoms Gastrointestinal: Reports: Abdominal Pain, Nausea, Vomiting Genitourinary: Reports: No Symptoms Skin: Reports: No Symptoms Exam - Exam Exam: See Below - Vital Signs Vital Signs: Last Vital Signs Temp 98.2 F 10/12/20 16:02 Pulse 68 10/12/20 16:02 Resp 14 10/12/20 16:02 BP 120/46 L 10/12/20 16:02 Pulse Ox 95 10/12/20 16:02 Weight: 121.472 kg - Exam General: Alert, Oriented, Cooperative Lungs: Clear to Auscultation, Normal Respiratory Effort Cardiovascular: Regular Rate, Regular Rhythm, Normal S1, Normal S2 GI/Abdominal Exam: Soft, Non-Tender, No Organomegaly, No Distention - Patient Data Lab Results Last 24 hrs: Laboratory Results - last 24 hr 10/11/20 10/11/20 10/11/20 Range/Units 20:10 20:10 20:37 WBC 15.62 H (3.98-10.04) K/mm3 RBC 3.46 L (3.98-5.22) M/mm3 Hgb 8.7 L (11.2-15.7) gm/dl Hct 30.3 L (34.1-44.9) % MCV 87.6 (79.4-94.8) fl MCH 25.1 L (25.6-32.2) pg MCHC 28.7 L (32.2-35.5) g/dl RDW Std Deviation 55.6 H (36.4-46.3) fL Plt Count 358 (182-369) K/mm3 MPV 9.2 L (9.4-12.3) fl Neutrophils % (Manual) 76 H (40-60) % Band Neutrophils % 2 (0-10) % Lymphocytes % (Manual) 16 L (20-40) % Atypical Lymphs % 0 % Monocytes % (Manual) 6 (2-10) % Eosinophils % (Manual) 0 L (0.7-5.8) % Basophils % (Manual) 0 L (0.1-1.2) Platelet Estimate Adequate Hypochromasia 2+ moderate Anisocytosis 1+ slight Target Cells Tear Drop Cells RBC Morph Comment Normal Sodium 139 (136-145) mEq/L Potassium 4.4 (3.5-5.1) mEq/L Chloride 99 (98-107) mEq/L Carbon Dioxide 31 (21-32) mEq/L Anion Gap 13.4 (5-15) BUN 86 H D (7-18) mg/dL Creatinine 2.4 H (0.55-1.02) mg/dL Est Cr Clr Drug Dosing 20.91 mL/min Estimated GFR (MDRD) 20 (>60) mL/min BUN/Creatinine Ratio 35.8 H (14-18) Glucose 196 H (83-115) mg/dL POC Glucose (83-110) mg/dL Calcium 9.5 (8.5-10.1) mg/dL Magnesium 2.3 (1.8-2.4) mg/dl Total Bilirubin 0.5 (0.2-1.0) mg/dL AST 27 (15-37) U/L ALT 29 (14-59) U/L Alkaline Phosphatase 152 H (46-116) U/L Total Protein 8.2 (6.4-8.2) g/dl Albumin 3.0 L (3.4-5.0) g/dl Globulin 5.2 gm/dL Albumin/Globulin Ratio 0.6 L (1-2) Lipase 33 L (73-393) U/L Urine Color Yellow (Yellow) Urine Appearance Clear (Clear) Urine pH 6.0 (5.0-8.0) Ur Specific [place] 1.020 (1.005-1.030) Urine Protein 1+ H (Negative) Urine Glucose (UA) Negative (Negative) Urine Ketones Negative (Negative) Urine Occult Blood Negative (Negative) Urine Nitrite Negative (Negative) Urine Bilirubin Negative (Negative) Urine Urobilinogen 0.2 (0.2-1.0) Ur Leukocyte Esterase Negative (Negative) U Hyaline Cast (Auto) 10-20 H (0-5) /lpf Urine RBC 0-5 (0-5) /hpf Urine WBC 0-5 (0-5) /hpf Ur Squamous Epith Cells 0-5 (0-5) /hpf Urine Bacteria Few (FEW) /hpf Urine Mucus Rare (FEW) /hpf SARS-CoV-2 RNA (HARINI) (NEGATIVE) MRSA (PCR) 10/11/20 10/12/20 10/12/20 Range/Units 23:13 00:50 11:29 WBC (3.98-10.04) K/mm3 RBC (3.98-5.22) M/mm3 Hgb (11.2-15.7) gm/dl Hct (34.1-44.9) % MCV (79.4-94.8) fl MCH (25.6-32.2) pg MCHC (32.2-35.5) g/dl RDW Std Deviation (36.4-46.3) fL Plt Count (182-369) K/mm3 MPV (9.4-12.3) fl Neutrophils % (Manual) (40-60) % Band Neutrophils % (0-10) % Lymphocytes % (Manual) (20-40) % Atypical Lymphs % % Monocytes % (Manual) (2-10) % Eosinophils % (Manual) (0.7-5.8) % Basophils % (Manual) (0.1-1.2) Platelet Estimate Hypochromasia Anisocytosis Target Cells Tear Drop Cells RBC Morph Comment Sodium (136-145) mEq/L Potassium (3.5-5.1) mEq/L Chloride (98-107) mEq/L Carbon Dioxide (21-32) mEq/L Anion Gap (5-15) BUN (7-18) mg/dL Creatinine (0.55-1.02) mg/dL Est Cr Clr Drug Dosing mL/min Estimated GFR (MDRD) (>60) mL/min BUN/Creatinine Ratio (14-18) Glucose (83-115) mg/dL POC Glucose 162 H (83-110) mg/dL Calcium (8.5-10.1) mg/dL Magnesium (1.8-2.4) mg/dl Total Bilirubin (0.2-1.0) mg/dL AST (15-37) U/L ALT (14-59) U/L Alkaline Phosphatase (46-116) U/L Total Protein (6.4-8.2) g/dl Albumin (3.4-5.0) g/dl Globulin gm/dL Albumin/Globulin Ratio (1-2) Lipase (73-393) U/L Urine Color (Yellow) Urine Appearance (Clear) Urine pH (5.0-8.0) Ur Specific [place] (1.005-1.030) Urine Protein (Negative) Urine Glucose (UA) (Negative) Urine Ketones (Negative) Urine Occult Blood (Negative) Urine Nitrite (Negative) Urine Bilirubin (Negative) Urine Urobilinogen (0.2-1.0) Ur Leukocyte Esterase (Negative) U Hyaline Cast (Auto) (0-5) /lpf Urine RBC (0-5) /hpf Urine WBC (0-5) /hpf Ur Squamous Epith Cells (0-5) /hpf Urine Bacteria (FEW) /hpf Urine Mucus (FEW) /hpf SARS-CoV-2 RNA (HARINI) Negative (NEGATIVE) MRSA (PCR) Negative 10/12/20 10/12/20 10/12/20 Range/Units 11:34 11:34 17:21 WBC 17.72 H (3.98-10.04) K/mm3 RBC 3.07 L (3.98-5.22) M/mm3 Hgb 7.7 L (11.2-15.7) gm/dl Hct 27.4 L (34.1-44.9) % MCV 89.3 (79.4-94.8) fl MCH 25.1 L (25.6-32.2) pg MCHC 28.1 L (32.2-35.5) g/dl RDW Std Deviation 56.7 H (36.4-46.3) fL Plt Count 282 D (182-369) K/mm3 MPV 8.8 L (9.4-12.3) fl Neutrophils % (Manual) 84 H (40-60) % Band Neutrophils % 0 (0-10) % Lymphocytes % (Manual) 10 L (20-40) % Atypical Lymphs % 0 % Monocytes % (Manual) 4 (2-10) % Eosinophils % (Manual) 2 (0.7-5.8) % Basophils % (Manual) 0 L (0.1-1.2) Platelet Estimate Adequate Hypochromasia 2+ moderate Anisocytosis Target Cells 1+ slight Tear Drop Cells 1+ slight RBC Morph Comment Not Reportable Sodium 140 (136-145) mEq/L Potassium 4.8 (3.5-5.1) mEq/L Chloride 102 (98-107) mEq/L Carbon Dioxide 30 (21-32) mEq/L Anion Gap 12.8 (5-15) BUN 87 H (7-18) mg/dL Creatinine 2.9 H (0.55-1.02) mg/dL Est Cr Clr Drug Dosing 17.30 mL/min Estimated GFR (MDRD) 16 (>60) mL/min BUN/Creatinine Ratio 30.0 H (14-18) Glucose 136 H (83-115) mg/dL POC Glucose 130 H (83-110) mg/dL Calcium 9.3 (8.5-10.1) mg/dL Magnesium (1.8-2.4) mg/dl Total Bilirubin (0.2-1.0) mg/dL AST (15-37) U/L ALT (14-59) U/L Alkaline Phosphatase (46-116) U/L Total Protein (6.4-8.2) g/dl Albumin (3.4-5.0) g/dl Globulin gm/dL Albumin/Globulin Ratio (1-2) Lipase (73-393) U/L Urine Color (Yellow) Urine Appearance (Clear) Urine pH (5.0-8.0) Ur Specific [place] (1.005-1.030) Urine Protein (Negative) Urine Glucose (UA) (Negative) Urine Ketones (Negative) Urine Occult Blood (Negative) Urine Nitrite (Negative) Urine Bilirubin (Negative) Urine Urobilinogen (0.2-1.0) Ur Leukocyte Esterase (Negative) U Hyaline Cast (Auto) (0-5) /lpf Urine RBC (0-5) /hpf Urine WBC (0-5) /hpf Ur Squamous Epith Cells (0-5) /hpf Urine Bacteria (FEW) /hpf Urine Mucus (FEW) /hpf SARS-CoV-2 RNA (HARINI) (NEGATIVE) MRSA (PCR) Result Diagrams: 10/12/20 11:34 10/12/20 11:34 Sepsis Event Note - Evaluation Sepsis Screening Result: No Definite Risk - Focused Exam Vital Signs: Vital Signs Temp Pulse Resp BP Pulse Ox 10/12/20 16:02 98.2 F 68 14 120/46 L 95 10/12/20 11:45 67 101/44 L 93 L 10/12/20 11:44 97.5 F 67 20 99/34 L 95 10/12/20 09:59 68 134/93 H 10/12/20 07:56 98.4 F 68 20 134/93 H 94 L Consult PN Assessment/Plan Procedures: Procedures AFTER CATARACT LASER SURGERY (12/24/18) AGENT NOS ASSAY W/OPTIC (12/16/17) AIRWAY INHALATION TREATMENT (05/16/16) APPLY LONG ARM SPLINT (08/28/20) ASSAY OF GGT (07/03/17) ASSAY OF LACTIC ACID (12/16/17) ASSAY OF LIPASE (07/03/17) ASSAY OF MAGNESIUM (01/15/18) ASSAY OF NATRIURETIC PEPTIDE (04/12/18) ASSAY OF TROPONIN QUANT (08/16/19) ASSAY THYROID STIM HORMONE (01/15/18) BL SMEAR W/DIFF WBC COUNT (01/15/18) BLOOD CULTURE FOR BACTERIA (08/05/20) BONE IMAGING WHOLE BODY (09/05/20) C-REACTIVE PROTEIN (01/15/18) CHEST X-RAY 1 VIEW FRONTAL (05/16/16) COMPLETE CBC AUTOMATED (01/15/18) COMPLETE CBC W/AUTO DIFF WBC (10/02/20) COMPREHEN METABOLIC PANEL (08/05/20) CONTROL OF NOSEBLEED (09/22/17) CT ABD & PELVIS W/O CONTRAST (07/03/17) CT ANGIOGRAPHY CHEST (05/16/16) CT HEAD/BRAIN W/O DYE (01/15/18) CT LOWER EXTREMITY W/O DYE (08/05/20) CT THORAX DX C- (08/05/20) CT UPPER EXTREMITY W/O DYE (08/28/20) CULTURE OTHR SPECIMN AEROBIC (12/16/17) DRUG TEST PRSMV INSTRMNT (01/15/18) ECHO EXAM OF ABDOMEN (05/16/16) ELECTROCARDIOGRAM TRACING (01/15/18) EMERGENCY DEPT VISIT (10/02/20) EMERGENCY DEPT VISIT (08/05/20) EMERGENCY DEPT VISIT (07/10/19) EMERGENCY DEPT VISIT (08/08/18) EMERGENCY DEPT VISIT (04/12/18) EMERGENCY DEPT VISIT (01/07/18) EMERGENCY DEPT VISIT (12/16/17) EMERGENCY DEPT VISIT (09/22/17) EMERGENCY DEPT VISIT (07/03/17) EVALUATE PT USE OF INHALER (05/16/16) EVALUATE SWALLOWING FUNCTION (01/15/18) EXTRACRANIAL BILAT STUDY (01/15/18) GAIT TRAINING THERAPY (12/16/17) GLUCOSE BLOOD TEST (08/05/20) GLYCOSYLATED HEMOGLOBIN TEST (01/15/18) HYDRATION IV INFUSION INIT (01/15/18) LIPID PANEL (01/15/18) MEASURE BLOOD OXYGEN LEVEL (12/16/17) METABOLIC PANEL TOTAL CA (01/15/18) MICROBE SUSCEPTIBLE MARCELA (08/05/20) MYCOPLASMA ANTIBODY (12/16/17) OT EVAL LOW COMPLEX 30 MIN (01/15/18) OT EVALUATION (05/16/16) PROTHROMBIN TIME (05/16/16) PT EVAL LOW COMPLEX 20 MIN (01/15/18) PT EVAL MOD COMPLEX 30 MIN (12/16/17) PT EVALUATION (05/16/16) ROUTINE VENIPUNCTURE (10/02/20) SMEAR GRAM STAIN (12/16/17) THER/PROPH/DIAG INJ IV PUSH (07/03/17) THER/PROPH/DIAG INJ SC/IM (08/28/20) THER/PROPH/DIAG IV INF INIT (08/05/20) THERAPEUTIC ACTIVITIES (12/16/17) THERAPEUTIC EXERCISES (12/16/17) THROMBOPLASTIN TIME PARTIAL (05/16/16) TTE W/DOPPLER COMPLETE (12/16/17) TX/PRO/DX INJ NEW DRUG ADDON (08/05/20) TX/PRO/DX INJ SAME DRUG HOME AND FAMILY LIVING PROFESSOR (08/05/20) URINALYSIS AUTO W/SCOPE (08/05/20) URINE BACTERIA CULTURE (08/05/20) URINE CULTURE/COLONY COUNT (08/05/20) X-RAY EXAM CHEST 1 VIEW (08/05/20) X-RAY EXAM CHEST 2 VIEWS (04/12/18) X-RAY EXAM HIP UNI 2-3 VIEWS (08/05/20) X-RAY EXAM NECK SPINE 2-3 VW (04/08/18) X-RAY EXAM OF ELBOW (08/28/20) X-RAY EXAM OF FEMUR 2/> (08/08/18) X-RAY EXAM OF HUMERUS (08/28/20) X-RAY EXAM OF KNEE 3 (01/07/18) X-RAY EXAM OF PELVIS (08/08/18) X-RAY EXAM OF SHOULDER (04/08/18) Problem List Initiated/Reviewed/Updated: No Plan: Patient with stage IV pancreatic cancer admitted for generalized abd pain with CT concerning for acute cholecystitis. - recommend HIDA to rule out cholecystitis. IF positive, pt should consider a cholecystostomy tube. HIDA to be done tomorrow. - Currently abd pain has resolved. feeling fine. OK to try diet if no other contraindications, with NPO at midnight - Will follow HIDA results.
[2020-10-12] MEDS ORDERED: Vancomycin 1 GM SDV ONE (19:21)
[2020-10-12] MEDS: rOPINIRole 0.25 MG Tab PO SCH (20:41)
[2020-10-12] MEDS: traZODone 50 MG Tab PO SCH (20:41)
[2020-10-13] MEDS: Heparin Sodium 5,000 Units/ML Vial SUBCUT SCH ×3 (03:02→17:12)
[2020-10-13] MEDS: Dextrose 5%-0.45% NaCl 1,000 ML IV SCH (05:12)
[2020-10-13 07:30] LABS: HEMOGLOBIN A1C 5.8 %
--- NOTE | 2020-10-13 08:31 | PCM.PN ---
<Kushal Payne - Last Filed: 10/13/20 12:53> - General Info Date of Service: 10/13/20 Admission Dx/Problem (Free Text): Admission Diagnosis/Problem Admission Diagnosis/Problem Abdominal pain Functional Status: Reports: Pain Controlled. Denies: Tolerating Diet (NPO for HIDA scan ), Ambulating, Urinating, New Symptoms - Review of Systems General: Reports: Weakness, Fatigue, Malaise. Denies: Fever, Chills HEENT: Reports: No Symptoms. Denies: Headaches, Sore Throat Pulmonary: Reports: Shortness of Breath. Denies: Cough, Sputum, Wheezing Cardiovascular: Reports: Dyspnea on Exertion. Denies: Chest Pain, Palpitations, Edema Gastrointestinal: Denies: Abdominal Pain, Constipation, Diarrhea, Nausea, V omiting Genitourinary: Reports: No Symptoms. Denies: Pain Musculoskeletal: Reports: No Symptoms Skin: Reports: No Symptoms. Denies: Cyanosis Neurological: Reports: Pre-Existing Deficit, Difficulty Walking, Weakness, Gait Disturbance Psychiatric: Reports: No Symptoms - Patient Data Vitals - Most Recent: Last Vital Signs Temp 98.1 F 10/13/20 08:28 Pulse 62 10/13/20 08:28 Resp 20 10/13/20 08:28 BP 96/38 L 10/13/20 08:28 Pulse Ox 94 L 10/13/20 08:28 Weight - Most Recent: 122.107 kg I&O - Last 24 Hours: Intake & Output 10/12/20 10/13/20 10/13/20 22:59 06:59 14:59 Intake Total 700 1870 Output Total 900 Balance -200 1870 Lab Results Last 24 Hours: Laboratory Results - last 24 hr 10/12/20 10/12/20 10/12/20 Range/Units 11:29 11:34 11:34 WBC 17.72 H (3.98-10.04) K/mm3 RBC 3.07 L (3.98-5.22) M/mm3 Hgb 7.7 L (11.2-15.7) gm/dl Hct 27.4 L (34.1-44.9) % MCV 89.3 (79.4-94.8) fl MCH 25.1 L (25.6-32.2) pg MCHC 28.1 L (32.2-35.5) g/dl RDW Std Deviation 56.7 H (36.4-46.3) fL Plt Count 282 D (182-369) K/mm3 MPV 8.8 L (9.4-12.3) fl Neut % (Auto) (34.0-71.1) % Lymph % (Auto) (19.3-51.7) % [place] % (Auto) (4.7-12.5) % Eos % (Auto) (0.7-5.8) Baso % (Auto) (0.1-1.2) % Neut # (Auto) (1.56-6.13) K/mm3 Lymph # (Auto) (1.18-3.74) K/mm3 [place] # (Auto) (0.24-0.36) K/mm3 Eos # (Auto) (0.04-0.36) K/mm3 Baso # (Auto) (0.01-0.08) K/mm3 Neutrophils % (Manual) 84 H (40-60) % Band Neutrophils % 0 (0-10) % Lymphocytes % (Manual) 10 L (20-40) % Atypical Lymphs % 0 % Monocytes % (Manual) 4 (2-10) % Eosinophils % (Manual) 2 (0.7-5.8) % Basophils % (Manual) 0 L (0.1-1.2) Manual Slide Review Platelet Estimate Adequate Hypochromasia 2+ moderate Target Cells 1+ slight Tear Drop Cells 1+ slight RBC Morph Comment Not Reportable Sodium 140 (136-145) mEq/L Potassium 4.8 (3.5-5.1) mEq/L Chloride 102 (98-107) mEq/L Carbon Dioxide 30 (21-32) mEq/L Anion Gap 12.8 (5-15) BUN 87 H (7-18) mg/dL Creatinine 2.9 H (0.55-1.02) mg/dL Est Cr Clr Drug Dosing 17.30 mL/min Estimated GFR (MDRD) 16 (>60) mL/min BUN/Creatinine Ratio 30.0 H (14-18) Glucose 136 H (83-115) mg/dL POC Glucose 162 H (83-110) mg/dL Hemoglobin A1c ( - 5.6) % Lactic Acid (0.4-2.0) mmol/L Calcium 9.3 (8.5-10.1) mg/dL Magnesium (1.8-2.4) mg/dl C-Reactive Protein (<1.0) mg/dL Lipase (73-393) U/L 10/12/20 10/13/20 10/13/20 Range/Units 17:21 00:13 05:58 WBC (3.98-10.04) K/mm3 RBC (3.98-5.22) M/mm3 Hgb (11.2-15.7) gm/dl Hct (34.1-44.9) % MCV (79.4-94.8) fl MCH (25.6-32.2) pg MCHC (32.2-35.5) g/dl RDW Std Deviation (36.4-46.3) fL Plt Count (182-369) K/mm3 MPV (9.4-12.3) fl Neut % (Auto) (34.0-71.1) % Lymph % (Auto) (19.3-51.7) % [place] % (Auto) (4.7-12.5) % Eos % (Auto) (0.7-5.8) Baso % (Auto) (0.1-1.2) % Neut # (Auto) (1.56-6.13) K/mm3 Lymph # (Auto) (1.18-3.74) K/mm3 [place] # (Auto) (0.24-0.36) K/mm3 Eos # (Auto) (0.04-0.36) K/mm3 Baso # (Auto) (0.01-0.08) K/mm3 Neutrophils % (Manual) (40-60) % Band Neutrophils % (0-10) % Lymphocytes % (Manual) (20-40) % Atypical Lymphs % % Monocytes % (Manual) (2-10) % Eosinophils % (Manual) (0.7-5.8) % Basophils % (Manual) (0.1-1.2) Manual Slide Review Platelet Estimate Hypochromasia Target Cells Tear Drop Cells RBC Morph Comment Sodium (136-145) mEq/L Potassium (3.5-5.1) mEq/L Chloride (98-107) mEq/L Carbon Dioxide (21-32) mEq/L Anion Gap (5-15) BUN (7-18) mg/dL Creatinine (0.55-1.02) mg/dL Est Cr Clr Drug Dosing mL/min Estimated GFR (MDRD) (>60) mL/min BUN/Creatinine Ratio (14-18) Glucose (83-115) mg/dL POC Glucose 130 H 138 H 135 H (83-110) mg/dL Hemoglobin A1c ( - 5.6) % Lactic Acid (0.4-2.0) mmol/L Calcium (8.5-10.1) mg/dL Magnesium (1.8-2.4) mg/dl C-Reactive Protein (<1.0) mg/dL Lipase (73-393) U/L 10/13/20 10/13/20 10/13/20 Range/Units 06:26 06:26 06:26 WBC 15.88 H (3.98-10.04) K/mm3 RBC 2.82 L (3.98-5.22) M/mm3 Hgb 7.0 L* (11.2-15.7) gm/dl Hct 25.2 L (34.1-44.9) % MCV 89.4 (79.4-94.8) fl MCH 24.8 L (25.6-32.2) pg MCHC 27.8 L (32.2-35.5) g/dl RDW Std Deviation 57.0 H (36.4-46.3) fL Plt Count 259 (182-369) K/mm3 MPV 8.6 L (9.4-12.3) fl Neut % (Auto) 72.3 H (34.0-71.1) % Lymph % (Auto) 14.7 L (19.3-51.7) % [place] % (Auto) 10.4 (4.7-12.5) % Eos % (Auto) 2.2 (0.7-5.8) Baso % (Auto) 0.1 (0.1-1.2) % Neut # (Auto) 11.47 H (1.56-6.13) K/mm3 Lymph # (Auto) 2.34 (1.18-3.74) K/mm3 [place] # (Auto) 1.65 H (0.24-0.36) K/mm3 Eos # (Auto) 0.35 (0.04-0.36) K/mm3 Baso # (Auto) 0.02 (0.01-0.08) K/mm3 Neutrophils % (Manual) (40-60) % Band Neutrophils % (0-10) % Lymphocytes % (Manual) (20-40) % Atypical Lymphs % % Monocytes % (Manual) (2-10) % Eosinophils % (Manual) (0.7-5.8) % Basophils % (Manual) (0.1-1.2) Manual Slide Review Abnormal smear Platelet Estimate Hypochromasia Target Cells Tear Drop Cells RBC Morph Comment Sodium 138 (136-145) mEq/L Potassium 4.4 (3.5-5.1) mEq/L Chloride 102 (98-107) mEq/L Carbon Dioxide 27 (21-32) mEq/L Anion Gap 13.4 (5-15) BUN 88 H (7-18) mg/dL Creatinine 3.4 H (0.55-1.02) mg/dL Est Cr Clr Drug Dosing 14.72 mL/min Estimated GFR (MDRD) 13 (>60) mL/min BUN/Creatinine Ratio 25.9 H (14-18) Glucose 128 H (83-115) mg/dL POC Glucose (83-110) mg/dL Hemoglobin A1c ( - 5.6) % Lactic Acid 0.4 (0.4-2.0) mmol/L Calcium 8.5 (8.5-10.1) mg/dL Magnesium 2.3 (1.8-2.4) mg/dl C-Reactive Protein 19.5 H* (<1.0) mg/dL Lipase 29 L (73-393) U/L 10/13/20 Range/Units 06:26 WBC (3.98-10.04) K/mm3 RBC (3.98-5.22) M/mm3 Hgb (11.2-15.7) gm/dl Hct (34.1-44.9) % MCV (79.4-94.8) fl MCH (25.6-32.2) pg MCHC (32.2-35.5) g/dl RDW Std Deviation (36.4-46.3) fL Plt Count (182-369) K/mm3 MPV (9.4-12.3) fl Neut % (Auto) (34.0-71.1) % Lymph % (Auto) (19.3-51.7) % [place] % (Auto) (4.7-12.5) % Eos % (Auto) (0.7-5.8) Baso % (Auto) (0.1-1.2) % Neut # (Auto) (1.56-6.13) K/mm3 Lymph # (Auto) (1.18-3.74) K/mm3 [place] # (Auto) (0.24-0.36) K/mm3 Eos # (Auto) (0.04-0.36) K/mm3 Baso # (Auto) (0.01-0.08) K/mm3 Neutrophils % (Manual) (40-60) % Band Neutrophils % (0-10) % Lymphocytes % (Manual) (20-40) % Atypical Lymphs % % Monocytes % (Manual) (2-10) % Eosinophils % (Manual) (0.7-5.8) % Basophils % (Manual) (0.1-1.2) Manual Slide Review Platelet Estimate Hypochromasia Target Cells Tear Drop Cells RBC Morph Comment Sodium (136-145) mEq/L Potassium (3.5-5.1) mEq/L Chloride (98-107) mEq/L Carbon Dioxide (21-32) mEq/L Anion Gap (5-15) BUN (7-18) mg/dL Creatinine (0.55-1.02) mg/dL Est Cr Clr Drug Dosing mL/min Estimated GFR (MDRD) (>60) mL/min BUN/Creatinine Ratio (14-18) Glucose (83-115) mg/dL POC Glucose (83-110) mg/dL Hemoglobin A1c 5.8 H ( - 5.6) % Lactic Acid (0.4-2.0) mmol/L Calcium (8.5-10.1) mg/dL Magnesium (1.8-2.4) mg/dl C-Reactive Protein (<1.0) mg/dL Lipase (73-393) U/L - Exam Quality Assessment: Supplemental Oxygen (2L), DVT Prophylaxis. No: Urine Catheter General: Alert (but sleepy ), Cooperative, No Acute Distress HEENT: Pupils Equal, Pupils Reactive, Mucous Membr. Moist/[place] Neck: Supple, Trachea Midline Lungs: Normal Respiratory Effort, Decreased Breath Sounds Cardiovascular: Regular Rate, Regular Rhythm GI/Abdominal Exam: Normal Bowel Sounds, Soft, Non-Tender, No Distention (Female) Exam: Deferred Extremities: Normal Inspection, Normal Range of Motion, Non-Tender, No Pedal Edema, Normal Capillary Refill Skin: Warm, Dry, Intact Neurological: No New Focal Deficit Psy/Mental Status: Alert - Patient Data Lab Results Last 24 hrs: Laboratory Results - last 24 hr 10/12/20 10/12/20 10/12/20 Range/Units 11:29 11:34 11:34 WBC 17.72 H (3.98-10.04) K/mm3 RBC 3.07 L (3.98-5.22) M/mm3 Hgb 7.7 L (11.2-15.7) gm/dl Hct 27.4 L (34.1-44.9) % MCV 89.3 (79.4-94.8) fl MCH 25.1 L (25.6-32.2) pg MCHC 28.1 L (32.2-35.5) g/dl RDW Std Deviation 56.7 H (36.4-46.3) fL Plt Count 282 D (182-369) K/mm3 MPV 8.8 L (9.4-12.3) fl Neut % (Auto) (34.0-71.1) % Lymph % (Auto) (19.3-51.7) % [place] % (Auto) (4.7-12.5) % Eos % (Auto) (0.7-5.8) Baso % (Auto) (0.1-1.2) % Neut # (Auto) (1.56-6.13) K/mm3 Lymph # (Auto) (1.18-3.74) K/mm3 [place] # (Auto) (0.24-0.36) K/mm3 Eos # (Auto) (0.04-0.36) K/mm3 Baso # (Auto) (0.01-0.08) K/mm3 Neutrophils % (Manual) 84 H (40-60) % Band Neutrophils % 0 (0-10) % Lymphocytes % (Manual) 10 L (20-40) % Atypical Lymphs % 0 % Monocytes % (Manual) 4 (2-10) % Eosinophils % (Manual) 2 (0.7-5.8) % Basophils % (Manual) 0 L (0.1-1.2) Manual Slide Review Platelet Estimate Adequate Hypochromasia 2+ moderate Target Cells 1+ slight Tear Drop Cells 1+ slight RBC Morph Comment Not Reportable Sodium 140 (136-145) mEq/L Potassium 4.8 (3.5-5.1) mEq/L Chloride 102 (98-107) mEq/L Carbon Dioxide 30 (21-32) mEq/L Anion Gap 12.8 (5-15) BUN 87 H (7-18) mg/dL Creatinine 2.9 H (0.55-1.02) mg/dL Est Cr Clr Drug Dosing 17.30 mL/min Estimated GFR (MDRD) 16 (>60) mL/min BUN/Creatinine Ratio 30.0 H (14-18) Glucose 136 H (83-115) mg/dL POC Glucose 162 H (83-110) mg/dL Hemoglobin A1c ( - 5.6) % Lactic Acid (0.4-2.0) mmol/L Calcium 9.3 (8.5-10.1) mg/dL Magnesium (1.8-2.4) mg/dl C-Reactive Protein (<1.0) mg/dL Lipase (73-393) U/L 10/12/20 10/13/20 10/13/20 Range/Units 17:21 00:13 05:58 WBC (3.98-10.04) K/mm3 RBC (3.98-5.22) M/mm3 Hgb (11.2-15.7) gm/dl Hct (34.1-44.9) % MCV (79.4-94.8) fl MCH (25.6-32.2) pg MCHC (32.2-35.5) g/dl RDW Std Deviation (36.4-46.3) fL Plt Count (182-369) K/mm3 MPV (9.4-12.3) fl Neut % (Auto) (34.0-71.1) % Lymph % (Auto) (19.3-51.7) % [place] % (Auto) (4.7-12.5) % Eos % (Auto) (0.7-5.8) Baso % (Auto) (0.1-1.2) % Neut # (Auto) (1.56-6.13) K/mm3 Lymph # (Auto) (1.18-3.74) K/mm3 [place] # (Auto) (0.24-0.36) K/mm3 Eos # (Auto) (0.04-0.36) K/mm3 Baso # (Auto) (0.01-0.08) K/mm3 Neutrophils % (Manual) (40-60) % Band Neutrophils % (0-10) % Lymphocytes % (Manual) (20-40) % Atypical Lymphs % % Monocytes % (Manual) (2-10) % Eosinophils % (Manual) (0.7-5.8) % Basophils % (Manual) (0.1-1.2) Manual Slide Review Platelet Estimate Hypochromasia Target Cells Tear Drop Cells RBC Morph Comment Sodium (136-145) mEq/L Potassium (3.5-5.1) mEq/L Chloride (98-107) mEq/L Carbon Dioxide (21-32) mEq/L Anion Gap (5-15) BUN (7-18) mg/dL Creatinine (0.55-1.02) mg/dL Est Cr Clr Drug Dosing mL/min Estimated GFR (MDRD) (>60) mL/min BUN/Creatinine Ratio (14-18) Glucose (83-115) mg/dL POC Glucose 130 H 138 H 135 H (83-110) mg/dL Hemoglobin A1c ( - 5.6) % Lactic Acid (0.4-2.0) mmol/L Calcium (8.5-10.1) mg/dL Magnesium (1.8-2.4) mg/dl C-Reactive Protein (<1.0) mg/dL Lipase (73-393) U/L 10/13/20 10/13/20 10/13/20 Range/Units 06:26 06:26 06:26 WBC 15.88 H (3.98-10.04) K/mm3 RBC 2.82 L (3.98-5.22) M/mm3 Hgb 7.0 L* (11.2-15.7) gm/dl Hct 25.2 L (34.1-44.9) % MCV 89.4 (79.4-94.8) fl MCH 24.8 L (25.6-32.2) pg MCHC 27.8 L (32.2-35.5) g/dl RDW Std Deviation 57.0 H (36.4-46.3) fL Plt Count 259 (182-369) K/mm3 MPV 8.6 L (9.4-12.3) fl Neut % (Auto) 72.3 H (34.0-71.1) % Lymph % (Auto) 14.7 L (19.3-51.7) % [place] % (Auto) 10.4 (4.7-12.5) % Eos % (Auto) 2.2 (0.7-5.8) Baso % (Auto) 0.1 (0.1-1.2) % Neut # (Auto) 11.47 H (1.56-6.13) K/mm3 Lymph # (Auto) 2.34 (1.18-3.74) K/mm3 [place] # (Auto) 1.65 H (0.24-0.36) K/mm3 Eos # (Auto) 0.35 (0.04-0.36) K/mm3 Baso # (Auto) 0.02 (0.01-0.08) K/mm3 Neutrophils % (Manual) (40-60) % Band Neutrophils % (0-10) % Lymphocytes % (Manual) (20-40) % Atypical Lymphs % % Monocytes % (Manual) (2-10) % Eosinophils % (Manual) (0.7-5.8) % Basophils % (Manual) (0.1-1.2) Manual Slide Review Abnormal smear Platelet Estimate Hypochromasia Target Cells Tear Drop Cells RBC Morph Comment Sodium 138 (136-145) mEq/L Potassium 4.4 (3.5-5.1) mEq/L Chloride 102 (98-107) mEq/L Carbon Dioxide 27 (21-32) mEq/L Anion Gap 13.4 (5-15) BUN 88 H (7-18) mg/dL Creatinine 3.4 H (0.55-1.02) mg/dL Est Cr Clr Drug Dosing 14.72 mL/min Estimated GFR (MDRD) 13 (>60) mL/min BUN/Creatinine Ratio 25.9 H (14-18) Glucose 128 H (83-115) mg/dL POC Glucose (83-110) mg/dL Hemoglobin A1c ( - 5.6) % Lactic Acid 0.4 (0.4-2.0) mmol/L Calcium 8.5 (8.5-10.1) mg/dL Magnesium 2.3 (1.8-2.4) mg/dl C-Reactive Protein 19.5 H* (<1.0) mg/dL Lipase 29 L (73-393) U/L 10/13/20 Range/Units 06:26 WBC (3.98-10.04) K/mm3 RBC (3.98-5.22) M/mm3 Hgb (11.2-15.7) gm/dl Hct (34.1-44.9) % MCV (79.4-94.8) fl MCH (25.6-32.2) pg MCHC (32.2-35.5) g/dl RDW Std Deviation (36.4-46.3) fL Plt Count (182-369) K/mm3 MPV (9.4-12.3) fl Neut % (Auto) (34.0-71.1) % Lymph % (Auto) (19.3-51.7) % [place] % (Auto) (4.7-12.5) % Eos % (Auto) (0.7-5.8) Baso % (Auto) (0.1-1.2) % Neut # (Auto) (1.56-6.13) K/mm3 Lymph # (Auto) (1.18-3.74) K/mm3 [place] # (Auto) (0.24-0.36) K/mm3 Eos # (Auto) (0.04-0.36) K/mm3 Baso # (Auto) (0.01-0.08) K/mm3 Neutrophils % (Manual) (40-60) % Band Neutrophils % (0-10) % Lymphocytes % (Manual) (20-40) % Atypical Lymphs % % Monocytes % (Manual) (2-10) % Eosinophils % (Manual) (0.7-5.8) % Basophils % (Manual) (0.1-1.2) Manual Slide Review Platelet Estimate Hypochromasia Target Cells Tear Drop Cells RBC Morph Comment Sodium (136-145) mEq/L Potassium (3.5-5.1) mEq/L Chloride (98-107) mEq/L Carbon Dioxide (21-32) mEq/L Anion Gap (5-15) BUN (7-18) mg/dL Creatinine (0.55-1.02) mg/dL Est Cr Clr Drug Dosing mL/min Estimated GFR (MDRD) (>60) mL/min BUN/Creatinine Ratio (14-18) Glucose (83-115) mg/dL POC Glucose (83-110) mg/dL Hemoglobin A1c 5.8 H ( - 5.6) % Lactic Acid (0.4-2.0) mmol/L Calcium (8.5-10.1) mg/dL Magnesium (1.8-2.4) mg/dl C-Reactive Protein (<1.0) mg/dL Lipase (73-393) U/L Result Diagrams: 10/13/20 06:26 10/13/20 06:26 Sepsis Event Note - Evaluation Sepsis Screening Result: No Definite Risk - Focused Exam Vital Signs: Vital Signs Temp Pulse Resp BP Pulse Ox Pulse Ox 10/13/20 08:28 98.1 F 62 20 96/38 L 94 L 10/13/20 03:08 98.2 F 68 18 95/78 96 10/12/20 21:19 92 L 10/12/20 20:41 67 119/97 H 10/12/20 20:40 119/97 H 10/12/20 20:39 119/97 H - Problem List & Annotations (1) Abdominal pain of unknown etiology SNOMED Code(s): 156868942 Code(s): R10.9 - UNSPECIFIED ABDOMINAL PAIN Status: Acute Current Visit: Yes (2) Anemia SNOMED Code(s): 527021237 Code(s): D64.9 - ANEMIA, UNSPECIFIED Status: Acute Priority: High Current Visit: Yes Qualifiers: Anemia type: unspecified type Qualified Code(s): D64.9 - Anemia, unspecified (3) Infiltrate of lower lobe of right lung present on imaging study SNOMED Code(s): 666160422 Code(s): R91.8 - OTHER NONSPECIFIC ABNORMAL FINDING OF LUNG FIELD Status: Acute Priority: High Current Visit: Yes (4) Chronic renal insufficiency SNOMED Code(s): 580224241 Code(s): N18.9 - CHRONIC KIDNEY DISEASE, UNSPECIFIED Status: Chronic Priority: Medium Current Visit: Yes Qualifiers: Chronic kidney disease stage: stage 4 (severe) Qualified Code(s): N18.4 - Chronic kidney disease, stage 4 (severe) (5) Congestive heart failure SNOMED Code(s): 21115111 Code(s): I50.9 - HEART FAILURE, UNSPECIFIED Status: Chronic Priority: M edium Current Visit: No (6) 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 SNOMED Code(s): 656407625, 098522469 Code(s): C25.9 - MALIGNANT NEOPLASM OF PANCREAS, UNSPECIFIED Status: Chronic Current Visit: Yes (7) Anxiety SNOMED Code(s): 27260836 Code(s): F41.9 - ANXIETY DISORDER, UNSPECIFIED Status: Chronic Priority: Medium Current Visit: No (8) Arthritis SNOMED Code(s): 7653460 Code(s): M19.90 - UNSPECIFIED OSTEOARTHRITIS, UNSPECIFIED SITE Status: Chronic Priority: Low Current Visit: No (9) GERD (gastroesophageal reflux disease) SNOMED Code(s): 767230085 Code(s): K21.9 - GASTRO-ESOPHAGEAL REFLUX DISEASE WITHOUT ESOPHAGITIS Status: Chronic Priority: Low Current Visit: No Qualifiers: Esophagitis presence: esophagitis presence not specified Qualified Code(s): K21.9 - Gastro-esophageal reflux disease without esophagitis (10) HLD (hyperlipidemia) SNOMED Code(s): 86833005 Code(s): E78.5 - HYPERLIPIDEMIA, UNSPECIFIED Status: Chronic Priority: Low Current Visit: No Qualifiers: Hyperlipidemia type: unspecified Qualified Code(s): E78.5 - Hyperlipidemia, unspecified (11) HTN (hypertension) SNOMED Code(s): 40655912 Code(s): I10 - ESSENTIAL (PRIMARY) HYPERTENSION Status: Chronic Priority: Medium Current Visit: No Qualifiers: Hypertension type: unspecified Qualified Code(s): I10 - Essential (primary) hypertension (12) History of AK (myocardial infarction) SNOMED Code(s): 563371333 Code(s): I25.2 - OLD MYOCARDIAL INFARCTION Status: Chronic Priority: Low Current Visit: No (13) Sleep apnea SNOMED Code(s): 21510993 Code(s): G47.30 - SLEEP APNEA, UNSPECIFIED Status: Chronic Priority: Medium Current Visit: No Qualifiers: Sleep apnea type: unspecified type Qualified Code(s): G47.30 - Sleep apnea, unspecified (14) Type II diabetes mellitus SNOMED Code(s): 39872119 Code(s): E11.9 - TYPE 2 DIABETES MELLITUS WITHOUT COMPLICATIONS Status: Chronic Priority: Low Current Visit: No Qualifiers: Diabetes mellitus chcf insulin use: with [employer] continuous churn use Diabetes mellitus complication status: with other specified complication Qualified Code(s): E11.69 - Type 2 diabetes mellitus with other specified complication; Z79.4 - jail (current) use of insulin (15) Metastatic renal cell carcinoma SNOMED Code(s): 919658253 Code(s): C64.9 - MALIGNANT NEOPLASM OF UNSP KIDNEY, EXCEPT RENAL PELVIS Status: Chronic Priority: Medium Current Visit: Yes Qualifiers: Laterality: unspecified laterality Qualified Code(s): C64.9 - Malignant neoplasm of unspecified kidney, except renal pelvis (16) Obesity SNOMED Code(s): 316897889, 379206975 Code(s): E66.9 - OBESITY, UNSPECIFIED Status: Chronic Priority: Medium Current Visit: Yes Qualifiers: Obesity type: unspecified obesity type Obesity classification: adult class 3 (BMI >= 40) Serious obesity comorbidity presence: unspecified whether serious comorbidity present Body mass index: BMI 40.0-44.9 Qualified Code(s): E66.01 - Morbid (severe) obesity due to excess calories; Z68.41 - Body mass index [BMI]40.0-44.9, adult (17) History of immunotherapy SNOMED Code(s): 062895115 Code(s): Z92.89 - PERSONAL HISTORY OF OTHER MEDICAL TREATMENT Status: Chronic Priority: Medium Current Visit: No (18) Hypoxemia SNOMED Code(s): 499727071 Code(s): R09.02 - HYPOXEMIA Status: Acute Priority: High Current Visit: Yes (19) Urinary retention SNOMED Code(s): 921050548 Code(s): R33.9 - RETENTION OF URINE, UNSPECIFIED Status: Acute Priority: High Current Visit: Yes (20) Urinary incontinence SNOMED Code(s): 497822001 Code(s): R32 - UNSPECIFIED URINARY INCONTINENCE Status: Chronic Priority: Medium Current Visit: Yes Qualifiers: Urinary Incontinence type: unspecified incontinence Qualified Code(s): R32 - Unspecified urinary incontinence - Problem List Review Problem List Initiated/Reviewed/Updated: Yes - Assessment Assessment:: 10/13/20 In to see Ceci. She is laying in bed and is quite sleepy. We discussed her plan of care. She reports her abdominal pain has resolved. She is currently n.p.o. awaiting HIDA scan. Unfortunately radiology contacted us to report patient is unable to have HIDA scan because she had a fentanyl patch on and needs to be off of this for up to 4 hours prior to scan. We are unable to obtain any more nuclear material as this has to be ordered and will before those 4 hours are up. We will discuss plan of care further with Dr. Ferrer, consulting general surgeon. Patient's white count has improved to 15.88. Unfortunately hemoglobin continues to trend down and is 7 today. Discussed plan for transfusion with patient and she refuses stating that she does not want blood. Advised patient that this would likely improve her renal function and make her feel better but the patient still refuses. We will repeat HH today and continue to discuss transfusion with patient. Renal function today has decreased. Creatinine is now 3.4, down from 2.9. GFR is 13. CRP is 19.5. Lipase 29. Hemoglobin A1c was obtained is 5.8. Discussed IV antibiotics with pharmacy and Dr. Vieira, attending hospitalist as patient has worsening renal function and MRSA screen was negative. We will continue cefepime and switch patient to twice daily doxycycline for now. Continue to monitor patient. 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 with patient regarding significant metastatic disease * Consider cholecystostomy tube Infiltrate of lower lobe of right lung present on imaging study Hypoxemia Sleep apnea * Cefepime and doxycycline * RT consultation * O2 as needed to keep saturations >92% * IS/Acapella * Duonebs PRN * Repeat CXR tomorrow * Follow labs although likely skewed due to significant metastatic disease * Procalcitonin pending * Check mycoplasma * Home CPAP * Droplet isolation Anemia * Monitor labs * Check ferritin * Transfuse if hgb falls below 7.5gm * Patient currently refusing blood transfusions - continue to discuss * Recheck H/H this afternoon Type II diabetes mellitus Obesity * SS insulin * Check blood glucose QID AC and Bedtime * Diabetic diet * Dietary consultation * Hold home insulin for now Congestive heart failure Anxiety Arthritis GERD (gastroesophageal reflux disease) HLD (hyperlipidemia) HTN (hypertension) History of AK (myocardial infarction) * No current concerns * Home medications as ordered Code status: DNR/DNI PCP: DR. Pulido Oncologist: Dr. Salmeron DVT prophylaxis: Heparin Social: Patient resides at [facility] in [place] Disposition: Patient to remain hospitalized for management and further investigation into her abdominal pain along with treatment for her possible pneumonia. <Rona Vieira M - Last Filed: 10/13/20 17:44> - Patient Data Vitals - Most Recent: Last Vital Signs Temp 36.8 C 10/13/20 11:12 Pulse 66 10/13/20 11:12 Resp 16 10/13/20 11:12 BP 129/89 10/13/20 11:12 Pulse Ox 95 10/13/20 11:12 I&O - Last 24 Hours: Intake & Output 10/13/20 10/13/20 10/13/20 06:59 14:59 22:59 Intake Total 1870 717 Balance 1870 717 Lab Results Last 24 Hours: Laboratory Results - last 24 hr 10/13/20 10/13/20 10/13/20 Range/Units 00:13 05:58 06:26 WBC 15.88 H (3.98-10.04) K/mm3 RBC 2.82 L (3.98-5.22) M/mm3 Hgb 7.0 L* (11.2-15.7) gm/dl Hct 25.2 L (34.1-44.9) % MCV 89.4 (79.4-94.8) fl MCH 24.8 L (25.6-32.2) pg MCHC 27.8 L (32.2-35.5) g/dl RDW Std Deviation 57.0 H (36.4-46.3) fL Plt Count 259 (182-369) K/mm3 MPV 8.6 L (9.4-12.3) fl Neut % (Auto) 72.3 H (34.0-71.1) % Lymph % (Auto) 14.7 L (19.3-51.7) % [place] % (Auto) 10.4 (4.7-12.5) % Eos % (Auto) 2.2 (0.7-5.8) Baso % (Auto) 0.1 (0.1-1.2) % Neut # (Auto) 11.47 H (1.56-6.13) K/mm3 Lymph # (Auto) 2.34 (1.18-3.74) K/mm3 [place] # (Auto) 1.65 H (0.24-0.36) K/mm3 Eos # (Auto) 0.35 (0.04-0.36) K/mm3 Baso # (Auto) 0.02 (0.01-0.08) K/mm3 Manual Slide Review Abnormal smear Sodium (136-145) mEq/L Potassium (3.5-5.1) mEq/L Chloride (98-107) mEq/L Carbon Dioxide (21-32) mEq/L Anion Gap (5-15) BUN (7-18) mg/dL Creatinine (0.55-1.02) mg/dL Est Cr Clr Drug Dosing mL/min Estimated GFR (MDRD) (>60) mL/min BUN/Creatinine Ratio (14-18) Glucose (83-115) mg/dL POC Glucose 138 H 135 H (83-110) mg/dL Hemoglobin A1c ( - 5.6) % Lactic Acid (0.4-2.0) mmol/L Calcium (8.5-10.1) mg/dL Magnesium (1.8-2.4) mg/dl Ferritin (8-252) ng/ml C-Reactive Protein (<1.0) mg/dL Lipase (73-393) U/L Mycoplasma pneumon IgM (NEGATIVE) Blood Type Gel Antibody Screen Crossmatch 10/13/20 10/13/20 10/13/20 Range/Units 06:26 06:26 06:26 WBC (3.98-10.04) K/mm3 RBC (3.98-5.22) M/mm3 Hgb (11.2-15.7) gm/dl Hct (34.1-44.9) % MCV (79.4-94.8) fl MCH (25.6-32.2) pg MCHC (32.2-35.5) g/dl RDW Std Deviation (36.4-46.3) fL Plt Count (182-369) K/mm3 MPV (9.4-12.3) fl Neut % (Auto) (34.0-71.1) % Lymph % (Auto) (19.3-51.7) % [place] % (Auto) (4.7-12.5) % Eos % (Auto) (0.7-5.8) Baso % (Auto) (0.1-1.2) % Neut # (Auto) (1.56-6.13) K/mm3 Lymph # (Auto) (1.18-3.74) K/mm3 [place] # (Auto) (0.24-0.36) K/mm3 Eos # (Auto) (0.04-0.36) K/mm3 Baso # (Auto) (0.01-0.08) K/mm3 Manual Slide Review Sodium 138 (136-145) mEq/L Potassium 4.4 (3.5-5.1) mEq/L Chloride 102 (98-107) mEq/L Carbon Dioxide 27 (21-32) mEq/L Anion Gap 13.4 (5-15) BUN 88 H (7-18) mg/dL Creatinine 3.4 H (0.55-1.02) mg/dL Est Cr Clr Drug Dosing 14.72 mL/min Estimated GFR (MDRD) 13 (>60) mL/min BUN/Creatinine Ratio 25.9 H (14-18) Glucose 128 H (83-115) mg/dL POC Glucose (83-110) mg/dL Hemoglobin A1c 5.8 H ( - 5.6) % Lactic Acid 0.4 (0.4-2.0) mmol/L Calcium 8.5 (8.5-10.1) mg/dL Magnesium 2.3 (1.8-2.4) mg/dl Ferritin (8-252) ng/ml C-Reactive Protein 19.5 H* (<1.0) mg/dL Lipase 29 L (73-393) U/L Mycoplasma pneumon IgM (NEGATIVE) Blood Type Gel Antibody Screen Crossmatch 10/13/20 10/13/20 10/13/20 Range/Units 06:26 06:26 06:26 WBC (3.98-10.04) K/mm3 RBC (3.98-5.22) M/mm3 Hgb (11.2-15.7) gm/dl Hct (34.1-44.9) % MCV (79.4-94.8) fl MCH (25.6-32.2) pg MCHC (32.2-35.5) g/dl RDW Std Deviation (36.4-46.3) fL Plt Count (182-369) K/mm3 MPV (9.4-12.3) fl Neut % (Auto) (34.0-71.1) % Lymph % (Auto) (19.3-51.7) % [place] % (Auto) (4.7-12.5) % Eos % (Auto) (0.7-5.8) Baso % (Auto) (0.1-1.2) % Neut # (Auto) (1.56-6.13) K/mm3 Lymph # (Auto) (1.18-3.74) K/mm3 [place] # (Auto) (0.24-0.36) K/mm3 Eos # (Auto) (0.04-0.36) K/mm3 Baso # (Auto) (0.01-0.08) K/mm3 Manual Slide Review Sodium (136-145) mEq/L Potassium (3.5-5.1) mEq/L Chloride (98-107) mEq/L Carbon Dioxide (21-32) mEq/L Anion Gap (5-15) BUN (7-18) mg/dL Creatinine (0.55-1.02) mg/dL Est Cr Clr Drug Dosing mL/min Estimated GFR (MDRD) (>60) mL/min BUN/Creatinine Ratio (14-18) Glucose (83-115) mg/dL POC Glucose (83-110) mg/dL Hemoglobin A1c ( - 5.6) % Lactic Acid (0.4-2.0) mmol/L Calcium (8.5-10.1) mg/dL Magnesium (1.8-2.4) mg/dl Ferritin 113 (8-252) ng/ml C-Reactive Protein (<1.0) mg/dL Lipase (73-393) U/L Mycoplasma pneumon IgM Negative (NEGATIVE) Blood Type A POSITIVE Gel Antibody Screen Negative Crossmatch See Detail 10/13/20 Range/Units 11:08 WBC (3.98-10.04) K/mm3 RBC (3.98-5.22) M/mm3 Hgb (11.2-15.7) gm/dl Hct (34.1-44.9) % MCV (79.4-94.8) fl MCH (25.6-32.2) pg MCHC (32.2-35.5) g/dl RDW Std Deviation (36.4-46.3) fL Plt Count (182-369) K/mm3 MPV (9.4-12.3) fl Neut % (Auto) (34.0-71.1) % Lymph % (Auto) (19.3-51.7) % [place] % (Auto) (4.7-12.5) % Eos % (Auto) (0.7-5.8) Baso % (Auto) (0.1-1.2) % Neut # (Auto) (1.56-6.13) K/mm3 Lymph # (Auto) (1.18-3.74) K/mm3 [place] # (Auto) (0.24-0.36) K/mm3 Eos # (Auto) (0.04-0.36) K/mm3 Baso # (Auto) (0.01-0.08) K/mm3 Manual Slide Review Sodium (136-145) mEq/L Potassium (3.5-5.1) mEq/L Chloride (98-107) mEq/L Carbon Dioxide (21-32) mEq/L Anion Gap (5-15) BUN (7-18) mg/dL Creatinine (0.55-1.02) mg/dL Est Cr Clr Drug Dosing mL/min Estimated GFR (MDRD) (>60) mL/min BUN/Creatinine Ratio (14-18) Glucose (83-115) mg/dL POC Glucose 188 H (83-110) mg/dL Hemoglobin A1c ( - 5.6) % Lactic Acid (0.4-2.0) mmol/L Calcium (8.5-10.1) mg/dL Magnesium (1.8-2.4) mg/dl Ferritin (8-252) ng/ml C-Reactive Protein (<1.0) mg/dL Lipase (73-393) U/L Mycoplasma pneumon IgM (NEGATIVE) Blood Type Gel Antibody Screen Crossmatch Med Orders - Current: Current Medications Acetaminophen (Acetaminophen 325 Mg Tab) 650 mg PO Q4H PRN PRN Reason: Pain Acetaminophen (Acetaminophen 325 Mg Tab) 650 mg PO [facility] Last Admin: 10/13/20 08:48 Dose: Not Given Documented by: Hydrocodone Bitart/Acetaminophen (Acetaminophen/Hydrocodone 325-10 Mg Tab) 1 tab PO Q4H PRN PRN Reason: Pain Al Hydroxide/Mg Hydroxide (Aluminum Hydroxide/Magnesium Hydroxide/Simethicone Susp 30 Ml Cup) 30 ml PO TID PRN PRN Reason: Indigestion Albuterol/Ipratropium (Albuterol/Ipratropium 3.0-0.5 Mg/3 Ml Neb Soln) 3 ml NEB Q6HRRT PRN PRN Reason: SOB/Wheezing Bisacodyl (Bisacodyl 10 Mg Supp) 10 mg RECTAL DAILY PRN PRN Reason: Constipation Calcium Carbonate/Glycine (Calcium Carbonate 500 Mg Tab.Chew) 500 mg PO Q6H PRN PRN Reason: Indigestion Carvedilol (Carvedilol 12.5 Mg Tab) 25 mg PO BID [facility] Last Admin: 10/13/20 08:48 Dose: Not Given Documented by: Cholecalciferol (Cholecalciferol (Vitamin D3) 25 Mcg Tab) 50 mcg PO 829 [facility] Last Admin: 10/13/20 08:48 Dose: Not Given Documented by: Diclofenac Sodium (Diclofenac Sodium 1% Gel 100 Gm Tube) 2 gm TOP QID [facility] Last Admin: 10/13/20 17:12 Dose: 1 applic Documented by: Famotidine (Famotidine 20 Mg Tab) 20 mg PO DAILY [facility] Last Admin: 10/13/20 08:49 Dose: Not Given Documented by: Fentanyl (Fentanyl 12 Mcg/Hr Transdermal Patch) 12 mcg TRDERM Q72H [facility] Last Admin: 10/12/20 12:22 Dose: 12 mcg Documented by: Fentanyl (Fentanyl 25 Mcg/Hr Transdermal Patch) 25 mcg TRDERM Q72H [facility] Last Admin: 10/12/20 12:22 Dose: 25 mcg Documented by: Furosemide (Furosemide 40 Mg/4 Ml Vial) 40 mg IVPUSH ASDIRECTED [facility] Stop: 10/14/20 18:00 Heparin Sodium (Porcine) (Heparin Sodium 5,000 Units/Ml Vial) 5,000 units SUBCUT Q8H [facility] Last Admin: 10/13/20 17:12 Dose: 5,000 units Documented by: Hydralazine HCl (Hydralazine 25 Mg Tab) 50 mg PO BID [facility] Last Admin: 10/13/20 08:48 Dose: Not Given Documented by: Hydromorphone HCl (Hydromorphone 1 Mg/Ml Syringe) 1 mg IVPUSH Q2H PRN PRN Reason: Pain Dextrose/Sodium Chloride (Dextrose 5%-1/2 Ns) 1,000 mls @ 75 mls/hr IV ASDIRECTED [facility] Last Admin: 10/13/20 05:12 Dose: 75 mls/hr Documented by: Cefepime HCl 1 gm/ Premix 50 mls @ 100 mls/hr IV Q24H [facility] Last Admin: 10/13/20 09:02 Dose: 100 mls/hr Documented by: Doxycycline Hyclate 100 mg/ (Sodium Chloride) 100 mls @ 100 mls/hr IV Q12H [facility] Insulin Human Lispro (Insulin Lispro 100 Unit/Ml) 0 unit SUBCUT Q6H [facility]; Protocol Last Admin: 10/13/20 15:14 Dose: Not Given Documented by: Isosorbide Mononitrate (Isosorbide Mononitrate 30 Mg Tab.Er) 30 mg PO BID [facility] Last Admin: 10/13/20 08:48 Dose: Not Given Documented by: Magnesium Hydroxide (Magnesium Hydroxide 400 Mg/5 Ml Susp 30 Ml Cup) 30 ml PO BEDTIME PRN PRN Reason: Indigestion Miscellaneous Information (Remove Fentanyl 12 Mcg/Hr Patch) 1 ea TRDERM Q72H [facility] Last Admin: 10/12/20 13:40 Dose: Not Given Documented by: Miscellaneous Information (Remove Fentanyl 25 Mcg/Hr Patch) 1 ea TRDERM Q72H [facility] Last Admin: 10/12/20 13:40 Dose: Not Given Documented by: Nitroglycerin (Nitroglycerin 0.4 Mg Tab.Sl) 0.4 mg SL ASDIRECTED PRN PRN Reason: Chest Pain Nystatin (Nystatin Topical Powder 15 Gm Bottle) 1 gm TOP QID [facility] Last Admin: 10/13/20 17:11 Dose: 1 applic Documented by: Ondansetron HCl (Ondansetron 4 Mg/2 Ml Sdv) 4 mg IVPUSH Q8H PRN PRN Reason: Nausea/Vomiting Ondansetron HCl (Ondansetron 4 Mg Tab.Dis) 4 mg PO Q6H PRN PRN Reason: Nausea Polyethylene Glycol (Polyethylene Glycol 3350 Powder 17 Gm Packet) 17 gm PO 0830 [facility] Last Admin: 10/13/20 08:48 Dose: Not Given Documented by: Ropinirole HCl (Ropinirole 0.25 Mg Tab) 0.25 mg PO BEDTIME [facility] Last Admin: 10/12/20 20:41 Dose: 0.25 mg Documented by: Senna/Docusate Sodium (Docusate Sodium/Sennosides 50-8.6 Mg Tab) 1 tab PO BID [facility] Last Admin: 10/13/20 08:49 Dose: Not Given Documented by: Trazodone HCl (Trazodone 50 Mg Tab) 200 mg PO BEDTIME [facility] Last Admin: 10/12/20 20:41 Dose: 200 mg Documented by: Discontinued Medications Carvedilol (Carvedilol 12.5 Mg Tab) 25 mg PO [facility] Last Admin: 10/12/20 09:59 Dose: 25 mg Documented by: Dicyclomine HCl (Dicyclomine 10 Mg Cap) 0 mg PO Q2H PRN PRN Reason: Congestion Hydromorphone HCl (Hydromorphone 1 Mg/Ml Syringe) 1 mg IVPUSH ONETIME ONE Stop: 10/11/20 19:52 Last Admin: 10/11/20 20:08 Dose: 1 mg Documented by: Hydromorphone HCl (Hydromorphone 1 Mg/Ml Syringe) 1 mg IVPUSH ONETIME ONE Stop: 10/11/20 22:01 Last Admin: 10/11/20 22:13 Dose: 1 mg Documented by: Sodium Chloride (Normal Saline) 1,000 mls @ 100 mls/hr IV ASDIRECTED [facility] Last Admin: 10/11/20 20:09 Dose: 100 mls/hr Documented by: Piperacillin Sod/Tazobactam (Sod 2.25 gm/ Sodium Chloride) 100 mls @ 25 mls/hr IV Q6H [facility] Last Admin: 10/12/20 04:18 Dose: 25 mls/hr Documented by: Piperacillin Sod/Tazobactam (Sod 4.5 gm/ Sodium Chloride) 100 mls @ 25 mls/hr IV Q8H [facility] Last Admin: 10/12/20 10:11 Dose: 25 mls/hr Documented by: Piperacillin Sod/Tazobactam (Sod 4.5 gm/ Sodium Chloride) 100 mls @ 25 mls/hr IV Q12H [facility] Last Admin: 10/12/20 14:57 Dose: Not Given Documented by: Piperacillin Sod/Tazobactam (Sod 4.5 gm/ Sodium Chloride) 100 mls @ 25 mls/hr IV Q12H [facility] Vancomycin HCl 2 gm/ Sodium (Chloride) 500 mls @ 250 mls/hr IV ONETIME ONE Stop: 10/12/20 20:59 Last Admin: 10/12/20 19:36 Dose: 250 mls/hr Documented by: Vancomycin HCl 2 gm/ Sodium (Chloride) 500 mls @ 250 mls/hr IV ONETIME ONE Stop: 10/12/20 21:29 Last Admin: 10/12/20 19:39 Dose: Not Given Documented by: Sodium Chloride (Normal Saline) Confirm Administered Dose 500 mls @ as directed .ROUTE .STK-MED ONE Stop: 10/13/20 17:08 Insulin Human Lispro (Insulin Lispro 100 Unit/Ml) 15 unit SUBCUT 0800,1200,1700 [facility] Last Admin: 10/12/20 18:48 Dose: Not Given Documented by: Lorazepam (Lorazepam 2 Mg/Ml Sdv) 1 mg IVPUSH ONETIME STA Stop: 10/11/20 22:58 Last Admin: 10/11/20 23:04 Dose: 1 mg Documented by: Ondansetron HCl (Ondansetron 4 Mg/2 Ml Sdv) 4 mg IVPUSH ONETIME ONE Stop: 10/11/20 19:52 Last Admin: 10/11/20 20:09 Dose: 4 mg Documented by: Vancomycin HCl (Pharmacy To Dose - Vancomycin) 1 dose .XX ASDIRECTED [facility] Vancomycin HCl (Vancomycin 1 Gm Sdv) Confirm Administered Dose 1 gm .ROUTE .STK- MED ONE Stop: 10/12/20 19:22 Last Admin: 10/12/20 19:38 Dose: Not Given Documented by: - Patient Data Lab Results Last 24 hrs: Laboratory Results - last 24 hr 10/13/20 10/13/20 10/13/20 Range/Units 00:13 05:58 06:26 WBC 15.88 H (3.98-10.04) K/mm3 RBC 2.82 L (3.98-5.22) M/mm3 Hgb 7.0 L* (11.2-15.7) gm/dl Hct 25.2 L (34.1-44.9) % MCV 89.4 (79.4-94.8) fl MCH 24.8 L (25.6-32.2) pg MCHC 27.8 L (32.2-35.5) g/dl RDW Std Deviation 57.0 H (36.4-46.3) fL Plt Count 259 (182-369) K/mm3 MPV 8.6 L (9.4-12.3) fl Neut % (Auto) 72.3 H (34.0-71.1) % Lymph % (Auto) 14.7 L (19.3-51.7) % [place] % (Auto) 10.4 (4.7-12.5) % Eos % (Auto) 2.2 (0.7-5.8) Baso % (Auto) 0.1 (0.1-1.2) % Neut # (Auto) 11.47 H (1.56-6.13) K/mm3 Lymph # (Auto) 2.34 (1.18-3.74) K/mm3 [place] # (Auto) 1.65 H (0.24-0.36) K/mm3 Eos # (Auto) 0.35 (0.04-0.36) K/mm3 Baso # (Auto) 0.02 (0.01-0.08) K/mm3 Manual Slide Review Abnormal smear Sodium (136-145) mEq/L Potassium (3.5-5.1) mEq/L Chloride (98-107) mEq/L Carbon Dioxide (21-32) mEq/L Anion Gap (5-15) BUN (7-18) mg/dL Creatinine (0.55-1.02) mg/dL Est Cr Clr Drug Dosing mL/min Estimated GFR (MDRD) (>60) mL/min BUN/Creatinine Ratio (14-18) Glucose (83-115) mg/dL POC Glucose 138 H 135 H (83-110) mg/dL Hemoglobin A1c ( - 5.6) % Lactic Acid (0.4-2.0) mmol/L Calcium (8.5-10.1) mg/dL Magnesium (1.8-2.4) mg/dl Ferritin (8-252) ng/ml C-Reactive Protein (<1.0) mg/dL Lipase (73-393) U/L Mycoplasma pneumon IgM (NEGATIVE) Blood Type Gel Antibody Screen Crossmatch 10/13/20 10/13/20 10/13/20 Range/Units 06:26 06:26 06:26 WBC (3.98-10.04) K/mm3 RBC (3.98-5.22) M/mm3 Hgb (11.2-15.7) gm/dl Hct (34.1-44.9) % MCV (79.4-94.8) fl MCH (25.6-32.2) pg MCHC (32.2-35.5) g/dl RDW Std Deviation (36.4-46.3) fL Plt Count (182-369) K/mm3 MPV (9.4-12.3) fl Neut % (Auto) (34.0-71.1) % Lymph % (Auto) (19.3-51.7) % [place] % (Auto) (4.7-12.5) % Eos % (Auto) (0.7-5.8) Baso % (Auto) (0.1-1.2) % Neut # (Auto) (1.56-6.13) K/mm3 Lymph # (Auto) (1.18-3.74) K/mm3 [place] # (Auto) (0.24-0.36) K/mm3 Eos # (Auto) (0.04-0.36) K/mm3 Baso # (Auto) (0.01-0.08) K/mm3 Manual Slide Review Sodium 138 (136-145) mEq/L Potassium 4.4 (3.5-5.1) mEq/L Chloride 102 (98-107) mEq/L Carbon Dioxide 27 (21-32) mEq/L Anion Gap 13.4 (5-15) BUN 88 H (7-18) mg/dL Creatinine 3.4 H (0.55-1.02) mg/dL Est Cr Clr Drug Dosing 14.72 mL/min Estimated GFR (MDRD) 13 (>60) mL/min BUN/Creatinine Ratio 25.9 H (14-18) Glucose 128 H (83-115) mg/dL POC Glucose (83-110) mg/dL Hemoglobin A1c 5.8 H ( - 5.6) % Lactic Acid 0.4 (0.4-2.0) mmol/L Calcium 8.5 (8.5-10.1) mg/dL Magnesium 2.3 (1.8-2.4) mg/dl Ferritin (8-252) ng/ml C-Reactive Protein 19.5 H* (<1.0) mg/dL Lipase 29 L (73-393) U/L Mycoplasma pneumon IgM (NEGATIVE) Blood Type Gel Antibody Screen Crossmatch 10/13/20 10/13/20 10/13/20 Range/Units 06:26 06:26 06:26 WBC (3.98-10.04) K/mm3 RBC (3.98-5.22) M/mm3 Hgb (11.2-15.7) gm/dl Hct (34.1-44.9) % MCV (79.4-94.8) fl MCH (25.6-32.2) pg MCHC (32.2-35.5) g/dl RDW Std Deviation (36.4-46.3) fL Plt Count (182-369) K/mm3 MPV (9.4-12.3) fl Neut % (Auto) (34.0-71.1) % Lymph % (Auto) (19.3-51.7) % [place] % (Auto) (4.7-12.5) % Eos % (Auto) (0.7-5.8) Baso % (Auto) (0.1-1.2) % Neut # (Auto) (1.56-6.13) K/mm3 Lymph # (Auto) (1.18-3.74) K/mm3 [place] # (Auto) (0.24-0.36) K/mm3 Eos # (Auto) (0.04-0.36) K/mm3 Baso # (Auto) (0.01-0.08) K/mm3 Manual Slide Review Sodium (136-145) mEq/L Potassium (3.5-5.1) mEq/L Chloride (98-107) mEq/L Carbon Dioxide (21-32) mEq/L Anion Gap (5-15) BUN (7-18) mg/dL Creatinine (0.55-1.02) mg/dL Est Cr Clr Drug Dosing mL/min Estimated GFR (MDRD) (>60) mL/min BUN/Creatinine Ratio (14-18) Glucose (83-115) mg/dL POC Glucose (83-110) mg/dL Hemoglobin A1c ( - 5.6) % Lactic Acid (0.4-2.0) mmol/L Calcium (8.5-10.1) mg/dL Magnesium (1.8-2.4) mg/dl Ferritin 113 (8-252) ng/ml C-Reactive Protein (<1.0) mg/dL Lipase (73-393) U/L Mycoplasma pneumon IgM Negative (NEGATIVE) Blood Type A POSITIVE Gel Antibody Screen Negative Crossmatch See Detail 10/13/20 Range/Units 11:08 WBC (3.98-10.04) K/mm3 RBC (3.98-5.22) M/mm3 Hgb (11.2-15.7) gm/dl Hct (34.1-44.9) % MCV (79.4-94.8) fl MCH (25.6-32.2) pg MCHC (32.2-35.5) g/dl RDW Std Deviation (36.4-46.3) fL Plt Count (182-369) K/mm3 MPV (9.4-12.3) fl Neut % (Auto) (34.0-71.1) % Lymph % (Auto) (19.3-51.7) % [place] % (Auto) (4.7-12.5) % Eos % (Auto) (0.7-5.8) Baso % (Auto) (0.1-1.2) % Neut # (Auto) (1.56-6.13) K/mm3 Lymph # (Auto) (1.18-3.74) K/mm3 [place] # (Auto) (0.24-0.36) K/mm3 Eos # (Auto) (0.04-0.36) K/mm3 Baso # (Auto) (0.01-0.08) K/mm3 Manual Slide Review Sodium (136-145) mEq/L Potassium (3.5-5.1) mEq/L Chloride (98-107) mEq/L Carbon Dioxide (21-32) mEq/L Anion Gap (5-15) BUN (7-18) mg/dL Creatinine (0.55-1.02) mg/dL Est Cr Clr Drug Dosing mL/min Estimated GFR (MDRD) (>60) mL/min BUN/Creatinine Ratio (14-18) Glucose (83-115) mg/dL POC Glucose 188 H (83-110) mg/dL Hemoglobin A1c ( - 5.6) % Lactic Acid (0.4-2.0) mmol/L Calcium (8.5-10.1) mg/dL Magnesium (1.8-2.4) mg/dl Ferritin (8-252) ng/ml C-Reactive Protein (<1.0) mg/dL Lipase (73-393) U/L Mycoplasma pneumon IgM (NEGATIVE) Blood Type Gel Antibody Screen Crossmatch Result Diagrams: 10/13/20 06:26 10/13/20 06:26 Sepsis Event Note - Focused Exam Vital Signs: Vital Signs Temp Pulse Resp BP Pulse Ox Pulse Ox 10/13/20 11:12 36.8 C 66 16 129/89 95 10/13/20 10:00 94 L 10/13/20 08:28 36.7 C 62 20 96/38 L 94 L - Problem List & Annotations (1) Abdominal pain of unknown etiology SNOMED Code(s): 094533036 Code(s): R10.9 - UNSPECIFIED ABDOMINAL PAIN Status: Acute Current Visit: Yes (2) Chronic renal insufficiency SNOMED Code(s): 603612782 Code(s): N18.9 - CHRONIC KIDNEY DISEASE, UNSPECIFIED Status: Chronic Priority: Medium Current Visit: Yes Qualifiers: Chronic kidney disease stage: stage 4 (severe) Qualified Code(s): N18.4 - Chronic kidney disease, stage 4 (severe) (3) Hyperglycemia due to type 2 diabetes mellitus SNOMED Code(s): 681257607458249, 909692556389409 Code(s): E11.65 - TYPE 2 DIABETES MELLITUS WITH HYPERGLYCEMIA Status: Chronic Current Visit: Yes (4) 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 SNOMED Code(s): 940900570, 601690643 Code(s): C25.9 - MALIGNANT NEOPLASM OF PANCREAS, UNSPECIFIED Status: Chr onic Current Visit: Yes (5) Congestive heart failure SNOMED Code(s): 24944556 Code(s): I50.9 - HEART FAILURE, UNSPECIFIED Status: Chronic Priority: M edium Current Visit: No (6) Abdominal pain SNOMED Code(s): 14993963 Code(s): R10.9 - UNSPECIFIED ABDOMINAL PAIN Status: Acute Current Visit: No Qualifiers: Abdominal location: unspecified location Qualified Code(s): R10.9 - Unspecified abdominal pain (7) Acute hypoxemic respiratory failure SNOMED Code(s): 405189271 Code(s): J96.01 - ACUTE RESPIRATORY FAILURE WITH HYPOXIA Status: Acute Current Visit: No (8) Acute on chronic renal insufficiency SNOMED Code(s): 687340615 Code(s): N28.9 - DISORDER OF KIDNEY AND URETER, UNSPECIFIED; N18.9 - CHRONIC KIDNEY DISEASE, UNSPECIFIED Status: Acute Priority: High Current Visit: No (9) Infiltrate of lower lobe of right lung present on imaging study SNOMED Code(s): 111524827 Code(s): R91.8 - OTHER NONSPECIFIC ABNORMAL FINDING OF LUNG FIELD Status: Acute Priority: High Current Visit: Yes (10) Anemia SNOMED Code(s): 777307471 Code(s): D64.9 - ANEMIA, UNSPECIFIED Status: Acute Priority: High Current Visit: Yes Qualifiers: Anemia type: unspecified type Qualified Code(s): D64.9 - Anemia, unspecified - My Orders Last 24 Hours: My Active Orders 10/12/20 17:37 Blood Glucose Check, Bedside [RC] Q6HR 10/12/20 21:00 rOPINIRole [Requip] 0.25 mg PO BEDTIME traZODone 200 mg PO BEDTIME 10/13/20 06:26 PROCALCITONIN [REF] Routine 10/13/20 09:00 Cefepime [Maxipime in D5W 1 GM/50 ML] 1 gm Premix Bag 1 bag IV Q24H 10/13/20 16:23 Bladder Scan [RC] ASDIRECTED 10/13/20 20:00 Doxycycline [Vibramycin] 100 mg Sodium Chloride 0.9% [Normal Saline] 100 ml IV Q12H 10/14/20 05:00 BASIC METABOLIC PANEL,BMP [CHEM] DAILY CBC WITH AUTO DIFF [HEME] DAILY MAGNESIUM [CHEM] DAILY 10/15/20 05:00 BASIC METABOLIC PANEL,BMP [CHEM] DAILY CBC WITH AUTO DIFF [HEME] DAILY MAGNESIUM [CHEM] DAILY - Plan Plan:: Hospital Course has been prolonged as acute problems have required attention eg delay in HIDA scan based on protocol and availability; also patient's reluctance to consent to blood transfusion; as well as acute on chronic renal failure. Thus the delay has many layers, anticipate DC on or after 10/17/20 as per the HIDA scan results.
[2020-10-13] MEDS: Isosorbide Mononitrate 30 MG Tab.ER PO SCH ×2 (08:48→20:56)
[2020-10-13] MEDS: Acetaminophen 325 MG Tab PO SCH ×2 (08:48→20:54)
[2020-10-13] MEDS: hydrALAZINE 25 MG Tab PO SCH ×2 (08:48→20:53)
[2020-10-13] MEDS: Polyethylene Glycol 3350 Powder 17 GM Packet PO SCH (08:48)
[2020-10-13] MEDS: Carvedilol 12.5 MG Tab PO SCH ×2 (08:48→20:56)
[2020-10-13] MEDS: Cholecalciferol (Vitamin D3) 25 MCG Tab PO SCH (08:48)
[2020-10-13] MEDS: Famotidine 20 MG Tab PO SCH (08:49)
[2020-10-13] MEDS: Diclofenac Sodium 1% Gel 100 GM Tube TOP SCH ×4 (08:56→21:30)
[2020-10-13] MEDS: Cefepime 1 GM in Premix Bag 1 BAG IV SCH (09:02)
[2020-10-13] MEDS ORDERED: Albuterol/Ipratropium 3.0-0.5 MG/3 ML Neb Soln NEB PRN (12:29)
[2020-10-13] MEDS: Nystatin Topical Powder 15 GM Bottle TOP SCH ×3 (13:00→20:56)
[2020-10-13] MEDS ORDERED: Sodium Chloride 0.9% 500 ML ONE (17:07)
[2020-10-13] MEDS: Doxycycline 100 MG in Sodium Chloride 0.9% 100 ML IV SCH (20:52)
[2020-10-13] MEDS: traZODone 50 MG Tab PO SCH (20:54)
[2020-10-13] MEDS: rOPINIRole 0.25 MG Tab PO SCH (20:56)
[2020-10-13] MEDS: Acetaminophen/HYDROcodone 325-10 MG Tab PO PRN (20:57)
[2020-10-13] MEDS ORDERED: Furosemide 40 MG/4 ML VIAL IVPUSH ONE (21:28)
[2020-10-14] MEDS: Acetaminophen 325 MG Tab PO SCH ×3 (00:48→21:10)
[2020-10-14] MEDS: hydrALAZINE 25 MG Tab PO SCH ×3 (00:51→21:08)
[2020-10-14] MEDS: traZODone 50 MG Tab PO SCH ×2 (00:53→21:09)
[2020-10-14] MEDS: rOPINIRole 0.25 MG Tab PO SCH ×2 (00:53→21:09)
[2020-10-14] MEDS: Isosorbide Mononitrate 30 MG Tab.ER PO SCH ×3 (00:53→21:10)
[2020-10-14] MEDS: Carvedilol 12.5 MG Tab PO SCH ×3 (00:53→21:07)
[2020-10-14] MEDS: Heparin Sodium 5,000 Units/ML Vial SUBCUT SCH ×3 (02:57→17:23)
[2020-10-14] MEDS: Acetaminophen/HYDROcodone 325-10 MG Tab PO PRN ×2 (05:07→17:48)
--- NOTE | 2020-10-14 09:58 | PCM.PN ---
- General Info Date of Service: 10/14/20 Subjective Update: Patient has been periodically argumentative and/or tearful; has stated that "Drs Nabil and Dariel are not real doctors". States that she can not hear depending on the speaker, uses the fact that she does not have a hearing aid with a charged battery to state, "I do not have my hearing aid on with a good battery". Please refer to Nursing Notes for 10/13 and 10/14 for more details. Functional Status: Reports: Pain Controlled, Tolerating Diet, Urinating - Review of Systems General: Reports: Weakness HEENT: Reports: No Symptoms Pulmonary: Reports: No Symptoms Cardiovascular: Reports: No Symptoms Gastrointestinal: Reports: No Symptoms Genitourinary: Reports: No Symptoms Musculoskeletal: Reports: No Symptoms Skin: Reports: No Symptoms Neurological: Reports: No Symptoms Psychiatric: Reports: No Symptoms - Patient Data Vitals - Most Recent: Last Vital Signs Temp 36.8 C 10/14/20 03:55 Pulse 64 10/14/20 03:55 Resp 13 10/14/20 03:55 BP 137/64 10/14/20 03:55 Pulse Ox 93 L 10/14/20 03:55 Weight - Most Recent: 122.606 kg I&O - Last 24 Hours: Intake & Output 10/13/20 10/14/20 10/14/20 22:59 06:59 14:59 Intake Total 1077 910 Balance 1077 910 Lab Results Last 24 Hours: Laboratory Results - last 24 hr 10/13/20 10/13/20 10/13/20 Range/Units 06:26 06:26 06:26 WBC (3.98-10.04) K/mm3 RBC (3.98-5.22) M/mm3 Hgb (11.2-15.7) gm/dl Hct (34.1-44.9) % MCV (79.4-94.8) fl MCH (25.6-32.2) pg MCHC (32.2-35.5) g/dl RDW Std Deviation (36.4-46.3) fL Plt Count (182-369) K/mm3 MPV (9.4-12.3) fl Neut % (Auto) (34.0-71.1) % Lymph % (Auto) (19.3-51.7) % [place] % (Auto) (4.7-12.5) % Eos % (Auto) (0.7-5.8) Baso % (Auto) (0.1-1.2) % Neut # (Auto) (1.56-6.13) K/mm3 Lymph # (Auto) (1.18-3.74) K/mm3 [place] # (Auto) (0.24-0.36) K/mm3 Eos # (Auto) (0.04-0.36) K/mm3 Baso # (Auto) (0.01-0.08) K/mm3 Manual Slide Review Percent Retic (0.50-1.70) % Sodium (136-145) mEq/L Potassium (3.5-5.1) mEq/L Chloride (98-107) mEq/L Carbon Dioxide (21-32) mEq/L Anion Gap (5-15) BUN (7-18) mg/dL Creatinine (0.55-1.02) mg/dL Est Cr Clr Drug Dosing mL/min Estimated GFR (MDRD) (>60) mL/min BUN/Creatinine Ratio (14-18) Glucose (83-115) mg/dL POC Glucose (83-110) mg/dL Calcium (8.5-10.1) mg/dL Magnesium (1.8-2.4) mg/dl Ferritin 113 (8-252) ng/ml Procalcitonin 0.41 H ng/mL Mycoplasma pneumon IgM Negative (NEGATIVE) Blood Type Gel Antibody Screen Crossmatch 10/13/20 10/13/20 10/13/20 Range/Units 06:26 11:08 17:20 WBC (3.98-10.04) K/mm3 RBC (3.98-5.22) M/mm3 Hgb (11.2-15.7) gm/dl Hct (34.1-44.9) % MCV (79.4-94.8) fl MCH (25.6-32.2) pg MCHC (32.2-35.5) g/dl RDW Std Deviation (36.4-46.3) fL Plt Count (182-369) K/mm3 MPV (9.4-12.3) fl Neut % (Auto) (34.0-71.1) % Lymph % (Auto) (19.3-51.7) % [place] % (Auto) (4.7-12.5) % Eos % (Auto) (0.7-5.8) Baso % (Auto) (0.1-1.2) % Neut # (Auto) (1.56-6.13) K/mm3 Lymph # (Auto) (1.18-3.74) K/mm3 [place] # (Auto) (0.24-0.36) K/mm3 Eos # (Auto) (0.04-0.36) K/mm3 Baso # (Auto) (0.01-0.08) K/mm3 Manual Slide Review Percent Retic (0.50-1.70) % Sodium (136-145) mEq/L Potassium (3.5-5.1) mEq/L Chloride (98-107) mEq/L Carbon Dioxide (21-32) mEq/L Anion Gap (5-15) BUN (7-18) mg/dL Creatinine (0.55-1.02) mg/dL Est Cr Clr Drug Dosing mL/min Estimated GFR (MDRD) (>60) mL/min BUN/Creatinine Ratio (14-18) Glucose (83-115) mg/dL POC Glucose 188 H 193 H (83-110) mg/dL Calcium (8.5-10.1) mg/dL Magnesium (1.8-2.4) mg/dl Ferritin (8-252) ng/ml Procalcitonin ng/mL Mycoplasma pneumon IgM (NEGATIVE) Blood Type A POSITIVE Gel Antibody Screen Negative Crossmatch See Detail 10/14/20 10/14/20 10/14/20 Range/Units 00:17 05:15 05:15 WBC 14.22 H (3.98-10.04) K/mm3 RBC 3.61 L (3.98-5.22) M/mm3 Hgb 9.1 L D (11.2-15.7) gm/dl Hct 31.2 L (34.1-44.9) % MCV 86.4 D (79.4-94.8) fl MCH 25.2 L (25.6-32.2) pg MCHC 29.2 L (32.2-35.5) g/dl RDW Std Deviation 55.0 H (36.4-46.3) fL Plt Count 285 (182-369) K/mm3 MPV 9.5 (9.4-12.3) fl Neut % (Auto) 73.5 H (34.0-71.1) % Lymph % (Auto) 12.9 L (19.3-51.7) % [place] % (Auto) 9.8 (4.7-12.5) % Eos % (Auto) 3.4 (0.7-5.8) Baso % (Auto) 0.2 (0.1-1.2) % Neut # (Auto) 10.45 H (1.56-6.13) K/mm3 Lymph # (Auto) 1.83 (1.18-3.74) K/mm3 [place] # (Auto) 1.40 H (0.24-0.36) K/mm3 Eos # (Auto) 0.48 H (0.04-0.36) K/mm3 Baso # (Auto) 0.03 (0.01-0.08) K/mm3 Manual Slide Review Abnormal smear Percent Retic (0.50-1.70) % Sodium 137 (136-145) mEq/L Potassium 4.5 (3.5-5.1) mEq/L Chloride 100 (98-107) mEq/L Carbon Dioxide 24 (21-32) mEq/L Anion Gap 17.5 H (5-15) BUN 95 H (7-18) mg/dL Creatinine 3.8 H (0.55-1.02) mg/dL Est Cr Clr Drug Dosing 13.17 mL/min Estimated GFR (MDRD) 12 (>60) mL/min BUN/Creatinine Ratio 25.0 H (14-18) Glucose 144 H (83-115) mg/dL POC Glucose 133 H (83-110) mg/dL Calcium 8.7 (8.5-10.1) mg/dL Magnesium 2.3 (1.8-2.4) mg/dl Ferritin (8-252) ng/ml Procalcitonin ng/mL Mycoplasma pneumon IgM (NEGATIVE) Blood Type Gel Antibody Screen Crossmatch 10/14/20 Range/Units 05:15 WBC (3.98-10.04) K/mm3 RBC (3.98-5.22) M/mm3 Hgb (11.2-15.7) gm/dl Hct (34.1-44.9) % MCV (79.4-94.8) fl MCH (25.6-32.2) pg MCHC (32.2-35.5) g/dl RDW Std Deviation (36.4-46.3) fL Plt Count (182-369) K/mm3 MPV (9.4-12.3) fl Neut % (Auto) (34.0-71.1) % Lymph % (Auto) (19.3-51.7) % [place] % (Auto) (4.7-12.5) % Eos % (Auto) (0.7-5.8) Baso % (Auto) (0.1-1.2) % Neut # (Auto) (1.56-6.13) K/mm3 Lymph # (Auto) (1.18-3.74) K/mm3 [place] # (Auto) (0.24-0.36) K/mm3 Eos # (Auto) (0.04-0.36) K/mm3 Baso # (Auto) (0.01-0.08) K/mm3 Manual Slide Review Percent Retic 1.63 (0.50-1.70) % Sodium (136-145) mEq/L Potassium (3.5-5.1) mEq/L Chloride (98-107) mEq/L Carbon Dioxide (21-32) mEq/L Anion Gap (5-15) BUN (7-18) mg/dL Creatinine (0.55-1.02) mg/dL Est Cr Clr Drug Dosing mL/min Estimated GFR (MDRD) (>60) mL/min BUN/Creatinine Ratio (14-18) Glucose (83-115) mg/dL POC Glucose (83-110) mg/dL Calcium (8.5-10.1) mg/dL Magnesium (1.8-2.4) mg/dl Ferritin (8-252) ng/ml Procalcitonin ng/mL Mycoplasma pneumon IgM (NEGATIVE) Blood Type Gel Antibody Screen Crossmatch Med Orders - Current: Current Medications Acetaminophen (Acetaminophen 325 Mg Tab) 650 mg PO Q4H PRN PRN Reason: Pain Acetaminophen (Acetaminophen 325 Mg Tab) 650 mg PO [facility] Last Admin: 10/14/20 00:48 Dose: Not Given Documented by: Hydrocodone Bitart/Acetaminophen (Acetaminophen/Hydrocodone 325-10 Mg Tab) 1 tab PO Q4H PRN PRN Reason: Pain Last Admin: 10/14/20 05:07 Dose: 1 tab Documented by: Al Hydroxide/Mg Hydroxide (Aluminum Hydroxide/Magnesium Hydroxide/Simethicone Susp 30 Ml Cup) 30 ml PO TID PRN PRN Reason: Indigestion Albuterol/Ipratropium (Albuterol/Ipratropium 3.0-0.5 Mg/3 Ml Neb Soln) 3 ml NEB Q6HRRT PRN PRN Reason: SOB/Wheezing Bisacodyl (Bisacodyl 10 Mg Supp) 10 mg RECTAL DAILY PRN PRN Reason: Constipation Calcium Carbonate/Glycine (Calcium Carbonate 500 Mg Tab.Chew) 500 mg PO Q6H PRN PRN Reason: Indigestion Carvedilol (Carvedilol 12.5 Mg Tab) 25 mg PO BID [facility] Last Admin: 10/14/20 00:53 Dose: Not Given Documented by: Cholecalciferol (Cholecalciferol (Vitamin D3) 25 Mcg Tab) 50 mcg PO 0830 [facility] Last Admin: 10/13/20 08:48 Dose: Not Given Documented by: Diclofenac Sodium (Diclofenac Sodium 1% Gel 100 Gm Tube) 2 gm TOP QID [facility] Last Admin: 10/13/20 21:30 Dose: 1 applic Documented by: Famotidine (Famotidine 20 Mg Tab) 20 mg PO DAILY [facility] Last Admin: 10/13/20 08:49 Dose: Not Given Documented by: Fentanyl (Fentanyl 12 Mcg/Hr Transdermal Patch) 12 mcg TRDERM Q72H [facility] Last Admin: 10/12/20 12:22 Dose: 12 mcg Documented by: Fentanyl (Fentanyl 25 Mcg/Hr Transdermal Patch) 25 mcg TRDERM Q72H [facility] Last Admin: 10/12/20 12:22 Dose: 25 mcg Documented by: Heparin Sodium (Porcine) (Heparin Sodium 5,000 Units/Ml Vial) 5,000 units SUBCUT Q8H [facility] Last Admin: 10/14/20 02:57 Dose: Not Given Documented by: Hydralazine HCl (Hydralazine 25 Mg Tab) 50 mg PO BID [facility] Last Admin: 10/14/20 00:51 Dose: Not Given Documented by: Hydromorphone HCl (Hydromorphone 1 Mg/Ml Syringe) 1 mg IVPUSH Q2H PRN PRN Reason: Pain Last Admin: 10/13/20 20:52 Dose: 1 mg Documented by: Dextrose/Sodium Chloride (Dextrose 5%-1/2 Ns) 1,000 mls @ 75 mls/hr IV ASDIRECTED [facility] Last Admin: 10/13/20 05:12 Dose: 75 mls/hr Documented by: Cefepime HCl 1 gm/ Premix 50 mls @ 100 mls/hr IV Q24H [facility] Last Admin: 10/13/20 09:02 Dose: 100 mls/hr Documented by: Doxycycline Hyclate 100 mg/ (Sodium Chloride) 100 mls @ 100 mls/hr IV Q12H [facility] Last Admin: 10/13/20 20:52 Dose: 100 mls/hr Documented by: Insulin Human Lispro (Insulin Lispro 100 Unit/Ml) 0 unit SUBCUT QIDACANDBED [facility]; Protocol Last Admin: 10/14/20 07:33 Dose: Not Given Documented by: Isosorbide Mononitrate (Isosorbide Mononitrate 30 Mg Tab.Er) 30 mg PO BID [facility] Last Admin: 10/14/20 00:53 Dose: Not Given Documented by: Magnesium Hydroxide (Magnesium Hydroxide 400 Mg/5 Ml Susp 30 Ml Cup) 30 ml PO BEDTIME PRN PRN Reason: Indigestion Miscellaneous Information (Remove Fentanyl 12 Mcg/Hr Patch) 1 ea TRDERM Q72H [facility] Last Admin: 10/12/20 13:40 Dose: Not Given Documented by: Miscellaneous Information (Remove Fentanyl 25 Mcg/Hr Patch) 1 ea TRDERM Q72H [facility] Last Admin: 10/12/20 13:40 Dose: Not Given Documented by: Nitroglycerin (Nitroglycerin 0.4 Mg Tab.Sl) 0.4 mg SL ASDIRECTED PRN PRN Reason: Chest Pain Nystatin (Nystatin Topical Powder 15 Gm Bottle) 1 gm TOP QID [facility] Last Admin: 10/13/20 20:56 Dose: 1 applic Documented by: Ondansetron HCl (Ondansetron 4 Mg/2 Ml Sdv) 4 mg IVPUSH Q8H PRN PRN Reason: Nausea/Vomiting Ondansetron HCl (Ondansetron 4 Mg Tab.Dis) 4 mg PO Q6H PRN PRN Reason: Nausea Polyethylene Glycol (Polyethylene Glycol 3350 Powder 17 Gm Packet) 17 gm PO 0830 [facility] Last Admin: 10/13/20 08:48 Dose: Not Given Documented by: Ropinirole HCl (Ropinirole 0.25 Mg Tab) 0.25 mg PO BEDTIME [facility] Last Admin: 10/14/20 00:53 Dose: Not Given Documented by: Senna/Docusate Sodium (Docusate Sodium/Sennosides 50-8.6 Mg Tab) 1 tab PO BID [facility] Last Admin: 10/14/20 00:53 Dose: Not Given Documented by: Trazodone HCl (Trazodone 50 Mg Tab) 200 mg PO BEDTIME [facility] Last Admin: 10/14/20 00:53 Dose: Not Given Documented by: Discontinued Medications Carvedilol (Carvedilol 12.5 Mg Tab) 25 mg PO 829,1999 [facility] Last Admin: 10/12/20 09:59 Dose: 25 mg Documented by: Dicyclomine HCl (Dicyclomine 10 Mg Cap) 0 mg PO Q2H PRN PRN Reason: Congestion Furosemide (Furosemide 40 Mg/4 Ml Vial) 40 mg IVPUSH ASDIRECTED [facility] Stop: 10/14/20 18:00 Furosemide (Furosemide 40 Mg/4 Ml Vial) 40 mg IVPUSH NOW ONE Stop: 10/13/20 21:29 Last Admin: 10/13/20 21:38 Dose: 40 mg Documented by: Hydromorphone HCl (Hydromorphone 1 Mg/Ml Syringe) 1 mg IVPUSH ONETIME ONE Stop: 10/11/20 19:52 Last Admin: 10/11/20 20:08 Dose: 1 mg Documented by: Hydromorphone HCl (Hydromorphone 1 Mg/Ml Syringe) 1 mg IVPUSH ONETIME ONE Stop: 10/11/20 22:01 Last Admin: 10/11/20 22:13 Dose: 1 mg Documented by: Sodium Chloride (Normal Saline) 1,000 mls @ 100 mls/hr IV ASDIRECTED [facility] Last Admin: 10/11/20 20:09 Dose: 100 mls/hr Documented by: Piperacillin Sod/Tazobactam (Sod 2.25 gm/ Sodium Chloride) 100 mls @ 25 mls/hr IV Q6H [facility] Last Admin: 10/12/20 04:18 Dose: 25 mls/hr Documented by: Piperacillin Sod/Tazobactam (Sod 4.5 gm/ Sodium Chloride) 100 mls @ 25 mls/hr IV Q8H [facility] Last Admin: 10/12/20 10:11 Dose: 25 mls/hr Documented by: Piperacillin Sod/Tazobactam (Sod 4.5 gm/ Sodium Chloride) 100 mls @ 25 mls/hr IV Q12H [facility] Last Admin: 10/12/20 14:57 Dose: Not Given Documented by: Piperacillin Sod/Tazobactam (Sod 4.5 gm/ Sodium Chloride) 100 mls @ 25 mls/hr IV Q12H [facility] Vancomycin HCl 2 gm/ Sodium (Chloride) 500 mls @ 250 mls/hr IV ONETIME ONE Stop: 10/12/20 20:59 Last Admin: 10/12/20 19:36 Dose: 250 mls/hr Documented by: Vancomycin HCl 2 gm/ Sodium (Chloride) 500 mls @ 250 mls/hr IV ONETIME ONE Stop: 10/12/20 21:29 Last Admin: 10/12/20 19:39 Dose: Not Given Documented by: Sodium Chloride (Normal Saline) Confirm Administered Dose 500 mls @ as directed .ROUTE .STK-MED ONE Stop: 10/13/20 17:08 Last Admin: 10/13/20 20:51 Dose: Not Given Documented by: Insulin Human Lispro (Insulin Lispro 100 Unit/Ml) 15 unit SUBCUT 0800,1200,1700 [facility] Last Admin: 10/12/20 18:48 Dose: Not Given Documented by: Insulin Human Lispro (Insulin Lispro 100 Unit/Ml) 0 unit SUBCUT Q6H [facility]; Protocol Last Admin: 10/13/20 20:51 Dose: Not Given Documented by: Insulin Human Lispro (Insulin Lispro 100 Unit/Ml) 0 unit SUBCUT Q6H [facility]; Protocol Last Admin: 10/14/20 06:50 Dose: Not Given Documented by: Lorazepam (Lorazepam 2 Mg/Ml Sdv) 1 mg IVPUSH ONETIME STA Stop: 10/11/20 22:58 Last Admin: 10/11/20 23:04 Dose: 1 mg Documented by: Ondansetron HCl (Ondansetron 4 Mg/2 Ml Sdv) 4 mg IVPUSH ONETIME ONE Stop: 10/11/20 19:52 Last Admin: 10/11/20 20:09 Dose: 4 mg Documented by: Vancomycin HCl (Pharmacy To Dose - Vancomycin) 1 dose .XX ASDIRECTED [facility] Vancomycin HCl (Vancomycin 1 Gm Sdv) Confirm Administered Dose 1 gm .ROUTE .STK- MED ONE Stop: 10/12/20 19:22 Last Admin: 10/12/20 19:38 Dose: Not Given Documented by: - Exam Quality Assessment: Supplemental Oxygen, DVT Prophylaxis General: Alert, Oriented HEENT: Pupils Equal, Pupils Reactive, EOMI Neck: Trachea Midline, No JVD Lungs: Normal Respiratory Effort Cardiovascular: Regular Rate, Regular Rhythm GI/Abdominal Exam: Normal Bowel Sounds, Soft, Non-Tender (Female) Exam: Deferred Back Exam: Normal Inspection Extremities: Normal Inspection, Normal Capillary Refill Skin: Warm Neurological: No New Focal Deficit, Normal Speech Psy/Mental Status: Alert - Patient Data Lab Results Last 24 hrs: Laboratory Results - last 24 hr 10/13/20 10/13/20 10/13/20 Range/Units 06:26 06:26 06:26 WBC (3.98-10.04) K/mm3 RBC (3.98-5.22) M/mm3 Hgb (11.2-15.7) gm/dl Hct (34.1-44.9) % MCV (79.4-94.8) fl MCH (25.6-32.2) pg MCHC (32.2-35.5) g/dl RDW Std Deviation (36.4-46.3) fL Plt Count (182-369) K/mm3 MPV (9.4-12.3) fl Neut % (Auto) (34.0-71.1) % Lymph % (Auto) (19.3-51.7) % [place] % (Auto) (4.7-12.5) % Eos % (Auto) (0.7-5.8) Baso % (Auto) (0.1-1.2) % Neut # (Auto) (1.56-6.13) K/mm3 Lymph # (Auto) (1.18-3.74) K/mm3 [place] # (Auto) (0.24-0.36) K/mm3 Eos # (Auto) (0.04-0.36) K/mm3 Baso # (Auto) (0.01-0.08) K/mm3 Manual Slide Review Percent Retic (0.50-1.70) % Sodium (136-145) mEq/L Potassium (3.5-5.1) mEq/L Chloride (98-107) mEq/L Carbon Dioxide (21-32) mEq/L Anion Gap (5-15) BUN (7-18) mg/dL Creatinine (0.55-1.02) mg/dL Est Cr Clr Drug Dosing mL/min Estimated GFR (MDRD) (>60) mL/min BUN/Creatinine Ratio (14-18) Glucose (83-115) mg/dL POC Glucose (83-110) mg/dL Calcium (8.5-10.1) mg/dL Magnesium (1.8-2.4) mg/dl Ferritin 113 (8-252) ng/ml Procalcitonin 0.41 H ng/mL Mycoplasma pneumon IgM Negative (NEGATIVE) Blood Type Gel Antibody Screen Crossmatch 10/13/20 10/13/20 10/13/20 Range/Units 06:26 11:08 17:20 WBC (3.98-10.04) K/mm3 RBC (3.98-5.22) M/mm3 Hgb (11.2-15.7) gm/dl Hct (34.1-44.9) % MCV (79.4-94.8) fl MCH (25.6-32.2) pg MCHC (32.2-35.5) g/dl RDW Std Deviation (36.4-46.3) fL Plt Count (182-369) K/mm3 MPV (9.4-12.3) fl Neut % (Auto) (34.0-71.1) % Lymph % (Auto) (19.3-51.7) % [place] % (Auto) (4.7-12.5) % Eos % (Auto) (0.7-5.8) Baso % (Auto) (0.1-1.2) % Neut # (Auto) (1.56-6.13) K/mm3 Lymph # (Auto) (1.18-3.74) K/mm3 [place] # (Auto) (0.24-0.36) K/mm3 Eos # (Auto) (0.04-0.36) K/mm3 Baso # (Auto) (0.01-0.08) K/mm3 Manual Slide Review Percent Retic (0.50-1.70) % Sodium (136-145) mEq/L Potassium (3.5-5.1) mEq/L Chloride (98-107) mEq/L Carbon Dioxide (21-32) mEq/L Anion Gap (5-15) BUN (7-18) mg/dL Creatinine (0.55-1.02) mg/dL Est Cr Clr Drug Dosing mL/min Estimated GFR (MDRD) (>60) mL/min BUN/Creatinine Ratio (14-18) Glucose (83-115) mg/dL POC Glucose 188 H 193 H (83-110) mg/dL Calcium (8.5-10.1) mg/dL Magnesium (1.8-2.4) mg/dl Ferritin (8-252) ng/ml Procalcitonin ng/mL Mycoplasma pneumon IgM (NEGATIVE) Blood Type A POSITIVE Gel Antibody Screen Negative Crossmatch See Detail 10/14/20 10/14/20 10/14/20 Range/Units 00:17 05:15 05:15 WBC 14.22 H (3.98-10.04) K/mm3 RBC 3.61 L (3.98-5.22) M/mm3 Hgb 9.1 L D (11.2-15.7) gm/dl Hct 31.2 L (34.1-44.9) % MCV 86.4 D (79.4-94.8) fl MCH 25.2 L (25.6-32.2) pg MCHC 29.2 L (32.2-35.5) g/dl RDW Std Deviation 55.0 H (36.4-46.3) fL Plt Count 285 (182-369) K/mm3 MPV 9.5 (9.4-12.3) fl Neut % (Auto) 73.5 H (34.0-71.1) % Lymph % (Auto) 12.9 L (19.3-51.7) % [place] % (Auto) 9.8 (4.7-12.5) % Eos % (Auto) 3.4 (0.7-5.8) Baso % (Auto) 0.2 (0.1-1.2) % Neut # (Auto) 10.45 H (1.56-6.13) K/mm3 Lymph # (Auto) 1.83 (1.18-3.74) K/mm3 [place] # (Auto) 1.40 H (0.24-0.36) K/mm3 Eos # (Auto) 0.48 H (0.04-0.36) K/mm3 Baso # (Auto) 0.03 (0.01-0.08) K/mm3 Manual Slide Review Abnormal smear Percent Retic (0.50-1.70) % Sodium 137 (136-145) mEq/L Potassium 4.5 (3.5-5.1) mEq/L Chloride 100 (98-107) mEq/L Carbon Dioxide 24 (21-32) mEq/L Anion Gap 17.5 H (5-15) BUN 95 H (7-18) mg/dL Creatinine 3.8 H (0.55-1.02) mg/dL Est Cr Clr Drug Dosing 13.17 mL/min Estimated GFR (MDRD) 12 (>60) mL/min BUN/Creatinine Ratio 25.0 H (14-18) Glucose 144 H (83-115) mg/dL POC Glucose 133 H (83-110) mg/dL Calcium 8.7 (8.5-10.1) mg/dL Magnesium 2.3 (1.8-2.4) mg/dl Ferritin (8-252) ng/ml Procalcitonin ng/mL Mycoplasma pneumon IgM (NEGATIVE) Blood Type Gel Antibody Screen Crossmatch 10/14/20 Range/Units 05:15 WBC (3.98-10.04) K/mm3 RBC (3.98-5.22) M/mm3 Hgb (11.2-15.7) gm/dl Hct (34.1-44.9) % MCV (79.4-94.8) fl MCH (25.6-32.2) pg MCHC (32.2-35.5) g/dl RDW Std Deviation (36.4-46.3) fL Plt Count (182-369) K/mm3 MPV (9.4-12.3) fl Neut % (Auto) (34.0-71.1) % Lymph % (Auto) (19.3-51.7) % [place] % (Auto) (4.7-12.5) % Eos % (Auto) (0.7-5.8) Baso % (Auto) (0.1-1.2) % Neut # (Auto) (1.56-6.13) K/mm3 Lymph # (Auto) (1.18-3.74) K/mm3 [place] # (Auto) (0.24-0.36) K/mm3 Eos # (Auto) (0.04-0.36) K/mm3 Baso # (Auto) (0.01-0.08) K/mm3 Manual Slide Review Percent Retic 1.63 (0.50-1.70) % Sodium (136-145) mEq/L Potassium (3.5-5.1) mEq/L Chloride (98-107) mEq/L Carbon Dioxide (21-32) mEq/L Anion Gap (5-15) BUN (7-18) mg/dL Creatinine (0.55-1.02) mg/dL Est Cr Clr Drug Dosing mL/min Estimated GFR (MDRD) (>60) mL/min BUN/Creatinine Ratio (14-18) Glucose (83-115) mg/dL POC Glucose (83-110) mg/dL Calcium (8.5-10.1) mg/dL Magnesium (1.8-2.4) mg/dl Ferritin (8-252) ng/ml Procalcitonin ng/mL Mycoplasma pneumon IgM (NEGATIVE) Blood Type Gel Antibody Screen Crossmatch Result Diagrams: 10/14/20 05:15 10/14/20 05:15 Sepsis Event Note - Evaluation Sepsis Screening Result: No Definite Risk - Focused Exam Vital Signs: Vital Signs Temp Pulse Pulse Resp BP BP Pulse Ox 10/14/20 03:55 36.8 C 64 13 137/64 93 L 10/14/20 00:34 36.7 C 66 12 115/59 L 95 10/14/20 00:10 36.7 C 66 12 115/59 L 95 - Problem List & Annotations (1) Abdominal pain of unknown etiology SNOMED Code(s): 143974732 Code(s): R10.9 - UNSPECIFIED ABDOMINAL PAIN Status: Resolved Current Visit: Yes (2) Chronic renal insufficiency SNOMED Code(s): 023301800 Code(s): N18.9 - CHRONIC KIDNEY DISEASE, UNSPECIFIED Status: Chronic Priority: Medium Current Visit: Yes Qualifiers: Chronic kidney disease stage: stage 4 (severe) Qualified Code(s): N18.4 - Chronic kidney disease, stage 4 (severe) (3) Hyperglycemia due to type 2 diabetes mellitus SNOMED Code(s): 120627792881430, 568766808726085 Code(s): E11.65 - TYPE 2 DIABETES MELLITUS WITH HYPERGLYCEMIA Status: Chronic Current Visit: Yes (4) 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 SNOMED Code(s): 531845416, 201654196 Code(s): C25.9 - MALIGNANT NEOPLASM OF PANCREAS, UNSPECIFIED Status: Chronic Current Visit: Yes (5) Congestive heart failure SNOMED Code(s): 20866392 Code(s): I50.9 - HEART FAILURE, UNSPECIFIED Status: Chronic Priority: Medium Current Visit: No (6) Abdominal pain SNOMED Code(s): 71096049 Code(s): R10.9 - UNSPECIFIED ABDOMINAL PAIN Status: Resolved Current Visit: No Qualifiers: Abdominal location: unspecified location Qualified Code(s): R10.9 - Unspecified abdominal pain (7) Acute hypoxemic respiratory failure SNOMED Code(s): 701751324 Code(s): J96.01 - ACUTE RESPIRATORY FAILURE WITH HYPOXIA Status: Acute Current Visit: No (8) Acute on chronic renal insufficiency SNOMED Code(s): 631925592 Code(s): N28.9 - DISORDER OF KIDNEY AND URETER, UNSPECIFIED; N18.9 - CHRONIC KIDNEY DISEASE, UNSPECIFIED Status: Acute Priority: High Current Visit: No (9) Infiltrate of lower lobe of right lung present on imaging study SNOMED Code(s): 177996201 Code(s): R91.8 - OTHER NONSPECIFIC ABNORMAL FINDING OF LUNG FIELD Status: Acute Priority: High Current Visit: Yes (10) Anemia SNOMED Code(s): 198780613 Code(s): D64.9 - ANEMIA, UNSPECIFIED Status: Acute Priority: High Current Visit: Yes Qualifiers: Anemia type: unspecified type Qualified Code(s): D64.9 - Anemia, unspecified - Problem List Review Problem List Initiated/Reviewed/Updated: Yes - My Orders Last 24 Hours: My Active Orders 10/13/20 09:00 Cefepime [Maxipime in D5W 1 GM/50 ML] 1 gm Premix Bag 1 bag IV Q24H 10/13/20 16:23 Bladder Scan [RC] ASDIRECTED 10/13/20 20:00 Doxycycline [Vibramycin] 100 mg Sodium Chloride 0.9% [Normal Saline] 100 ml IV Q12H 10/14/20 07:17 Blood Glucose Check, Bedside [RC] ASDIRECTED 10/14/20 07:30 Insulin Lispro [HumaLOG] See Protocol SUBCUT QIDACANDBED 10/14/20 09:16 Notify Provider Consults [RC] ASDIRECTED Consult to Physician [CONS] Routine 10/15/20 05:00 BASIC METABOLIC PANEL,BMP [CHEM] DAILY CBC WITH AUTO DIFF [HEME] DAILY MAGNESIUM [CHEM] DAILY - Assessment Assessment:: 10/13/20 In to see Ceci. She is laying in bed and is quite sleepy. We discussed her plan of care. She reports her abdominal pain has resolved. She is currently n.p.o. awaiting HIDA scan. Unfortunately radiology contacted us to report patient is unable to have HIDA scan because she had a fentanyl patch on and needs to be off of this for up to 4 hours prior to scan. We are unable to obtain any more nuclear material as this has to be ordered and will before those 4 hours are up. We will discuss plan of care further with Dr. Ferrer, consulting general surgeon. Patient's white count has improved to 15.88. Unfortunately hemoglobin continues to trend down and is 7 today. Discussed plan for transfusion with patient and she refuses stating that she does not want blood. Advised patient that this would likely improve her renal function and make her feel better but the patient still refuses. We will repeat HH today and continue to discuss transfusion with patient. Renal function today has decreased. Creatinine is now 3.4, down from 2.9. GFR is 13. CRP is 19.5. Lipase 29. Hemoglobin A1c was obtained is 5.8. Discussed IV antibiotics with pharmacy and Dr. Vieira, attending hospitalist as patient has worsening renal function and MRSA screen was negative. We will continue cefepime and switch patient to twice daily doxycycline for now. Continue to monitor patient. 10/14/20 Patient lost IV access, refuses restart; declining any additional treatment. Currently she is free of abdominal pain. Has had a stable HgB post 2 unit PRBCs. Impression: Abdominal pain, NOS Refusing HIDA scan or additional testing. Refusing re-start of IV site. Pancreatic CA, stage 4; pain controlled Anemia, S/P 2 units PRBCs Acute confusion, resolved Plan: Home meds Pancreatic CA treatment HIDA scan, etc as OPif agreeable Follow Up with PCP/Oncology at [facility] Await call back from [facility] regarding DC. - Plan Plan:: LOS update, 10/13/20 Hospital Course has been prolonged as acute problems have required attention eg delay in HIDA scan based on protocol and availability; also patient's reluctance to consent to blood transfusion; as well as acute on chronic renal failure. Thus the delay has many layers, anticipate DC on or after 10/17/20 as per the HIDA scan results. LOS update, 10/14/20 Patient is refusing any additional care; [facility] has been notified, we are awaiting a call back from the facility.
[2020-10-14] MEDS: Doxycycline 100 MG in Sodium Chloride 0.9% 100 ML IV SCH ×4 (10:36→23:02)
[2020-10-14] MEDS: Famotidine 20 MG Tab PO SCH (10:36)
[2020-10-14] MEDS: Cholecalciferol (Vitamin D3) 25 MCG Tab PO SCH (10:39)
[2020-10-14] MEDS: Polyethylene Glycol 3350 Powder 17 GM Packet PO SCH (10:39)
[2020-10-14] MEDS: Diclofenac Sodium 1% Gel 100 GM Tube TOP SCH ×4 (10:41→21:14)
--- NOTE | 2020-10-14 12:02 | PCM.PN ---
- General Info Date of Service: 10/14/20 Admission Dx/Problem (Free Text): Admission Diagnosis/Problem Admission Diagnosis/Problem Abdominal pain Subjective Update: patient is tolerating diet, had bowel movement. COntinues to deny any abdominal pain. She had slight nausea with position change this AM but no emesis. She feels fine as far as her abdomen is concerned Functional Status: Reports: Pain Controlled, Tolerating Diet, Ambulating, U rinating - Review of Systems General: Reports: No Symptoms HEENT: Reports: No Symptoms Pulmonary: Reports: No Symptoms Cardiovascular: Reports: No Symptoms Gastrointestinal: Reports: No Symptoms Genitourinary: Reports: No Symptoms - Patient Data Vitals - Most Recent: Last Vital Signs Temp 98.2 F 10/14/20 03:55 Pulse 63 10/14/20 10:35 Resp 14 10/14/20 10:35 BP 138/78 10/14/20 10:39 Pulse Ox 94 L 10/14/20 10:35 Weight - Most Recent: 122.606 kg I&O - Last 24 Hours: Intake & Output 10/13/20 10/14/20 10/14/20 22:59 06:59 14:59 Intake Total 1077 910 Balance 1077 910 Lab Results Last 24 Hours: Laboratory Results - last 24 hr 10/13/20 10/13/20 10/13/20 Range/Units 06:26 06:26 06:26 WBC (3.98-10.04) K/mm3 RBC (3.98-5.22) M/mm3 Hgb (11.2-15.7) gm/dl Hct (34.1-44.9) % MCV (79.4-94.8) fl MCH (25.6-32.2) pg MCHC (32.2-35.5) g/dl RDW Std Deviation (36.4-46.3) fL Plt Count (182-369) K/mm3 MPV (9.4-12.3) fl Neut % (Auto) (34.0-71.1) % Lymph % (Auto) (19.3-51.7) % [place] % (Auto) (4.7-12.5) % Eos % (Auto) (0.7-5.8) Baso % (Auto) (0.1-1.2) % Neut # (Auto) (1.56-6.13) K/mm3 Lymph # (Auto) (1.18-3.74) K/mm3 [place] # (Auto) (0.24-0.36) K/mm3 Eos # (Auto) (0.04-0.36) K/mm3 Baso # (Auto) (0.01-0.08) K/mm3 Manual Slide Review Percent Retic (0.50-1.70) % Sodium (136-145) mEq/L Potassium (3.5-5.1) mEq/L Chloride (98-107) mEq/L Carbon Dioxide (21-32) mEq/L Anion Gap (5-15) BUN (7-18) mg/dL Creatinine (0.55-1.02) mg/dL Est Cr Clr Drug Dosing mL/min Estimated GFR (MDRD) (>60) mL/min BUN/Creatinine Ratio (14-18) Glucose (83-115) mg/dL POC Glucose (83-110) mg/dL Calcium (8.5-10.1) mg/dL Magnesium (1.8-2.4) mg/dl Ferritin 113 (8-252) ng/ml Procalcitonin 0.41 H ng/mL Mycoplasma pneumon IgM Negative (NEGATIVE) Blood Type Gel Antibody Screen Crossmatch 10/13/20 10/13/20 10/14/20 Range/Units 06:26 17:20 00:17 WBC (3.98-10.04) K/mm3 RBC (3.98-5.22) M/mm3 Hgb (11.2-15.7) gm/dl Hct (34.1-44.9) % MCV (79.4-94.8) fl MCH (25.6-32.2) pg MCHC (32.2-35.5) g/dl RDW Std Deviation (36.4-46.3) fL Plt Count (182-369) K/mm3 MPV (9.4-12.3) fl Neut % (Auto) (34.0-71.1) % Lymph % (Auto) (19.3-51.7) % [place] % (Auto) (4.7-12.5) % Eos % (Auto) (0.7-5.8) Baso % (Auto) (0.1-1.2) % Neut # (Auto) (1.56-6.13) K/mm3 Lymph # (Auto) (1.18-3.74) K/mm3 [place] # (Auto) (0.24-0.36) K/mm3 Eos # (Auto) (0.04-0.36) K/mm3 Baso # (Auto) (0.01-0.08) K/mm3 Manual Slide Review Percent Retic (0.50-1.70) % Sodium (136-145) mEq/L Potassium (3.5-5.1) mEq/L Chloride (98-107) mEq/L Carbon Dioxide (21-32) mEq/L Anion Gap (5-15) BUN (7-18) mg/dL Creatinine (0.55-1.02) mg/dL Est Cr Clr Drug Dosing mL/min Estimated GFR (MDRD) (>60) mL/min BUN/Creatinine Ratio (14-18) Glucose (83-115) mg/dL POC Glucose 193 H 133 H (83-110) mg/dL Calcium (8.5-10.1) mg/dL Magnesium (1.8-2.4) mg/dl Ferritin (8-252) ng/ml Procalcitonin ng/mL Mycoplasma pneumon IgM (NEGATIVE) Blood Type A POSITIVE Gel Antibody Screen Negative Crossmatch See Detail 10/14/20 10/14/20 10/14/20 Range/Units 05:15 05:15 05:15 WBC 14.22 H (3.98-10.04) K/mm3 RBC 3.61 L (3.98-5.22) M/mm3 Hgb 9.1 L D (11.2-15.7) gm/dl Hct 31.2 L (34.1-44.9) % MCV 86.4 D (79.4-94.8) fl MCH 25.2 L (25.6-32.2) pg MCHC 29.2 L (32.2-35.5) g/dl RDW Std Deviation 55.0 H (36.4-46.3) fL Plt Count 285 (182-369) K/mm3 MPV 9.5 (9.4-12.3) fl Neut % (Auto) 73.5 H (34.0-71.1) % Lymph % (Auto) 12.9 L (19.3-51.7) % [place] % (Auto) 9.8 (4.7-12.5) % Eos % (Auto) 3.4 (0.7-5.8) Baso % (Auto) 0.2 (0.1-1.2) % Neut # (Auto) 10.45 H (1.56-6.13) K/mm3 Lymph # (Auto) 1.83 (1.18-3.74) K/mm3 [place] # (Auto) 1.40 H (0.24-0.36) K/mm3 Eos # (Auto) 0.48 H (0.04-0.36) K/mm3 Baso # (Auto) 0.03 (0.01-0.08) K/mm3 Manual Slide Review Abnormal smear Percent Retic 1.63 (0.50-1.70) % Sodium 137 (136-145) mEq/L Potassium 4.5 (3.5-5.1) mEq/L Chloride 100 (98-107) mEq/L Carbon Dioxide 24 (21-32) mEq/L Anion Gap 17.5 H (5-15) BUN 95 H (7-18) mg/dL Creatinine 3.8 H (0.55-1.02) mg/dL Est Cr Clr Drug Dosing 13.17 mL/min Estimated GFR (MDRD) 12 (>60) mL/min BUN/Creatinine Ratio 25.0 H (14-18) Glucose 144 H (83-115) mg/dL POC Glucose (83-110) mg/dL Calcium 8.7 (8.5-10.1) mg/dL Magnesium 2.3 (1.8-2.4) mg/dl Ferritin (8-252) ng/ml Procalcitonin ng/mL Mycoplasma pneumon IgM (NEGATIVE) Blood Type Gel Antibody Screen Crossmatch Med Orders - Current: Current Medications Acetaminophen (Acetaminophen 325 Mg Tab) 650 mg PO Q4H PRN PRN Reason: Pain Acetaminophen (Acetaminophen 325 Mg Tab) 650 mg PO [facility] Last Admin: 10/14/20 10:39 Dose: Not Given Documented by: Hydrocodone Bitart/Acetaminophen (Acetaminophen/Hydrocodone 325-10 Mg Tab) 1 tab PO Q4H PRN PRN Reason: Pain Last Admin: 10/14/20 05:07 Dose: 1 tab Documented by: Al Hydroxide/Mg Hydroxide (Aluminum Hydroxide/Magnesium Hydroxide/Simethicone Susp 30 Ml Cup) 30 ml PO TID PRN PRN Reason: Indigestion Albuterol/Ipratropium (Albuterol/Ipratropium 3.0-0.5 Mg/3 Ml Neb Soln) 3 ml NEB Q6HRRT PRN PRN Reason: SOB/Wheezing Bisacodyl (Bisacodyl 10 Mg Supp) 10 mg RECTAL DAILY PRN PRN Reason: Constipation Calcium Carbonate/Glycine (Calcium Carbonate 500 Mg Tab.Chew) 500 mg PO Q6H PRN PRN Reason: Indigestion Carvedilol (Carvedilol 12.5 Mg Tab) 25 mg PO BID [facility] Last Admin: 10/14/20 10:31 Dose: 25 mg Documented by: Cholecalciferol (Cholecalciferol (Vitamin D3) 25 Mcg Tab) 50 mcg PO 0830 [facility] Last Admin: 10/14/20 10:39 Dose: 50 mcg Documented by: Diclofenac Sodium (Diclofenac Sodium 1% Gel 100 Gm Tube) 2 gm TOP QID [facility] Last Admin: 10/14/20 10:41 Dose: 1 applic Documented by: Famotidine (Famotidine 20 Mg Tab) 20 mg PO DAILY [facility] Last Admin: 10/14/20 10:36 Dose: 20 mg Documented by: Fentanyl (Fentanyl 12 Mcg/Hr Transdermal Patch) 12 mcg TRDERM Q72H [facility] Last Admin: 10/12/20 12:22 Dose: 12 mcg Documented by: Fentanyl (Fentanyl 25 Mcg/Hr Transdermal Patch) 25 mcg TRDERM Q72H [facility] Last Admin: 10/12/20 12:22 Dose: 25 mcg Documented by: Heparin Sodium (Porcine) (Heparin Sodium 5,000 Units/Ml Vial) 5,000 units SUBCUT Q8H [facility] Last Admin: 10/14/20 10:42 Dose: Not Given Documented by: Hydralazine HCl (Hydralazine 25 Mg Tab) 50 mg PO BID [facility] Last Admin: 10/14/20 10:39 Dose: 50 mg Documented by: Hydromorphone HCl (Hydromorphone 1 Mg/Ml Syringe) 1 mg IVPUSH Q2H PRN PRN Reason: Pain Last Admin: 10/13/20 20:52 Dose: 1 mg Documented by: Dextrose/Sodium Chloride (Dextrose 5%-1/2 Ns) 1,000 mls @ 75 mls/hr IV ASDIRECTED [facility] Last Admin: 10/13/20 05:12 Dose: 75 mls/hr Documented by: Cefepime HCl 1 gm/ Premix 50 mls @ 100 mls/hr IV Q24H [facility] Last Admin: 10/13/20 09:02 Dose: 100 mls/hr Documented by: Doxycycline Hyclate 100 mg/ (Sodium Chloride) 100 mls @ 100 mls/hr IV Q12H [facility] Last Admin: 10/14/20 10:36 Dose: 100 mls/hr Documented by: Insulin Human Lispro (Insulin Lispro 100 Unit/Ml) 0 unit SUBCUT QIDACANDBED [facility]; Protocol Last Admin: 10/14/20 07:33 Dose: Not Given Documented by: Isosorbide Mononitrate (Isosorbide Mononitrate 30 Mg Tab.Er) 30 mg PO BID [facility] Last Admin: 10/14/20 10:38 Dose: 30 mg Documented by: Magnesium Hydroxide (Magnesium Hydroxide 400 Mg/5 Ml Susp 30 Ml Cup) 30 ml PO BEDTIME PRN PRN Reason: Indigestion Miscellaneous Information (Remove Fentanyl 12 Mcg/Hr Patch) 1 ea TRDERM Q72H [facility] Last Admin: 10/12/20 13:40 Dose: Not Given Documented by: Miscellaneous Information (Remove Fentanyl 25 Mcg/Hr Patch) 1 ea TRDERM Q72H [facility] Last Admin: 10/12/20 13:40 Dose: Not Given Documented by: Nitroglycerin (Nitroglycerin 0.4 Mg Tab.Sl) 0.4 mg SL ASDIRECTED PRN PRN Reason: Chest Pain Nystatin (Nystatin Topical Powder 15 Gm Bottle) 1 gm TOP QID [facility] Last Admin: 10/13/20 20:56 Dose: 1 applic Documented by: Ondansetron HCl (Ondansetron 4 Mg/2 Ml Sdv) 4 mg IVPUSH Q8H PRN PRN Reason: Nausea/Vomiting Last Admin: 10/14/20 11:00 Dose: 4 mg Documented by: Ondansetron HCl (Ondansetron 4 Mg Tab.Dis) 4 mg PO Q6H PRN PRN Reason: Nausea Polyethylene Glycol (Polyethylene Glycol 3350 Powder 17 Gm Packet) 17 gm PO 0830 [facility] Last Admin: 10/14/20 10:39 Dose: Not Given Documented by: Ropinirole HCl (Ropinirole 0.25 Mg Tab) 0.25 mg PO BEDTIME [facility] Last Admin: 10/14/20 00:53 Dose: Not Given Documented by: Senna/Docusate Sodium (Docusate Sodium/Sennosides 50-8.6 Mg Tab) 1 tab PO BID [facility] Last Admin: 10/14/20 10:40 Dose: 1 tab Documented by: Trazodone HCl (Trazodone 50 Mg Tab) 200 mg PO BEDTIME [facility] Last Admin: 10/14/20 00:53 Dose: Not Given Documented by: Discontinued Medications Carvedilol (Carvedilol 12.5 Mg Tab) 25 mg PO [facility] Last Admin: 10/12/20 09:59 Dose: 25 mg Documented by: Dicyclomine HCl (Dicyclomine 10 Mg Cap) 0 mg PO Q2H PRN PRN Reason: Congestion Furosemide (Furosemide 40 Mg/4 Ml Vial) 40 mg IVPUSH ASDIRECTED [facility] Stop: 10/14/20 18:00 Furosemide (Furosemide 40 Mg/4 Ml Vial) 40 mg IVPUSH NOW ONE Stop: 10/13/20 21:29 Last Admin: 10/13/20 21:38 Dose: 40 mg Documented by: Hydromorphone HCl (Hydromorphone 1 Mg/Ml Syringe) 1 mg IVPUSH ONETIME ONE Stop: 10/11/20 19:52 Last Admin: 10/11/20 20:08 Dose: 1 mg Documented by: Hydromorphone HCl (Hydromorphone 1 Mg/Ml Syringe) 1 mg IVPUSH ONETIME ONE Stop: 10/11/20 22:01 Last Admin: 10/11/20 22:13 Dose: 1 mg Documented by: Sodium Chloride (Normal Saline) 1,000 mls @ 100 mls/hr IV ASDIRECTED [facility] Last Admin: 10/11/20 20:09 Dose: 100 mls/hr Documented by: Piperacillin Sod/Tazobactam (Sod 2.25 gm/ Sodium Chloride) 100 mls @ 25 mls/hr IV Q6H [facility] Last Admin: 10/12/20 04:18 Dose: 25 mls/hr Documented by: Piperacillin Sod/Tazobactam (Sod 4.5 gm/ Sodium Chloride) 100 mls @ 25 mls/hr IV Q8H [facility] Last Admin: 10/12/20 10:11 Dose: 25 mls/hr Documented by: Piperacillin Sod/Tazobactam (Sod 4.5 gm/ Sodium Chloride) 100 mls @ 25 mls/hr IV Q12H [facility] Last Admin: 10/12/20 14:57 Dose: Not Given Documented by: Piperacillin Sod/Tazobactam (Sod 4.5 gm/ Sodium Chloride) 100 mls @ 25 mls/hr IV Q12H [facility] Vancomycin HCl 2 gm/ Sodium (Chloride) 500 mls @ 250 mls/hr IV ONETIME ONE Stop: 10/12/20 20:59 Last Admin: 10/12/20 19:36 Dose: 250 mls/hr Documented by: Vancomycin HCl 2 gm/ Sodium (Chloride) 500 mls @ 250 mls/hr IV ONETIME ONE Stop: 10/12/20 21:29 Last Admin: 10/12/20 19:39 Dose: Not Given Documented by: Sodium Chloride (Normal Saline) Confirm Administered Dose 500 mls @ as directed .ROUTE .STK-MED ONE Stop: 10/13/20 17:08 Last Admin: 10/13/20 20:51 Dose: Not Given Documented by: Insulin Human Lispro (Insulin Lispro 100 Unit/Ml) 15 unit SUBCUT 0800,1200,1700 [facility] Last Admin: 10/12/20 18:48 Dose: Not Given Documented by: Insulin Human Lispro (Insulin Lispro 100 Unit/Ml) 0 unit SUBCUT Q6H [facility]; Protocol Last Admin: 10/13/20 20:51 Dose: Not Given Documented by: Insulin Human Lispro (Insulin Lispro 100 Unit/Ml) 0 unit SUBCUT Q6H [facility]; Protocol Last Admin: 10/14/20 06:50 Dose: Not Given Documented by: Lorazepam (Lorazepam 2 Mg/Ml Sdv) 1 mg IVPUSH ONETIME STA Stop: 10/11/20 22:58 Last Admin: 10/11/20 23:04 Dose: 1 mg Documented by: Ondansetron HCl (Ondansetron 4 Mg/2 Ml Sdv) 4 mg IVPUSH ONETIME ONE Stop: 10/11/20 19:52 Last Admin: 10/11/20 20:09 Dose: 4 mg Documented by: Vancomycin HCl (Pharmacy To Dose - Vancomycin) 1 dose .XX ASDIRECTED [facility] Vancomycin HCl (Vancomycin 1 Gm Sdv) Confirm Administered Dose 1 gm .ROUTE .STK- MED ONE Stop: 10/12/20 19:22 Last Admin: 10/12/20 19:38 Dose: Not Given Documented by: - Exam General: Alert, Oriented, Cooperative Lungs: Clear to Auscultation, Normal Respiratory Effort Cardiovascular: Regular Rate, Regular Rhythm, No Murmurs GI/Abdominal Exam: Soft, Non-Tender, No Organomegaly, No Distention - Patient Data Lab Results Last 24 hrs: Laboratory Results - last 24 hr 10/13/20 10/13/20 10/13/20 Range/Units 06:26 06:26 06:26 WBC (3.98-10.04) K/mm3 RBC (3.98-5.22) M/mm3 Hgb (11.2-15.7) gm/dl Hct (34.1-44.9) % MCV (79.4-94.8) fl MCH (25.6-32.2) pg MCHC (32.2-35.5) g/dl RDW Std Deviation (36.4-46.3) fL Plt Count (182-369) K/mm3 MPV (9.4-12.3) fl Neut % (Auto) (34.0-71.1) % Lymph % (Auto) (19.3-51.7) % [place] % (Auto) (4.7-12.5) % Eos % (Auto) (0.7-5.8) Baso % (Auto) (0.1-1.2) % Neut # (Auto) (1.56-6.13) K/mm3 Lymph # (Auto) (1.18-3.74) K/mm3 [place] # (Auto) (0.24-0.36) K/mm3 Eos # (Auto) (0.04-0.36) K/mm3 Baso # (Auto) (0.01-0.08) K/mm3 Manual Slide Review Percent Retic (0.50-1.70) % Sodium (136-145) mEq/L Potassium (3.5-5.1) mEq/L Chloride (98-107) mEq/L Carbon Dioxide (21-32) mEq/L Anion Gap (5-15) BUN (7-18) mg/dL Creatinine (0.55-1.02) mg/dL Est Cr Clr Drug Dosing mL/min Estimated GFR (MDRD) (>60) mL/min BUN/Creatinine Ratio (14-18) Glucose (83-115) mg/dL POC Glucose (83-110) mg/dL Calcium (8.5-10.1) mg/dL Magnesium (1.8-2.4) mg/dl Ferritin 113 (8-252) ng/ml Procalcitonin 0.41 H ng/mL Mycoplasma pneumon IgM Negative (NEGATIVE) Blood Type Gel Antibody Screen Crossmatch 10/13/20 10/13/20 10/14/20 Range/Units 06:26 17:20 00:17 WBC (3.98-10.04) K/mm3 RBC (3.98-5.22) M/mm3 Hgb (11.2-15.7) gm/dl Hct (34.1-44.9) % MCV (79.4-94.8) fl MCH (25.6-32.2) pg MCHC (32.2-35.5) g/dl RDW Std Deviation (36.4-46.3) fL Plt Count (182-369) K/mm3 MPV (9.4-12.3) fl Neut % (Auto) (34.0-71.1) % Lymph % (Auto) (19.3-51.7) % [place] % (Auto) (4.7-12.5) % Eos % (Auto) (0.7-5.8) Baso % (Auto) (0.1-1.2) % Neut # (Auto) (1.56-6.13) K/mm3 Lymph # (Auto) (1.18-3.74) K/mm3 [place] # (Auto) (0.24-0.36) K/mm3 Eos # (Auto) (0.04-0.36) K/mm3 Baso # (Auto) (0.01-0.08) K/mm3 Manual Slide Review Percent Retic (0.50-1.70) % Sodium (136-145) mEq/L Potassium (3.5-5.1) mEq/L Chloride (98-107) mEq/L Carbon Dioxide (21-32) mEq/L Anion Gap (5-15) BUN (7-18) mg/dL Creatinine (0.55-1.02) mg/dL Est Cr Clr Drug Dosing mL/min Estimated GFR (MDRD) (>60) mL/min BUN/Creatinine Ratio (14-18) Glucose (83-115) mg/dL POC Glucose 193 H 133 H (83-110) mg/dL Calcium (8.5-10.1) mg/dL Magnesium (1.8-2.4) mg/dl Ferritin (8-252) ng/ml Procalcitonin ng/mL Mycoplasma pneumon IgM (NEGATIVE) Blood Type A POSITIVE Gel Antibody Screen Negative Crossmatch See Detail 10/14/20 10/14/20 10/14/20 Range/Units 05:15 05:15 05:15 WBC 14.22 H (3.98-10.04) K/mm3 RBC 3.61 L (3.98-5.22) M/mm3 Hgb 9.1 L D (11.2-15.7) gm/dl Hct 31.2 L (34.1-44.9) % MCV 86.4 D (79.4-94.8) fl MCH 25.2 L (25.6-32.2) pg MCHC 29.2 L (32.2-35.5) g/dl RDW Std Deviation 55.0 H (36.4-46.3) fL Plt Count 285 (182-369) K/mm3 MPV 9.5 (9.4-12.3) fl Neut % (Auto) 73.5 H (34.0-71.1) % Lymph % (Auto) 12.9 L (19.3-51.7) % [place] % (Auto) 9.8 (4.7-12.5) % Eos % (Auto) 3.4 (0.7-5.8) Baso % (Auto) 0.2 (0.1-1.2) % Neut # (Auto) 10.45 H (1.56-6.13) K/mm3 Lymph # (Auto) 1.83 (1.18-3.74) K/mm3 [place] # (Auto) 1.40 H (0.24-0.36) K/mm3 Eos # (Auto) 0.48 H (0.04-0.36) K/mm3 Baso # (Auto) 0.03 (0.01-0.08) K/mm3 Manual Slide Review Abnormal smear Percent Retic 1.63 (0.50-1.70) % Sodium 137 (136-145) mEq/L Potassium 4.5 (3.5-5.1) mEq/L Chloride 100 (98-107) mEq/L Carbon Dioxide 24 (21-32) mEq/L Anion Gap 17.5 H (5-15) BUN 95 H (7-18) mg/dL Creatinine 3.8 H (0.55-1.02) mg/dL Est Cr Clr Drug Dosing 13.17 mL/min Estimated GFR (MDRD) 12 (>60) mL/min BUN/Creatinine Ratio 25.0 H (14-18) Glucose 144 H (83-115) mg/dL POC Glucose (83-110) mg/dL Calcium 8.7 (8.5-10.1) mg/dL Magnesium 2.3 (1.8-2.4) mg/dl Ferritin (8-252) ng/ml Procalcitonin ng/mL Mycoplasma pneumon IgM (NEGATIVE) Blood Type Gel Antibody Screen Crossmatch Result Diagrams: 10/14/20 05:15 10/14/20 05:15 Sepsis Event Note - Evaluation Sepsis Screening Result: No Definite Risk - Focused Exam Vital Signs: Vital Signs Temp Pulse Pulse Resp BP BP Pulse Ox 10/14/20 10:39 138/78 10/14/20 10:38 138/78 10/14/20 10:35 63 14 138/78 94 L 10/14/20 10:31 63 138/78 10/14/20 03:55 98.2 F 64 13 137/64 93 L 10/14/20 00:34 98.1 F 66 12 115/59 L 95 10/14/20 00:10 98.1 F 66 12 115/59 L 95 - Problem List Review Problem List Initiated/Reviewed/Updated: No - Assessment Assessment:: Patient was admitted due to abdominal pain and concern for cholecystitis on CT scan read by Vrad. Full CT read did not reveal concern for acute cholecystitis or cholelithiasis. I reviewed the images myself, I could not appreciate any changes on the gallbladder concerning for acute inflammation or cholelithiasis. I had recommended HIDA scan to help rule out acute cholecystitis but this has not been done due to patient being on chronic fentanyl patch. As of 2 days ago, patient's abdominal complaints had completely resolved. She has no abdominal pain by history or exam. She is now tolerating diet and having bowel function. - Plan Plan:: Patient's abdominal complaints have now resolved completely. No need to pursue a HIDA scan any longer. Continue diet as tolerated. Ok to discharge patient back to her facility from surgical standpoint. Thank you for allowing me to be involved in this patient's care. Please call with any questions.
[2020-10-14] MEDS: Cefepime 1 GM in Premix Bag 1 BAG IV SCH (12:50)
[2020-10-14] MEDS ORDERED: Furosemide 40 MG/4 ML VIAL IVPUSH SCH (14:00)
[2020-10-14] MEDS: Nystatin Topical Powder 15 GM Bottle TOP SCH ×3 (15:26→21:14)
[2020-10-14] MEDS: Dextrose 5%-0.45% NaCl 1,000 ML IV SCH (18:47)
[2020-10-15] MEDS: Heparin Sodium 5,000 Units/ML Vial SUBCUT SCH ×3 (03:24→17:48)
[2020-10-15] MEDS ORDERED: Doxycycline 100 MG in Sodium Chloride 0.9% 100 ML IV SCH (04:00)
--- NOTE | 2020-10-15 08:39 | PCM.PN ---
- General Info Date of Service: 10/15/20 Admission Dx/Problem (Free Text): Admission Diagnosis/Problem Admission Diagnosis/Problem Abdominal pain Subjective Update: Patient is doing well today. Renal function is slightly improved and she is tolerating her IV therapy. She is no longer having any outburst and is no longer refusing treatment. - Patient Data Vitals - Most Recent: Last Vital Signs Temp 98.1 F 10/15/20 03:21 Pulse 62 10/15/20 03:21 Resp 13 10/15/20 03:21 BP 128/85 10/15/20 03:21 Pulse Ox 94 L 10/15/20 03:21 Weight - Most Recent: 270 lb 14.4 oz I&O - Last 24 Hours: Intake & Output 10/14/20 10/15/20 10/15/20 21:59 06:59 14:59 Intake Total Balance Lab Results Last 24 Hours: Laboratory Results - last 24 hr 10/14/20 10/15/20 10/15/20 Range/Units 21:02 05:40 05:40 WBC 12.36 H (3.98-10.04) K/mm3 RBC 3.55 L (3.98-5.22) M/mm3 Hgb 9.1 L (11.2-15.7) gm/dl Hct 30.5 L (34.1-44.9) % MCV 85.9 (79.4-94.8) fl MCH 25.6 (25.6-32.2) pg MCHC 29.8 L (32.2-35.5) g/dl RDW Std Deviation 54.0 H (36.4-46.3) fL Plt Count 301 (182-369) K/mm3 MPV 9.6 (9.4-12.3) fl Neut % (Auto) 70.1 (34.0-71.1) % Lymph % (Auto) 15.0 L (19.3-51.7) % [place] % (Auto) 8.8 (4.7-12.5) % Eos % (Auto) 5.7 (0.7-5.8) Baso % (Auto) 0.2 (0.1-1.2) % Neut # (Auto) 8.66 H (1.56-6.13) K/mm3 Lymph # (Auto) 1.85 (1.18-3.74) K/mm3 [place] # (Auto) 1.09 H (0.24-0.36) K/mm3 Eos # (Auto) 0.71 H (0.04-0.36) K/mm3 Baso # (Auto) 0.02 (0.01-0.08) K/mm3 Manual Slide Review Abnormal smear Sodium 139 (136-145) mEq/L Potassium 4.0 (3.5-5.1) mEq/L Chloride 102 (98-107) mEq/L Carbon Dioxide 24 (21-32) mEq/L Anion Gap 17.0 H (5-15) BUN 88 H (7-18) mg/dL Creatinine 3.5 H (0.55-1.02) mg/dL Est Cr Clr Drug Dosing 14.30 mL/min Estimated GFR (MDRD) 13 (>60) mL/min BUN/Creatinine Ratio 25.1 H (14-18) Glucose 114 (83-115) mg/dL POC Glucose 158 H (83-110) mg/dL Calcium 8.6 (8.5-10.1) mg/dL Magnesium 2.4 (1.8-2.4) mg/dl 10/15/20 Range/Units 05:57 WBC (3.98-10.04) K/mm3 RBC (3.98-5.22) M/mm3 Hgb (11.2-15.7) gm/dl Hct (34.1-44.9) % MCV (79.4-94.8) fl MCH (25.6-32.2) pg MCHC (32.2-35.5) g/dl RDW Std Deviation (36.4-46.3) fL Plt Count (182-369) K/mm3 MPV (9.4-12.3) fl Neut % (Auto) (34.0-71.1) % Lymph % (Auto) (19.3-51.7) % [place] % (Auto) (4.7-12.5) % Eos % (Auto) (0.7-5.8) Baso % (Auto) (0.1-1.2) % Neut # (Auto) (1.56-6.13) K/mm3 Lymph # (Auto) (1.18-3.74) K/mm3 [place] # (Auto) (0.24-0.36) K/mm3 Eos # (Auto) (0.04-0.36) K/mm3 Baso # (Auto) (0.01-0.08) K/mm3 Manual Slide Review Sodium (136-145) mEq/L Potassium (3.5-5.1) mEq/L Chloride (98-107) mEq/L Carbon Dioxide (21-32) mEq/L Anion Gap (5-15) BUN (7-18) mg/dL Creatinine (0.55-1.02) mg/dL Est Cr Clr Drug Dosing mL/min Estimated GFR (MDRD) (>60) mL/min BUN/Creatinine Ratio (14-18) Glucose (83-115) mg/dL POC Glucose 136 H (83-110) mg/dL Calcium (8.5-10.1) mg/dL Magnesium (1.8-2.4) mg/dl Med Orders - Current: Current Medications Acetaminophen (Acetaminophen 325 Mg Tab) 650 mg PO Q4H PRN PRN Reason: Pain Acetaminophen (Acetaminophen 325 Mg Tab) 650 mg PO [facility] Last Admin: 10/14/20 21:10 Dose: 650 mg Documented by: Hydrocodone Bitart/Acetaminophen (Acetaminophen/Hydrocodone 325-10 Mg Tab) 1 tab PO Q4H PRN PRN Reason: Pain Last Admin: 10/14/20 17:48 Dose: 1 tab Documented by: Al Hydroxide/Mg Hydroxide (Aluminum Hydroxide/Magnesium Hydroxide/Simethicone Susp 30 Ml Cup) 30 ml PO TID PRN PRN Reason: Indigestion Albuterol/Ipratropium (Albuterol/Ipratropium 3.0-0.5 Mg/3 Ml Neb Soln) 3 ml NEB Q6HRRT PRN PRN Reason: SOB/Wheezing Bisacodyl (Bisacodyl 10 Mg Supp) 10 mg RECTAL DAILY PRN PRN Reason: Constipation Calcium Carbonate/Glycine (Calcium Carbonate 500 Mg Tab.Chew) 500 mg PO Q6H PRN PRN Reason: Indigestion Carvedilol (Carvedilol 12.5 Mg Tab) 25 mg PO BID [facility] Last Admin: 10/14/20 21:07 Dose: 25 mg Documented by: Cholecalciferol (Cholecalciferol (Vitamin D3) 25 Mcg Tab) 50 mcg PO 0830 [facility] Last Admin: 10/14/20 10:39 Dose: 50 mcg Documented by: Diclofenac Sodium (Diclofenac Sodium 1% Gel 100 Gm Tube) 2 gm TOP QID [facility] Last Admin: 10/14/20 21:14 Dose: 1 applic Documented by: Famotidine (Famotidine 20 Mg Tab) 20 mg PO DAILY [facility] Last Admin: 10/14/20 10:36 Dose: 20 mg Documented by: Fentanyl (Fentanyl 12 Mcg/Hr Transdermal Patch) 12 mcg TRDERM Q72H [facility] Last Admin: 10/12/20 12:22 Dose: 12 mcg Documented by: Fentanyl (Fentanyl 25 Mcg/Hr Transdermal Patch) 25 mcg TRDERM Q72H [facility] Last Admin: 10/12/20 12:22 Dose: 25 mcg Documented by: Heparin Sodium (Porcine) (Heparin Sodium 5,000 Units/Ml Vial) 5,000 units SUBCUT Q8H [facility] Last Admin: 10/15/20 03:24 Dose: 5,000 units Documented by: Hydralazine HCl (Hydralazine 25 Mg Tab) 50 mg PO BID [facility] Last Admin: 10/14/20 21:08 Dose: 50 mg Documented by: Hydromorphone HCl (Hydromorphone 1 Mg/Ml Syringe) 1 mg IVPUSH Q2H PRN PRN Reason: Pain Last Admin: 10/13/20 20:52 Dose: 1 mg Documented by: Dextrose/Sodium Chloride (Dextrose 5%-1/2 Ns) 1,000 mls @ 75 mls/hr IV ASDIRECTED [facility] Last Admin: 10/14/20 18:47 Dose: 75 mls/hr Documented by: Cefepime HCl 1 gm/ Premix 50 mls @ 100 mls/hr IV Q24H [facility] Last Admin: 10/14/20 12:50 Dose: Not Given Documented by: Doxycycline Hyclate 100 mg/ (Sodium Chloride) 100 mls @ 100 mls/hr IV Q12H [facility] Last Admin: 10/15/20 03:25 Dose: 100 mls/hr Documented by: Insulin Human Lispro (Insulin Lispro 100 Unit/Ml) 0 unit SUBCUT QIDACANDBED [facility] ; Protocol Last Admin: 10/15/20 07:01 Dose: Not Given Documented by: Isosorbide Mononitrate (Isosorbide Mononitrate 30 Mg Tab.Er) 30 mg PO BID [facility] Last Admin: 10/14/20 21:10 Dose: 30 mg Documented by: Magnesium Hydroxide (Magnesium Hydroxide 400 Mg/5 Ml Susp 30 Ml Cup) 30 ml PO BEDTIME PRN PRN Reason: Indigestion Miscellaneous Information (Remove Fentanyl 12 Mcg/Hr Patch) 1 ea TRDERM Q72H [facility] Last Admin: 10/12/20 13:40 Dose: Not Given Documented by: Miscellaneous Information (Remove Fentanyl 25 Mcg/Hr Patch) 1 ea TRDERM Q72H [facility] Last Admin: 10/12/20 13:40 Dose: Not Given Documented by: Nitroglycerin (Nitroglycerin 0.4 Mg Tab.Sl) 0.4 mg SL ASDIRECTED PRN PRN Reason: Chest Pain Nystatin (Nystatin Topical Powder 15 Gm Bottle) 1 gm TOP QID [facility] Last Admin: 10/14/20 21:14 Dose: 1 applic Documented by: Ondansetron HCl (Ondansetron 4 Mg/2 Ml Sdv) 4 mg IVPUSH Q8H PRN PRN Reason: Nausea/Vomiting Last Admin: 10/14/20 11:00 Dose: 4 mg Documented by: Ondansetron HCl (Ondansetron 4 Mg Tab.Dis) 4 mg PO Q6H PRN PRN Reason: Nausea Polyethylene Glycol (Polyethylene Glycol 3350 Powder 17 Gm Packet) 17 gm PO 0830 [facility] Last Admin: 10/14/20 10:39 Dose: Not Given Documented by: Ropinirole HCl (Ropinirole 0.25 Mg Tab) 0.25 mg PO BEDTIME [facility] Last Admin: 10/14/20 21:09 Dose: 0.25 mg Documented by: Senna/Docusate Sodium (Docusate Sodium/Sennosides 50-8.6 Mg Tab) 1 tab PO BID [facility] Last Admin: 10/14/20 21:10 Dose: 1 tab Documented by: Trazodone HCl (Trazodone 50 Mg Tab) 200 mg PO BEDTIME [facility] Last Admin: 10/14/20 21:09 Dose: 200 mg Documented by: Discontinued Medications Carvedilol (Carvedilol 12.5 Mg Tab) 25 mg PO 829,1999 [facility] Last Admin: 10/12/20 09:59 Dose: 25 mg Documented by: Dicyclomine HCl (Dicyclomine 10 Mg Cap) 0 mg PO Q2H PRN PRN Reason: Congestion Furosemide (Furosemide 40 Mg/4 Ml Vial) 40 mg IVPUSH ASDIRECTED [facility] Stop: 10/14/20 18:00 Furosemide (Furosemide 40 Mg/4 Ml Vial) 40 mg IVPUSH NOW ONE Stop: 10/13/20 21:29 Last Admin: 10/13/20 21:38 Dose: 40 mg Documented by: Hydromorphone HCl (Hydromorphone 1 Mg/Ml Syringe) 1 mg IVPUSH ONETIME ONE Stop: 10/11/20 19:52 Last Admin: 10/11/20 20:08 Dose: 1 mg Documented by: Hydromorphone HCl (Hydromorphone 1 Mg/Ml Syringe) 1 mg IVPUSH ONETIME ONE Stop: 10/11/20 22:01 Last Admin: 10/11/20 22:13 Dose: 1 mg Documented by: Sodium Chloride (Normal Saline) 1,000 mls @ 100 mls/hr IV ASDIRECTED [facility] Last Admin: 10/11/20 20:09 Dose: 100 mls/hr Documented by: Piperacillin Sod/Tazobactam (Sod 2.25 gm/ Sodium Chloride) 100 mls @ 25 mls/hr IV Q6H [facility] Last Admin: 10/12/20 04:18 Dose: 25 mls/hr Documented by: Piperacillin Sod/Tazobactam (Sod 4.5 gm/ Sodium Chloride) 100 mls @ 25 mls/hr IV Q8H [facility] Last Admin: 10/12/20 10:11 Dose: 25 mls/hr Documented by: Piperacillin Sod/Tazobactam (Sod 4.5 gm/ Sodium Chloride) 100 mls @ 25 mls/hr IV Q12H [facility] Last Admin: 10/12/20 14:57 Dose: Not Given Documented by: Piperacillin Sod/Tazobactam (Sod 4.5 gm/ Sodium Chloride) 100 mls @ 25 mls/hr IV Q12H [facility] Vancomycin HCl 2 gm/ Sodium (Chloride) 500 mls @ 250 mls/hr IV ONETIME ONE Stop: 10/12/20 20:59 Last Admin: 10/12/20 19:36 Dose: 250 mls/hr Documented by: Vancomycin HCl 2 gm/ Sodium (Chloride) 500 mls @ 250 mls/hr IV ONETIME ONE Stop: 10/12/20 21:29 Last Admin: 10/12/20 19:39 Dose: Not Given Documented by: Doxycycline Hyclate 100 mg/ (Sodium Chloride) 100 mls @ 100 mls/hr IV Q12H [facility] Last Admin: 10/14/20 23:02 Dose: Not Given Documented by: Sodium Chloride (Normal Saline) Confirm Administered Dose 500 mls @ as directed .ROUTE .STK-MED ONE Stop: 10/13/20 17:08 Last Admin: 10/13/20 20:51 Dose: Not Given Documented by: Insulin Human Lispro (Insulin Lispro 100 Unit/Ml) 15 unit SUBCUT 0800,1200,1700 [facility] Last Admin: 10/12/20 18:48 Dose: Not Given Documented by: Insulin Human Lispro (Insulin Lispro 100 Unit/Ml) 0 unit SUBCUT Q6H [facility]; Protocol Last Admin: 10/13/20 20:51 Dose: Not Given Documented by: Insulin Human Lispro (Insulin Lispro 100 Unit/Ml) 0 unit SUBCUT Q6H [facility]; Protocol Last Admin: 10/14/20 06:50 Dose: Not Given Documented by: Lorazepam (Lorazepam 2 Mg/Ml Sdv) 1 mg IVPUSH ONETIME STA Stop: 10/11/20 22:58 Last Admin: 10/11/20 23:04 Dose: 1 mg Documented by: Ondansetron HCl (Ondansetron 4 Mg/2 Ml Sdv) 4 mg IVPUSH ONETIME ONE Stop: 10/11/20 19:52 Last Admin: 10/11/20 20:09 Dose: 4 mg Documented by: Vancomycin HCl (Pharmacy To Dose - Vancomycin) 1 dose .XX ASDIRECTED [facility] Vancomycin HCl (Vancomycin 1 Gm Sdv) Confirm Administered Dose 1 gm .ROUTE .STK- MED ONE Stop: 10/12/20 19:22 Last Admin: 10/12/20 19:38 Dose: Not Given Documented by: - Exam Quality Assessment: Supplemental Oxygen General: Alert, Oriented HEENT: Pupils Equal, Mucous Membr. Moist/[place] Neck: Supple Lungs: Clear to Auscultation, Normal Respiratory Effort Cardiovascular: Regular Rate, Regular Rhythm GI/Abdominal Exam: Normal Bowel Sounds, Soft, Non-Tender, No Distention Skin: Warm, Dry, Intact Psy/Mental Status: Alert, Normal Affect, Normal Mood - Patient Data Lab Results Last 24 hrs: Laboratory Results - last 24 hr 10/14/20 10/15/20 10/15/20 Range/Units 21:02 05:40 05:40 WBC 12.36 H (3.98-10.04) K/mm3 RBC 3.55 L (3.98-5.22) M/mm3 Hgb 9.1 L (11.2-15.7) gm/dl Hct 30.5 L (34.1-44.9) % MCV 85.9 (79.4-94.8) fl MCH 25.6 (25.6-32.2) pg MCHC 29.8 L (32.2-35.5) g/dl RDW Std Deviation 54.0 H (36.4-46.3) fL Plt Count 301 (182-369) K/mm3 MPV 9.6 (9.4-12.3) fl Neut % (Auto) 70.1 (34.0-71.1) % Lymph % (Auto) 15.0 L (19.3-51.7) % [place] % (Auto) 8.8 (4.7-12.5) % Eos % (Auto) 5.7 (0.7-5.8) Baso % (Auto) 0.2 (0.1-1.2) % Neut # (Auto) 8.66 H (1.56-6.13) K/mm3 Lymph # (Auto) 1.85 (1.18-3.74) K/mm3 [place] # (Auto) 1.09 H (0.24-0.36) K/mm3 Eos # (Auto) 0.71 H (0.04-0.36) K/mm3 Baso # (Auto) 0.02 (0.01-0.08) K/mm3 Manual Slide Review Abnormal smear Sodium 139 (136-145) mEq/L Potassium 4.0 (3.5-5.1) mEq/L Chloride 102 (98-107) mEq/L Carbon Dioxide 24 (21-32) mEq/L Anion Gap 17.0 H (5-15) BUN 88 H (7-18) mg/dL Creatinine 3.5 H (0.55-1.02) mg/dL Est Cr Clr Drug Dosing 14.30 mL/min Estimated GFR (MDRD) 13 (>60) mL/min BUN/Creatinine Ratio 25.1 H (14-18) Glucose 114 (83-115) mg/dL POC Glucose 158 H (83-110) mg/dL Calcium 8.6 (8.5-10.1) mg/dL Magnesium 2.4 (1.8-2.4) mg/dl 10/15/20 Range/Units 05:57 WBC (3.98-10.04) K/mm3 RBC (3.98-5.22) M/mm3 Hgb (11.2-15.7) gm/dl Hct (34.1-44.9) % MCV (79.4-94.8) fl MCH (25.6-32.2) pg MCHC (32.2-35.5) g/dl RDW Std Deviation (36.4-46.3) fL Plt Count (182-369) K/mm3 MPV (9.4-12.3) fl Neut % (Auto) (34.0-71.1) % Lymph % (Auto) (19.3-51.7) % [place] % (Auto) (4.7-12.5) % Eos % (Auto) (0.7-5.8) Baso % (Auto) (0.1-1.2) % Neut # (Auto) (1.56-6.13) K/mm3 Lymph # (Auto) (1.18-3.74) K/mm3 [place] # (Auto) (0.24-0.36) K/mm3 Eos # (Auto) (0.04-0.36) K/mm3 Baso # (Auto) (0.01-0.08) K/mm3 Manual Slide Review Sodium (136-145) mEq/L Potassium (3.5-5.1) mEq/L Chloride (98-107) mEq/L Carbon Dioxide (21-32) mEq/L Anion Gap (5-15) BUN (7-18) mg/dL Creatinine (0.55-1.02) mg/dL Est Cr Clr Drug Dosing mL/min Estimated GFR (MDRD) (>60) mL/min BUN/Creatinine Ratio (14-18) Glucose (83-115) mg/dL POC Glucose 136 H (83-110) mg/dL Calcium (8.5-10.1) mg/dL Magnesium (1.8-2.4) mg/dl Result Diagrams: 10/15/20 05:40 10/15/20 05:40 Sepsis Event Note - Evaluation Sepsis Screening Result: No Definite Risk - Focused Exam Vital Signs: Vital Signs Temp Pulse Resp BP Pulse Ox 10/15/20 03:21 98.1 F 62 13 128/85 94 L 10/14/20 21:10 127/86 10/14/20 21:08 127/86 10/14/20 21:07 65 127/86 10/14/20 20:52 98.2 F 65 12 127/86 96 - Problem List & Annotations (1) Anemia SNOMED Code(s): 071644953 Code(s): D64.9 - ANEMIA, UNSPECIFIED Status: Acute Priority: High Current Visit: Yes Qualifiers: Anemia type: unspecified type Qualified Code(s): D64.9 - Anemia, unspecified (2) Infiltrate of lower lobe of right lung present on imaging study SNOMED Code(s): 393784417 Code(s): R91.8 - OTHER NONSPECIFIC ABNORMAL FINDING OF LUNG FIELD Status: Acute Priority: High Current Visit: Yes (3) Metastatic renal cell carcinoma SNOMED Code(s): 575964935 Code(s): C64.9 - MALIGNANT NEOPLASM OF UNSP KIDNEY, EXCEPT RENAL PELVIS Status: Chronic Priority: Medium Current Visit: Yes Qualifiers: Laterality: unspecified laterality Qualified Code(s): C64.9 - Malignant neoplasm of unspecified kidney, except renal pelvis (4) 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 SNOMED Code(s): 490226788, 393997218 Code(s): C25.9 - MALIGNANT NEOPLASM OF PANCREAS, UNSPECIFIED Status: Chronic Current Visit: Yes (5) Type II diabetes mellitus SNOMED Code(s): 25371222 Code(s): E11.9 - TYPE 2 DIABETES MELLITUS WITHOUT COMPLICATIONS Status: Chronic Priority: Low Current Visit: No Qualifiers: 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 insulin use: with skilled nursing use Diabetes mellitus complication status: with other specified complication Qualified Code(s): E11.69 - Type 2 diabetes mellitus with other specified complication; 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 She is laying in bed and is quite sleepy. We discussed her plan of care. She reports her abdominal pain has resolved. She is currently n.p.o. awaiting HIDA scan. Unfortunately radiology contacted us to report patient is unable to have HIDA scan because she had a fentanyl patch on and needs to be off of this for up to 4 hours prior to scan. We are unable to obtain any more nuclear material as this has to be ordered and will before those 4 hours are up. We will discuss plan of care further with Dr. Ferrer, consulting general surgeon. Patient's white count has improved to 15.88. Unfortunately hemoglobin continues to trend down and is 7 today. Discus sed plan for transfusion with patient and she refuses stating that she does not want blood. Advised patient that this would likely improve her renal function and make her feel better but the patient still refuses. We will repeat HH today and continue to discuss transfusion with patient. Renal function today has decreased. Creatinine is now 3.4, down from 2.9. GFR is 13. CRP is 19.5. Lipase 29. Hemoglobin A1c was obtained is 5.8. Discussed IV antibiotics with pharmacy and Dr. Vieira, attending hospitalist as patient has worsening renal function and MRSA screen was negative. We will continue cefepime and switch patient to twice daily doxycycline for now. Continue to monitor patient. 10/14/20 Patient lost IV access, refuses restart; declining any additional treatment. Currently she is free of abdominal pain. Has had a stable HgB post 2 unit PRBCs. Impression: Abdominal pain, NOS Refusing HIDA scan or additional testing. Refusing re-start of IV site. Pancreatic CA, stage 4; pain controlled Anemia, S/P 2 units PRBCs Acute confusion, resolved Plan: Home meds Pancreatic CA treatment HIDA scan, etc as OPif agreeable Follow Up with PCP/Oncology at [place] Await call back from [facility] regarding [place]. 10/15/2020 Patient is allowing treatment at this time. IV antibiotics will be stopped since she has a negative white count and procalcitonin. Likely changes on chest x-ray are atelectasis not pneumonia. We will continue with IV fluids in hopes to improve her renal function. Continue to encourage oral intake as tolerated. Abdominal pain and nausea appears to be resolved. Creatinine after going up to 3.8 yesterday is down to 3.5 today. BUN is still very elevated 88 consistent with hypovolemia. Review of her previous WBC shows that she is chronically above 10 and her current WBC of 12.4 appears to be in her normal range over the last 3 years. Plan will be to follow her renal function tomorrow after another 24 hours of antibiotics and hopefully DC home back to [facility]. - Plan Plan:: LOS update, 10/13/20 Hospital Course has been prolonged as acute problems have required attention eg delay in HIDA scan based on protocol and availability; also patient's reluctance to consent to blood transfusion; as well as acute on chronic renal failure. Thus the delay has many layers, anticipate DC on or after 10/17/20 as per the HIDA scan results. LOS update, 10/14/20 Patient is refusing any additional care; [facility] has been notified, we are awaiting a call back from the facility.
[2020-10-15] MEDS: Isosorbide Mononitrate 30 MG Tab.ER PO SCH ×2 (08:54→21:11)
[2020-10-15] MEDS: hydrALAZINE 25 MG Tab PO SCH ×2 (08:54→21:11)
[2020-10-15] MEDS: Famotidine 20 MG Tab PO SCH (08:56)
[2020-10-15] MEDS: Carvedilol 12.5 MG Tab PO SCH ×2 (08:56→21:12)
[2020-10-15] MEDS: Polyethylene Glycol 3350 Powder 17 GM Packet PO SCH (08:58)
[2020-10-15] MEDS: Nystatin Topical Powder 15 GM Bottle TOP SCH ×4 (08:59→21:11)
[2020-10-15] MEDS: Acetaminophen 325 MG Tab PO SCH ×2 (09:33→21:10)
[2020-10-15] MEDS: Cholecalciferol (Vitamin D3) 25 MCG Tab PO SCH (09:33)
[2020-10-15] MEDS: Cefepime 1 GM in Premix Bag 1 BAG IV SCH (10:02)
[2020-10-15] MEDS: fentaNYL 12 MCG/HR Transdermal Patch TRDERM SCH (10:08)
[2020-10-15] MEDS: REMOVE FENTANYL TRDERM SCH ×2 (10:12)
[2020-10-15] MEDS: fentaNYL 25 MCG/HR Transdermal Patch TRDERM SCH (10:13)
[2020-10-15] MEDS: Diclofenac Sodium 1% Gel 100 GM Tube TOP SCH ×4 (10:45→21:10)
[2020-10-15] MEDS: Dextrose 5%-0.45% NaCl 1,000 ML IV SCH (14:12)
[2020-10-15] MEDS: traZODone 50 MG Tab PO SCH (21:11)
[2020-10-15] MEDS: rOPINIRole 0.25 MG Tab PO SCH (21:11)
[2020-10-16] MEDS: Heparin Sodium 5,000 Units/ML Vial SUBCUT SCH ×2 (01:59→09:36)
[2020-10-16] MEDS: Dextrose 5%-0.45% NaCl 1,000 ML IV SCH (03:32)
[2020-10-16 07:31] VITALS: BP 141/86
[2020-10-16] MEDS: Famotidine 20 MG Tab PO SCH (09:36)
[2020-10-16] MEDS: hydrALAZINE 25 MG Tab PO SCH (09:37)
[2020-10-16] MEDS: Isosorbide Mononitrate 30 MG Tab.ER PO SCH (09:38)
[2020-10-16] MEDS: Carvedilol 12.5 MG Tab PO SCH (09:39)
--- NOTE | 2020-10-16 09:39 | PCM.DCSUM1 ---
Discharge Summary - Hospital Course HPI Initial Comments: 69 year old female presents with abdominal pain for approximately 1 week. This has been associated with N/V. The type of food is not a trigger. There has been a decreased appetite; she denies F/C. The patient has a history of Pancreatic Cancer, stage IV. She is receiving immunotherapy. Empiric ATB will be started. Currently she is on Zosyn. Will change coverage to Cefepime, Vancomycin. HgB trend is needed with PRBCs as needed. Address goal of therapy with Pancreatic CA, stage IV. Diagnosis: Stroke: No - Discharge Data Discharge Date: 10/16/20 (Admit date: 10/12/20) Discharge Disposition: DC/Tfer to SNF 03 Condition: Fair - Referral to Home Health Primary Care Physician: Ry Pulido MD - Discharge Diagnosis/Problem(s) (1) Abdominal pain of unknown etiology SNOMED Code(s): 653285329 ICD Code: R10.9 - UNSPECIFIED ABDOMINAL PAIN Status: Resolved Current Visit: Yes (2) Anemia SNOMED Code(s): 032241459 ICD Code: D64.9 - ANEMIA, UNSPECIFIED Status: Acute Priority: High Current Visit: Yes Qualifiers: Anemia type: unspecified type Qualified Code(s): D64.9 - Anemia, unspecified (3) Infiltrate of lower lobe of right lung present on imaging study SNOMED Code(s): 250308001 ICD Code: R91.8 - OTHER NONSPECIFIC ABNORMAL FINDING OF LUNG FIELD Status: Resolved Priority: High Current Visit: Yes (4) Chronic renal insufficiency SNOMED Code(s): 246556216 ICD Code: N18.9 - CHRONIC KIDNEY DISEASE, UNSPECIFIED Status: Chronic Priority: Medium Current Visit: Yes Qualifiers: Chronic kidney disease stage: stage 4 (severe) Qualified Code(s): N18.4 - Chronic kidney disease, stage 4 (severe) (5) Congestive heart failure SNOMED Code(s): 07814144 ICD Code: I50.9 - HEART FAILURE, UNSPECIFIED Status: Chronic Priority: Medium Current Visit: No (6) 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 SNOMED Code(s): 643004579, 390271700 ICD Code: C25.9 - MALIGNANT NEOPLASM OF PANCREAS, UNSPECIFIED Status: Chronic Current Visit: Yes (7) Anxiety SNOMED Code(s): 18338688 ICD Code: F41.9 - ANXIETY DISORDER, UNSPECIFIED Status: Chronic Priority: Medium Current Visit: No (8) Arthritis SNOMED Code(s): 0739812 ICD Code: M19.90 - UNSPECIFIED OSTEOARTHRITIS, UNSPECIFIED SITE Status: Chronic Priority: Low Current Visit: No (9) GERD (gastroesophageal reflux disease) SNOMED Code(s): 484260038 ICD Code: K21.9 - GASTRO-ESOPHAGEAL REFLUX DISEASE WITHOUT ESOPHAGITIS Status: Chronic Priority: Low Current Visit: No Qualifiers: Esophagitis presence: esophagitis presence not specified Qualified Code(s): K21.9 - Gastro-esophageal reflux disease without esophagitis (10) HLD (hyperlipidemia) SNOMED Code(s): 91455055 ICD Code: E78.5 - HYPERLIPIDEMIA, UNSPECIFIED Status: Chronic Priority: Low Current Visit: No Qualifiers: Hyperlipidemia type: unspecified Qualified Code(s): E78.5 - Hyperlipidemia, unspecified (11) HTN (hypertension) SNOMED Code(s): 24929015 ICD Code: I10 - ESSENTIAL (PRIMARY) HYPERTENSION Status: Chronic Priority: Medium Current Visit: No Qualifiers: Hypertension type: unspecified Qualified Code(s): I10 - Essential (primary) hypertension (12) History of NH (myocardial infarction) SNOMED Code(s): 804260266 ICD Code: I25.2 - OLD MYOCARDIAL INFARCTION Status: Chronic Priority: Low Current Visit: No (13) Sleep apnea SNOMED Code(s): 30414828 ICD Code: G47.30 - SLEEP APNEA, UNSPECIFIED Status: Chronic Priority: Medium Current Visit: No Qualifiers: Sleep apnea type: unspecified type Qualified Code(s): G47.30 - Sleep apnea, unspecified (14) Type II diabetes mellitus SNOMED Code(s): 93199594 ICD Code: E11.9 - TYPE 2 DIABETES MELLITUS WITHOUT COMPLICATIONS Status: Chronic Priority: Low Current Visit: No Qualifiers: Diabetes mellitus continuous churn buttermaker insulin use: with prison use Diabetes mellitus complication status: with other specified complication Qualified Code(s): E11.69 - Type 2 diabetes mellitus with other specified complication; Z79.4 - snf (current) use of insulin (15) Metastatic renal cell carcinoma SNOMED Code(s): 961222688 ICD Code: C64.9 - MALIGNANT NEOPLASM OF UNSP KIDNEY, EXCEPT RENAL PELVIS Status: Chronic Priority: Medium Current Visit: Yes Qualifiers: Laterality: unspecified laterality Qualified Code(s): C64.9 - Malignant neoplasm of unspecified kidney, except renal pelvis (16) Obesity SNOMED Code(s): 216779808, 893450257 ICD Code: E66.9 - OBESITY, UNSPECIFIED Status: Chronic Priority: Medium Current Visit: Yes Qualifiers: Obesity type: unspecified obesity type Obesity classification: adult class 3 (BMI >= 40) Serious obesity comorbidity presence: unspecified whether andreea us comorbidity present Body mass index: BMI 40.0-44.9 Qualified Code(s): E66.01 - Morbid (severe) obesity due to excess calories; Z68.41 - Body mass index [BMI]40.0-44.9, adult (17) History of immunotherapy SNOMED Code(s): 704105347 ICD Code: Z92.89 - PERSONAL HISTORY OF OTHER MEDICAL TREATMENT Status: Chronic Priority: Medium Current Visit: No (18) Hypoxemia SNOMED Code(s): 812122860 ICD Code: R09.02 - HYPOXEMIA Status: Acute Priority: High Current Vi sit: Yes (19) Urinary retention SNOMED Code(s): 568738209 ICD Code: R33.9 - RETENTION OF URINE, UNSPECIFIED Status: Acute Priority: High Current Visit: Yes (20) Urinary incontinence SNOMED Code(s): 029306576 ICD Code: R32 - UNSPECIFIED URINARY INCONTINENCE Status: Chronic Priority: Medium Current Visit: Yes Qualifiers: Urinary Incontinence type: unspecified incontinence Qualified Code(s): R32 - Unspecified urinary incontinence - Patient Summary/Data Consults: Consultations 10/12/20 08:10 Consult to Physician [CONS] Routine 10/13/20 12:30 Consult to Respiratory Therapy [Respiratory Care Assess and Treatment] [CONS] Routine 10/13/20 12:40 Consult to Minister Helper [CONS] Routine 10/14/20 09:16 Consult to Physician [CONS] Routine Labs Pending at D/C: None Recommended Follow-up Testing/Procedures: Follow-up with primary care provider within 7-10 days of discharge, sooner if needed. Follow-up with oncology as scheduled. Hospital Course: This is a 69-year-old female who was admitted after being seen in the ED on 10/12/2020. She was originally admitted for abdominal pain and a possible pneumonia per chest x-ray showed increased density within the right upper and right lower lung, suggestive of a possible pneumonia. She was started on Zosyn in the ED and ultimately switched to IV cefepime and vancomycin on the floor. Vancomycin was stopped and he she was switched to doxycycline. Her white count did trend downward and her procalcitonin was negative so antibiotics were stopped. She completed treatment while here will not be sent home on any antibiotics. Patient has known stage IV pancreatic cancer. CT scan of the abdomen pelvis was obtained showing a low-density right upper pole renal abnormality possibly due to treated renal cell carcinoma. There is also noted to be an additional enhancing lesion next to this finding compatible with neoplastic recurrence. There is additional mass which appears to be acute seen within the more inferior right kidney which also appears to be neoplastic. Pancreatic abnormality was noted within the body of the pancreas. This could represent pancreatic neoplasm or metastatic lesion. This finding is not mentioned on prior preliminary exam. There is left sided femur abnormality breaking the cortical surface with soft tissue abnormality compatible with metastatic lesion and a small nodule within each lung base, difficult to exclude early metastatic lesions. There are other findings noted which are nonacute. On admission plan was to perform a HIDA scan on the patient however due to scheduling difficulties and patient continuing on her narcotics this was ultimately canceled. Patient's abdominal pain is since resolved. Dr. Ferrer, general surgeon was consulted and although originally recommending the HIDA scan he agrees since her abdominal pain has resolved at this will not be necessary. He believes she can be safely discharged back to [facility], where she resides. Patient's hemoglobin was noted to trend downward while here and got as low as 7.0. She was given 2 units of packed red blood cells and her hemoglobin did respond appropriately. Hemoglobin after transfusion was noted to be 9.1 and did improved to 9.2 prior to discharge. She was noted to have worsening renal failure while here with her creatinine climbing as high as 3.7. This is acute on chronic as she normally has stage IV renal failure. Prior to discharge her renal function did improve. We will decrease her Lasix to 80 mg once daily, as it was 80 mg twice daily prior. While here she did have an episode of confusion and was refusing treatment. Dr. Vargas, psychiatry, was contacted at that time. This was a fairly short-lived episode and there were apparently other extenuating factors such as the patient's issues with her hearing aid. Her mental status did return to baseline and it is felt she would not need any treatment for this. She is requiring oxygen to keep her saturations above 90 and she will be discharged home on 2 L. This should be titrated as mentioned to keep saturations above 90. Recommend follow-up with primary care provider within 7 to 10 days of discharge, sooner if needed. Recommend patient follow-up with oncology as scheduled. Recommend repeat CBC, CMP, and magnesium at that appointment. Consider repeat chest x-ray. She will discharge back to [facility] today. Lasix was decreased to 80 mg daily as noted prior but otherwise all home medications were continued. Overall prognosis is very poor given significant metastatic disease. Patient is aware of the results of her scans. - Patient Instructions Diet: Diabetic Diet Activity: As Tolerated Driving: Do Not Drive Showering/Bathing: May Shower Notify Provider of: Fever, Increased Pain, Nausea and/or Vomiting Other/Special Instructions: Follow-up with primary care provider within 7-10 days of discharge, sooner if needed. Resume home medications as directed. Your lasix dosing was changed from 80mg twice a day to 80mg daily. Be sure to take this new dosing. You completed your antbioitic while here and you will not be prescribed anything else. Continue to utilize your incentive spirometer (clear/blue device you inhale through) and acapella (green tube you blow through) for 1-2 more weeks or until symptoms resolve. Should symptoms return or worsen contact your primary care provider or return to the Emergency Department. - Discharge Plan *PRESCRIPTION DRUG MONITORING PROGRAM REVIEWED*: Not Applicable *COPY OF PRESCRIPTION DRUG MONITORING REPORT IN PATIENT MAX: Not Applicable Prescriptions/Med Rec: Furosemide [Lasix] 80 mg PO DAILY #15 tab Home Medications: Home Meds Carvedilol [Coreg] 25 mg PO 0830,2000 05/16/16 [History] Insulin Aspart [NovoLOG] 15 unit SUBCUT 0800,1200,1700 05/16/16 [History] Potassium Chloride 20 meq PO Q48H 01/07/18 [History] Dextran 70/Hypromellose [Artificial Tears] 1 drop EYEBOTH BID PRN 12/23/18 [History] atorvaSTATin [Lipitor] 20 mg PO BEDTIME 12/23/18 [History] traZODone HCl [Trazodone HCl] 200 mg PO BEDTIME 12/23/18 [History] Acetaminophen [Tylenol Arthritis Pain] 650 mg PO 0830,199908/05/20 [History] Aloe Vera/Sodium Chloride [[place] Saline Nasal Gel] 1 applic PREETI Q2H PRN 08/05/20 [History] Cholecalciferol (Vitamin D3) [Vitamin D3] 2,000 unit PO 0830 08/05/20 [History] Dicyclomine [Bentyl] 2 spray PO Q2H PRN 08/05/20 [History] Famotidine 20 mg PO 0800,199908/05/20 [History] Insulin Aspart [NovoLOG] 0 unit SQ 0800,1200,1700,2100 08/05/20 [History] Isosorbide Mononitrate [Imdur] 30 mg PO 0830,199908/05/20 [History] fentaNYL [Fentanyl] 12 mcg TD Q72H 08/05/20 [History] hydrALAZINE [Apresoline] 50 mg PO 0830,199908/05/20 [History] polyethylene glycoL 3350 [MiraLAX] 17 gm PO 0830 08/05/20 [History] Insulin Degludec [Tresiba] 40 unit SQ 0800 10/02/20 [History] rOPINIRole [Requip] 0.25 mg PO BEDTIME 10/02/20 [History] Acetaminophen [Tylenol Arthritis] 650 mg PO Q4H PRN 10/11/20 [History] Alum Hydrox/Mag Hydrox/Simeth [Mag-Al Plus] 30 ml PO TID PRN 10/11/20 [History] Bisacodyl [Laxative Suppository] 10 mg RC DAILY PRN 10/11/20 [History] Calcium Carbonate [Tums [place]] 40 mg PO Q6H PRN 10/11/20 [History] Diclofenac Sodium [Voltaren 1% Gel] 2 gm TOP QID 10/11/20 [History] Hydrocodone/Acetaminophen [Hydrocodone-Acetamin 10-325 mg] 1 each PO Q4H PRN 10/11/20 [History] Magnesium Hydroxide [Milk of Magnesia] 30 ml PO BEDTIME PRN 10/11/20 [History] Nitroglycerin 0.4 mg SL ASDIRECTED PRN 10/11/20 [History] Ondansetron [Zofran ODT] 4 mg PO Q6H PRN 10/11/20 [History] Oxymetazoline [Afrin Original 0.05% Nasal [place]] 2 spray PREETI BID PRN 10/11/20 [History] Sennosides/Docusate Sodium [Senna-Docusate Sodium Tablet] 1 each PO BID 10/11/20 [History] Sodium Chloride [[place]] 44 ml NS 10/11/20 [History] fentaNYL [Fentanyl] 25 mcg TD Q72H 10/11/20 [History] Furosemide [Lasix] 80 mg PO DAILY #15 tab 10/16/20 [Rx] Oxygen Therapy Mode: Room Air Oxygen Flow Rate (L/min): 2 Maintain SpO2% greater than: 90 Patient Handouts: Diabetes Mellitus and Sick Day Management, Heart Failure Action Plan, Sepsis, Diagnosis, Adult Forms: ED Department Discharge Referrals: Pacheco Salmeron MD [Ordering Only Provider] - Ry Pulido MD [Primary Care Provider] - - Discharge Summary/Plan Comment DC Time >30 min.: Yes (45 mins ) - General Info Date of Service: 10/16/20 Admission Dx/Problem (Free Text: Admission Diagnosis/Problem Admission Diagnosis/Problem Abdominal pain Functional Status: Reports: Pain Controlled, Tolerating Diet, Ambulating, Urinating, Incentive Spirometry, Other (Acapella ). Denies: New Symptoms - Review of Systems General: Reports: No Symptoms, Weakness (improved ). Denies: Fever, Fatigue, Ma laise, Chills HEENT: Reports: No Symptoms. Denies: Headaches, Sore Throat Pulmonary: Reports: No Symptoms. Denies: Shortness of Breath, Cough, Sputum, Wheezing Cardiovascular: Reports: Dyspnea on Exertion, Edema. Denies: Chest Pain, Palpitations Gastrointestinal: Reports: No Symptoms. Denies: Abdominal Pain, Constipation, Diarrhea, Nausea, Vomiting Genitourinary: Reports: No Symptoms. Denies: Pain Musculoskeletal: Reports: No Symptoms Skin: Reports: No Symptoms. Denies: Cyanosis Neurological: Reports: Weakness. Denies: Confusion, Difficulty Walking, Gait Disturbance Psychiatric: Reports: No Symptoms - Patient Data Vitals - Most Recent: Last Vital Signs Temp 97.5 F 10/16/20 07:19 Pulse 60 10/16/20 07:19 Resp 14 10/16/20 07:19 BP 141/86 H 10/16/20 07:19 Pulse Ox 90 L 10/16/20 07:19 Weight - Most Recent: 273 lb 3.2 oz I&O - Last 24 hours: Intake & Output 10/15/20 10/16/20 10/16/20 22:59 06:59 14:59 Intake Total 1120 1550 Output Total 650 Balance 1120 900 Lab Results - Last 24 hrs: Laboratory Results - last 24 hr 10/15/20 10/15/20 10/15/20 Range/Units 11:00 17:23 20:47 WBC (3.98-10.04) K/mm3 RBC (3.98-5.22) M/mm3 Hgb (11.2-15.7) gm/dl Hct (34.1-44.9) % MCV (79.4-94.8) fl MCH (25.6-32.2) pg MCHC (32.2-35.5) g/dl RDW Std Deviation (36.4-46.3) fL Plt Count (182-369) K/mm3 MPV (9.4-12.3) fl Neut % (Auto) (34.0-71.1) % Lymph % (Auto) (19.3-51.7) % [place] % (Auto) (4.7-12.5) % Eos % (Auto) (0.7-5.8) Baso % (Auto) (0.1-1.2) % Neut # (Auto) (1.56-6.13) K/mm3 Lymph # (Auto) (1.18-3.74) K/mm3 [place] # (Auto) (0.24-0.36) K/mm3 Eos # (Auto) (0.04-0.36) K/mm3 Baso # (Auto) (0.01-0.08) K/mm3 Manual Slide Review Sodium (136-145) mEq/L Potassium (3.5-5.1) mEq/L Chloride (98-107) mEq/L Carbon Dioxide (21-32) mEq/L Anion Gap (5-15) BUN (7-18) mg/dL Creatinine (0.55-1.02) mg/dL Est Cr Clr Drug Dosing mL/min Estimated GFR (MDRD) (>60) mL/min BUN/Creatinine Ratio (14-18) Glucose (83-115) mg/dL POC Glucose 172 H 170 H 222 H (83-110) mg/dL Calcium (8.5-10.1) mg/dL Magnesium (1.8-2.4) mg/dl Total Bilirubin (0.2-1.0) mg/dL AST (15-37) U/L ALT (14-59) U/L Alkaline Phosphatase (46-116) U/L Total Protein (6.4-8.2) g/dl Albumin (3.4-5.0) g/dl Globulin gm/dL Albumin/Globulin Ratio (1-2) 10/16/20 10/16/20 10/16/20 Range/Units 06:07 06:21 06:21 WBC 9.99 (3.98-10.04) K/mm3 RBC 3.65 L (3.98-5.22) M/mm3 Hgb 9.2 L (11.2-15.7) gm/dl Hct 31.5 L (34.1-44.9) % MCV 86.3 (79.4-94.8) fl MCH 25.2 L (25.6-32.2) pg MCHC 29.2 L (32.2-35.5) g/dl RDW Std Deviation 54.5 H (36.4-46.3) fL Plt Count 301 (182-369) K/mm3 MPV 8.9 L (9.4-12.3) fl Neut % (Auto) 61.6 (34.0-71.1) % Lymph % (Auto) 18.4 L (19.3-51.7) % [place] % (Auto) 10.0 (4.7-12.5) % Eos % (Auto) 9.4 H (0.7-5.8) Baso % (Auto) 0.2 (0.1-1.2) % Neut # (Auto) 6.15 H (1.56-6.13) K/mm3 Lymph # (Auto) 1.84 (1.18-3.74) K/mm3 [place] # (Auto) 1.00 H (0.24-0.36) K/mm3 Eos # (Auto) 0.94 H (0.04-0.36) K/mm3 Baso # (Auto) 0.02 (0.01-0.08) K/mm3 Manual Slide Review Not Reportable Sodium 140 (136-145) mEq/L Potassium 3.9 (3.5-5.1) mEq/L Chloride 105 (98-107) mEq/L Carbon Dioxide 24 (21-32) mEq/L Anion Gap 14.9 (5-15) BUN 79 H (7-18) mg/dL Creatinine 2.7 H (0.55-1.02) mg/dL Est Cr Clr Drug Dosing 18.54 mL/min Estimated GFR (MDRD) 17 (>60) mL/min BUN/Creatinine Ratio 29.3 H (14-18) Glucose 167 H (83-115) mg/dL POC Glucose 189 H (83-110) mg/dL Calcium 8.8 (8.5-10.1) mg/dL Magnesium 2.4 (1.8-2.4) mg/dl Total Bilirubin 0.6 (0.2-1.0) mg/dL AST 13 L (15-37) U/L ALT 19 (14-59) U/L Alkaline Phosphatase 225 H (46-116) U/L Total Protein 6.9 (6.4-8.2) g/dl Albumin 2.3 L (3.4-5.0) g/dl Globulin 4.6 gm/dL Albumin/Globulin Ratio 0.5 L (1-2) Med Orders - Current: Current Medications Acetaminophen (Acetaminophen 325 Mg Tab) 650 mg PO Q4H PRN PRN Reason: Pain Acetaminophen (Acetaminophen 325 Mg Tab) 650 mg PO [facility] Last Admin: 10/15/20 21:10 Dose: 650 mg Documented by: Hydrocodone Bitart/Acetaminophen (Acetaminophen/Hydrocodone 325-10 Mg Tab) 1 tab PO Q4H PRN PRN Reason: Pain Last Admin: 10/14/20 17:48 Dose: 1 tab Documented by: Al Hydroxide/Mg Hydroxide (Aluminum Hydroxide/Magnesium Hydroxide/Simethicone Susp 30 Ml Cup) 30 ml PO TID PRN PRN Reason: Indigestion Albuterol/Ipratropium (Albuterol/Ipratropium 3.0-0.5 Mg/3 Ml Neb Soln) 3 ml NEB Q6HRRT PRN PRN Reason: SOB/Wheezing Bisacodyl (Bisacodyl 10 Mg Supp) 10 mg RECTAL DAILY PRN PRN Reason: Constipation Calcium Carbonate/Glycine (Calcium Carbonate 500 Mg Tab.Chew) 500 mg PO Q6H PRN PRN Reason: Indigestion Carvedilol (Carvedilol 12.5 Mg Tab) 25 mg PO BID [facility] Last Admin: 10/15/20 21:12 Dose: 25 mg Documented by: Cholecalciferol (Cholecalciferol (Vitamin D3) 25 Mcg Tab) 50 mcg PO 0830 [facility] Last Admin: 10/15/20 09:33 Dose: 50 mcg Documented by: Diclofenac Sodium (Diclofenac Sodium 1% Gel 100 Gm Tube) 2 gm TOP QID [facility] Last Admin: 10/15/20 21:10 Dose: 1 applic Documented by: Famotidine (Famotidine 20 Mg Tab) 20 mg PO DAILY [facility] Last Admin: 10/15/20 08:56 Dose: 20 mg Documented by: Fentanyl (Fentanyl 12 Mcg/Hr Transdermal Patch) 12 mcg TRDERM Q72H [facility] Last Admin: 10/15/20 10:08 Dose: 12 mcg Documented by: Fentanyl (Fentanyl 25 Mcg/Hr Transdermal Patch) 25 mcg TRDERM Q72H [facility] Last Admin: 10/15/20 10:13 Dose: 25 mcg Documented by: Heparin Sodium (Porcine) (Heparin Sodium 5,000 Units/Ml Vial) 5,000 units SUBCUT Q8H [facility] Last Admin: 10/16/20 01:59 Dose: 5,000 units Documented by: Hydralazine HCl (Hydralazine 25 Mg Tab) 50 mg PO BID [facility] Last Admin: 10/15/20 21:11 Dose: 50 mg Documented by: Hydromorphone HCl (Hydromorphone 1 Mg/Ml Syringe) 1 mg IVPUSH Q2H PRN PRN Reason: Pain Last Admin: 10/13/20 20:52 Dose: 1 mg Documented by: Insulin Human Lispro (Insulin Lispro 100 Unit/Ml) 0 unit SUBCUT QIDACANDBED [facility]; Protocol Last Admin: 10/15/20 22:58 Dose: 2 units Documented by: Isosorbide Mononitrate (Isosorbide Mononitrate 30 Mg Tab.Er) 30 mg PO BID [facility] Last Admin: 10/15/20 21:11 Dose: 30 mg Documented by: Magnesium Hydroxide (Magnesium Hydroxide 400 Mg/5 Ml Susp 30 Ml Cup) 30 ml PO BEDTIME PRN PRN Reason: Indigestion Miscellaneous Information (Remove Fentanyl 12 Mcg/Hr Patch) 1 ea TRDERM Q72H [facility] Last Admin: 10/15/20 10:12 Dose: 1 ea Documented by: Miscellaneous Information (Remove Fentanyl 25 Mcg/Hr Patch) 1 ea TRDERM Q72H [facility] Last Admin: 10/15/20 10:12 Dose: 1 ea Documented by: Nitroglycerin (Nitroglycerin 0.4 Mg Tab.Sl) 0.4 mg SL ASDIRECTED PRN PRN Reason: Chest Pain Nystatin (Nystatin Topical Powder 15 Gm Bottle) 1 gm TOP QID [facility] Last Admin: 10/15/20 21:11 Dose: 1 applic Documented by: Ondansetron HCl (Ondansetron 4 Mg/2 Ml Sdv) 4 mg IVPUSH Q8H PRN PRN Reason: Nausea/Vomiting Last Admin: 10/14/20 11:00 Dose: 4 mg Documented by: Ondansetron HCl (Ondansetron 4 Mg Tab.Dis) 4 mg PO Q6H PRN PRN Reason: Nausea Polyethylene Glycol (Polyethylene Glycol 3350 Powder 17 Gm Packet) 17 gm PO 0830 [facility] Last Admin: 10/15/20 08:58 Dose: Not Given Documented by: Ropinirole HCl (Ropinirole 0.25 Mg Tab) 0.25 mg PO BEDTIME [facility] Last Admin: 10/15/20 21:11 Dose: 0.25 mg Documented by: Senna/Docusate Sodium (Docusate Sodium/Sennosides 50-8.6 Mg Tab) 1 tab PO BID [facility] Last Admin: 10/15/20 21:11 Dose: 1 tab Documented by: Trazodone HCl (Trazodone 50 Mg Tab) 200 mg PO BEDTIME [facility] Last Admin: 10/15/20 21:11 Dose: 200 mg Documented by: Discontinued Medications Carvedilol (Carvedilol 12.5 Mg Tab) 25 mg PO 0830,1999 [facility] Last Admin: 10/12/20 09:59 Dose: 25 mg Documented by: Dicyclomine HCl (Dicyclomine 10 Mg Cap) 0 mg PO Q2H PRN PRN Reason: Congestion Furosemide (Furosemide 40 Mg/4 Ml Vial) 40 mg IVPUSH ASDIRECTED [facility] Stop: 10/14/20 18:00 Furosemide (Furosemide 40 Mg/4 Ml Vial) 40 mg IVPUSH NOW ONE Stop: 10/13/20 21:29 Last Admin: 10/13/20 21:38 Dose: 40 mg Documented by: Hydromorphone HCl (Hydromorphone 1 Mg/Ml Syringe) 1 mg IVPUSH ONETIME ONE Stop: 10/11/20 19:52 Last Admin: 10/11/20 20:08 Dose: 1 mg Documented by: Hydromorphone HCl (Hydromorphone 1 Mg/Ml Syringe) 1 mg IVPUSH ONETIME ONE Stop: 10/11/20 22:01 Last Admin: 10/11/20 22:13 Dose: 1 mg Documented by: Sodium Chloride (Normal Saline) 1,000 mls @ [facility] Admin: 10/11/20 20:09 Dose: 100 mls/hr Documented by: Piperacillin Sod/Tazobactam (Sod 2.25 gm/ Sodium Chloride) 100 mls @ 25 mls/hr IV Q6H [facility] Last Admin: 10/12/20 04:18 Dose: 25 mls/hr Documented by: Piperacillin Sod/Tazobactam (Sod 4.5 gm/ Sodium Chloride) 100 mls @ 25 mls/hr IV Q8H [facility] Last Admin: 10/12/20 10:11 Dose: 25 mls/hr Documented by: Dextrose/Sodium Chloride (Dextrose 5%-1/2 Ns) 1,000 mls @ 75 mls[facility] Last Admin: 10/16/20 03:32 Dose: 75 mls/hr Documented by: Piperacillin Sod/Tazobactam (Sod 4.5 gm/ Sodium Chloride) 100 mls @ 25 mls/hr IV Q12H [facility] Last Admin: 10/12/20 14:57 Dose: Not Given Documented by: Piperacillin Sod/Tazobactam (Sod 4.5 gm/ Sodium Chloride) 100 mls @ 25 mls/hr IV Q12H [facility] Cefepime HCl 1 gm/ Premix 50 mls @ 100 mls/hr IV Q24H [facility] Last Admin: 10/15/20 10:02 Dose: 100 mls/hr Documented by: Vancomycin HCl 2 gm/ Sodium (Chloride) 500 mls @ 250 mls/hr IV ONETIME ONE Stop: 10/12/20 20:59 Last Admin: 10/12/20 19:36 Dose: 250 mls/hr Documented by: Vancomycin HCl 2 gm/ Sodium (Chloride) 500 mls @ 250 mls/hr IV ONETIME ONE Stop: 10/12/20 21:29 Last Admin: 10/12/20 19:39 Dose: Not Given Documented by: Doxycycline Hyclate 100 mg/ (Sodium Chloride) 100 mls @ 100 mls/hr IV Q12H [facility] Last Admin: 10/14/20 23:02 Dose: Not Given Documented by: Sodium Chloride (Normal Saline) Confirm Administered Dose 500 mls @ as directed .ROUTE .STK-MED ONE Stop: 10/13/20 17:08 Last Admin: 10/13/20 20:51 Dose: Not Given Documented by: Doxycycline Hyclate 100 mg/ (Sodium Chloride) 100 mls @ 100 mls/hr IV Q12H [facility] Last Admin: 10/15/20 03:25 Dose: 100 mls/hr Documented by: Insulin Human Lispro (Insulin Lispro 100 Unit/Ml) 15 unit SUBCUT 0800,1200,1700 [facility] Last Admin: 10/12/20 18:48 Dose: Not Given Documented by: Insulin Human Lispro (Insulin Lispro 100 Unit/Ml) 0 unit SUBCUT Q6H [facility]; Protocol Last Admin: 10/13/20 20:51 Dose: Not Given Documented by: Insulin Human Lispro (Insulin Lispro 100 Unit/Ml) 0 unit SUBCUT Q6H [facility]; Protocol Last Admin: 10/14/20 06:50 Dose: Not Given Documented by: Lorazepam (Lorazepam 2 Mg/Ml Sdv) 1 mg IVPUSH ONETIME STA Stop: 10/11/20 22:58 Last Admin: 10/11/20 23:04 Dose: 1 mg Documented by: Ondansetron HCl (Ondansetron 4 Mg/2 Ml Sdv) 4 mg IVPUSH ONETIME ONE Stop: 10/11/20 19:52 Last Admin: 10/11/20 20:09 Dose: 4 mg Documented by: Vancomycin HCl (Pharmacy To Dose - Vancomycin) 1 dose .XX ASDIRECTED [facility] Vancomycin HCl (Vancomycin 1 Gm Sdv) Confirm Administered Dose 1 gm .ROUTE .STK- MED ONE Stop: 10/12/20 19:22 Last Admin: 10/12/20 19:38 Dose: Not Given Documented by: - Exam Quality Assessment: Reports: Supplemental Oxygen (2L ), DVT Prophylaxis. Denies: Urine Catheter General: Reports: Alert, Oriented, Cooperative, No Acute Distress HEENT: Reports: Pupils Equal, Pupils Reactive, Mucous Membr. Moist/[place] Neck: Reports: Supple, Trachea Midline Lungs: Reports: Clear to Auscultation, Normal Respiratory Effort, Decreased Breath Sounds Cardiovascular: Reports: Regular Rate, Regular Rhythm GI/Abdominal Exam: Normal Bowel Sounds, Soft, Non-Tender, No Distention (Female) Exam: Deferred Rectal (Female) Exam: Deferred Extremities: Normal Inspection, Normal Range of Motion, Non-Tender, Normal Capillary Refill, Pedal Edema Skin: Reports: Warm, Dry, Intact Neurological: Reports: No New Focal Deficit Psy/Mental Status: Reports: Alert, Normal Affect, Normal Mood
[2020-10-16] MEDS: Acetaminophen 325 MG Tab PO SCH (09:44)
[2020-10-16] MEDS: Cholecalciferol (Vitamin D3) 25 MCG Tab PO SCH (09:46)
[2020-10-16] MEDS: Polyethylene Glycol 3350 Powder 17 GM Packet PO SCH (09:46)
[2020-10-16] MEDS: Diclofenac Sodium 1% Gel 100 GM Tube TOP SCH (09:49)
[2020-10-16] MEDS: Nystatin Topical Powder 15 GM Bottle TOP SCH (09:50)
[2020-10-16 13:23] VITALS: PULSE 70
== END 2020-10-16 12:22 | disposition home or self-care (01) | DRG 391 ==
LOC: JD.ED 19:01 → JD.MS 23:28 → INTOOBSV 10-12 08:51 → OBSVTOIN 10-12 08:51 → JD.MS 10-12 09:31 → UNDODISIN 10-16 12:22
PROVIDERS: ADMIT Family Medicine; ATTEND Family Medicine
PROC: 30233N1 Transfusion of Nonautologous Red Blood Cells into Peripheral Vein, Percutaneous Approach (ICD-10-PCS; principal; 2020-10-11)
DX: R10.84 Generalized abdominal pain (principal); R10.9 Unspecified abdominal pain; J18.9 Pneumonia, unspecified organism; J96.01 Acute respiratory failure with hypoxia; C25.9 Malignant neoplasm of pancreas, unspecified; N18.4 Chronic kidney disease, stage 4 (severe); I13.0 Hypertensive heart and chronic kidney disease with heart failure and stage 1 through stage 4 chronic kidney disease, or unspecified chronic kidney disease; C64.9 Malignant neoplasm of unspecified kidney, except renal pelvis; Z68.41 Body mass index [BMI] 40.0-44.9, adult; N17.9 Acute kidney failure, unspecified; C78.02 Secondary malignant neoplasm of left lung; C78.01 Secondary malignant neoplasm of right lung; C79.51 Secondary malignant neoplasm of bone; C79.01 Secondary malignant neoplasm of right kidney and renal pelvis; C79.9 Secondary malignant neoplasm of unspecified site; Z86.16 Personal history of COVID-19; D63.1 Anemia in chronic kidney disease; I50.9 Heart failure, unspecified; F41.9 Anxiety disorder, unspecified; M19.90 Unspecified osteoarthritis, unspecified site; K21.9 Gastro-esophageal reflux disease without esophagitis; E78.5 Hyperlipidemia, unspecified; G47.30 Sleep apnea, unspecified; R91.8 Other nonspecific abnormal finding of lung field; D64.9 Anemia, unspecified; E11.22 Type 2 diabetes mellitus with diabetic chronic kidney disease; E66.01 Morbid (severe) obesity due to excess calories; R33.9 Retention of urine, unspecified; R32 Unspecified urinary incontinence; H91.90 Unspecified hearing loss, unspecified ear; H54.7 Unspecified visual loss; I25.10 Atherosclerotic heart disease of native coronary artery without angina pectoris; C79.00 Secondary malignant neoplasm of unspecified kidney and renal pelvis; Z66 Do not resuscitate; E78.00 Pure hypercholesterolemia, unspecified; E66.9 Obesity, unspecified; E11.65 Type 2 diabetes mellitus with hyperglycemia; Z20.822 Contact with and (suspected) exposure to COVID-19; I25.2 Old myocardial infarction; Z92.89 Personal history of other medical treatment; Z79.4 Long term (current) use of insulin; Z79.899 Other long term (current) drug therapy; Z88.8 Allergy status to other drugs, medicaments and biological substances; Z88.2 Allergy status to sulfonamides; Z88.6 Allergy status to analgesic agent; Z98.41 Cataract extraction status, right eye; Z98.42 Cataract extraction status, left eye; Z95.5 Presence of coronary angioplasty implant and graft; Z95.810 Presence of automatic (implantable) cardiac defibrillator; Z90.49 Acquired absence of other specified parts of digestive tract
CPT/HCPCS: 36415; 71045; 74177; 80053; 81001; 83690; 83735; 85007; 85027; 87641; 96365; 96375; 96376 ×2; 99285; G0378 ×2; J1170 ×2; J2060; J2405; J2543 ×2; J7030; U0002; 36430; 51701; 51798; 80048; 82272; 82728; 82962; 83036; 83605; 84145; 85025; 85045; 86140; 86738; 86850; 86900; 86901; 86922; 94667; 94760; 94761; 99223; 99231; 99232; 99233; 99239; A9270-GY; J0692; J1644; J1815-GY; J1940; J3370; J3490; J7040; J7042; P9016